=== PATIENT | female | born 1940 | race Caucasian/White ===

== ENCOUNTER 2019-10-16 11:52 | Emergency (ER) | payer MEDICARE, OTHER, SELFPAY ==
[2019-10-16] VITALS (7 sets, daily range): BP systolic 109–154; BP diastolic 50–66; PULSE 77–87; RESP 16–20; TEMP 36.8; O2SAT 94–99; BMI 17.8
--- NOTE | 2019-10-16 12:12 | ED_ITS ---
Entered by Ai Justice, acting as scribe for Mark Horvath MD, [facility] [place] - General Adult General: Chief complaint: General Medical Stated complaint: LOWER EXT EDEMA, L ARM PAIN Time Seen by Provider: 10/16/19 12:02 Source: patient Mode of arrival: EMS Limitations: no limitations History of Present Illness: HPI narrative: 79 yo Female presents to ED with complaint of left upper extremity pain, bilateral leg swelling and redness. Pt states that the pain in her arm is going up from her hand and that her hand has never hurt like this before. Pt states that she has also had swelling and redness in her feet and lower legs. Pt states that she has had a heart attack before but she doesn't feel like she did during that heart attack. Pt states that she got scratched by a cat on Monday on her leg. complaint: Upper Extremity Pain/Lower extremity swelling and redness Onset (ago): day(s) Location: upper extremity and lower extremity Radiation: non-radiation Relieving factors: none Exacerbating factors: none Associated symptoms: Deny chest pain, dyspnea, headache(s), nausea, rash, palpitations or vomiting Treatments prior to arrival: none Review of Systems General: Reports: 10 or more systems reviewed and unremarkable except in HPI and below Const: Denies: fever, chills or body aches Eyes: Denies: change in vision or blurry vision ENMT: Denies: throat pain, enlarged tonsils, painful swallowing, hoarseness, mouth pain or swelling of lips/tongue Card: Denies: chest pain, palpitations, irregular heart rhythm, edema or swelling of feet/ankles Resp: Denies: shortness of breath, productive cough or non-productive cough GI: Denies: abdominal pain, nausea or vomiting : Denies: flank pain, difficulty urinating, painful urination, urinary frequency, urinary urgency or urinary hesitancy Musc: Reports: extremity pain (left upper), extremity swelling (bilateral lower) and redness; Denies: neck pain or back pain Skin/Breast: Reports: redness; Denies: rash or itching Neuro: Denies: headache, numbness in extremities or weakness in extremities Endo: Denies: excessive urination, excessive thirst or tired all the time [facility] ED PFSH: Medical History ASCVD (arteriosclerotic cardiovascular disease) CVA (cerebral vascular accident) GERD (gastroesophageal reflux disease) Mixed incontinence urge and stress Family History Family/Other No problems noted. Mother Myocardial infarction Sister Myocardial infarction Father Diabetes Other Cancer Hypertension Social History Smoking and tobacco status: former smoker Quit status (tobacco): has quit using tobacco Year quit tobacco: 2001 Alcohol intake: never Lives independently: Yes Household members: none Marital status: / Current occupational status: retired History of recent travel: No Current gender identity: Female Physical Exam Const: COMMON NORMALS: no apparent distress, average body habitus, oriented x3, no limitations, healthy appearing, alert and well nourished HENMT: COMMON NORMALS: normocephalic, head/scalp atraumatic and moist oral mucous membranes HEAD & SCALP: normocephalic and atraumatic Eye: COMMON NORMALS: PERRL, EOMs intact bilaterally, conjunctivae normal and no scleral icterus CONJUNCTIVA: Yes conjunctivae normal PUPIL: Yes PERRL Neck/C-Spine: COMMON NORMALS: full ROM, supple, no meningeal signs, no JVD and no carotid bruits Chest: COMMONS NORMALS: inspection of chest normal and palpation of chest normal Resp: COMMON NORMALS: normal respiratory effort, no retractions, no use of accessory muscles, clear to auscultation bilaterally and percussion normal AUSCULTATION: clear to auscultation bilaterally PERCUSSION: percussion normal Cardio: COMMON NORMALS: no JVD, regular rate, regular rhythm, S1 normal heart sound, S2 normal heart sound, no gallops, no clicks, no murmurs, no rub and peripheral pulses 2+ throughout RATE: regular rate RHYTHM: regular rhythm HEART SOUNDS: S1 normal and S2 normal PERIPHERAL PULSES: pulses 2+ throughout GI: COMMON NORMALS: normal to inspection, nondistended, normoactive bowel sounds, soft to palpation, non-tender, no hepatosplenomegaly, no masses and no bruits PALPATION: Yes soft and Yes no hepatosplenomegaly : COMMON NORMALS: Yes no CVA tenderness BLADDER/KIDNEY EXAM: Yes no CVA tenderness Back/Pelvis: COMMON NORMALS: no CVA tenderness Extremity: COMMON NORMALS: full ROM, normal capillary refill and no calf tenderness; negative for normal to inspection GENERAL: Yes normal exam except as noted and Yes edema (2+ left lower, 3+ right lower) OTHER: Erythema, warmth, tenderness, swelling in distal legs and feet. Brisk cap refill. Dorsalis pedis pulses palpable bilaterally. Neuro: COMMON NORMALS: oriented x3 SENSORIUM/ORIENTATION: Yes alert MENINGEAL SIGNS: Yes no meningeal signs Skin: COMMON NORMALS: no rashes or lesions noted, no wounds, skin turgor normal, no jaundice, no petechiae and no mottling GENERAL SKIN EXAM: no rashes or lesions noted and turgor normal Course Vital Signs: Vital signs: Vital Signs Temperature 98.3 F 10/16/19 12:03 Pulse Rate 86 10/16/19 18:00 Respiratory Rate 16 10/16/19 17:38 Blood Pressure 143/66 10/16/19 18:00 Pulse Oximetry 95 10/16/19 18:00 MDM - General Adult MDM Narrative: Medical decision making narrative: 79-year-old female patient who presented to the emergency department with left arm pain, as well as bilateral lower leg pain. She was evaluated for a cardiac cause of her arm pain and she had a flat 2 hour delta with a mildly elevated troponin. She is being managed as a case of cellulitis to her lower legs secondary to an animal scratch. She was given a dose of Rocephin here, and discharged home on Augmentin. Medical Records: Attestation: I reviewed the patient's medical records. Lab Data: Attestation: I reviewed the patient's lab results. Labs: Lab Results 10/16/19 10/16/19 10/16/19 Range/Units 13:40 13:40 13:40 WBC 7.6 (4.0-10.0) 10^3/ uL RBC 3.89 L (4.1-5.3) 10^6/u L Hgb 10.8 L (11.5-15.3) g/dL Hct 34.6 L (37.0-47.0) % MCV 88.9 (81-99) fL MCH 27.8 L (28.0-34.0) pg MCHC 31.2 (30.0-36.0) g/dL RDW 13.2 (12.1-15.1) % Plt Count 183 (130-400) 10^3/c mm MPV 10.6 H (7.4-10.4) fL Neut % (Auto) 68.2 % Lymph % (Auto) 18.7 % [place] % (Auto) 7.4 % Eos % (Auto) 4.7 % Baso % (Auto) 0.7 % Neut # (Auto) 5.2 (1.8-7.7) 10^3/u L Lymph # (Auto) 1.4 (0.8-4.8) 10^3/u L [place] # (Auto) 0.6 (0.2-0.9) 10^3/u L Eos # (Auto) 0.4 (0.0-0.8) 10^3/u L Baso # (Auto) 0.1 (0.0-0.1) 10^3/u L Nucleated RBC % (a uto) 0 % Nucleated RBCs # 0.0 /100WBC Sodium 134 L (136-145) mmol/L Potassium 3.8 (3.5-5.1) mmol/L Chloride 94 L (98-107) mmol/L Carbon Dioxide 30 H (22-29) mmol/L Anion Gap 13.8 (5-19) BUN 8 (8-23) mg/dL Creatinine 0.6 (0.5-0.9) mg/dL Glucose 88 (65-115) mg/dL Lactate 1.4 (0.5-2.2) mmol/L Calcium 9.7 (8.5-10.5) mg/dL Total Bilirubin 0.3 (0.15-1.2) mg/dL AST 27 (0-32) U/L ALT 15 (0-33) U/L Alkaline Phosphata se 100 (35-105) IU/L Troponin T Baselin e (0-10) ng/mL Troponin T 120 Min [place] (0-10) ng/mL Delta Troponin T (0-10) ABS# Total Protein 7.0 (6.6-8.7) g/dL Albumin 4.1 (3.5-5.2) g/dL Globulin 2.9 (1.3-4.6) g/dL 10/16/19 10/16/19 Range/Units 13:40 15:35 WBC (4.0-10.0) 10^3/ uL RBC (4.1-5.3) 10^6/u L Hgb (11.5-15.3) g/dL Hct (37.0-47.0) % MCV (81-99) fL MCH (28.0-34.0) pg MCHC (30.0-36.0) g/dL RDW (12.1-15.1) % Plt Count (130-400) 10^3/c mm MPV (7.4-10.4) fL Neut % (Auto) % Lymph % (Auto) % [place] % (Auto) % Eos % (Auto) % Baso % (Auto) % Neut # (Auto) (1.8-7.7) 10^3/u L Lymph # (Auto) (0.8-4.8) 10^3/u L [place] # (Auto) (0.2-0.9) 10^3/u L Eos # (Auto) (0.0-0.8) 10^3/u L Baso # (Auto) (0.0-0.1) 10^3/u L Nucleated RBC % (a uto) % Nucleated RBCs # /100WBC Sodium (136-145) mmol/L Potassium (3.5-5.1) mmol/L Chloride (98-107) mmol/L Carbon Dioxide (22-29) mmol/L Anion Gap (5-19) BUN (8-23) mg/dL Creatinine (0.5-0.9) mg/dL Glucose (65-115) mg/dL Lactate (0.5-2.2) mmol/L Calcium (8.5-10.5) mg/dL Total Bilirubin (0.15-1.2) mg/dL AST (0-32) U/L ALT (0-33) U/L Alkaline Phosphata se (35-105) IU/L Troponin T Baselin e 22 H (0-10) ng/mL Troponin T 120 [address] [place] 21.13 H (0-10) ng/mL Delta Troponin T -0.87 L (0-10) ABS# Total Protein (6.6-8.7) g/dL Albumin (3.5-5.2) g/dL Globulin (1.3-4.6) g/dL Imaging Data^: CXR: Radiologist's impression: [address] [address] XRay Report Signed Patient: Sneha Smith #: [id number] : 1941Acct#:[id number] Age/Sex: 79 / FADM Date: 10/16/19 Loc: ERRoom/Bed: Attending Dr: Ordering Provider/Ordering MD: Mark Horvath MD, [facility] [place] of Service: 10/16/19 Procedure(s): XR chest 2V* 26344 Accession Number(s): [id number] Report Number: [id number] WS: [id number] XR chest 2V* [id number] REASON FOR EXAM: chest pain FINDINGS: Upper aerated lungs with findings hemidiaphragm are seen with decre ased vascularity consistent with chronic obstructive pulmonary disease. The overall appearance the chest is similar to July 31, 2019. A scoliotic curve convex to the left is seen. A granuloma seen in the right apex of lung no tumors are seen. Arteriosclerotic changes in the arch of the aorta. The heart is small. XR/XR chest 2V* [id number] IMPRESSION: Chronic obstructive pulmonary disease. Dictated By:Chon Jimenez DO Signed By:Chon Jimenez DOSigned Date/Time:10/16/191337 DD/ EKG Data^: EKG 1: Attestation: I personally reviewed and interpreted this EKG as follows: EKG interpretation date: 10/16/19 EKG interpretation time: 13:13 Prior EKG tracings: not available for review Interpretation: Sinus rhythm. Heart rate 78. Normal axis. No ST changes. Computer generated interpretation: Chest X-Ray 10/16/19 13:00 IMPRESSION: Chronic obstructive pulmonary disease. EKG 2: Attestation: I personally reviewed and interpreted this EKG as follows: EKG interpretation date: 10/16/19 EKG interpretation time: 15:28 Prior EKG tracings: available for review Interpretation: No changes compared to earlier today Computer generated interpretation: Chest X-Ray 10/16/19 13:00 IMPRESSION: Chronic obstructive pulmonary disease. Discharge Plan Discharge Patient Disposition: Home, Self-Care Clinical Impression: Cellulitis Qualifiers: Site of cellulitis: extremity Site of cellulitis of extremity: lower extremity Laterality: unspecified laterality Qualified Code(s): L03.119 - Cellulitis of unspecified part of limb Condition: Stable Prescriptions: New Augmentin 875-125 mg tablet 1 tab PO BID Qty: 14 RF: 0 Continued oxybutynin chloride 15 mg tablet extended release 24hr 15 mg PO DAILY RF: 0 albuterol sulfate [ProAir HFA] 90 mcg/actuation HFA aerosol inhaler 2 puff INHALATION Q6H PRN (Reason: Shortness Of Breath) RF: 0 benzonatate [Tessalon Perles] 100 mg capsule 100 mg PO BID PRN (Reason: Cough) RF: 0 nystatin 100,000 unit/gram powder 1 applic TOPICAL BID PRN (Reason: UNKNOWN) RF: 0 furosemide 20 mg tablet 20 mg PO EVERY OTHER DAY PRN (Reason: Edema) RF: 0 potassium chloride 20 mEq tablet extended release 20 meq PO BID RF: 0 losartan 50 mg tablet 50 mg PO DAILY RF: 0 ondansetron HCl [Zofran] 4 mg tablet 4 mg PO Q8H PRN (Reason: UNKNOWN) RF: 0 diazepam [Valium] 5 mg tablet 5 mg PO BID PRN (Reason: Anxiety) RF: 0 calcium carb and citrate-vitD3 [Citracal + D Slow Release] 600 mg calcium- 500 unit tablet extended release 3 tab PO DAILY RF: 0 folic acid 1 tab PO DAILY RF: 0 ferrous sulfate [Feosol] 325 mg (65 mg iron) tablet 325 mg PO DAILY RF: 0 cyanocobalamin (vitamin B-12) [Vitamin B-12] 250 mcg tablet 250 mcg PO DAILY RF: 0 sumatriptan succinate [Imitrex] 50 mg tablet 50 mg PO Q2H PRN (Reason: Migraine Headache) RF: 0 magnesium oxide 500 mg capsule 500 mg PO DAILY RF: 0 aspirin [Adult Aspirin Regimen] 81 mg tablet,delayed release (DR/EC) 81 mg PO DAILY RF: 0 diphenhydramine HCl [Benadryl] 25 mg capsule 25 mg PO TID PRN (Reason: UNKNOWN) RF: 0 metoprolol tartrate 50 mg tablet 50 mg PO BID RF: 0 nitroglycerin 6.5 mg capsule, extended release 6.5 mg PO BID RF: 0 omeprazole 20 mg capsule,delayed release(DR/EC) 20 mg PO BID RF: 0 budesonide [Pulmicort] 0.5 mg/2 mL suspension for nebulization 0.25 mg INHALATION BID RF: 0 ipratropium-albuterol 0.5 mg-3 mg(2.5 mg base)/3 mL solution for nebulization 3 ml INHALATION QID RF: 0 tramadol 50 mg tablet 50 mg PO BID PRN (Reason: pain) 30 Days Qty: 60 RF: 5 nystatin 100,000 unit/mL suspension 1 ml PO TID 30 Days Qty: 90 RF: 0 Discharge Orders: Discharge Order (Routine); Ordered 10/16/19 Ordered By: Mark Horvath Referrals: Gibson Bo MD [Primary Care Provider] - 4-7 days Patient Instructions: Cellulitis (ED) Activity Restrictions/Additional Instructions: Return for any new or worsening symptoms. Follow up with your primary care provider within one week. Take the antibiotic as prescribed. Discharge Date/Time: 10/16/19 19:15 Coding Level of Care Code ED Manager [employer] for Chg Fwd Exam Comprehensive The documentation recorded by the Vinh narayan Carmen, accurately reflects the service I personally performed and the decisions made by Yuliet covarrubias Adegoke I, MD, [facility] [place] Oct 16, 2019 11:52
--- NOTE | 2019-10-16 12:17 | PC.NURSE ---
redness noted to bilateral lower extremities (ankle area)
--- NOTE | 2019-10-16 13:00 | ECG_ITS ---
Measurements Intervals [place] Rate: 78 P: 76 AR: 138 QRS: 51 QRSD: 82 T: 45 QT: 359 QTc: 410 SINUS RHYTHM Compared to ECG 07/31/2019 23:18:29 ST (T wave) deviation no longer present Electronically Signed On 10-16-2019 13:17:01 BAR SUPERVISOR by Radha Zuniga M.D. [email or web address]
--- NOTE | 2019-10-16 13:00 | XR_ITS ---
WS: [id number] XR chest 2V* [id number] REASON FOR EXAM: chest pain FINDINGS: Upper aerated lungs with findings hemidiaphragm are seen with decreased vascularity consist ent with chronic obstructive pulmonary disease. The overall appearance the chest is similar to July 31, 2019. A scoliotic curve convex to the left is seen. A granuloma seen in the right apex of lung no tumors are seen. Arteriosclerotic changes in the arch of the aorta. The heart is small. XR/XR chest 2V* 29160 IMPRESSION: Chronic obstructive pulmonary disease.
[2019-10-16 14:00] LABS: Basophils # 0.1 10^3/uL (0.0-0.1); Basophils % 0.7 %; Eosinophils # 0.4 10^3/uL (0.0-0.8); Eosinophils % 4.7 %; Hematocrit 34.6 % (37.0-47.0); Hemoglobin 10.8 g/dL (11.5-15.3); Lymphocytes # 1.4 10^3/uL (0.8-4.8); Lymphocytes % 18.7 %; Mean Corpuscular HGB Conc 31.2 g/dL (30.0-36.0); Mean Corpuscular Hemoglobin 27.8 pg (28.0-34.0); Mean Corpuscular Volume 88.9 fL (81-99); Mean Platelet Volume 10.6 fL (7.4-10.4); Monocytes # 0.6 10^3/uL (0.2-0.9); Monocytes % 7.4 %; Neutrophils # 5.2 10^3/uL (1.8-7.7); Neutrophils % 68.2 %; Nucleated Red Blood Cells % 0 %; Platelet Count 183 10^3/cmm (130-400); Red Blood Count 3.89 10^6/uL (4.1-5.3); Red Cell Distribution Width 13.2 % (12.1-15.1); White Blood Count 7.6 10^3/uL (4.0-10.0)
[2019-10-16 14:15] LABS: Alanine Aminotransferase 15 U/L (0-33); Albumin Level 4.1 g/dL (3.5-5.2); Alkaline Phosphatase 100 IU/L (35-105); Anion Gap 13.8 (5-19); Aspartate Amino Transferase 27 U/L (0-32); Blood Urea Nitrogen 8 mg/dL (8-23); Calcium 9.7 mg/dL (8.5-10.5); Carbon Dioxide 30 mmol/L (22-29); Chloride 94 mmol/L (98-107); Globulin 2.9 g/dL (1.3-4.6); Glucose 88 mg/dL (65-115); Lactate (Lactic Acid level) 1.4 mmol/L (0.5-2.2); Potassium 3.8 mmol/L (3.5-5.1); Sodium 134 mmol/L (136-145); Total Bilirubin 0.3 mg/dL (0.15-1.2)
[2019-10-16 14:17] LABS: Troponin(5th) Baseline 22 ng/mL (0-10)
--- NOTE | 2019-10-16 15:00 | ECG_ITS ---
Measurements Intervals [place] Rate: 76 P: 77 ME: 139 QRS: 55 QRSD: 85 T: 40 QT: 367 QTc: 414 SINUS RHYTHM Compared to ECG 10/16/2019 13:13:29 No significant changes Electronically Signed On 10-16-2019 17:29:47 TRACTOR MECHANIC HELPER by Radha Zuniga M.D. [email or web address]
[2019-10-16 15:59] LABS: Troponin 5 2HR 21.13 ng/mL (0-10)
[2019-10-16 16:11] LABS: Troponin 5 2HR Delta -0.87 ABS# (0-10)
[2019-10-16] MEDS: cefTRIAXone 1,000 MG in sodium chloride 0.9% (plus) 50 ML 100 MG IV (16:18)
[2019-10-16] MEDS: fentaNYL 50 mcg/mL INJ 2mL IVP (17:38)
== END 2019-10-16 19:15 | disposition home or self-care (01) ==
PROVIDERS: Emergency Provider Family Medicine; Family Provider Family Medicine; PCP Family Medicine
DX: L03.116 Cellulitis of left lower limb (principal); L03.115 Cellulitis of right lower limb; I25.10 Atherosclerotic heart disease of native coronary artery without angina pectoris; Z87.891 Personal history of nicotine dependence; Z86.73 Personal history of transient ischemic attack (TIA), and cerebral infarction without residual deficits
CPT/HCPCS: 36415; 71046; 80053; 83605; 84484; 85025; 87040; 93005; 96365; 96366; 96375; 99283; 99284; J0696; J3010

== ENCOUNTER 2019-12-28 05:14 | Emergency (ER) | payer MEDICARE, OTHER, SELFPAY ==
[2019-12-28] VITALS (10 sets, daily range): BP systolic 103–138; BP diastolic 54–80; PULSE 60–67; RESP 16–20; TEMP 36.5–36.6; O2SAT 96–99; BMI 17.4
--- NOTE | 2019-12-28 05:34 | ED_ITS ---
Documented by User: Ananth Whitmore DO 12/29/19 01:23 HPI - Chest Pain General: Chief Complaint: Chest Pain Stated Complaint: chest pain/sob Time Seen by Provider: 12/28/19 05:24 History of Present Illness: HPI narrative: 79-year-old female with chest discomfort since 8 PM last night. She also complains of a headache. No cough, fever, sputum production, or increased swelling. Denies having stents in her heart or other heart problems. She does see pulmonary for a lung problem. MD complaint: chest pain Onset (ago): hour(s) (10) Prior episodes: Yes Severity: severe Quality: heaviness Relieving factors: nitroglycerin Exacerbating factors: exertion Associated symptoms: Reports dyspnea; Deny abdominal pain, fever(s), leg edema, nausea, palpitations or vomiting Review of Systems Const: Denies: fever Eyes: Denies: change in vision or blurry vision ENMT: Denies: painful swallowing, Change in hearing, nose bleeds, post nasal drip or facial/sinus pain Card: Reports: chest pain; Denies: palpitations, irregular heart rhythm or edema Resp: Reports: shortness of breath GI: Denies: abdominal pain, nausea or vomiting : Denies: painful urination or blood in urine Musc: Denies: neck pain, back pain or joint warmth Skin/Breast: Denies: rash, itching or redness Neuro: Reports: headache and dizziness; Denies: vertigo, confusion or seizure-like activity Psych: Denies: anxiety PFSH ED PFSH: Medical History (Updated 12/28/19 @ 09:55 by Alfonso Siegel DO) ASCVD (arteriosclerotic cardiovascular disease) CVA (cerebral vascular accident) Essential (primary) hypertension GERD (gastroesophageal reflux disease) Lumbar disc disease with radiculopathy Mixed incontinence urge and stress Social History Smoking and tobacco status: former smoker Quit status (tobacco): has quit using tobacco Year quit tobacco: 2001 Alcohol intake: never Lives independently: Yes Household members: none Marital status: / Current occupational status: retired History of recent travel: No Current gender identity: Female Physical Exam Const: GENERAL APPEARANCE: well developed ORIENTATION/CONSCIOUSNESS: Yes oriented to person, Yes oriented to place and Yes oriented to time HENMT: COMMON NORMALS: normocephalic, external ears normal and external nose normal HEAD & SCALP: normocephalic FACE & SINUS: normal facial exam NOSE: external nose normal and no nasal discharge EXTERNAL EAR: Yes external ears normal MOUTH: tongue normal Eye: COMMON NORMALS: PERRL, EOMs intact bilaterally and conjunctivae normal EYELID: eyelids normal CONJUNCTIVA: Yes conjunctivae normal PUPIL: Yes PERRL Chest: COMMONS NORMALS: inspection of chest normal CHEST: No tenderness Resp: EFFORT & INSPECTION: No tachypneic, No respiratory distress, No retractions, No uses accessory muscles and No tracheal deviation AUSCULTATION: no rhonchi and no wheezes Cardio: COMMON NORMALS: regular rate and regular rhythm RATE: regular rate RHYTHM: regular rhythm HEART SOUNDS: no murmurs PERIPHERAL PULSES: radial pulses present GI: COMMON NORMALS: soft to palpation INSPECTION: No abdominal distension AUSCULTATION: No hyperactive bowel sounds and No hypoactive bowel sounds PALPATION: Yes soft, Yes tender (Epigastric), No guarding and No rigid PERCUSSION: no dullness to percussion and no tympanic to percussion Neuro: SENSORIUM/ORIENTATION: Yes oriented to person, Yes oriented to place and Yes oriented to time Psych: COMMON NORMALS: mental status grossly normal Skin: COMMON NORMALS: no rashes or lesions noted GENERAL SKIN EXAM: no rashes or lesions noted Course ED course: 79-year-old female presents with chest discomfort and headache. Symptoms were much improved after nitroglycerin. Her vitals are stable. Saturations are 98%. She does wear oxygen all the time and has a history of lung disease. No history of cardiac disease. Her blood pressure is 127/78. Her CBC is normal. Her EKG is normal. Other labs are pending. She will be checked out to Dr. Siegel at shift change Vital Signs: Vital signs: Vital Signs Temperature 97.8 F 12/28/19 10:48 Pulse Rate 63 12/28/19 10:48 Respiratory Rate 20 H 12/28/19 10:48 Blood Pressure 103/60 12/28/19 10:48 Pulse Oximetry 96 12/28/19 10:48 MDM - Chest Pain Lab Data: Labs: Lab Results 12/28/19 12/28/19 12/28/19 Range/Units 05:15 05:15 06:10 WBC 6.8 (4.0-10.0) 10^3/ uL RBC 4.58 (4.1-5.3) 10^6/u L Hgb 12.6 (11.5-15.3) g/dL Hct 41.5 (37.0-47.0) % MCV 90.6 (81-99) fL MCH 27.5 L (28.0-34.0) pg MCHC 30.4 (30.0-36.0) g/dL RDW 12.5 (12.1-15.1) % Plt Count 155 (130-400) 10^3/c mm MPV 12.2 H (7.4-10.4) fL Neut % (Auto) 44.4 % Lymph % (Auto) 34.7 % Kay % (Auto) 7.1 % Eos % (Auto) 12.7 % Baso % (Auto) 1.0 % Neut # (Auto) 3.0 (1.8-7.7) 10^3/u L Lymph # (Auto) 2.3 (0.8-4.8) 10^3/u L Kay # (Auto) 0.5 (0.2-0.9) 10^3/u L Eos # (Auto) 0.9 H (0.0-0.8) 10^3/u L Baso # (Auto) 0.1 (0.0-0.1) 10^3/u L Nucleated RBC % (a uto) 0 % Nucleated RBCs # 0.0 /100WBC PT 12.20 (10.5-13.3) SECO NDS INR 0.88 (0.8-1.2) APTT 24.4 (23.9-36.7) SECO NDS Sodium 141 (136-145) mmol/L Potassium 4.6 (3.5-5.1) mmol/L Chloride 99 (98-107) mmol/L Carbon Dioxide 34 H (22-29) mmol/L Anion Gap 12.6 (5-19) BUN 12 (8-23) mg/dL Creatinine 0.7 (0.5-0.9) mg/dL Glucose 90 (65-115) mg/dL Calculated Osmolal ity 288 (285-295) mOsm/k g Calcium 9.3 (8.5-10.5) mg/dL Total Bilirubin 0.2 (0.15-1.2) mg/dL AST 29 (0-32) U/L ALT 15 (0-33) U/L Alkaline Phosphata se 99 (35-105) IU/L Troponin T Baselin e (0-10) ng/mL Troponin T 120 Min port gamble (0-10) ng/mL Delta Troponin T (0-10) ABS# NT-Pro-B Natriuret Pep 271 (0-450) pg/mL Total Protein 6.7 (6.6-8.7) g/dL Albumin 3.8 (3.5-5.2) g/dL Globulin 2.9 (1.3-4.6) g/dL Urine Color (Yellow) Urine Appearance (CLEAR) Urine pH (5-7) Ur Specific Gravit y (1.005-1.030) Urine Protein (Negative) Urine Glucose (UA) (Normal) Urine Ketones (Negative) Urine Blood (Negative) Urine Nitrate (Negative) Urine Bilirubin (NEGATIVE) Urine Urobilinogen (Negative) mg/dL Ur Leukocyte Chelsy ase (Negative) Urine RBC (0-2) /hpf Urine WBC (0-5) /hpf Ur Squamous Epith Cells (0-5) Ur Transition Epit h Cell /hpf Urine Bacteria (NONE) Urine Mucus 12/28/19 12/28/19 12/28/19 Range/Units 06:10 08:50 08:57 WBC (4.0-10.0) 10^3/ uL RBC (4.1-5.3) 10^6/u L Hgb (11.5-15.3) g/dL Hct (37.0-47.0) % MCV (81-99) fL MCH (28.0-34.0) pg MCHC (30.0-36.0) g/dL RDW (12.1-15.1) % Plt Count (130-400) 10^3/c mm MPV (7.4-10.4) fL Neut % (Auto) % Lymph % (Auto) % Kay % (Auto) % Eos % (Auto) % Baso % (Auto) % Neut # (Auto) (1.8-7.7) 10^3/u L Lymph # (Auto) (0.8-4.8) 10^3/u L Kay # (Auto) (0.2-0.9) 10^3/u L Eos # (Auto) (0.0-0.8) 10^3/u L Baso # (Auto) (0.0-0.1) 10^3/u L Nucleated RBC % (a uto) % Nucleated RBCs # /100WBC PT (10.5-13.3) SECO NDS INR (0.8-1.2) APTT (23.9-36.7) SECO NDS Sodium (136-145) mmol/L Potassium (3.5-5.1) mmol/L Chloride (98-107) mmol/L Carbon Dioxide (22-29) mmol/L Anion Gap (5-19) BUN (8-23) mg/dL Creatinine (0.5-0.9) mg/dL Glucose (65-115) mg/dL Calculated Osmolal ity (285-295) mOsm/k g Calcium (8.5-10.5) mg/dL Total Bilirubin (0.15-1.2) mg/dL AST (0-32) U/L ALT (0-33) U/L Alkaline Phosphata se (35-105) IU/L Troponin T Baselin e 18 H (0-10) ng/mL Troponin T 120 Min port gamble 18.65 H (0-10) ng/mL Delta Troponin T 0.65 (0-10) ABS# NT-Pro-B Natriuret Pep (0-450) pg/mL Total Protein (6.6-8.7) g/dL Albumin (3.5-5.2) g/dL Globulin (1.3-4.6) g/dL Urine Color Yellow (Yellow) Urine Appearance Clear (CLEAR) Urine pH 6 (5-7) Ur Specific Gravit y 1.015 (1.005-1.030) Urine Protein Neg (Negative) Urine Glucose (UA) Norm (Normal) Urine Ketones Negative (Negative) Urine Blood Neg (Negative) Urine Nitrate Negative (Negative) Urine Bilirubin Neg (NEGATIVE) Urine Urobilinogen Norm (Negative) mg/dL Ur Leukocyte Chelsy ase 1+ H (Negative) Urine RBC None (0-2) /hpf Urine WBC 5-10 H (0-5) /hpf Ur Squamous Epith Cells 0-4 H (0-5) Ur Transition Epit h Cell 0-4 /hpf Urine Bacteria Trace (NONE) Urine Mucus Trace Discharge Plan Discharge Patient Disposition: Home, Self-Care Clinical Impression: Chest pain, ASCVD (arteriosclerotic cardiovascular disease), Cystitis Condition: Stable Prescriptions: New Macrobid 100 mg capsule 100 mg PO BID 7 Days Qty: 14 RF: 0 No Action tramadol 50 mg tablet 50 mg PO TID PRN (Reason: pain) 30 Days Qty: 90 RF: 5 albuterol sulfate [ProAir HFA] 90 mcg/actuation HFA aerosol inhaler 2 puff INHALATION Q6H PRN (Reason: Shortness Of Breath) RF: 0 nystatin 100,000 unit/gram powder 1 applic TOPICAL BID PRN (Reason: UNKNOWN) RF: 0 furosemide 20 mg tablet 20 mg PO EVERY OTHER DAY PRN (Reason: Edema) RF: 0 potassium chloride 20 mEq tablet extended release 20 meq PO BID RF: 0 losartan 50 mg tablet 50 mg PO DAILY RF: 0 ondansetron HCl [Zofran] 4 mg tablet 4 mg PO Q8H PRN (Reason: UNKNOWN) RF: 0 calcium carb and citrate-vitD3 [Citracal-D3 Slow Release] 600 mg calcium- 500 unit tablet extended release 3 tab PO DAILY RF: 0 folic acid 1 tab PO DAILY RF: 0 ferrous sulfate [Feosol] 325 mg (65 mg iron) tablet 325 mg PO DAILY RF: 0 cyanocobalamin (vitamin B-12) [Vitamin B-12] 250 mcg tablet 250 mcg PO DAILY RF: 0 sumatriptan succinate [Imitrex] 50 mg tablet 50 mg PO Q2H PRN (Reason: Migraine Headache) RF: 0 magnesium oxide 500 mg capsule 500 mg PO DAILY RF: 0 aspirin [Adult Aspirin Regimen] 81 mg tablet,delayed release (DR/EC) 81 mg PO DAILY RF: 0 diphenhydramine HCl [Benadryl] 25 mg capsule 25 mg PO TID PRN (Reason: UNKNOWN) RF: 0 metoprolol tartrate 50 mg tablet 50 mg PO BID RF: 0 nitroglycerin 6.5 mg capsule, extended release 6.5 mg PO BID RF: 0 omeprazole 20 mg capsule,delayed release(DR/EC) 20 mg PO BID RF: 0 budesonide [Pulmicort] 0.5 mg/2 mL suspension for nebulization 0.25 mg INHALATION BID RF: 0 ipratropium-albuterol 0.5 mg-3 mg(2.5 mg base)/3 mL solution for nebulization 3 ml INHALATION QID RF: 0 benzonatate [Tessalon Perles] 100 mg capsule 100 mg PO BID PRN (Reason: Cough) 30 Days Qty: 60 RF: 1 diazepam [Valium] 5 mg tablet 5 mg PO BID PRN (Reason: Anxiety) 30 Days Qty: 60 RF: 2 prednisone 5 mg tablet See Rx Instructions PO TID 30 Days Qty: 60 RF: 3 promethazine-codeine 6.25-10 mg/5 mL syrup 5 ml PO Q6H PRN (Reason: cough) Qty: 180 RF: 0 oxybutynin chloride 15 mg tablet extended release 24hr 15 mg PO DAILY Qty: 30 RF: 6 Augmentin 875-125 mg tablet 1 tab PO BID Qty: 14 RF: 0 Discharge Orders: Discharge Order (Routine); Ordered 12/28/19 Ordered By: Alfonso Siegel Referrals: Zaida Phan MD [Physician] - (Follow-up on episode of chest pain) Discharge Diet: Usual diet Discharge Activity: Limit activity as instructed Activity Restrictions/Additional Instructions: Case management will call to make an arrangement for a follow-up appointment with Dr. Phan Discharge Date/Time: 12/28/19 11:21 Sign Out Sign Out Data: Patient Sign Out occurred on 12/28/19 at 06:27. Patient's care was discussed, and care was transferred from to Alfonso Siegel DO. 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 Did pick this patient up from Dr. Whitmore at change of shift. She usually sees Dr. Phan she intermittently does have chest pain she has nitro at home she did not take any last night. Its resolved now and she is asking to be discharged. [facility] ED PFSH: Medical History (Updated 12/28/19 @ 09:55 by Alfonso Siegel DO) ASCVD (arteriosclerotic cardiovascular disease) CVA (cerebral vascular accident) Essential (primary) hypertension GERD (gastroesophageal reflux disease) Lumbar disc disease with radiculopathy Mixed incontinence urge and stress Social History Smoking and tobacco status: former smoker Quit status (tobacco): has quit using tobacco Year quit tobacco: 2001 Alcohol intake: never Lives independently: Yes Household members: none Marital status: / Current occupational status: retired History of recent travel: No Current gender identity: Female Physical Exam Const: COMMON NORMALS: no apparent distress GENERAL APPEARANCE: cooperative and comfortable ORIENTATION/CONSCIOUSNESS: Yes awake, Yes oriented to person, Yes oriented to place and Yes oriented to time Eye: COMMON NORMALS: PERRL, EOMs intact bilaterally, conjunctivae normal and no scleral icterus CONJUNCTIVA: Yes conjunctivae normal PUPIL: Yes PERRL Neck/C-Spine: COMMON NORMALS: full ROM, no lymphadenopathy, supple and no JVD Lymph: LYMPHATIC: no lymphadenopathy noted and no lymphedema noted Resp: COMMON NORMALS: normal respiratory effort, no retractions, no use of accessory muscles and clear to auscultation bilaterally AUSCULTATION: clear to auscultation bilaterally Cardio: COMMON NORMALS: no JVD, regular rate, regular rhythm and no murmurs RATE: regular rate RHYTHM: regular rhythm Extremity: COMMON NORMALS: normal to inspection, normal capillary refill, no clubbing, cyanosis or edema, no calf tenderness and no pedal edema Neuro: SENSORIUM/ORIENTATION: Yes oriented to person, Yes oriented to place and Yes oriented to time Skin: COMMON NORMALS: no rashes or lesions noted GENERAL SKIN EXAM: no rashes or lesions noted Course Vital Signs: Vital signs: Vital Signs Temperature 97.8 F 12/28/19 10:48 Pulse Rate 63 12/28/19 10:48 Respiratory Rate 20 H 12/28/19 10:48 Blood Pressure 103/60 12/28/19 10:48 Pulse Oximetry 96 12/28/19 10:48 MDM - Chest Pain MDM Narrative: Medical decision making narrative: Troponins delta is negative. We are to go ahead and discharge her home. Follow-up with Dr. Phan as an outpatient. If she has any recurrence of symptoms return she does have sublingual nitro available she should use that if she has more chest pain. Did advise her if she has need of the sublingual nitro she should call EMS and return to the emergency room to be reevaluated. We will have case management get her set up for follow-up appointment Dr. Phan next week. Lab Data: Labs: Lab Results 12/28/19 12/28/19 12/28/19 Range/Units 05:15 05:15 06:10 WBC 6.8 (4.0-10.0) 10^3/ uL RBC 4.58 (4.1-5.3) 10^6/u L Hgb 12.6 (11.5-15.3) g/dL Hct 41.5 (37.0-47.0) % MCV 90.6 (81-99) fL MCH 27.5 L (28.0-34.0) pg MCHC 30.4 (30.0-36.0) g/dL RDW 12.5 (12.1-15.1) % Plt Count 155 (130-400) 10^3/c mm MPV 12.2 H (7.4-10.4) fL Neut % (Auto) 44.4 % Lymph % (Auto) 34.7 % Kay % (Auto) 7.1 % Eos % (Auto) 12.7 % Baso % (Auto) 1.0 % Neut # (Auto) 3.0 (1.8-7.7) 10^3/u L Lymph # (Auto) 2.3 (0.8-4.8) 10^3/u L Kay # (Auto) 0.5 (0.2-0.9) 10^3/u L Eos # (Auto) 0.9 H (0.0-0.8) 10^3/u L Baso # (Auto) 0.1 (0.0-0.1) 10^3/u L Nucleated RBC % (a uto) 0 % Nucleated RBCs # 0.0 /100WBC PT 12.20 (10.5-13.3) SECO NDS INR 0.88 (0.8-1.2) APTT 24.4 (23.9-36.7) SECO NDS Sodium 141 (136-145) mmol/L Potassium 4.6 (3.5-5.1) mmol/L Chloride 99 (98-107) mmol/L Carbon Dioxide 34 H (22-29) mmol/L Anion Gap 12.6 (5-19) BUN 12 (8-23) mg/dL Creatinine 0.7 (0.5-0.9) mg/dL Glucose 90 (65-115) mg/dL Calculated Osmolal ity 288 (285-295) mOsm/k g Calcium 9.3 (8.5-10.5) mg/dL Total Bilirubin 0.2 (0.15-1.2) mg/dL AST 29 (0-32) U/L ALT 15 (0-33) U/L Alkaline Phosphata se 99 (35-105) IU/L Troponin T Baselin e (0-10) ng/mL Troponin T 120 Min port gamble (0-10) ng/mL Delta Troponin T (0-10) ABS# NT-Pro-B Natriuret Pep 271 (0-450) pg/mL Total Protein 6.7 (6.6-8.7) g/dL Albumin 3.8 (3.5-5.2) g/dL Globulin 2.9 (1.3-4.6) g/dL Urine Color (Yellow) Urine Appearance (CLEAR) Urine pH (5-7) Ur Specific Gravit y (1.005-1.030) Urine Protein (Negative) Urine Glucose (UA) (Normal) Urine Ketones (Negative) Urine Blood (Negative) Urine Nitrate (Negative) Urine Bilirubin (NEGATIVE) Urine Urobilinogen (Negative) mg/dL Ur Leukocyte Chelsy ase (Negative) Urine RBC (0-2) /hpf Urine WBC (0-5) /hpf Ur Squamous Epith Cells (0-5) Ur Transition Epit h Cell /hpf Urine Bacteria (NONE) Urine Mucus 12/28/19 12/28/19 12/28/19 Range/Units 06:10 08:50 08:57 WBC (4.0-10.0) 10^3/ uL RBC (4.1-5.3) 10^6/u L Hgb (11.5-15.3) g/dL Hct (37.0-47.0) % MCV (81-99) fL MCH (28.0-34.0) pg MCHC (30.0-36.0) g/dL RDW (12.1-15.1) % Plt Count (130-400) 10^3/c mm MPV (7.4-10.4) fL Neut % (Auto) % Lymph % (Auto) % Kay % (Auto) % Eos % (Auto) % Baso % (Auto) % Neut # (Auto) (1.8-7.7) 10^3/u L Lymph # (Auto) (0.8-4.8) 10^3/u L Kay # (Auto) (0.2-0.9) 10^3/u L Eos # (Auto) (0.0-0.8) 10^3/u L Baso # (Auto) (0.0-0.1) 10^3/u L Nucleated RBC % (a uto) % Nucleated RBCs # /100WBC PT (10.5-13.3) SECO NDS INR (0.8-1.2) APTT (23.9-36.7) SECO NDS Sodium (136-145) mmol/L Potassium (3.5-5.1) mmol/L Chloride (98-107) mmol/L Carbon Dioxide (22-29) mmol/L Anion Gap (5-19) BUN (8-23) mg/dL Creatinine (0.5-0.9) mg/dL Glucose (65-115) mg/dL Calculated Osmolal ity (285-295) mOsm/k g Calcium (8.5-10.5) mg/dL Total Bilirubin (0.15-1.2) mg/dL AST (0-32) U/L ALT (0-33) U/L Alkaline Phosphata se (35-105) IU/L Troponin T Baselin e 18 H (0-10) ng/mL Troponin T 120 Min port gamble 18.65 H (0-10) ng/mL Delta Troponin T 0.65 (0-10) ABS# NT-Pro-B Natriuret Pep (0-450) pg/mL Total Protein (6.6-8.7) g/dL Albumin (3.5-5.2) g/dL Globulin (1.3-4.6) g/dL Urine Color Yellow (Yellow) Urine Appearance Clear (CLEAR) Urine pH 6 (5-7) Ur Specific Gravit y 1.015 (1.005-1.030) Urine Protein Neg (Negative) Urine Glucose (UA) Norm (Normal) Urine Ketones Negative (Negative) Urine Blood Neg (Negative) Urine Nitrate Negative (Negative) Urine Bilirubin Neg (NEGATIVE) Urine Urobilinogen Norm (Negative) mg/dL Ur Leukocyte Chelsy ase 1+ H (Negative) Urine RBC None (0-2) /hpf Urine WBC 5-10 H (0-5) /hpf Ur Squamous Epith Cells 0-4 H (0-5) Ur Transition Epit h Cell 0-4 /hpf Urine Bacteria Trace (NONE) Urine Mucus Trace Discharge Plan Discharge Patient Disposition: Home, Self-Care Clinical Impression: Chest pain, ASCVD (arteriosclerotic cardiovascular disease), Cystitis Condition: Stable Prescriptions: New Macrobid 100 mg capsule 100 mg PO BID 7 Days Qty: 14 RF: 0 No Action tramadol 50 mg tablet 50 mg PO TID PRN (Reason: pain) 30 Days Qty: 90 RF: 5 albuterol sulfate [ProAir HFA] 90 mcg/actuation HFA aerosol inhaler 2 puff INHALATION Q6H PRN (Reason: Shortness Of Breath) RF: 0 nystatin 100,000 unit/gram powder 1 applic TOPICAL BID PRN (Reason: UNKNOWN) RF: 0 furosemide 20 mg tablet 20 mg PO EVERY OTHER DAY PRN (Reason: Edema) RF: 0 potassium chloride 20 mEq tablet extended release 20 meq PO BID RF: 0 losartan 50 mg tablet 50 mg PO DAILY RF: 0 ondansetron HCl [Zofran] 4 mg tablet 4 mg PO Q8H PRN (Reason: UNKNOWN) RF: 0 calcium carb and citrate-vitD3 [Citracal-D3 Slow Release] 600 mg calcium- 500 unit tablet extended release 3 tab PO DAILY RF: 0 folic acid 1 tab PO DAILY RF: 0 ferrous sulfate [Feosol] 325 mg (65 mg iron) tablet 325 mg PO DAILY RF: 0 cyanocobalamin (vitamin B-12) [Vitamin B-12] 250 mcg tablet 250 mcg PO DAILY RF: 0 sumatriptan succinate [Imitrex] 50 mg tablet 50 mg PO Q2H PRN (Reason: Migraine Headache) RF: 0 magnesium oxide 500 mg capsule 500 mg PO DAILY RF: 0 aspirin [Adult Aspirin Regimen] 81 mg tablet,delayed release (DR/EC) 81 mg PO DAILY RF: 0 diphenhydramine HCl [Benadryl] 25 mg capsule 25 mg PO TID PRN (Reason: UNKNOWN) RF: 0 metoprolol tartrate 50 mg tablet 50 mg PO BID RF: 0 nitroglycerin 6.5 mg capsule, extended release 6.5 mg PO BID RF: 0 omeprazole 20 mg capsule,delayed release(DR/EC) 20 mg PO BID RF: 0 budesonide [Pulmicort] 0.5 mg/2 mL suspension for nebulization 0.25 mg INHALATION BID RF: 0 ipratropium-albuterol 0.5 mg-3 mg(2.5 mg base)/3 mL solution for nebulization 3 ml INHALATION QID RF: 0 benzonatate [Tessalon Perles] 100 mg capsule 100 mg PO BID PRN (Reason: Cough) 30 Days Qty: 60 RF: 1 diazepam [Valium] 5 mg tablet 5 mg PO BID PRN (Reason: Anxiety) 30 Days Qty: 60 RF: 2 prednisone 5 mg tablet See Rx Instructions PO TID 30 Days Qty: 60 RF: 3 promethazine-codeine 6.25-10 mg/5 mL syrup 5 ml PO Q6H PRN (Reason: cough) Qty: 180 RF: 0 oxybutynin chloride 15 mg tablet extended release 24hr 15 mg PO DAILY Qty: 30 RF: 6 Augmentin 875-125 mg tablet 1 tab PO BID Qty: 14 RF: 0 Discharge Orders: Discharge Order (Routine); Ordered 12/28/19 Ordered By: Alfonso Siegel Referrals: Zaida Phan MD [Physician] - (Follow-up on episode of chest pain) Discharge Diet: Usual diet Discharge Activity: Limit activity as instructed Activity Restrictions/Additional Instructions: Case management will call to make an arrangement for a follow-up appointment with Dr. Phan Discharge Date/Time: 12/28/19 11:21 Sign Out Sign Out Data: Patient Sign Out occurred on 12/28/19 at 06:27. Patient's care was discussed, and care was transferred from to Alfonso Siegel DO. 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
--- NOTE | 2019-12-28 05:34 | XRR_ITS ---
PROCEDURE INFORMATION: Exam: XR Chest, 1 View Exam date and time: 12/28/2019 6:12 AM Age: 79 years old Clinical indication: Chest pain; Type not specified; Additional info: Cp TECHNIQUE: Imaging protocol: XR of the chest Views: 1 view. COMPARISON: CR XR chest 2V* [id number] 10/16/2019 1:22 PM FINDINGS: Lungs: Calcified pulmonary granulomatous change noted. Pleural space: No pneumothorax. Heart/Mediastinum: Unremarkable. No cardiomegaly. Bones/joints: Suture anchor again seen proximal right humerus. XR/XR chest 1V portable [id number] IMPRESSION: No acute findings.
[2019-12-28 05:45] LABS: Basophils # 0.1 10^3/uL (0.0-0.1); Eosinophils # 0.9 10^3/uL (0.0-0.8); Eosinophils % 12.7 %; Hematocrit 41.5 % (37.0-47.0); Hemoglobin 12.6 g/dL (11.5-15.3); Lymphocytes # 2.3 10^3/uL (0.8-4.8); Lymphocytes % 34.7 %; Mean Corpuscular HGB Conc 30.4 g/dL (30.0-36.0); Mean Corpuscular Hemoglobin 27.5 pg (28.0-34.0); Mean Corpuscular Volume 90.6 fL (81-99); Mean Platelet Volume 12.2 fL (7.4-10.4); Monocytes # 0.5 10^3/uL (0.2-0.9); Monocytes % 7.1 %; Neutrophils % 44.4 %; Nucleated Red Blood Cells % 0 %; Platelet Count 155 10^3/cmm (130-400); Red Blood Count 4.58 10^6/uL (4.1-5.3); Red Cell Distribution Width 12.5 % (12.1-15.1); White Blood Count 6.8 10^3/uL (4.0-10.0)
[2019-12-28] MEDS: fentaNYL 50 mcg/mL INJ 2mL 25 MCG IVP (05:52)
[2019-12-28] MEDS: ondansetron 2 mg/ML SDV 2 mL 4 MG IVP (05:53)
[2019-12-28 06:02] LABS: INR 0.88 (0.8-1.2)
[2019-12-28 06:03] LABS: Partial Thromboplastin Time 24.4 SECONDS (23.9-36.7)
--- NOTE | 2019-12-28 06:47 | PC.NURSE ---
Pt now rating H/A 2/10 scale with nausea now resolved
[2019-12-28 06:56] LABS: Alanine Aminotransferase 15 U/L (0-33); Albumin Level 3.8 g/dL (3.5-5.2); Alkaline Phosphatase 99 IU/L (35-105); Anion Gap 12.6 (5-19); Aspartate Amino Transferase 29 U/L (0-32); Blood Urea Nitrogen 12 mg/dL (8-23); Calcium 9.3 mg/dL (8.5-10.5); Carbon Dioxide 34 mmol/L (22-29); Chloride 99 mmol/L (98-107); Creatinine Clr Calc Pharmacy 46.3633; Globulin 2.9 g/dL (1.3-4.6); Glucose 90 mg/dL (65-115); NT Pro B Type Natriuretic Pept 271 pg/mL (0-450); Osmolality Calculated 288 mOsm/kg (285-295); Potassium 4.6 mmol/L (3.5-5.1); Sodium 141 mmol/L (136-145); Total Bilirubin 0.2 mg/dL (0.15-1.2); Total Protein 6.7 g/dL (6.6-8.7)
[2019-12-28 06:57] LABS: Troponin(5th) Baseline 18 ng/mL (0-10)
[2019-12-28 09:26] LABS: Troponin 5 2HR 18.65 ng/mL (0-10); Troponin 5 2HR Delta 0.65 ABS# (0-10)
[2019-12-28 09:27] LABS: Add Urine Microscopic? YES; Bacteria Urine TRACE; Bilirubin Urine Neg (NEGATIVE); Blood Urine Neg (Negative); Glucose Urine UA Norm (Normal); Ketones Urine Negative (Negative); Leukocyte Esterase Urine 1+ (Negative); Mucus Urine TRACE; Nitrate Urine Negative (Negative); Protein Urine Neg (Negative); Specific Gravity, Urine 1.015 (1.005-1.030); Squamous Epithelial Cell Urine 0-4 (0-5); Transitional Epi Cells Urine 0-4 /hpf; Urine Appearance Clear (CLEAR); Urine Color Yellow (Yellow); Urobilinogen Urine Norm (Negative); pH Urine 6 (5-7)
[2019-12-28 09:28] LABS: Add Urine Culture? No
--- NOTE | 2019-12-31 09:29 | DCPLANNER ---
water resource project manager had message to schedule a followup appointment for patient with Dr. Phan at [facility]. water resource project manager called [facility], spoke with Tracey, a follow up appointment was scheduled for Wednesday, January 01, [address] at 10:[address] Phan. Clinic will call patient with appointment information.
--- NOTE | 2020-01-22 08:03 | DCPLANNER ---
Patient attended appointment scheduled with [facility].
== END 2019-12-28 11:21 | disposition home or self-care (01) ==
PROVIDERS: Emergency Medicine; Emergency Provider Family Medicine; Family Provider Family Medicine; PCP Family Medicine
DX: R07.9 Chest pain, unspecified (principal); I25.10 Atherosclerotic heart disease of native coronary artery without angina pectoris; N30.90 Cystitis, unspecified without hematuria; Z79.82 Long term (current) use of aspirin; Z86.73 Personal history of transient ischemic attack (TIA), and cerebral infarction without residual deficits; I10 Essential (primary) hypertension; K21.9 Gastro-esophageal reflux disease without esophagitis; Z87.891 Personal history of nicotine dependence
CPT/HCPCS: 12345; 36415; 71045; 80053; 81001; 83880; 84484; 85025; 85610; 85730; 96374; 96375; 99283; 99284; A9270; J2405; J3010

== ENCOUNTER 2019-12-29 05:07 | Inpatient (IN) | payer MEDICARE, OTHER, SELFPAY ==
[2019-12-29] VITALS (31 sets, daily range): BP systolic 125–222; BP diastolic 67–110; PULSE 63–85; RESP 16–34; TEMP 36.4–36.7; O2SAT 95–100; BMI 17.3
--- NOTE | 2019-12-29 05:42 | XRR_ITS ---
PROCEDURE INFORMATION: Exam: XR Chest, 1 View Exam date and time: 12/29/2019 5:44 AM Age: 79 years old Clinical indication: Shortness of breath; Additional info: SOB TECHNIQUE: Imaging protocol: XR of the chest Views: 1 view. COMPARISON: CR XR chest 1V portable [id number] 12/28/2019 6:04 AM FINDINGS: Lungs: COPD and chronic granulomatous disease. Pleural space: No pleural effusion. Heart/Mediastinum: Normal configuration of the heart. Vasculature: Calcification of the thoracic aorta. Bones/joints: Postoperative change in the right shoulder. Osteopenia. Mild scoliosis. When correlating with the previous study, no significant interval changes are present. XR/XR chest 1V portable [id number] IMPRESSION: COPD and chronic granulomatous disease.
--- NOTE | 2019-12-29 05:43 | ECG_ITS ---
Measurements Intervals [place] Rate: 73 P: 82 WY: 116 QRS: 68 QRSD: 80 T: 68 QT: 370 QTc: 410 SINUS RHYTHM WITH SHORT [place] INTERVAL Compared to ECG 10/16/2019 15:28:26 Short [place] interval now present Electronically Signed On 12-29-2019 17:04:34 CDT by Wilbert Ravi M.D. [email or web address]
[2019-12-29] MEDS: LORazepam 2 mg/mL INJ 1 mL 0.5 MG IVP (05:55)
[2019-12-29 05:56] LABS: Basophils # 0.1 10^3/uL (0.0-0.1); Basophils % 0.9 %; Eosinophils # 0.8 10^3/uL (0.0-0.8); Hematocrit 43.4 % (37.0-47.0); Hemoglobin 13.1 g/dL (11.5-15.3); Lymphocytes # 1.9 10^3/uL (0.8-4.8); Lymphocytes % 28.9 %; Mean Corpuscular HGB Conc 30.2 g/dL (30.0-36.0); Mean Corpuscular Hemoglobin 27.3 pg (28.0-34.0); Mean Corpuscular Volume 90.4 fL (81-99); Mean Platelet Volume 11.6 fL (7.4-10.4); Monocytes # 0.5 10^3/uL (0.2-0.9); Monocytes % 7.1 %; Neutrophils # 3.2 10^3/uL (1.8-7.7); Neutrophils % 49.8 %; Nucleated Red Blood Cells % 0 %; Red Cell Distribution Width 12.3 % (12.1-15.1); White Blood Count 6.5 10^3/uL (4.0-10.0)
[2019-12-29] MEDS: ipratropium-albuterol 3 mL Neb INHALATION (05:57)
[2019-12-29 06:06] LABS: ABG PH Result 7.37 (7.35-7.45); Base Excess ABG 9.6 mmol/L (-2.0-2.0); Blood Gas Allen Test Pos; Blood Gas Sample Site Radial, left; Blood Gas Sample Type Arterial; Carboxyhemoglobin 0.3 %THgb (0.4-20.1); HCO3 ABG 37.1 mmol/L (22-26); HGB O2 Sat 94.2 % (95-100); Methemoglobin 0.9 % (0.4-1.5); PO2 ABG 73.4 mmHg (80.0-100.0); Total Hemoglobin 12.4 g/dL (12-16)
--- NOTE | 2019-12-29 06:06 | W.ED.SOB ---
Documented by User: Shimon Mujica DO 12/29/19 06:09 HPI - SOB/Dyspnea General: Chief Complaint: Shortness of Breath/Dyspnea Stated Complaint: sob Time Seen by Provider: 12/29/19 05:26 Review of Systems General: Reports: 10 or more systems reviewed and unremarkable except in HPI and below Resp: Reports: shortness of breath, non-productive cough and wheezing PFSH ED PFSH: Medical History ASCVD (arteriosclerotic cardiovascular disease) CVA (cerebral vascular accident) Essential (primary) hypertension GERD (gastroesophageal reflux disease) Lumbar disc disease with radiculopathy Mixed incontinence urge and stress Family History Family/Other No problems noted. Mother Myocardial infarction Sister Myocardial infarction Father Diabetes Other Cancer Hypertension Social History Smoking and tobacco status: former smoker Quit status (tobacco): has quit using tobacco Year quit tobacco: 2001 Alcohol intake: never Lives independently: Yes Household members: none Marital status: / Current occupational status: retired History of recent travel: No Current gender identity: Female Physical Exam Narrative: EXAM NARRATIVE: pt was seen in the er last night for copd exacerbation. was dc'd home but reports continued sob without relief from home o2 or nebulizer treatments. Const: COMMON NORMALS: oriented x3 HENMT: COMMON NORMALS: normocephalic and head/scalp atraumatic HEAD & SCALP: normocephalic and atraumatic Resp: EFFORT & INSPECTION: Yes respiratory distress and Yes uses accessory muscles AUSCULTATION: wheezes and diminished lung sounds Cardio: COMMON NORMALS: regular rate and regular rhythm RATE: regular rate RHYTHM: regular rhythm Extremity: COMMON NORMALS: normal to inspection, full ROM and normal capillary refill Neuro: COMMON NORMALS: oriented x3 Course Vital Signs: Vital signs: Vital Signs Temperature 97.5 F L 12/29/19 05:17 Pulse Rate 72 12/29/19 06:03 Respiratory Rate 20 H 12/29/19 05:59 Blood Pressure 222/110 12/29/19 05:17 Pulse Oximetry 99 12/29/19 05:59 MDM - SOB/Dyspnea Lab Data: Labs: Lab Results 12/29/19 Range/Units 06:00 Specimen Type Arterial Sample Site Radial, left ABG pH 7.37 (7.35-7.45) ABG pCO2 64.4 H* (35-45) mmHg ABG pO2 73.4 L (80.0-100.0) mmH g ABG HCO3 37.1 H (22-26) mmol/L ABG Base Excess 9.6 H (-2.0-2.0) mmol/ L Felipe Test Pos Hematocrit 38.0 (37-47) % Hgb O2 Saturation 94.2 L (95-100) % Carboxyhemoglobin 0.3 L (0.4-20.1) %THgb Methemoglobin 0.9 (0.4-1.5) % Total Hemoglobin 12.4 (12-16) g/dL Corporate Real Estate Specialist ID [email or web address] Discharge Plan Discharge Prescriptions: No Action tramadol 50 mg tablet 50 mg PO TID PRN (Reason: pain) 30 Days Qty: 90 RF: 5 albuterol sulfate [ProAir HFA] 90 mcg/actuation HFA aerosol inhaler 2 puff INHALATION Q6H PRN (Reason: Shortness Of Breath) RF: 0 nystatin 100,000 unit/gram powder 1 applic TOPICAL BID PRN (Reason: UNKNOWN) RF: 0 furosemide 20 mg tablet 20 mg PO EVERY OTHER DAY PRN (Reason: Edema) RF: 0 potassium chloride 20 mEq tablet extended release 20 meq PO BID RF: 0 losartan 50 mg tablet 50 mg PO DAILY RF: 0 ondansetron HCl [Zofran] 4 mg tablet 4 mg PO Q8H PRN (Reason: UNKNOWN) RF: 0 calcium carb and citrate-vitD3 [Citracal-D3 Slow Release] 600 mg calcium- 500 unit tablet extended release 3 tab PO DAILY RF: 0 folic acid 1 tab PO DAILY RF: 0 ferrous sulfate [Feosol] 325 mg (65 mg iron) tablet 325 mg PO DAILY RF: 0 cyanocobalamin (vitamin B-12) [Vitamin B-12] 250 mcg tablet 250 mcg PO DAILY RF: 0 sumatriptan succinate [Imitrex] 50 mg tablet 50 mg PO Q2H PRN (Reason: Migraine Headache) RF: 0 magnesium oxide 500 mg capsule 500 mg PO DAILY RF: 0 aspirin [Adult Aspirin Regimen] 81 mg tablet,delayed release (DR/EC) 81 mg PO DAILY RF: 0 diphenhydramine HCl [Benadryl] 25 mg capsule 25 mg PO TID PRN (Reason: UNKNOWN) RF: 0 metoprolol tartrate 50 mg tablet 50 mg PO BID RF: 0 nitroglycerin 6.5 mg capsule, extended release 6.5 mg PO BID RF: 0 omeprazole 20 mg capsule,delayed release(DR/EC) 20 mg PO BID RF: 0 budesonide [Pulmicort] 0.5 mg/2 mL suspension for nebulization 0.25 mg INHALATION BID RF: 0 ipratropium-albuterol 0.5 mg-3 mg(2.5 mg base)/3 mL solution for nebulization 3 ml INHALATION QID RF: 0 benzonatate [Tessalon Perles] 100 mg capsule 100 mg PO BID PRN (Reason: Cough) 30 Days Qty: 60 RF: 1 diazepam [Valium] 5 mg tablet 5 mg PO BID PRN (Reason: Anxiety) 30 Days Qty: 60 RF: 2 prednisone 5 mg tablet See Rx Instructions PO TID 30 Days Qty: 60 RF: 3 promethazine-codeine 6.25-10 mg/5 mL syrup 5 ml PO Q6H PRN (Reason: cough) Qty: 180 RF: 0 oxybutynin chloride 15 mg tablet extended release 24hr 15 mg PO DAILY Qty: 30 RF: 6 Augmentin 875-125 mg tablet 1 tab PO BID Qty: 14 RF: 0 Macrobid 100 mg capsule 100 mg PO BID 7 Days Qty: 14 RF: 0 Coding Level of Care Code ED Front Office Representative for Chg Fwd Exam Detailed Documented by User: Ananth Whitmore DO 12/29/19 06:14 HPI - SOB/Dyspnea General: Chief Complaint: Shortness of Breath/Dyspnea Stated Complaint: sob Time Seen by Provider: 12/29/19 05:26 History of Present Illness: HPI Narrative: 79-year-old female whom I saw yesterday morning in the emergency department for the same complaint essentially. She complains of chest discomfort, shortness of breath, and headache. This morning she is wheezing. She feels like she cannot get her breath. MD elicited complaint: shortness of breath, cough and chest pain Onset (ago): day(s) (2) Timing: constant Severity: moderate Exacerbating factors: exertion and movement Relieving factors: nothing Known history of: COPD Associated symptoms: Reports chest pain, cough and nausea; Deny fever(s) Review of Systems Const: Denies: fever Card: Reports: chest pain GI: Reports: nausea [facility] ED PFSH: Medical History ASCVD (arteriosclerotic cardiovascular disease) CVA (cerebral vascular accident) Essential (primary) hypertension GERD (gastroesophageal reflux disease) Lumbar disc disease with radiculopathy Mixed incontinence urge and stress Family History Family/Other No problems noted. Mother Myocardial infarction Sister Myocardial infarction Father Diabetes Other Cancer Hypertension Social History Smoking and tobacco status: former smoker Quit status (tobacco): has quit using tobacco Year quit tobacco: 2001 Alcohol intake: never Lives independently: Yes Household members: none Marital status: / Current occupational status: retired History of recent travel: No Current gender identity: Female Course Vital Signs: Vital signs: Vital Signs Temperature 97.5 F L 12/29/19 05:17 Pulse Rate 72 12/29/19 06:03 Respiratory Rate 20 H 12/29/19 05:59 Blood Pressure 222/110 12/29/19 05:17 Pulse Oximetry 99 12/29/19 05:59 MDM - SOB/Dyspnea MDM Narrative: Medical decision making narrative: 79-year-old female with complaints of shortness of breath, chest discomfort, and headache. Her oxygen saturations are 96 to 100% on her home O2 setting. She does have a history of COPD. She is hypertensive on arrival which is improved significantly currently. Her heart rate 75. Labs are pending. She will be checked out to Dr. Tarango at shift change. Lab Data: Labs: Lab Results 12/29/19 Range/Units 06:00 Specimen Type Arterial Sample Site Radial, left ABG pH 7.37 (7.35-7.45) ABG pCO2 64.4 H* (35-45) mmHg ABG pO2 73.4 L (80.0-100.0) mmH g ABG HCO3 37.1 H (22-26) mmol/L ABG Base Excess 9.6 H (-2.0-2.0) mmol/ L Felipe Test Pos Hematocrit 38.0 (37-47) % Hgb O2 Saturation 94.2 L (95-100) % Carboxyhemoglobin 0.3 L (0.4-20.1) %THgb Methemoglobin 0.9 (0.4-1.5) % Total Hemoglobin 12.4 (12-16) g/dL Corporate Real Estate Specialist ID case Discharge Plan Discharge Prescriptions: No Action tramadol 50 mg tablet 50 mg PO TID PRN (Reason: pain) 30 Days Qty: 90 RF: 5 albuterol sulfate [ProAir HFA] 90 mcg/actuation HFA aerosol inhaler 2 puff INHALATION Q6H PRN (Reason: Shortness Of Breath) RF: 0 nystatin 100,000 unit/gram powder 1 applic TOPICAL BID PRN (Reason: UNKNOWN) RF: 0 furosemide 20 mg tablet 20 mg PO EVERY OTHER DAY PRN (Reason: Edema) RF: 0 potassium chloride 20 mEq tablet extended release 20 meq PO BID RF: 0 losartan 50 mg tablet 50 mg PO DAILY RF: 0 ondansetron HCl [Zofran] 4 mg tablet 4 mg PO Q8H PRN (Reason: UNKNOWN) RF: 0 calcium carb and citrate-vitD3 [Citracal-D3 Slow Release] 600 mg calcium- 500 unit tablet extended release 3 tab PO DAILY RF: 0 folic acid 1 tab PO DAILY RF: 0 ferrous sulfate [Feosol] 325 mg (65 mg iron) tablet 325 mg PO DAILY RF: 0 cyanocobalamin (vitamin B-12) [Vitamin B-12] 250 mcg tablet 250 mcg PO DAILY RF: 0 sumatriptan succinate [Imitrex] 50 mg tablet 50 mg PO Q2H PRN (Reason: Migraine Headache) RF: 0 magnesium oxide 500 mg capsule 500 mg PO DAILY RF: 0 aspirin [Adult Aspirin Regimen] 81 mg tablet,delayed release (DR/EC) 81 mg PO DAILY RF: 0 diphenhydramine HCl [Benadryl] 25 mg capsule 25 mg PO TID PRN (Reason: UNKNOWN) RF: 0 metoprolol tartrate 50 mg tablet 50 mg PO BID RF: 0 nitroglycerin 6.5 mg capsule, extended release 6.5 mg PO BID RF: 0 omeprazole 20 mg capsule,delayed release(DR/EC) 20 mg PO BID RF: 0 budesonide [Pulmicort] 0.5 mg/2 mL suspension for nebulization 0.25 mg INHALATION BID RF: 0 ipratropium-albuterol 0.5 mg-3 mg(2.5 mg base)/3 mL solution for nebulization 3 ml INHALATION QID RF: 0 benzonatate [Tessalon Perles] 100 mg capsule 100 mg PO BID PRN (Reason: Cough) 30 Days Qty: 60 RF: 1 diazepam [Valium] 5 mg tablet 5 mg PO BID PRN (Reason: Anxiety) 30 Days Qty: 60 RF: 2 prednisone 5 mg tablet See Rx Instructions PO TID 30 Days Qty: 60 RF: 3 promethazine-codeine 6.25-10 mg/5 mL syrup 5 ml PO Q6H PRN (Reason: cough) Qty: 180 RF: 0 oxybutynin chloride 15 mg tablet extended release 24hr 15 mg PO DAILY Qty: 30 RF: 6 Augmentin 875-125 mg tablet 1 tab PO BID Qty: 14 RF: 0 Macrobid 100 mg capsule 100 mg PO BID 7 Days Qty: 14 RF: 0 Coding Level of Care Code ED Front Office Representative for Chg Fwd Exam Detailed
[2019-12-29 06:07] LABS: ABG PCO2 64.4 mmHg (35-45)
[2019-12-29 06:11] LABS: Troponin(5th) Baseline 20 ng/mL (0-10)
[2019-12-29 06:20] LABS: Alanine Aminotransferase 19 U/L (0-33); Albumin Level 4.5 g/dL (3.5-5.2); Alkaline Phosphatase 122 IU/L (35-105); Anion Gap 12.2 (5-19); Aspartate Amino Transferase 28 U/L (0-32); Blood Urea Nitrogen 12 mg/dL (8-23); Calcium 9.9 mg/dL (8.5-10.5); Carbon Dioxide 39 mmol/L (22-29); Chloride 97 mmol/L (98-107); Globulin 3.3 g/dL (1.3-4.6); Glucose 107 mg/dL (65-115); NT Pro B Type Natriuretic Pept 235 pg/mL (0-450); Osmolality Calculated 295 mOsm/kg (285-295); Potassium 4.2 mmol/L (3.5-5.1); Sodium 144 mmol/L (136-145); Total Bilirubin 0.2 mg/dL (0.15-1.2); Total Protein 7.8 g/dL (6.6-8.7)
[2019-12-29 06:24] LABS: Platelet Count 136 10^3/cmm (130-400)
[2019-12-29 06:25] LABS: Slide Review Slide Review Perform
--- NOTE | 2019-12-29 07:43 | ECG_ITS ---
Measurements Intervals [place] Rate: 63 P: 79 NV: 128 QRS: 72 QRSD: 78 T: 48 QT: 429 QTc: 439 SINUS RHYTHM Compared to ECG 10/16/2019 15:28:26 No significant changes Electronically Signed On 12-29-2019 17:06:28 CDT by Wilbert Ravi M.D. [email or web address]
--- NOTE | 2019-12-29 08:03 | PC.NURSE ---
Covid-19 swab collected. Surgical mask placed on patient. Covid-19 precautions started.
[2019-12-29] MEDS: sodium chloride 0.9% 1,000 ML 100 ML IV ×2 (09:07→17:35)
--- NOTE | 2019-12-29 09:41 | P.HP_ITS ---
Providers/Chief Complaint Admitting Physician: Tu Campos Primary Care Provider: Gibson Bo MD Chief Complaint: COPD EXACERBATION History of Present Illness Sneha Smith is a 79 year old female with COPD, on chronic oxygen, which she says at home uses at 4 L/min, recently has been feeling significantly worse, stating that she has not been able to catch her breath, getting dyspneic with even small exertion, despite using nebulizers that have been prescribed to her by her primary care doctor recently. He says that things have gotten much worse in the last 4-5 days, although that her problems with eating overall last for her months now. She does state that she has seen a lung doctor in clinic. She came to ER yesterday for assessment. On documentation I see she was having some chest pain which had resolved. Troponin series with minimal elevation. She sta cristofer she sees Dr. Phan in office. Occasionally gets chest pain. None currently. In ER she is noted with hypoxia, PO2 73.4. Hypercapnia, although compensated at 64.4. She is awake, anxious. She is not a very good historian, but appears she does live alone at home, and does not have any family around. She denies fever. She does have intermittent cough productive of some phlegm. She does report occasional headaches. Review of Systems Const: Reports: fatigue; Denies: fever, chills, body aches or malaise Eyes: Denies: change in vision or eye redness ENMT: Denies: throat pain, oral sores/lesions or ear pain Card: Reports: shortness of breath on exertion and shortness of breath when lying down; Denies: chest pain, edema or pre-syncope Resp: Reports: shortness of breath and productive cough; Denies: coughing up blood GI: Denies: abdominal pain, nausea, vomiting, diarrhea, constipation, blood in stool or black tarry stool : Denies: flank pain, urinary frequency or blood in urine Musc: Denies: back pain, joint swelling or redness Skin/Breast: Denies: rash, sores or new lesion Neuro: Denies: headache, numbness in extremities, weakness in extremities, dizziness, confusion or seizure-like activity Endo: Denies: excessive urination or excessive thirst Koby/Lymph: Denies: easy bleeding or purpura All/Imm: Denies: hives, throat swelling or tongue swelling Medications/Allergies Home Medications Medication Instructions Recorded Confirmed Last Taken Type albuterol sulfate 90 mcg/actuation 2 puff INHALATION Q6H PRN 10/08/19 10/24/19 10/15/19 History aerosol inhaler aspirin 81 mg tablet,delayed 81 mg PO DAILY 10/08/19 10/24/19 10/15/19 History release budesonide 0.5 mg/2 mL suspension 0.25 mg INHALATION BID 10/08/19 10/24/19 10/15/19 History for nebulization calcium carb,cit ER 600 mg 3 tab PO DAILY tab 10/08/19 10/24/19 10/15/19 History calcium-vit D3 500 unit tablet,ext.release cyanocobalamin (vitamin B-12) 250 250 mcg PO DAILY 10/08/19 10/24/19 Unknown History mcg tablet diphenhydramine HCl 25 mg capsule 25 mg PO TID PRN 10/08/19 10/24/19 10/14/19 History ferrous sulfate 325 mg (65 mg 325 mg PO DAILY 10/08/19 10/24/19 Unknown History iron) tablet folic acid 1 tab PO DAILY 10/08/19 10/24/19 Unknown History furosemide 20 mg tablet 20 mg PO EVERY OTHER DAY PRN tab 10/08/19 10/24/19 Unknown History ipratropium 0.5 mg-albuterol 3 mg 3 ml INHALATION QID 10/08/19 10/24/19 10/15/19 History (2.5 mg base)/3 mL nebulization soln losartan 50 mg tablet 50 mg PO DAILY 10/08/19 10/24/19 10/15/19 History magnesium oxide 500 mg capsule 500 mg PO DAILY 10/08/19 10/24/19 10/15/19 History metoprolol tartrate 50 mg tablet 50 mg PO BID 10/08/19 10/24/19 10/15/19 History nitroglycerin 6.5 mg 6.5 mg PO BID 10/08/19 10/24/19 10/15/19 History capsule,extended release nystatin 100,000 unit/gram topical 1 applic TOPICAL BID PRN 10/08/19 10/24/19 10/15/19 History powder omeprazole 20 mg capsule,delayed 20 mg PO BID 02/07/1710/24/19 10/15/19 History release ondansetron HCl 4 mg tablet 4 mg PO Q8H PRN 10/08/19 10/24/19 10/15/19 History potassium chloride 20 mEq 20 meq PO BID 10/08/19 10/24/19 10/15/19 History tablet,extended release sumatriptan succinate 50 mg tablet 50 mg PO Q2H PRN 10/08/19 10/24/19 10/12/19 History amoxicillin-pot clavulanate 1 tab PO BID #14 tab 10/16/19 10/24/19 Unknown Rx [Augmentin] tramadol 50 mg tablet 50 mg PO TID PRN 30 Days #90 tab 10/24/19 10/24/19 Unknown Rx benzonatate 100 mg capsule 100 mg PO BID PRN 30 Days #60 cap 11/04/19 Unknown Rx diazepam 5 mg tablet 5 mg PO BID PRN 30 Days #60 tab 11/06/19 Unknown Rx prednisone 5 mg tablet See Rx Instructions PO TID 30 Days 11/07/19 Unknown Rx #60 tab promethazine 6.25 mg-codeine 10 5 ml PO Q6H PRN #180 ml 12/04/19 Unknown Rx mg/5 mL syrup oxybutynin chloride 15 mg 15 mg PO DAILY #30 tab 12/23/19 Unknown Rx tablet,extended release 24 hr nitrofurantoin monohyd/m-cryst 100 mg PO BID 7 Days #14 cap 12/28/19 Unknown Rx [Macrobid] Allergies Allergy/AdvReac Type Severity Reaction Status Date / Time azithromycin Allergy unknown Verified 10/24/19 08:23 codeine Allergy itch Verified 10/24/19 08:23 hydrocodone Allergy rash Verified 10/24/19 08:23 morphine Allergy itch Verified 10/24/19 08:23 prednisolone Allergy unknown Verified 10/24/19 08:23 prednisone Allergy ADR-Itching Verified 12/29/19 05:17 PFSH Acute PFSH: Medical History ASCVD (arteriosclerotic cardiovascular disease) CVA (cerebral vascular accident) Essential (primary) hypertension GERD (gastroesophageal reflux disease) Lumbar disc disease with radiculopathy Mixed incontinence urge and stress Family History Family/Other No problems noted. Mother Myocardial infarction Sister Myocardial infarction Asthma Father Diabetes Other Cancer Hypertension Social History Smoking and tobacco status: former smoker Quit status (tobacco): has quit using tobacco Year quit tobacco: 2001 Alcohol intake: never Lives independently: Yes Household members: none Marital status: / Current occupational status: retired History of recent travel: No Current gender identity: Female Vitals/I&O/Wt Last Vital Signs Temp 97.5 F L 12/29/19 05:17 Pulse 78 12/29/19 09:00 Resp 16 12/29/19 09:00 BP 126/75 12/29/19 09:00 Pulse Ox 99 12/29/19 09:00 Weight last 48 hrs Weight 47.174 kg Physical Exam Const: COMMON NORMALS: no apparent distress and oriented x3 GENERAL APPEARANCE: anxious HENMT: COMMON NORMALS: oropharynx normal Neck/C-Spine: COMMON NORMALS: no JVD Resp: COMMON NORMALS: normal respiratory effort AUSCULTATION: bronchial breath sounds Cardio: COMMON NORMALS: no JVD, regular rhythm, S1 normal heart sound, S2 normal heart sound and no murmurs RHYTHM: regular rhythm HEART SOUNDS: S1 normal and S2 normal GI: COMMON NORMALS: normal to inspection, nondistended, normoactive bowel sounds, soft to palpation and non-tender PALPATION: Yes soft Extremity: COMMON NORMALS: no joint enlargement and no pedal edema Neuro: COMMON NORMALS: oriented x3 and moves all extremities Skin: COMMON NORMALS: no rashes or lesions noted GENERAL SKIN EXAM: no rashes or lesions noted Data : 12/29/19 05:42 12/29/19 05:42 A&P Assessment and plan (1) Acute exacerbation of chronic obstructive airways disease: Complains of persistent dyspnea, states that she gets dyspneic even with mild exertion. States that she has been using her home nebulizer 4 times a day as given to her by her primary care doctor, still having symptoms. Was in ER yesterday assist for chest pain episode, which had resolved, with unremarkable troponin trend. Currently chest pain-free. Reports intermittent cough, productive of sputum. She does report headache. Given hypoxia, persistent symptoms, will assess her for COVID-19. At this time continue albuterol, Advair, oxygen support. We will also treat with Solu-Medrol, Rocephin due to severe COPD exacerbation with productive cough, dyspnea. In case you are not able to make decisions for herself, she names nephew Tremaine Ramos as surrogate decision-maker. Status: Acute Additional A&P Information Orthopnea: No pulmonary vascular congestion noted on chest x-ray. She does not have peripheral edema. There is perhaps mild JVD. She reports history of coronary disease and follows with Dr. Phan. Echocardiogram back in May with normal ejection fraction and normal diastolic function. Pulmonary artery pressure 27 mmHg. Chronic conditions: medications will need to be reconciled. Attestations Medical Necessity Statement*: Admission of over 2 midnights is continued for assessment management of COPD exacerbation. Coding Level of Care Code Acute Mat Packer for Lorenzo Esteves Diagnoses Acute exacerbation of chronic obstructive airways disease J44.1
[2019-12-29 10:07] LABS: Troponin 5 2HR 14.84 ng/mL (0-10)
[2019-12-29 10:08] LABS: Troponin 5 2HR Delta -5.16 ABS# (0-10)
[2019-12-29] MEDS: heparin 5,000 unit/mL INJ 1 mL 5000 UNIT SUBCUT ×2 (10:40→17:35)
[2019-12-29] MEDS: cefTRIAXone 1,000 MG in sodium chloride 0.9% (plus) 50 ML 100 MG IV ×2 (10:40→21:31)
[2019-12-29 12:23] LABS: Troponin 5 6HR 10.97 ng/mL (0-10)
[2019-12-29 12:29] LABS: Troponin 5 6HR Delta -9.03 ng/L (0-12)
[2019-12-30] VITALS (13 sets, daily range): BP systolic 113–179; BP diastolic 63–95; PULSE 73–118; RESP 16–207; TEMP 36.6–37; O2SAT 94–99
[2019-12-30] MEDS: heparin 5,000 unit/mL INJ 1 mL 5000 UNIT SUBCUT ×3 (01:58→17:55)
[2019-12-30] MEDS: sodium chloride 0.9% 1,000 ML 100 ML IV (03:36)
[2019-12-30 05:43] LABS: Anion Gap 13.8 (5-19); Blood Urea Nitrogen 15 mg/dL (8-23); Calcium 8.5 mg/dL (8.5-10.5); Carbon Dioxide 26 mmol/L (22-29); Chloride 103 mmol/L (98-107); Glucose 169 mg/dL (65-115); Osmolality Calculated 288 mOsm/kg (285-295); Potassium 3.8 mmol/L (3.5-5.1); Sodium 139 mmol/L (136-145)
[2019-12-30 06:02] LABS: Hematocrit 33.7 % (37.0-47.0); Hemoglobin 10.9 g/dL (11.5-15.3); Lymphocytes # 1.1 10^3/uL (0.8-4.8); Lymphocytes % 13.3 %; Mean Corpuscular HGB Conc 32.3 g/dL (30.0-36.0); Mean Corpuscular Hemoglobin 28.5 pg (28.0-34.0); Mean Corpuscular Volume 88.2 fL (81-99); Mean Platelet Volume 11.8 fL (7.4-10.4); Monocytes # 0.1 10^3/uL (0.2-0.9); Monocytes % 1.3 %; Neutrophils # 7.1 10^3/uL (1.8-7.7); Neutrophils % 84.8 %; Nucleated Red Blood Cells % 0 %; Platelet Count 133 10^3/cmm (130-400); Red Blood Count 3.82 10^6/uL (4.1-5.3); Red Cell Distribution Width 12.5 % (12.1-15.1); White Blood Count 8.3 10^3/uL (4.0-10.0)
[2019-12-30] MEDS: acetaminophen 325 mg Tablet 650 MG PO (06:04)
[2019-12-30 07:05] LABS: Slide Review Slide Review Perform
--- NOTE | 2019-12-30 08:26 | PC.NURSE ---
BATH OFFERED THIS NURSE OFFERED BATH TO PATIENT. PATIENT DECLINED AT THIS TIME AND STATED THAT MAYBE LATER SHE WOULD LIKE ONE.
[2019-12-30] MEDS: folic acid 1 mg Tablet PO (10:18)
[2019-12-30] MEDS: oxybutynin 5 mg Tablet 15 MG PO (10:18)
[2019-12-30] MEDS: SUMAtriptan 25 mg Tablet 50 MG PO ×2 (10:18→12:52)
[2019-12-30] MEDS: cefTRIAXone 1,000 MG in sodium chloride 0.9% (plus) 50 ML 100 MG IV ×2 (10:18→21:58)
--- NOTE | 2019-12-30 11:24 | PM.PN ---
Subjective Subjective: Interval history: Having a headache this morning, otherwise breathing perhaps a tad better, but not back to her usual. Still coughing, getting dyspneic. Vitals/I&O/Wt Last Vital Signs Temp 97.8 F 12/30/19 08:00 Pulse 88 12/30/19 09:32 Resp 16 12/30/19 09:31 BP 154/82 12/30/19 08:00 Pulse Ox 96 12/30/19 09:31 12/29/19 12/30/19 12/30/19 22:59 06:59 14:59 Intake Total 2200.667 / 2250.667 1338 / 3588.667 530 / 530 Output Total 400 / 400 Balance 1800.667 / 6544.559 9008 / 3188.667 530 / 530 Weight last 48 hrs Weight 47.174 kg Physical Exam Const: COMMON NORMALS: no apparent distress and oriented x3 GENERAL APPEARANCE: anxious HENMT: COMMON NORMALS: oropharynx normal Neck/C-Spine: COMMON NORMALS: no JVD Resp: COMMON NORMALS: normal respiratory effort AUSCULTATION: diminished lung sounds Cardio: COMMON NORMALS: no JVD, regular rhythm, S1 normal heart sound, S2 normal heart sound and no murmurs RHYTHM: regular rhythm HEART SOUNDS: S1 normal and S2 normal GI: COMMON NORMALS: normal to inspection, nondistended, normoactive bowel sounds, soft to palpation and non-tender PALPATION: Yes soft Extremity: COMMON NORMALS: no joint enlargement and no pedal edema Neuro: COMMON NORMALS: oriented x3 and moves all extremities Skin: COMMON NORMALS: no rashes or lesions noted GENERAL SKIN EXAM: no rashes or lesions noted Data : 12/30/19 04:48 12/30/19 04:48 A&P Assessment and plan (1) Acute exacerbation of chronic obstructive airways disease: Still sounding tight on exam this morning. Intermittent cough. Oxygenation has been stable. Currently on 3 L nasal cannula. COVID-19 pending. Rapid flu negative. Continue Solu-Medrol for now, if does not improve, or worsens may need to increase the dose. Continue Rocephin. At this time continue albuterol, Advair, oxygen support. Status: Acute Additional A&P Information Headache: This morning. She is being tested for COVID-19, however, the headache appears to be more chronic issue with recurrent headaches at home. Describes it as frontal. At home takes tramadol, sumatriptan. Given recurrent headaches recommended she may consider follow-up with neurology in clinic, she verbalized understanding. Orthopnea: No pulmonary vascular congestion noted on chest x-ray. She does not have peripheral edema. There is perhaps mild JVD. She reports history of coronary disease and follows with Dr. Phan. Echocardiogram back in May with normal ejection fraction and normal diastolic function. Pulmonary artery pressure 27 mmHg. I do not think she is currently in failure. Chronic conditions Attestations Medical Necessity Statement*: Continue admission for management of COPD exacerbation, assessment for COVID-19. Coding Level of Care Code Acute Sweeper Driver for Lorenzo Esteves Diagnoses Acute exacerbation of chronic obstructive airways disease J44.1
[2019-12-30] MEDS: lanolin oint 7 gm 1 APPLIC TOPICAL (13:02)
[2019-12-30 13:55] LABS: Coronavirus Lab Test PTC NOT DETECTED
--- NOTE | 2019-12-30 14:20 | PC.NURSE ---
JOSE PUT DEDICATED LOCAL TRUCK DRIVER LIGHT AND TOLD NURSE THAT HER HAS BEEN WAITING OUTSIDE FOR OVER 30 MINUTES AND IF HSE DIDN'T GET TAKEN OUTSIDE SOON SHE WOULD LEAVE HERSELF. DR. CAMARA NOTIFIED AND HOME IV INFUSIONS HAVE BEEN FINISHED BEING SET UP. DISCHARGE ORDERS PLACED IN CHART. PATIENT UPDATED AND WILLING TO WAIT FOR PAPERWORK TO BE FINISHED.
[2019-12-30] MEDS: ipratropium-albuterol 3 mL Neb INHALATION (17:14)
[2019-12-30] MEDS: diazePAM 5 mg Tablet PO (17:14)
[2019-12-30] MEDS: metoprolol tartrate 50 mg Tablet PO (17:55)
[2019-12-30] MEDS: pantoprazole DR 40 mg Tablet PO (17:55)
[2019-12-31] VITALS (17 sets, daily range): BP systolic 132–172; BP diastolic 73–90; PULSE 82–98; RESP 16–24; TEMP 36.5–36.9; O2SAT 94–100
[2019-12-31] MEDS: heparin 5,000 unit/mL INJ 1 mL 5000 UNIT SUBCUT ×3 (02:02→18:25)
[2019-12-31] MEDS: ipratropium-albuterol 3 mL Neb INHALATION ×4 (02:15→21:10)
[2019-12-31 05:21] LABS: Basophils % 0.1 %; Hemoglobin 9.6 g/dL (11.5-15.3); Lymphocytes # 0.9 10^3/uL (0.8-4.8); Lymphocytes % 7.2 %; Mean Corpuscular Hemoglobin 28.1 pg (28.0-34.0); Mean Corpuscular Volume 90.6 fL (81-99); Mean Platelet Volume 11.3 fL (7.4-10.4); Monocytes # 0.7 10^3/uL (0.2-0.9); Monocytes % 5.5 %; Neutrophils # 10.9 10^3/uL (1.8-7.7); Neutrophils % 86.3 %; Nucleated Red Blood Cells % 0 %; Platelet Count 139 10^3/cmm (130-400); Red Blood Count 3.42 10^6/uL (4.1-5.3); Red Cell Distribution Width 13.1 % (12.1-15.1); White Blood Count 12.6 10^3/uL (4.0-10.0)
[2019-12-31 05:47] LABS: Anion Gap 11.7 (5-19); Blood Urea Nitrogen 19 mg/dL (8-23); Calcium 9.2 mg/dL (8.5-10.5); Carbon Dioxide 30 mmol/L (22-29); Chloride 105 mmol/L (98-107); Glucose 140 mg/dL (65-115); Osmolality Calculated 295 mOsm/kg (285-295); Potassium 3.7 mmol/L (3.5-5.1); Sodium 143 mmol/L (136-145)
[2019-12-31] MEDS: pantoprazole DR 40 mg Tablet PO ×2 (09:05→18:25)
[2019-12-31] MEDS: cefTRIAXone 1,000 MG in sodium chloride 0.9% (plus) 50 ML 100 MG IV ×2 (09:05→21:35)
[2019-12-31] MEDS: oxybutynin 5 mg Tablet 15 MG PO (09:05)
[2019-12-31] MEDS: metoprolol tartrate 50 mg Tablet PO ×2 (09:06→18:25)
[2019-12-31] MEDS: ferrous sulfate EC 325 mg Tablet PO (09:06)
[2019-12-31] MEDS: folic acid 1 mg Tablet PO (09:06)
--- NOTE | 2019-12-31 11:29 | PC.CHAP ---
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 [] Patient/Family/Request visit [] Outpatient visit [] Follow-up visit [] Physician referral [] Code/Alert [x] Routine visit [] Staff referral [] Actively dying [] Patient sleeping [] Family support [] [] Out of room [] Palliative care [] [x] Receiving care in room [] Pre-surgical visit [] Trauma [] Long length of stay [] ICU visit [] Other: Relational/Emotional Strength [x] Patient feels connected with others/family/visitors/staff [] Distress [] Loneliness/isolation [] Abandonment Spirituality of Patient [x] Person of [place] [] Attends Sabianism of their [place] [x] Believes in Prayer [] Reads Bible or Confucianist materials [] There are Spiritual issues to be addressed Biomathematician Interventions [x] Prayer [x] Active listening [x] Non-anxious presence [x] Spiritual/emotional support [] Crisis/trauma care [x] Spiritual counseling [] Bereavement support [] Provided bereavement packet [] Provided Bible/devotional materials [] Provided toy/stuffed animal, coloring book to patient or family member [] Provided Communion [] Anointing/[place] [] Salvation [x] Completed spiritual assessment [] Other: Impact on Illness or Injury [] Angry [] Fearful [] Anxious [] Often cries [] Exhaustion [x] Unable to work [] Unable to attend zoroastrianism [] Unable to walk/stand [] Unable to read [x] Unable to drive [] Unable to eat/drink [] Unable to sleep [] Unable to be with family [] Patient intubated [] Other: Summary 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
[2019-12-31] MEDS: predniSONE 20 mg Tablet 40 MG PO (14:28)
[2019-12-31] MEDS: diazePAM 5 mg Tablet PO (15:49)
[2019-12-31] MEDS: benzonatate 100 mg Capsule PO (21:41)
--- NOTE | 2019-12-31 21:51 | P.PN_ITS ---
Subjective Subjective: Interval history: I still get very easily dyspneic . States she got very tired when she tried to walk to the restroom. At the same time during my visit her oxygen is hanging off of the bed rail. Asked her if she was wearing her oxygen and going to the bathroom, and she states no because the cord was too short. Vitals/I&O/Wt Last Vital Signs Temp 98.1 F 12/31/19 20:00 Pulse 98 12/31/19 21:10 Resp 18 12/31/19 21:10 BP 164/78 12/31/19 20:00 Pulse Ox 96 12/31/19 21:10 12/31/19 12/31/19 12/31/19 06:59 14:59 22:59 Intake Total 120 / 1720 290 / 290 240 / 530 Balance 120 / 1270 290 / 290 240 / 530 Physical Exam Const: COMMON NORMALS: no apparent distress and oriented x3 GENERAL APPEARANCE: anxious HENMT: COMMON NORMALS: oropharynx normal Neck/C-Spine: COMMON NORMALS: no JVD Resp: COMMON NORMALS: normal respiratory effort AUSCULTATION: diminished lung sounds (Today I am hearing some air movement compared to yesterday.) Cardio: COMMON NORMALS: no JVD, regular rhythm, S1 normal heart sound, S2 normal heart sound and no murmurs RHYTHM: regular rhythm HEART SOUNDS: S1 normal and S2 normal GI: COMMON NORMALS: normal to inspection, nondistended, normoactive bowel sounds, soft to palpation and non-tender PALPATION: Yes soft Extremity: COMMON NORMALS: no joint enlargement and no pedal edema Neuro: COMMON NORMALS: oriented x3 and moves all extremities Skin: COMMON NORMALS: no rashes or lesions noted GENERAL SKIN EXAM: no rashes or lesions noted Data : 12/31/19 05:04 12/31/19 05:04 A&P Assessment and plan (1) Acute exacerbation of chronic obstructive airways disease: Subjectively the better, but at the same time was noted wearing oxygen. On exam I do hear better movement of air in the lungs. There is no wheezing. Addition her to oral steroid. COVID-19 negative. Rapid flu negative. Continue Rocephin. At this time continue albuterol, ipratropium neb, oxygen support. Status: Acute Additional A&P Information Headache: Resolved. History of recurrent migraines. COVID-19 negative. Consider follow-up with neurology. Orthopnea: No pulmonary vascular congestion noted on chest x-ray. She does not have peripheral edema. There is perhaps mild JVD. She reports history of coronary disease and follows with Dr. Phan. Echocardiogram back in May with normal ejection fraction and normal diastolic function. Pulmonary artery pressure 27 mmHg. I do not think she is currently in failure. Chronic conditions Attestations Medical Necessity Statement*: Continue admission for assessment of management of COPD exacerbation. 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
[2020-01-01] VITALS (9 sets, daily range): BP systolic 148–180; BP diastolic 72–83; PULSE 73–97; RESP 17–18; TEMP 36.4–36.7; O2SAT 87–98
[2020-01-01] MEDS: heparin 5,000 unit/mL INJ 1 mL 5000 UNIT SUBCUT ×3 (01:43→17:47)
[2020-01-01 04:01] LABS: Basophils % 0.1 %; Hematocrit 35.1 % (37.0-47.0); Hemoglobin 10.9 g/dL (11.5-15.3); Lymphocytes # 1.2 10^3/uL (0.8-4.8); Lymphocytes % 10.6 %; Mean Corpuscular HGB Conc 31.1 g/dL (30.0-36.0); Mean Corpuscular Volume 90.2 fL (81-99); Mean Platelet Volume 11.1 fL (7.4-10.4); Monocytes # 0.7 10^3/uL (0.2-0.9); Monocytes % 6.5 %; Neutrophils # 9.1 10^3/uL (1.8-7.7); Neutrophils % 82.1 %; Nucleated Red Blood Cells % 0 %; Platelet Count 142 10^3/cmm (130-400); Red Blood Count 3.89 10^6/uL (4.1-5.3); Red Cell Distribution Width 13.2 % (12.1-15.1); White Blood Count 11.1 10^3/uL (4.0-10.0)
[2020-01-01 04:15] LABS: Anion Gap 13.4 (5-19); Blood Urea Nitrogen 16 mg/dL (8-23); Calcium 9.5 mg/dL (8.5-10.5); Carbon Dioxide 32 mmol/L (22-29); Chloride 99 mmol/L (98-107); Glucose 115 mg/dL (65-115); Osmolality Calculated 289 mOsm/kg (285-295); Potassium 3.4 mmol/L (3.5-5.1); Sodium 141 mmol/L (136-145)
[2020-01-01] MEDS: predniSONE 20 mg Tablet 40 MG PO (08:54)
[2020-01-01] MEDS: oxybutynin 5 mg Tablet 15 MG PO (08:54)
[2020-01-01] MEDS: folic acid 1 mg Tablet PO (08:54)
[2020-01-01] MEDS: ferrous sulfate EC 325 mg Tablet PO (08:54)
[2020-01-01] MEDS: metoprolol tartrate 50 mg Tablet PO ×2 (08:54→17:47)
[2020-01-01] MEDS: pantoprazole DR 40 mg Tablet PO ×2 (08:54→17:47)
[2020-01-01] MEDS: ipratropium-albuterol 3 mL Neb INHALATION (09:33)
[2020-01-01] MEDS: cefTRIAXone 1,000 MG in sodium chloride 0.9% (plus) 50 ML 100 MG IV (10:39)
--- NOTE | 2020-01-01 20:34 | PM.DCS ---
Discharge Providers Date of Admission: 12/30/19 12:24 Date of Discharge: January 01, 2020 Attending Provider at Admission: Tu Campos Attending Provider at Discharge: Tu Campos Primary Care Provider: Gibson Bo MD Diagnoses at Discharge Discharge Diagnosis (1) Acute exacerbation of chronic obstructive airways disease: Status: Acute Reason for Visit Reason for Visit: Reason For Visit: COPD EXACERBATION Hospital Course Hospital Course: Pleasant 79-year-old lady, with history of COPD, at home on chronic 4 L of oxygen by nasal cannula, recently has been having worsening dyspnea, despite using medications prescribed for her by her primary care doctor including nebulization, with breathing getting much worse in the last 4-5 days. On presentation in acute exacerbation of chronic obstructive airway disease. With diminished air entry, mild rhonchi bilaterally, with significant subjective dyspnea, cough productive of purulent sputum. She was admitted for management of severe COPD exacerbation, started on IV steroid, Rocephin, albuterol, Advair and oxygen support. She was assessed for COVID-19 and the test was negative. She endorsed also ongoing orthopnea, however, without signs of vascular congestion on imaging, no JVD, no peripheral edema, with normal EF and normal diastolic function on echocardiogram in May, she was not in heart failure. Her breathing gradually improved. She was successfully transitioned over to oral steroid, and oxygenation remained steady on 3 L nasal cannula, although not infrequently she was seen without oxygen at all. She reports feeling better, and today felt strong enough to return home. We will continue home inhalers, complete a steroid taper and course of antibiotic, and will request that she follow-up with her primary care provider and pulmonology. Physical Exam Const: COMMON NORMALS: no apparent distress and oriented x3 GENERAL APPEARANCE: anxious HENMT: COMMON NORMALS: oropharynx normal Neck/C-Spine: COMMON NORMALS: no JVD Resp: COMMON NORMALS: normal respiratory effort AUSCULTATION: diminished lung sounds (more air movement compared to yesterday.) Cardio: COMMON NORMALS: no JVD, regular rhythm, S1 normal heart sound, S2 normal heart sound and no murmurs RHYTHM: regular rhythm HEART SOUNDS: S1 normal and S2 normal GI: COMMON NORMALS: normal to inspection, nondistended, normoactive bowel sounds, soft to palpation and non-tender PALPATION: Yes soft Extremity: COMMON NORMALS: no joint enlargement and no pedal edema Neuro: COMMON NORMALS: oriented x3 and moves all extremities Skin: COMMON NORMALS: no rashes or lesions noted GENERAL SKIN EXAM: no rashes or lesions noted Discharge Data Data Completed and Pending: Completed Studies During Hospitalization Category Date Time Status XR chest 1V ehsan ble [id number] Urgent Exams 12/29/19 05:42 Completed Labs from last 24 hours 01/01/20 01/01/20 03:40 03:40 WBC 11.1 H RBC 3.89 L Hgb 10.9 L Hct 35.1 L MCV 90.2 MCH 28.0 MCHC 31.1 RDW 13.2 Plt Count 142 MPV 11.1 H Neut % (Auto) 82.1 Lymph % (Auto) 10.6 Jackson % (Auto) 6.5 Eos % (Auto) 0.0 Baso % (Auto) 0.1 Neut # (Auto) 9.1 H Lymph # (Auto) 1.2 Jackson # (Auto) 0.7 Eos # (Auto) 0.0 Baso # (Auto) 0.0 Nucleated RBC % (a uto) 0 Nucleated RBCs # 0.0 Sodium 141 Potassium 3.4 L Chloride 99 Carbon Dioxide 32 H Anion Gap 13.4 BUN 16 Creatinine 0.6 Glucose 115 Calculated Osmolal ity 289 Calcium 9.5 Vitals: Last Vital Signs Temp 97.5 F L 01/01/20 18:51 Pulse 73 01/01/20 18:51 Resp 18 01/01/20 18:51 BP 157/72 01/01/20 18:51 Pulse Ox 92 01/01/20 18:51 Discharge Plan Discharge Patient Disposition: Home, Self-Care Condition: Stable Prescriptions: New prednisone 20 mg Tablet 40 mg PO DAILY Qty: 21 RF: 0 cefdinir 300 mg capsule 300 mg PO BID 5 Days Qty: 10 RF: 0 Continued tramadol 50 mg tablet 50 mg PO TID PRN (Reason: pain) 30 Days Qty: 90 RF: 5 albuterol sulfate [ProAir HFA] 90 mcg/actuation HFA aerosol inhaler 2 puff INHALATION Q6H PRN (Reason: Shortness Of Breath) RF: 0 nystatin 100,000 unit/gram powder 1 applic TOPICAL BID PRN (Reason: UNKNOWN) RF: 0 furosemide 20 mg tablet 20 mg PO EVERY OTHER DAY PRN (Reason: Edema) RF: 0 potassium chloride 20 mEq tablet extended release 20 meq PO BID RF: 0 losartan 50 mg tablet 50 mg PO DAILY RF: 0 ondansetron HCl [Zofran] 4 mg tablet 4 mg PO Q8H PRN (Reason: UNKNOWN) RF: 0 calcium carb and citrate-vitD3 [Citracal-D3 Slow Release] 600 mg calcium- 500 unit tablet extended release 3 tab PO DAILY RF: 0 folic acid 1 tab PO DAILY RF: 0 ferrous sulfate [Feosol] 325 mg (65 mg iron) tablet 325 mg PO DAILY RF: 0 cyanocobalamin (vitamin B-12) [Vitamin B-12] 250 mcg tablet 250 mcg PO DAILY RF: 0 sumatriptan succinate [Imitrex] 50 mg tablet 50 mg PO Q2H PRN (Reason: Migraine Headache) RF: 0 magnesium oxide 500 mg capsule 500 mg PO DAILY RF: 0 aspirin [Adult Aspirin Regimen] 81 mg tablet,delayed release (DR/EC) 81 mg PO DAILY RF: 0 diphenhydramine HCl [Benadryl] 25 mg capsule 25 mg PO TID PRN (Reason: UNKNOWN) RF: 0 metoprolol tartrate 50 mg tablet 50 mg PO BID RF: 0 nitroglycerin 6.5 mg capsule, extended release 6.5 mg PO BID RF: 0 omeprazole 20 mg capsule,delayed release(DR/EC) 20 mg PO BID RF: 0 budesonide [Pulmicort] 0.5 mg/2 mL suspension for nebulization 0.25 mg INHALATION BID RF: 0 ipratropium-albuterol 0.5 mg-3 mg(2.5 mg base)/3 mL solution for nebulization 3 ml INHALATION QID RF: 0 benzonatate [Tessalon Perles] 100 mg capsule 100 mg PO BID PRN (Reason: Cough) 30 Days Qty: 60 RF: 1 diazepam [Valium] 5 mg tablet 5 mg PO BID PRN (Reason: Anxiety) 30 Days Qty: 60 RF: 2 prednisone 5 mg tablet See Rx Instructions PO TID 30 Days Qty: 60 RF: 3 promethazine-codeine 6.25-10 mg/5 mL syrup 5 ml PO Q6H PRN (Reason: cough) Qty: 180 RF: 0 oxybutynin chloride 15 mg tablet extended release 24hr 15 mg PO DAILY Qty: 30 RF: 6 nitrofurantoin monohyd/m-cryst [Macrobid] 100 mg capsule 100 mg PO BID 7 Days Qty: 14 RF: 0 Discontinued amoxicillin-pot clavulanate [Augmentin] 875-125 mg tablet 1 tab PO BID Qty: 14 RF: 0 Discharge Orders: Discharge Order (Routine); Ordered 01/01/20 Ordered By: Tu Campos Other Ambulatory Orders: DME: Oxygen (Order) Location: None Selected Ordered By: Tu Campos Referrals: Gibson Bo MD [Primary Care Provider] - 4-7 days ([facility] will contact you to schedule an follow-up appointment in 4 to 7 days. If, you haven't heard from them in a reasonable amount of time. Please, call ) Anjali Diamond MD [Physician] - 4-7 days (You have an follow-up with Dr. Diamond on January 08 at 1:00p.m. If you have any questions, please call ) Discharge Diet: Cardiac and Soft Mechanical Discharge Activity: Oxygen as instructed Patient Instructions: COPD, Prednisone (By mouth), Cefdinir (By mouth), COPD Stoplight Activity Restrictions/Additional Instructions: Continue oxygen as per home evaluation. Continue nebulizer treatments at home. If you experience progressive shortness of breath, fever, chest pain, or other abnormal symptoms, please seek medical attention. Please wear your oxygen at home, target saturation 88-92%. Please discuss with your primary care doctor about referral to neurology due to recurrent headaches. Continue follow-up with Dr. Phan as before. 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
--- NOTE | 2020-01-02 16:03 | PC.RESP ---
Pulmonary Rehab information sent to patient.
== END 2020-01-01 18:38 | disposition home or self-care (01) | DRG 192 ==
LOC: ER 08:14 → ICU 08:44 → MEDSURG 12-30 21:10
PROVIDERS: Emergency Medicine; Admitting Provider Internal Medicine; Emergency Provider Family Medicine; Family Provider Family Medicine; PCP Family Medicine; Visit Provider Internal Medicine
DX: J44.1 Chronic obstructive pulmonary disease with (acute) exacerbation (principal); Z99.81 Dependence on supplemental oxygen; I25.10 Atherosclerotic heart disease of native coronary artery without angina pectoris; Z86.73 Personal history of transient ischemic attack (TIA), and cerebral infarction without residual deficits; I10 Essential (primary) hypertension; K21.9 Gastro-esophageal reflux disease without esophagitis; M54.16 Radiculopathy, lumbar region; Z87.891 Personal history of nicotine dependence; Z79.51 Long term (current) use of inhaled steroids; Z79.891 Long term (current) use of opiate analgesic
CPT/HCPCS: 12345; 36415; 36600; 71045; 80048; 80053; 81001; 82805; 83880; 84484; 85025; 85610; 85730; 87635; 93005; 94640; 96372; 96374; 96375; 99283; 99284; A9270; G0378; J0696; J1644; J2060; J2405; J2920; J2930; J3010; J7030; J7512

== ENCOUNTER 2020-01-21 19:03 | Emergency (ER) | payer MEDICARE, OTHER, SELFPAY ==
[2020-01-21] VITALS (7 sets, daily range): BP systolic 129–182; BP diastolic 66–87; PULSE 63–77; RESP 14–18; TEMP 36.3; O2SAT 95–100; BMI 17.3
--- NOTE | 2020-01-21 19:05 | CTR_ITS ---
PROCEDURE INFORMATION: Exam: CT Head Without Contrast Exam date and time: 01/21/2020 7:19 PM Age: 79 years old Clinical indication: Other: Headache /n / v; Patient HX: PT C/O headache w/ n & v; Additional info: MATT TECHNIQUE: Imaging protocol: Computed tomography of the head without contrast. Radiation optimization: All CT scans at this facility use at least one of these dose optimization techniques: automated exposure control; mA and/or kV adjustment per patient size (includes targeted exams where dose is matched to clinical indication); or iterative reconstruction. COMPARISON: CT head wo con* [id number] 07/10/2015 10:01 PM FINDINGS: Brain: No visible evidence of acute intracranial pathologic process. Moderately advanced small vessel ischemic disease with senile periventricular leukomalacia. No visible evidence of intracranial hemorrhagic event. Ventricles: Unremarkable for age. No ventriculomegaly. Bones/joints: Unremarkable. No acute fracture. Sinuses: Visualized sinuses are unremarkable. No fluid levels. Mastoid air cells: Visualized mastoid air cells are well aerated. Soft tissues: Unremarkable. CT/CT head wo con* [id number] IMPRESSION: No evidence for acute intracranial pathologic process. Total DLP: 784.7 mGy-cm Radiation Dose CTDIVOL = (mGy): DLP = 784.7 (mGy-cm)
--- NOTE | 2020-01-21 19:16 | W.ED.HA ---
HPI - Headache General: Chief Complaint: General Medical Stated Complaint: HEADACHE Time Seen by Provider: 01/21/20 19:06 Source: patient and EMS Mode of arrival: EMS Limitations: no limitations History of Present Illness: HPI Narrative: 79-year-old female who states she has a history of migraines states she had a migraine headache starting 1 week ago and is worsened throughout the week. She denies this being the worst headache of her life. She does have a light sensitivity. She has had some nausea and vomiting as well with her headache. She denies any fevers. MD elicited complaint: headache Pertinent past history: migraines Onset (ago): week(s) Associated symptoms: Deny chest pain, fever(s), nausea, rash or vomiting Review of Systems Const: Denies: fever(s), chills, body aches or change in appetite Eyes: Denies: blurry vision or eye discomfort ENMT: Denies: throat pain or dental pain Card: Denies: chest pain Resp: Denies: dyspnea GI: Denies: abdominal pain, nausea, vomiting or diarrhea : Denies: dysuria Musc: Denies: neck pain or back pain Skin/Breast: Denies: rash Neuro: Reports: headache(s) Psych: Denies: depression Koby/Lymph: Denies: easy bruising All/Imm: Denies: urticaria PFSH ED PFSH: Medical History 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 Mother Myocardial infarction Sister Myocardial infarction Asthma Father Diabetes Other Cancer Hypertension Social History Smoking and tobacco status: former smoker Quit status (tobacco): has quit using tobacco Year quit tobacco: 2002 - 1PPD x 20 Years Alcohol intake: never Lives independently: Yes Household members: none Marital status: / Current occupational status: retired History of recent travel: No Current gender identity: Female Physical Exam Const: COMMON NORMALS: no acute distress, patient oriented x3 and healthy appearing HENMT: COMMON NORMALS: normocephalic and atraumatic HEAD & SCALP: normocephalic and atraumatic Eye: COMMON NORMALS: Equal, round and reactive pupils present and EOMs intact bilaterally PUPIL: Yes Equal, round and reactive pupils present Neck/C-Spine: COMMON NORMALS: full ROM and supple Chest: COMMONS NORMALS: normal inspection of the chest and normal palpation of entire chest wall Resp: COMMON NORMALS: normal respiratory effort, No retractions, No use of accessory muscles and clear to auscultation bilaterally AUSCULTATION: clear to auscultation bilaterally Cardio: COMMON NORMALS: regular rate, regular rhythm and No murmurs present (Cardio) RATE: regular rate RHYTHM: regular rhythm GI: COMMON NORMALS: Normal to inspection, nondistended, normoactive bowel sounds present, Soft to palpation, non-tender and no masses PALPATION: Yes Soft to palpation Extremity: COMMON NORMALS: normal to inspection and full ROM Neuro: COMMON NORMALS: patient oriented x3, moves all extremities and no focal motor deficits Psych: COMMON NORMALS: mental status grossly normal, Normal thought process present and cooperative THOUGHT PROCESS: Normal thought process present Skin: COMMON NORMALS: no rashes or lesions noted and no wounds GENERAL SKIN EXAM: no rashes or lesions noted Course Vital Signs: Vital signs: Vital Signs Temperature 97.4 F L 01/21/20 19:07 Pulse Rate 66 01/21/20 20:19 Respiratory Rate 18 01/21/20 20:19 Blood Pressure 172/83 01/21/20 19:28 Pulse Oximetry 98 01/21/20 20:19 MDM - Headache MDM Narrative: Medical decision making narrative: Patient presents here with a headache consistent with her previous migraines. Patient's head CT here is normal and she has no signs of subarachnoid hemorrhage or meningitis. Her headache is much improved here after IV meds. Patient is stable for discharge is to follow-up with primary care doctor. Abdominal exam is benign and lab work is normal. Lab Data: Labs: Lab Results 01/21/20 01/21/20 Range/Units 19:30 19:30 WBC 5.7 (4.0-10.0) 10^3/ uL RBC 4.14 (4.1-5.3) 10^6/u L Hgb 11.4 L (11.5-15.3) g/dL Hct 36.8 L (37.0-47.0) % MCV 88.9 (81-99) fL MCH 27.5 L (28.0-34.0) pg MCHC 31.0 (30.0-36.0) g/dL RDW 13.5 (12.1-15.1) % Plt Count 170 (130-400) 10^3/c mm MPV 10.7 H (7.4-10.4) fL Neut % (Auto) 62.7 % Lymph % (Auto) 21.2 % [place] % (Auto) 8.7 % Eos % (Auto) 6.5 % Baso % (Auto) 0.7 % Neut # (Auto) 3.6 (1.8-7.7) 10^3/u L Lymph # (Auto) 1.2 (0.8-4.8) 10^3/u L [place] # (Auto) 0.5 (0.2-0.9) 10^3/u L Eos # (Auto) 0.4 (0.0-0.8) 10^3/u L Baso # (Auto) 0.0 (0.0-0.1) 10^3/u L Nucleated RBC % (a uto) 0 % Nucleated RBCs # 0.0 /100WBC Sodium 139 (136-145) mmol/L Potassium 3.8 (3.5-5.1) mmol/L Chloride 96 L (98-107) mmol/L Carbon Dioxide 33 H (22-29) mmol/L Anion Gap 13.8 (5-19) BUN 7 L (8-23) mg/dL Creatinine 0.5 (0.5-0.9) mg/dL Glucose 111 (65-115) mg/dL Calculated Osmolal ity 285 (285-295) mOsm/k g Calcium 9.5 (8.5-10.5) mg/dL Total Bilirubin 0.3 (0.15-1.2) mg/dL AST 27 (0-32) U/L ALT 18 (0-33) U/L Alkaline Phosphata se 87 (35-105) IU/L Total Protein 6.2 L (6.6-8.7) g/dL Albumin 3.9 (3.5-5.2) g/dL Globulin 2.3 (1.3-4.6) g/dL Lipase 25 (13-60) U/L Imaging Data^: CT Head: Radiologist's impression: [address] [address] [address] Scan Report Signed Patient: Sneha Smith Unit #: [id number] : [id number] Age/Sex: 79 / F ADM Date: 01/21/20 Loc: ER Room/Bed: Attending Dr: Ordering Provider/Ordering MD: Romulo Bettencourt MD Date of Service: 01/21/20 Procedure(s): CT head wo con* [id number] Accession Number(s): [id number] Report Number: [id number] PROCEDURE INFORMATION: Exam: CT Head Without Contrast Exam date and time: 01/21/2020 7:19 PM Age: 79 years old Clinical indication: Other: Headache /n / v; Patient HX: PT C/O headache w/ n v; Additional info: MATT TECHNIQUE: Imaging protocol: Computed tomography of the head without contrast. Radiation optimization: All CT scans at this facility use at least one of these dose optimization techniques: automated exposure control; mA and/or kV adjustment per patient size (includes targeted exams where dose is matched to clinical indication); or iterative reconstruction. COMPARISON: CT head wo con* [id number] 07/10/2015 10:01 PM FINDINGS: Brain: No visible evidence of acute intracranial pathologic process. Moderately advanced small vessel ischemic disease with senile periventricular leukomalacia. No visible evidence of intracranial hemorrhagic event. Ventricles: Unremarkable for age. No ventriculomegaly. Bones/joints: Unremarkable. No acute fracture. Sinuses: Visualized sinuses are unremarkable. No fluid levels. Mastoid air cells: Visualized mastoid air cells are well aerated. Soft tissues: Unremarkable. CT/CT head wo con* [id number] IMPRESSION: No evidence for acute intracranial pathologic process. Total DLP: 784.7 mGy-cm Discharge Plan Discharge Patient Disposition: Home, Self-Care Clinical Impression: Migraine Qualifiers: Migraine type: unspecified Status migrainosus presence: without status migrainosus Intractability: not intractable Qualified Code(s): G43.909 - Migraine, unspecified, not intractable, without status migrainosus Vomiting Qualifiers: Vomiting type: unspecified Vomiting Intractability: non-intractable Nausea presence: with nausea Qualified Code(s): R11.2 - Nausea with vomiting, unspecified Condition: Stable Prescriptions: New Zofran 4 mg tablet 4 mg PO QID PRN (Reason: nausea and vomiting) Qty: 14 RF: 0 No Action tramadol 50 mg tablet 50 mg PO TID PRN (Reason: pain) 30 Days Qty: 90 RF: 5 albuterol sulfate [ProAir HFA] 90 mcg/actuation HFA aerosol inhaler 2 puff INHALATION Q6H PRN (Reason: Shortness Of Breath) RF: 0 furosemide 20 mg tablet 20 mg PO EVERY OTHER DAY PRN (Reason: Edema) RF: 0 potassium chloride 20 mEq tablet extended release 20 meq PO BID RF: 0 losartan 50 mg tablet 10 mg PO DAILY RF: 0 ondansetron HCl [Zofran] 4 mg tablet 4 mg PO Q8H PRN (Reason: UNKNOWN) RF: 0 calcium carb and citrate-vitD3 [Citracal-D3 Slow Release] 600 mg calcium- 500 unit tablet extended release 3 tab PO DAILY RF: 0 folic acid 1 tab PO DAILY RF: 0 ferrous sulfate [Feosol] 325 mg (65 mg iron) tablet 325 mg PO DAILY RF: 0 cyanocobalamin (vitamin B-12) [Vitamin B-12] 250 mcg tablet 250 mcg PO DAILY RF: 0 sumatriptan succinate [Imitrex] 50 mg tablet 50 mg PO Q2H PRN (Reason: Migraine Headache) RF: 0 magnesium oxide 500 mg capsule 500 mg PO DAILY RF: 0 aspirin [Adult Aspirin Regimen] 81 mg tablet,delayed release (DR/EC) 81 mg PO DAILY RF: 0 metoprolol tartrate 50 mg tablet 50 mg PO BID RF: 0 nitroglycerin 6.5 mg capsule, extended release 6.5 mg PO BID RF: 0 omeprazole 20 mg capsule,delayed release(DR/EC) 20 mg PO BID RF: 0 budesonide [Pulmicort] 0.5 mg/2 mL suspension for nebulization 0.25 mg INHALATION BID RF: 0 ipratropium-albuterol 0.5 mg-3 mg(2.5 mg base)/3 mL solution for nebulization 3 ml INHALATION QID RF: 0 revefenacin 175 mcg/3 mL solution for nebulization 175 mcg INHALATION DAILY 30 Days Qty: 90 RF: 3 Perforomist 20 mcg/2 mL solution for nebulization 2 ml INHALATION Q12H 30 Days Qty: 120 RF: 3 budesonide 0.5 mg/2 mL suspension for nebulization 0.5 mg INHALATION BID 30 Days Qty: 120 RF: 3 benzonatate [Tessalon Perles] 100 mg capsule 100 mg PO BID PRN (Reason: Cough) 30 Days Qty: 60 RF: 1 diazepam [Valium] 5 mg tablet 5 mg PO BID PRN (Reason: Anxiety) 30 Days Qty: 60 RF: 2 oxybutynin chloride 15 mg tablet extended release 24hr 15 mg PO DAILY Qty: 30 RF: 6 promethazine-codeine 6.25-10 mg/5 mL syrup 5 ml PO Q6H PRN (Reason: cough) Qty: 180 RF: 0 prednisone 20 mg Tablet 40 mg PO DAILY Qty: 21 RF: 0 Benadryl 50 mg PO DAILY RF: 0 rosuvastatin 10 mg PO DAILY RF: 0 Discharge Orders: Discharge Order (Routine); Ordered 01/21/20 Ordered By: Romulo Bettencourt Referrals: Gibson Bo MD [Primary Care Provider] - 4-7 days Discharge Diet: Advance as tolerated Discharge Activity: Resume usual activity Patient Instructions: Migraine Headache (ED), Acute Nausea and Vomiting (ED) Coding Level of Care Code ED Technical Support Representative for Chg Fwd Exam Comprehensive
[2020-01-21 19:46] LABS: Basophils % 0.7 %; Eosinophils # 0.4 10^3/uL (0.0-0.8); Eosinophils % 6.5 %; Hematocrit 36.8 % (37.0-47.0); Hemoglobin 11.4 g/dL (11.5-15.3); Lymphocytes # 1.2 10^3/uL (0.8-4.8); Lymphocytes % 21.2 %; Mean Corpuscular Hemoglobin 27.5 pg (28.0-34.0); Mean Corpuscular Volume 88.9 fL (81-99); Mean Platelet Volume 10.7 fL (7.4-10.4); Monocytes # 0.5 10^3/uL (0.2-0.9); Monocytes % 8.7 %; Neutrophils # 3.6 10^3/uL (1.8-7.7); Neutrophils % 62.7 %; Nucleated Red Blood Cells % 0 %; Platelet Count 170 10^3/cmm (130-400); Red Blood Count 4.14 10^6/uL (4.1-5.3); Red Cell Distribution Width 13.5 % (12.1-15.1); White Blood Count 5.7 10^3/uL (4.0-10.0)
[2020-01-21 20:03] LABS: Alanine Aminotransferase 18 U/L (0-33); Albumin Level 3.9 g/dL (3.5-5.2); Alkaline Phosphatase 87 IU/L (35-105); Anion Gap 13.8 (5-19); Aspartate Amino Transferase 27 U/L (0-32); Blood Urea Nitrogen 7 mg/dL (8-23); Calcium 9.5 mg/dL (8.5-10.5); Carbon Dioxide 33 mmol/L (22-29); Chloride 96 mmol/L (98-107); Globulin 2.3 g/dL (1.3-4.6); Glucose 111 mg/dL (65-115); Lipase 25 U/L (13-60); Osmolality Calculated 285 mOsm/kg (285-295); Potassium 3.8 mmol/L (3.5-5.1); Sodium 139 mmol/L (136-145); Total Bilirubin 0.3 mg/dL (0.15-1.2); Total Protein 6.2 g/dL (6.6-8.7)
--- NOTE | 2020-01-21 20:50 | PC.NURSE ---
patient to CT
[2020-01-21] MEDS: diphenhydrAMINE 50 mg/mL SDV 1mL 25 MG IVP (21:56)
[2020-01-21] MEDS: metoclopramide 5 mg/mL SDV 2 mL IVP (21:56)
[2020-01-21] MEDS: ketorolac 30 mg/mL INJ 15 MG IVP (21:57)
[2020-01-21] MEDS: sodium chloride 0.9% 500 ML IV (21:57)
== END 2020-01-21 23:21 | disposition home or self-care (01) ==
PROVIDERS: Emergency Provider Emergency Medicine; PCP Family Medicine
DX: G43.909 Migraine, unspecified, not intractable, without status migrainosus (principal); R11.2 Nausea with vomiting, unspecified; Z79.82 Long term (current) use of aspirin; J44.9 Chronic obstructive pulmonary disease, unspecified; Z86.73 Personal history of transient ischemic attack (TIA), and cerebral infarction without residual deficits; I10 Essential (primary) hypertension; E78.2 Mixed hyperlipidemia; Z87.891 Personal history of nicotine dependence
CPT/HCPCS: 12345; 36415; 70450; 80053; 83690; 85025; 96361; 96374; 96375; 99282; J1200; J1885; J2765; J7040

== ENCOUNTER 2020-01-23 07:51 | Emergency (ER) | payer MEDICARE, OTHER, SELFPAY ==
[2020-01-23 07:53] VITALS: BP 206/101; PULSE 77; RESP 18; TEMP 36.7; O2SAT 96; BMI 17.8
--- NOTE | 2020-01-23 07:53 | CT_ITS ---
WS: [id number] CT HEAD NONCONTRAST HISTORY: merino TECHNIQUE: Contiguous axial imaging performed through the brain in 2.5 mm imaging. Bone and soft tiss ue windows. Sagittal and coronal reformats reviewed. All CT scans at [facility] use at ast one of these dose optimization techniques: automated exposure control; mA and/or kV adjustment pe r patient size (includes targeted exams where dose is matched to clinical indication); or iterative r econstruction. DLP: 793.09 mGy.cm COMPARISON: 01/21/2020 No acute intracranial hemorrhage, midline shift or mass effect. Mild atrophy. There is extensive bilateral chronic ischemic changes in the white matter. No prior inf arcts. No interval change since 01/21/2020. Ventricles: Normal size with no hydrocephalus. Severe atherosclerosis within the intracranial carotid arteries. Paranasal sinuses: As visualized are clear. Mastoid air cells: Well pneumatized. Calvarium and scalp: Skull is intact with no soft tissue edema or swelling. CT/CT head wo con* [id number] IMPRESSION: 1. No acute intracranial hemorrhage or edema. 2. Severe chronic microvascular ischemic disease and extensive atherosclerosis intracranial carotid arteries.
--- NOTE | 2020-01-23 07:53 | CT_ITS ---
WS: [id number] CT ABDOMEN AND PELVIS WITH CONTRAST HISTORY: Vomiting TECHNIQUE: Imaging performed of the abdomen and pelvis with IV contrast. Single phase imaging of the abdomen. Coronal and sagittal reformats are submitted. All CT scans at [facility] use at least one of these dose optimization techniques: automated exposure control; mA and/or kV adjustment per patient size (includes targeted exams where dose is matched to clinical indication); or iterativ e reconstruction. IV CONTRAST: Omnipaque 300; 95 mL IV. Oral contrast: No DLP: 453.38 mGy.cm COMPARISON: 10/09/2013 Lower thorax: Stable 2 mm nodule at the RIGHT lung base. Heart is normal size. No hiatal hernia. Liver/biliary system: Normal size with no intrahepatic dilatation. Gallbladder: Mildly contracted gallbladder with no wall thickening or edema. Pancreas: Normal size pancreas for age. The pancreatic duct is slightly prominent at 2 mm. Spleen: Normal. Adrenal glands: Normal. Right kidney: Normal size kidney. Cortical cyst in the lower pole. No hydronephrosis or mass. RIGHT u reter is normal caliber. Left kidney: Normal size with no mass or obstruction. Normal size ureter. Aorta: Moderate atherosclerosis with no aneurysm. Aorta is ectatic. Lymphadenopathy: None. Free fluid: None. GI tract: Diffuse fecal retention. The appendix is normal. No wall thickening. There is moderate dist ention of the stomach with fluid. Abdominal wall: Unremarkable abdominal wall. No hernia. Pelvis: Atrophic uterus. No pelvic mass or fluid. Bones: RIGHT convex rotary scoliosis. No fractures. CT/CT abdomen pelvis w con* [id number] IMPRESSION: 1. Moderate fluid distention of the stomach. 2. Diffuse constipation. No obstruction of the GI tract. 3. No free fluid or free air. 4. Atherosclerosis aorta.
--- NOTE | 2020-01-23 07:53 | CT_ITS ---
WS: [id number] CT ANGIOGRAM CEREBRAL AND CAROTID ARTERIES HISTORY: Headache. TECHNIQUE: CT angiogram is performed of the carotid and cerebral arteries. During arterial injection imaging is obtained from the skull vertex to the aortic arch in 1.25 mm imaging. Coronal and sagittal reformats are submitted. Additional multi planar reformats of the carotid and cerebral arteries are submitted, MIP imaging also reviewed. NASCET criteria utilized. All CT scans at [facility] use at least one of these dose optimization techniques: automated exposure control; mA and/or kV ad justment per patient size (includes targeted exams where dose is matched to clinical indication); or iterative reconstruction. CONTRAST: Omnipaque 350; 95 mL IV. DLP: 1214.33 mGy.cm COMPARISON: None available. Carotid Angiogram: Right carotid: Common carotid artery: Arises normally from the innominate artery. No significant plaque or stenosis. Internal carotid artery: Small noncalcified plaque at the origin. No stenosis. External carotid artery: Patent. Left carotid: Common carotid artery: Arises normally from the aorta. No significant plaque or stenosis. Internal carotid artery: Small amount of calcified plaque at the bifurcation with no stenosis. Stenos is calculated at 36%. External carotid artery: Patent. Right vertebral artery: RIGHT vertebral artery is tortuous. No occlusion or stenosis. Left vertebral artery: Unremarkable. Arises normally from the subclavian artery. Subclavian arteries: No stenosis or significant abnormality. Upper thorax: Normal. Thyroid gland: Normal. Osseous structures: Straightening of the normal cervical lordosis. Severe degenerative disc disease a t C3-4, C4-5 and C5-6. CEREBRAL ANGIOGRAM: Intracranial vertebral arteries: Normal with no significant atherosclerosis. Basilar artery: No significant stenosis or occlusion. No aneurysm. Intracranial Internal carotid arteries: Extensive calcification and tortuosity. Mild ectasia and dila tation through the cavernous sinuses. No focal aneurysm is identified. Middle cerebral arteries: Normal. Anterior cerebral arteries and ACOM: Normal. Posterior cerebral arteries and PCOM's: Posterior cerebral arteries are normal. The LEFT P-comm is ab sent or hypoplastic. Dominant RIGHT P-comm. Dural venous sinuses are normally enhancing. Mastoid air cells: Normal. Paranasal sinuses: Normal. Calvarium: Normal. CT/CT angio headneck* [id number] IMPRESSION: 1. No significant carotid artery stenosis. No dissection. 2. Moderate to severe atherosclerosis of the intracranial carotid arteries wit h ectasia. No occlusions. 3. No enhancing masses within the brain.
--- NOTE | 2020-01-23 07:55 | ECG_ITS ---
Measurements Intervals Cavalier Rate: 80 P: 82 CA: 139 QRS: 67 QRSD: 82 T: 60 QT: 368 QTc: 426 SINUS RHYTHM POSSIBLE LEFT ATRIAL ENLARGEMENT [-0.1mV P WAVE IN V1/V2] Compared to ECG 12/29/2019 06:05:00 Short CA interval no longer present Electronically Signed On 01-23-2020 11:47:48 CDT by David Gomez M.D. [id number]
--- NOTE | 2020-01-23 07:56 | ED_ITS ---
HPI - Headache General: Chief Complaint: Headache Stated Complaint: HEADACHE,NAUSEA Time Seen by Provider: 01/23/20 07:53 Source: patient and EMS Mode of arrival: EMS Limitations: no limitations History of Present Illness: HPI Narrative: 79-year-old female history of migraine headache states she has had a headache over the last 5 days. Patient was seen here 2 days ago and had a normal head CT. Patient states morning her headache worsened and her blood pressure is increased and she had one episode of vomiting. She takes metoprolol 50 mg for her blood pressure at home. She denies any worsening or improving factors. She denies any chest pain. MD elicited complaint: headache and migraine Onset (ago): day(s) Onset description: gradually Severity: moderate Quality & Timing: sharp Exacerbating factors: light Relieving factors: dark room Associated symptoms: Reports nausea and vomiting; Deny chest pain, fever(s) or rash Review of Systems Const: Denies: fever(s), chills, body aches or change in appetite Eyes: Denies: blurry vision or eye discomfort ENMT: Denies: throat pain or dental pain Card: Denies: chest pain Resp: Denies: dyspnea GI: Reports: nausea and vomiting : Denies: dysuria Musc: Denies: neck pain or back pain Skin/Breast: Denies: rash Neuro: Reports: headache(s) Psych: Denies: depression Koby/Lymph: Denies: easy bruising All/Imm: Denies: urticaria PFS ED PFSH: Medical History (Updated 01/23/20 @ 10:15 by Romulo Bettencourt MD) 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 Mother Myocardial infarction Sister Myocardial infarction Asthma Father Diabetes Other Cancer Hypertension Social History Smoking and tobacco status: former smoker Quit status (tobacco): has quit using tobacco Year quit tobacco: 2001 - 1PPD x 20 Years Alcohol intake: never Lives independently: Yes Household members: none Marital status: / Current occupational status: retired History of recent travel: No Current gender identity: Female Physical Exam Const: COMMON NORMALS: no acute distress, patient oriented x3 and healthy appearing HENMT: COMMON NORMALS: normocephalic and atraumatic HEAD & SCALP: normocephalic and atraumatic Eye: COMMON NORMALS: Equal, round and reactive pupils present and EOMs intact bilaterally PUPIL: Yes Equal, round and reactive pupils present Neck/C-Spine: COMMON NORMALS: full ROM and supple Chest: COMMONS NORMALS: normal inspection of the chest and normal palpation of entire chest wall Resp: COMMON NORMALS: normal respiratory effort, No retractions, No use of accessory muscles and clear to auscultation bilaterally AUSCULTATION: clear to auscultation bilaterally Cardio: COMMON NORMALS: regular rate, regular rhythm and No murmurs present (Cardio) RATE: regular rate RHYTHM: regular rhythm GI: COMMON NORMALS: Normal to inspection, nondistended, normoactive bowel sounds present, Soft to palpation, non-tender and no masses PALPATION: Yes Soft to palpation Extremity: COMMON NORMALS: normal to inspection and full ROM Neuro: COMMON NORMALS: patient oriented x3, moves all extremities and no focal motor deficits Psych: COMMON NORMALS: mental status grossly normal, Normal thought process present and cooperative THOUGHT PROCESS: Normal thought process present Skin: COMMON NORMALS: no rashes or lesions noted and no wounds GENERAL SKIN EXAM: no rashes or lesions noted Course Vital Signs: Vital signs: Vital Signs Temperature 98.1 F 01/23/20 07:53 Pulse Rate 73 01/23/20 11:10 Respiratory Rate 13 01/23/20 11:10 Blood Pressure 160/93 01/23/20 11:10 Pulse Oximetry 100 01/23/20 11:10 MDM - Headache MDM Narrative: Medical decision making narrative: Sneha presents here with a headache that is likely migrainous she has history of migraines. Head CT along with CTA showed no signs of aneurysm. She has no neck stiffness or white count with no signs of meningitis. Patient is hypertensive and blood pressure is improved. Will increase her metoprolol. She is to follow-up with her primary care doctor in 2 to 4 days and return if worsening. Lab Data: Labs: Lab Results 01/23/20 01/23/20 Range/Units 08:40 08:40 WBC 6.7 (4.0-10.0) 10^3/ uL RBC 4.25 (4.1-5.3) 10^6/u L Hgb 11.9 (11.5-15.3) g/dL Hct 39.0 (37.0-47.0) % MCV 91.8 (81-99) fL MCH 28.0 (28.0-34.0) pg MCHC 30.5 (30.0-36.0) g/dL RDW 13.6 (12.1-15.1) % Plt Count 167 (130-400) 10^3/c mm MPV 10.7 H (7.4-10.4) fL Neut % (Auto) 67.4 % Lymph % (Auto) 18.4 % Curry % (Auto) 7.4 % Eos % (Auto) 5.8 % Baso % (Auto) 0.7 % Neut # (Auto) 4.5 (1.8-7.7) 10^3/u L Lymph # (Auto) 1.2 (0.8-4.8) 10^3/u L Curry # (Auto) 0.5 (0.2-0.9) 10^3/u L Eos # (Auto) 0.4 (0.0-0.8) 10^3/u L Baso # (Auto) 0.1 (0.0-0.1) 10^3/u L Nucleated RBC % (a uto) 0 % Nucleated RBCs # 0.0 /100WBC Sodium 141 (136-145) mmol/L Potassium 3.9 (3.5-5.1) mmol/L Chloride 94 L (98-107) mmol/L Carbon Dioxide 39 H (22-29) mmol/L Anion Gap 11.9 (5-19) BUN 15 (8-23) mg/dL Creatinine 0.7 (0.5-0.9) mg/dL Glucose 131 H (65-115) mg/dL Calculated Osmolal ity 290 (285-295) mOsm/k g Calcium 10.1 (8.5-10.5) mg/dL Total Bilirubin 0.3 (0.15-1.2) mg/dL AST 26 (0-32) U/L ALT 18 (0-33) U/L Alkaline Phosphata se 103 (35-105) IU/L Total Protein 6.6 (6.6-8.7) g/dL Albumin 4.1 (3.5-5.2) g/dL Globulin 2.5 (1.3-4.6) g/dL Lipase 37 (13-60) U/L Imaging Data^: CT Head: Radiologist's impression: Reason: merino [address] [address] [address] Scan Report Signed Patient: Sneha Smith Unit #: [id number] : 1940 Age/Sex: 79 / F ADM Date: 01/22 Loc: ER Room/Bed: Attending Dr: Ordering Provider/Ordering MD: Romulo Bettencourt MD Date of Service: 01/23/20 Procedure(s): CT head wo con* [id number] Accession Number(s): [id number] Report Number: [id number] WS: [id number] CT HEAD NONCONTRAST HISTORY: TECHNIQUE: Contiguous axial imaging performed through the brain in 2.5 mm imaging. Bone and soft tissue windows. Sagittal and coronal reformats reviewed. All CT scans at [facility] use at least one of these dose optimization techniques: automated exposure control; mA and/or kV adjustment per patient size (includes targeted exams where dose is matched to clinical indication); or iterative reconstruction. DLP: 793.09 mGy.cm COMPARISON: 01/21/2020 No acute intracranial hemorrhage, midline shift or mass effect. Mild atrophy. There is extensive bilateral chronic ischemic changes in the white matter. No prior infarcts. No interval change since 01/21/2020. Ventricles: Normal size with no hydrocephalus. Severe atherosclerosis within the intracranial carotid arteries. Paranasal sinuses: As visualized are clear. Mastoid air cells: Well pneumatized. Calvarium and scalp: Skull is intact with no soft tissue edema or swelling. CT/CT head wo con* [id number] IMPRESSION: 1. No acute intracranial hemorrhage or edema. 2. Severe chronic microvascular ischemic disease and extensive atherosclerosis intracranial carotid arteries. CT Abd/Pel: Attestation: I personally reviewed and interpreted this imaging study as follows: Radiologist's impression: [facility] [address] [address] CT Scan Report Signed Patient: Sneha Smith Unit #: [id number] : 1940 Age/Sex: 79 / F ADM Date: 0 Loc: ER Room/Bed: Attending Dr: Ordering Provider/Ordering MD: Romulo Bettencourt MD Date of Service: 01/23/20 Procedure(s): CT abdomen pelvis w con* [id number] Accession Number(s): [id number] Report Number: [id number] WS: [id number] CT ABDOMEN AND PELVIS WITH CONTRAST HISTORY: Vomiting TECHNIQUE: Imaging performed of the abdomen and pelvis with IV contrast. Single phase imaging of the abdomen. Coronal and sagittal reformats are submitted. All CT scans at [facility] use at least one of these dose optimization techniques: automated exposure control; mA and/or kV adjustment per patient size (includes targeted exams where dose is matched to clinical indication); or iterative reconstruction. IV CONTRAST: Omnipaque 300; 95 mL IV. Oral contrast: No DLP: 453.38 mGy.cm COMPARISON: 10/09/2013 Lower thorax: Stable 2 mm nodule at the RIGHT lung base. Heart is normal size. No hiatal hernia. Liver/biliary system: Normal size with no intrahepatic dilatation. Gallbladder: Mildly contracted gallbladder with no wall thickening or edema. Pancreas: Normal size pancreas for age. The pancreatic duct is slightly prominent at 2 mm. Spleen: Normal. Adrenal glands: Normal. Right kidney: Normal size kidney. Cortical cyst in the lower pole. No hydronephrosis or mass. RIGHT ureter is normal caliber. Left kidney: Normal size with no mass or obstruction. Normal size ureter. Aorta: Moderate atherosclerosis with no aneurysm. Aorta is ectatic. Lymphadenopathy: None. Free fluid: None. GI tract: Diffuse fecal retention. The appendix is normal. No wall thickening. There is moderate distention of the stomach with fluid. Abdominal wall: Unremarkable abdominal wall. No hernia. Pelvis: Atrophic uterus. No pelvic mass or fluid. Bones: RIGHT convex rotary scoliosis. No fractures. CT/CT abdomen pelvis w con* [id number] IMPRESSION: 1. Moderate fluid distention of the stomach. 2. Diffuse constipation. No obstruction of the GI tract. 3. No free fluid or free air. 4. Atherosclerosis aorta. cta head: Attestation: I personally reviewed and interpreted this imaging study as follows: Radiologist's impression: ZA Order #: [id number] Report Status: Finalized Reason: [facility] [address] [place] [address] CT Scan Report Signed Patient: Sneha Smith Unit #: [id number] : 1940 Age/Sex: 79 / F ADM Date: 01/23/20 Loc: ER Room/Bed: Attending Dr: Ordering Provider/Ordering MD: Romulo Bettencourt MD Date of Service: 01/23/20 Procedure(s): CT angio headneck* [id number] Accession Number(s): [id number] Report Number: [id number] WS: [id number] CT ANGIOGRAM CEREBRAL AND CAROTID ARTERIES HISTORY: Headache. TECHNIQUE: CT angiogram is performed of the carotid and cerebral arteries. During arterial injection imaging is obtained from the skull vertex to the aortic arch in 1.25 mm imaging. Coronal and sagittal reformats are submitted. Additional multi planar reformats of the carotid and cerebral arteries are submitted, MIP imaging also reviewed. NASCET criteria utilized. All CT scans at [facility] use at least one of these dose optimization techniques: automated exposure control; mA and/or kV adjustment per patient size (includes targeted exams where dose is matched to clinical indication); or iterative reconstruction. CONTRAST: Omnipaque 350; 95 mL IV. DLP: 1214.33 mGy.cm COMPARISON: None available. Carotid Angiogram: Right carotid: Common carotid artery: Arises normally from the innominate artery. No significant plaque or stenosis. Internal carotid artery: Small noncalcified plaque at the origin. No stenosis. External carotid artery: Patent. Left carotid: Common carotid artery: Arises normally from the aorta. No significant plaque or stenosis. Internal carotid artery: Small amount of calcified plaque at the bifurcation with no stenosis. Stenosis calculated at 36%. External carotid artery: Patent. Right vertebral artery: RIGHT vertebral artery is tortuous. No occlusion or stenosis. Left vertebral artery: Unremarkable. Arises normally from the subclavian artery. Subclavian arteries: No stenosis or significant abnormality. Upper thorax: Normal. Thyroid gland: Normal. Osseous structures: Straightening of the normal cervical lordosis. Severe degenerative disc disease at C3-4, C4-5 and C5-6. CEREBRAL ANGIOGRAM: Intracranial vertebral arteries: Normal with no significant atherosclerosis. Basilar artery: No significant stenosis or occlusion. No aneurysm. Intracranial Internal carotid arteries: Extensive calcification and tortuosity. Mild ectasia and dilatation through the cavernous sinuses. No focal aneurysm is identified. Middle cerebral arteries: Normal. Anterior cerebral arteries and ACOM: Normal. Posterior cerebral arteries and PCOM's: Posterior cerebral arteries are normal. The LEFT P-comm is absent or hypoplastic. Dominant RIGHT P-comm. Dural venous sinuses are normally enhancing. Mastoid air cells: Normal. Paranasal sinuses: Normal. Calvarium: Normal. CT/CT angio headneck* [id number] IMPRESSION: 1. No significant carotid artery stenosis. No dissection. 2. Moderate to severe atherosclerosis of the intracranial carotid arteries with ectasia. No occlusions. 3. No enhancing masses within the brain. EKG Data^: EKG 1: Attestation: I personally reviewed and interpreted this EKG as follows: EKG interpretation date: 01/23/20 EKG interpretation time: 09:38 Interpretation: nsr hr [address] or t wave abnormalities qrs 82 qtc 404 Discharge Plan Discharge Patient Disposition: Home, Self-Care Clinical Impression: Essential (primary) hypertension Headache Qualifiers: Headache type: unspecified Headache chronicity pattern: acute headache Intractability: not intractable Qualified Code(s): R51 - Headache Condition: Stable Prescriptions: New metoprolol tartrate 100 mg tablet 100 mg PO BID Qty: 60 RF: 0 No Action tramadol 50 mg tablet 50 mg PO TID PRN (Reason: pain) 30 Days Qty: 90 RF: 5 albuterol sulfate [ProAir HFA] 90 mcg/actuation HFA aerosol inhaler 2 puff INHALATION Q6H PRN (Reason: Shortness Of Breath) RF: 0 furosemide 20 mg tablet 20 mg PO EVERY OTHER DAY PRN (Reason: Edema) RF: 0 potassium chloride 20 mEq tablet extended release 20 meq PO BID RF: 0 losartan 50 mg tablet 10 mg PO DAILY RF: 0 ondansetron HCl [Zofran] 4 mg tablet 4 mg PO Q8H PRN (Reason: UNKNOWN) RF: 0 calcium carb and citrate-vitD3 [Citracal-D3 Slow Release] 600 mg calcium- 500 unit tablet extended release 3 tab PO DAILY RF: 0 folic acid 1 tab PO DAILY RF: 0 ferrous sulfate [Feosol] 325 mg (65 mg iron) tablet 325 mg PO DAILY RF: 0 cyanocobalamin (vitamin B-12) [Vitamin B-12] 250 mcg tablet 250 mcg PO DAILY RF: 0 sumatriptan succinate [Imitrex] 50 mg tablet 50 mg PO Q2H PRN (Reason: Migraine Headache) RF: 0 magnesium oxide 500 mg capsule 500 mg PO DAILY RF: 0 aspirin [Adult Aspirin Regimen] 81 mg tablet,delayed release (DR/EC) 81 mg PO DAILY RF: 0 metoprolol tartrate 50 mg tablet 50 mg PO BID RF: 0 nitroglycerin 6.5 mg capsule, extended release 6.5 mg PO BID RF: 0 omeprazole 20 mg capsule,delayed release(DR/EC) 20 mg PO BID RF: 0 budesonide [Pulmicort] 0.5 mg/2 mL suspension for nebulization 0.25 mg INHALATION BID RF: 0 ipratropium-albuterol 0.5 mg-3 mg(2.5 mg base)/3 mL solution for nebulization 3 ml INHALATION QID RF: 0 revefenacin 175 mcg/3 mL solution for nebulization 175 mcg INHALATION DAILY 30 Days Qty: 90 RF: 3 Perforomist 20 mcg/2 mL solution for nebulization 2 ml INHALATION Q12H 30 Days Qty: 120 RF: 3 budesonide 0.5 mg/2 mL suspension for nebulization 0.5 mg INHALATION BID 30 Days Qty: 120 RF: 3 benzonatate [Tessalon Perles] 100 mg capsule 100 mg PO BID PRN (Reason: Cough) 30 Days Qty: 60 RF: 1 diazepam [Valium] 5 mg tablet 5 mg PO BID PRN (Reason: Anxiety) 30 Days Qty: 60 RF: 2 oxybutynin chloride 15 mg tablet extended release 24hr 15 mg PO DAILY Qty: 30 RF: 6 promethazine-codeine 6.25-10 mg/5 mL syrup 5 ml PO Q6H PRN (Reason: cough) Qty: 180 RF: 0 prednisone 20 mg Tablet 40 mg PO DAILY Qty: 21 RF: 0 Benadryl 50 mg PO DAILY RF: 0 rosuvastatin 10 mg PO DAILY RF: 0 Zofran 4 mg tablet 4 mg PO QID PRN (Reason: nausea and vomiting) Qty: 14 RF: 0 Discharge Orders: Discharge Order (Routine); Ordered 01/23/20 Ordered By: Romulo Bettencourt Referrals: Gibson Bo MD [Primary Care Provider] - 1-3 days Discharge Diet: Advance as tolerated Discharge Activity: Resume usual activity Patient Instructions: Acute Headache (ED), Hypertension (ED) Coding Level of Care Code ED Rooter Operator for Chg Fwd Exam Comprehensive
[2020-01-23 08:49] LABS: Basophils # 0.1 10^3/uL (0.0-0.1); Basophils % 0.7 %; Eosinophils # 0.4 10^3/uL (0.0-0.8); Eosinophils % 5.8 %; Hemoglobin 11.9 g/dL (11.5-15.3); Lymphocytes # 1.2 10^3/uL (0.8-4.8); Lymphocytes % 18.4 %; Mean Corpuscular HGB Conc 30.5 g/dL (30.0-36.0); Mean Corpuscular Volume 91.8 fL (81-99); Mean Platelet Volume 10.7 fL (7.4-10.4); Monocytes # 0.5 10^3/uL (0.2-0.9); Monocytes % 7.4 %; Neutrophils # 4.5 10^3/uL (1.8-7.7); Neutrophils % 67.4 %; Nucleated Red Blood Cells % 0 %; Platelet Count 167 10^3/cmm (130-400); Red Blood Count 4.25 10^6/uL (4.1-5.3); Red Cell Distribution Width 13.6 % (12.1-15.1); White Blood Count 6.7 10^3/uL (4.0-10.0)
[2020-01-23] MEDS: metoclopramide 5 mg/mL SDV 2 mL IVP (08:57)
[2020-01-23] MEDS: labetalol 5 mg/mL SDV 20mL 10 MG IVP (08:57)
[2020-01-23] MEDS: diphenhydrAMINE 50 mg/mL SDV 1mL 25 MG IVP (08:57)
[2020-01-23] MEDS: sodium chloride 0.9% 1,000 ML 999 ML IV (08:58)
[2020-01-23 09:05] LABS: Alanine Aminotransferase 18 U/L (0-33); Albumin Level 4.1 g/dL (3.5-5.2); Alkaline Phosphatase 103 IU/L (35-105); Anion Gap 11.9 (5-19); Aspartate Amino Transferase 26 U/L (0-32); Blood Urea Nitrogen 15 mg/dL (8-23); Calcium 10.1 mg/dL (8.5-10.5); Carbon Dioxide 39 mmol/L (22-29); Chloride 94 mmol/L (98-107); Globulin 2.5 g/dL (1.3-4.6); Glucose 131 mg/dL (65-115); Lipase 37 U/L (13-60); Osmolality Calculated 290 mOsm/kg (285-295); Potassium 3.9 mmol/L (3.5-5.1); Sodium 141 mmol/L (136-145); Total Bilirubin 0.3 mg/dL (0.15-1.2); Total Protein 6.6 g/dL (6.6-8.7)
[2020-01-23] MEDS: iohexol 350 mg/mL 100 mL Btl IV (09:06)
[2020-01-23] MEDS: iohexol 300 mg/mL 100 mL Btl IV (09:14)
[2020-01-23 10:29] VITALS: BP 188/106; RESP 18
[2020-01-23] MEDS: ondansetron 2 mg/ML SDV 2 mL 4 MG IVP (10:29)
[2020-01-23] MEDS: HYDROmorphone 1 mg/mL INJ 1 mL 0.5 MG IVP (10:29)
[2020-01-23] MEDS: cloNIDine 0.1 mg Tablet PO (10:29)
[2020-01-23 11:10] VITALS: BP 160/93; PULSE 73; RESP 13; O2SAT 100
== END 2020-01-23 12:58 | disposition home or self-care (01) ==
PROVIDERS: Emergency Provider Emergency Medicine; PCP Family Medicine
DX: R51 Headache (principal); I10 Essential (primary) hypertension; Z79.82 Long term (current) use of aspirin; J44.9 Chronic obstructive pulmonary disease, unspecified; Z86.73 Personal history of transient ischemic attack (TIA), and cerebral infarction without residual deficits; E78.2 Mixed hyperlipidemia; Z87.891 Personal history of nicotine dependence
CPT/HCPCS: 12345; 70450; 70496; 70498; 74177; 80053; 83690; 85025; 93005; 96361; 96374; 96375; 99283; 99284; J1170; J1200; J2405; J2765; J3490; J7030; Q9967

== ENCOUNTER 2020-03-25 14:40 | Outpatient (RCR) | payer MEDICARE, OTHER, SELFPAY | END 2020-03-27 23:59 | disposition home or self-care (01) | LOC: SPT 14:40 | PROVIDERS: PCP Family Medicine; Referring Provider Orthopaedic Surgery; Visit Provider Orthopaedic Surgery | DX: M75.102 Unspecified rotator cuff tear or rupture of left shoulder, not specified as traumatic (principal) | CPT/HCPCS: 97161; 97530 ==

== ENCOUNTER 2020-03-28 06:00 | Outpatient (RCR) | payer MEDICARE, OTHER, SELFPAY | END 2020-04-27 23:59 | disposition home or self-care (01) | LOC: SPT 06:00 | PROVIDERS: PCP Family Medicine; Referring Provider Orthopaedic Surgery; Visit Provider Orthopaedic Surgery | DX: M25.512 Pain in left shoulder (principal) | CPT/HCPCS: 97110 ==

== ENCOUNTER 2020-04-01 01:08 | Emergency (ER) | payer MEDICARE, OTHER, SELFPAY ==
[2020-04-01 01:11] VITALS: BP 197/91; PULSE 83; RESP 18; TEMP 36.7; O2SAT 91; BMI 18.3
--- NOTE | 2020-04-01 01:21 | W.ED.HA ---
HPI - Headache General: Chief Complaint: Headache Stated Complaint: MIGRAINE Time Seen by Provider: 04/01/20 01:11 History of Present Illness: HPI Narrative: Patient is an 79-year-old female who comes to the ED with a migraine. Patient has a past medical history of migraines. She says that this migraine started about an hour and a half ago and has since progressed. She says this is just like her previous migraines. She has had some nausea with this migraine and she rates it a 10 out of 10. Location of headache is frontal and retro-orbital in both eyes. Patient says she took her prescribed sumatriptan tonight and that did not provide any relief. She has no other complaints. Denies any vision changes, numbness or tingling to extremities, weakness to extremities. Associated symptoms: Deny chest pain, fever(s), nausea, rash or vomiting Review of Systems Const: Denies: fever(s), chills or fatigue Eyes: Denies: change in vision or eye discomfort ENMT: Denies: throat pain, odynophagia, nasal discharge or nasal congestion Card: Denies: chest pain, palpitations, edema, swelling of feet/ankles, dyspnea on exertion or orthopnea Resp: Denies: dyspnea, productive cough or non-productive cough GI: Denies: abdominal pain, nausea, vomiting, diarrhea, constipation or hematochezia : Denies: flank pain, dysuria or hematuria Musc: Denies: neck pain, back pain or extremity swelling Skin/Breast: Denies: rash or new lesions Neuro: Reports: headache(s); Denies: numbness in extremities or weakness in extremities PFS ED PFSH: Medical History 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 Mother Myocardial infarction Sister Myocardial infarction Asthma Father Diabetes Other Cancer Hypertension Social History Smoking and tobacco status: former smoker Quit status (tobacco): has quit using tobacco Year quit tobacco: 2001 - 1PPD x 20 Years Alcohol intake: never Lives independently: Yes Household members: none Marital status: / Current occupational status: retired History of recent travel: No Current gender identity: Female Physical Exam Const: COMMON NORMALS: no acute distress, patient oriented x3 and alert GENERAL APPEARANCE: cooperative HENMT: COMMON NORMALS: normocephalic HEAD & SCALP: normocephalic MOUTH: Normal oral and palatal mucosa present THROAT: posterior oropharynx normal and uvula midline Eye: COMMON NORMALS: Equal, round and reactive pupils present and EOMs intact bilaterally PUPIL: Yes Equal, round and reactive pupils present Neck/C-Spine: COMMON NORMALS: supple GENERAL: Yes normal visual inspection Resp: COMMON NORMALS: normal respiratory effort, No retractions, No use of accessory muscles and clear to auscultation bilaterally AUSCULTATION: clear to auscultation bilaterally Cardio: COMMON NORMALS: regular rate, regular rhythm, S1 normal heart sound present, S2 normal heart sound present, No gallops present (Cardio), No clicks present (Cardio), No murmurs present (Cardio) and Peripheral pulses 2+ throughout RATE: regular rate RHYTHM: regular rhythm HEART SOUNDS: S1 normal heart sound present and S2 normal heart sound present PERIPHERAL PULSES: Peripheral pulses 2+ throughout GI: COMMON NORMALS: Normal to inspection, nondistended, normoactive bowel sounds present, Soft to palpation, non-tender and no masses PALPATION: Yes Soft to palpation : COMMON NORMALS: Yes no CVA tenderness BLADDER/KIDNEY EXAM: Yes no CVA tenderness Back/Pelvis: COMMON NORMALS: no CVA tenderness Extremity: COMMON NORMALS: normal to inspection and no pedal edema Neuro: COMMON NORMALS: patient oriented x3, CN's II-XII intact bilaterally, moves all extremities, no focal motor deficits and no sensory deficits noted SENSORIUM/ORIENTATION: Yes alert SENSORY EXAM: Yes extremities (intact) MOTOR EXAM: 5/5 motor strength present throughout Skin: COMMON NORMALS: no rashes or lesions noted GENERAL SKIN EXAM: no rashes or lesions noted and dry skin Course Reevaluation(s): Reevaluation #1: After patient was given IV Zofran, 0.5 Dilaudid and 25 mg of Benadryl patient's migraine improved dramatically. Patient says she is feeling a lot better and is ready to go home and rest. Vital Signs: Vital signs: Vital Signs Temperature 98.1 F 04/01/20 01:11 Pulse Rate 83 04/01/20 01:11 Respiratory Rate 16 04/01/20 02:08 Blood Pressure 197/91 04/01/20 01:11 Pulse Oximetry 91 04/01/20 01:11 MDM - Headache MDM Narrative: Medical decision making narrative: Patient is an 79-year-old female who comes to the ED with a migraine. Patient has history of migraines and states that this migraine is exactly like all of her past migraines. She took some sumatriptan earlier tonight and it did not provide any relief. Physical exam was normal and unremarkable. Neurological exam was normal and showed no acute neurological deficits. Patient was given IV Benadryl, Dilaudid and Zofran. Patient's migraine greatly improved and she was ready to go home and rest. Patient's blood pressure after migraine pain rate was reduced was 174/83. Patient was discharged and told to follow-up with PCP in 5 to 7 days for reevaluation. Return to ED precautions given. Patient understood and agreed with plan. Discharge Plan Discharge Patient Disposition: Home Clinical Impression: Migraine Qualifiers: Migraine type: without aura Status migrainosus presence: without status migrainosus Intractability: not intractable Qualified Code(s): G43.009 - Migraine without aura, not intractable, without status migrainosus Condition: Stable Prescriptions: No Action tramadol 50 mg tablet 50 mg PO TID PRN (Reason: pain) 30 Days Qty: 90 RF: 5 albuterol sulfate [ProAir HFA] 90 mcg/actuation HFA aerosol inhaler 2 puff INHALATION Q6H PRN (Reason: Shortness Of Breath) RF: 0 furosemide 20 mg tablet 20 mg PO EVERY OTHER DAY PRN (Reason: Edema) RF: 0 potassium chloride 20 mEq tablet extended release 20 meq PO BID RF: 0 losartan 50 mg tablet 10 mg PO DAILY RF: 0 calcium carb and citrate-vitD3 [Citracal-D3 Slow Release] 600 mg calcium- 500 unit tablet extended release 3 tab PO DAILY RF: 0 folic acid 1 tab PO DAILY RF: 0 ferrous sulfate [Feosol] 325 mg (65 mg iron) tablet 325 mg PO DAILY RF: 0 cyanocobalamin (vitamin B-12) [Vitamin B-12] 250 mcg tablet 250 mcg PO DAILY RF: 0 sumatriptan succinate [Imitrex] 50 mg tablet 50 mg PO Q2H PRN (Reason: Migraine Headache) RF: 0 magnesium oxide 500 mg capsule 500 mg PO DAILY RF: 0 aspirin [Adult Aspirin Regimen] 81 mg tablet,delayed release (DR/EC) 81 mg PO DAILY RF: 0 metoprolol tartrate 50 mg tablet 50 mg PO BID RF: 0 nitroglycerin 6.5 mg capsule, extended release 6.5 mg PO BID RF: 0 omeprazole 20 mg capsule,delayed release(DR/EC) 20 mg PO BID RF: 0 budesonide [Pulmicort] 0.5 mg/2 mL suspension for nebulization 0.25 mg INHALATION BID RF: 0 ipratropium-albuterol 0.5 mg-3 mg(2.5 mg base)/3 mL solution for nebulization 3 ml INHALATION QID RF: 0 revefenacin 175 mcg/3 mL solution for nebulization 175 mcg INHALATION DAILY 30 Days Qty: 90 RF: 3 Perforomist 20 mcg/2 mL solution for nebulization 2 ml INHALATION Q12H 30 Days Qty: 120 RF: 3 oxybutynin chloride 15 mg tablet extended release 24hr 15 mg PO DAILY Qty: 30 RF: 6 budesonide 0.5 mg/2 mL suspension for nebulization 0.5 mg INHALATION BID 30 Days Qty: 120 RF: 3 benzonatate [Tessalon Perles] 100 mg capsule 100 mg PO BID PRN (Reason: Cough) 30 Days Qty: 60 RF: 3 ondansetron HCl [Zofran] 4 mg tablet 4 mg PO Q8H PRN (Reason: UNKNOWN) 30 Days Qty: 90 RF: 5 diazepam [Valium] 5 mg tablet 5 mg PO BID PRN (Reason: Anxiety) 30 Days Qty: 60 RF: 2 promethazine-codeine 6.25-10 mg/5 mL syrup 5 ml PO Q6H PRN (Reason: cough) Qty: 180 RF: 0 prednisone 20 mg Tablet 40 mg PO DAILY Qty: 21 RF: 0 Benadryl 50 mg PO DAILY RF: 0 rosuvastatin 10 mg PO DAILY RF: 0 Zofran 4 mg tablet 4 mg PO QID PRN (Reason: nausea and vomiting) Qty: 14 RF: 0 metoprolol tartrate 100 mg tablet 100 mg PO BID Qty: 60 RF: 0 Discharge Orders: Discharge Order (Routine); Ordered 04/01/20 Ordered By: Dillan Merida Referrals: Gibson Bo MD [Primary Care Provider] - Discharge Diet: Regular Discharge Activity: Increase activity as tolerated Patient Instructions: Migraine Headache (ED) Activity Restrictions/Additional Instructions: Follow-up with medical provider as directed in 5-7 days. Continue taking all home medications as prescribed. Return to the ER or your medical provider if condition worsens. Please read and understand discharge instructions. If any questions, please ask. Coding Level of Care Code ED Automation Sales Manager for Lorenzo Fwd Exam Comprehensive
--- NOTE | 2020-04-01 01:23 | PC.NURSE ---
Bedside commode placed at bedside per patient request
[2020-04-01 01:25] VITALS: RESP 14
[2020-04-01 02:08] VITALS: RESP 16
[2020-04-01] MEDS: ondansetron 2 mg/ML SDV 2 mL 4 MG IVP (02:08)
[2020-04-01] MEDS: diphenhydrAMINE 50 mg/mL SDV 1mL 25 MG IVP (02:08)
[2020-04-01] MEDS: HYDROmorphone 1 mg/mL INJ 1 mL 0.5 MG IVP (02:08)
[2020-04-01 03:25] VITALS: BP 139/86; PULSE 70; RESP 14; O2SAT 95
== END 2020-04-01 03:26 | disposition home or self-care (01) ==
PROVIDERS: Emergency Provider Physician Assistant; PCP Family Medicine
DX: G43.009 Migraine without aura, not intractable, without status migrainosus (principal); Z79.82 Long term (current) use of aspirin; J44.9 Chronic obstructive pulmonary disease, unspecified; Z86.73 Personal history of transient ischemic attack (TIA), and cerebral infarction without residual deficits; I10 Essential (primary) hypertension; E78.2 Mixed hyperlipidemia; Z87.891 Personal history of nicotine dependence
CPT/HCPCS: 12345; 96374; 96375; 99283; J1170; J1200; J2405

== ENCOUNTER 2020-04-28 06:00 | Outpatient (RCR) | payer MEDICARE, OTHER, SELFPAY | END 2020-05-27 23:59 | disposition home or self-care (01) | LOC: SPT 06:00 | PROVIDERS: PCP Family Medicine; Referring Provider Orthopaedic Surgery; Visit Provider Orthopaedic Surgery | DX: Z47.89 Encounter for other orthopedic aftercare (principal) | CPT/HCPCS: 97110 ==

== ENCOUNTER 2020-05-07 19:45 | Emergency (ER) | payer MEDICARE, OTHER, SELFPAY ==
[2020-05-07 19:58] VITALS: BP 146/75; PULSE 64; RESP 14; TEMP 36.6; O2SAT 100; BMI 17.4
--- NOTE | 2020-05-07 20:11 | PC.NURSE ---
left after triage but before put in room or seen by physician.
--- NOTE | 2020-05-07 22:48 | XR_ITS ---
WS: [id number] Left shoulder, 3 views, 05/07/2020 Clinical Data: pain Comparison: Left shoulder, 05/13/2019. Findings: No fractures or dislocations are seen. The AC joint shows mild osteoarthritis.. The adjacent left cla vicle, left scapula and ribs are normal. There is a minimal calcification over the greater tuberosity which is probably calcific bursitis or tendinitis. XR/XR shoulder LT min 2V* [id number] Impression: Negative for fracture or dislocation.
--- NOTE | 2020-05-07 23:02 | W.ED.GENADLT ---
HPI - General Adult General: Chief complaint: General Medical Stated complaint: sore throat/blisters on tongue? Time Seen by Provider: 05/07/20 22:35 Source: patient Mode of arrival: ambulatory Limitations: no limitations History of Present Illness: HPI narrative: 79-year-old female states she been having left shoulder pain over the last 1 to 2 weeks. She states she has a sharp pain is much worse with movement. Improved with rest. Denies any fever. Patient states she is also had ulcers in her mouth along with difficulty eating due to the pain with these ulcers. 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 Mother Myocardial infarction Sister Myocardial infarction Asthma Father Diabetes Other Cancer Hypertension Social History Smoking and tobacco status: former smoker Quit status (tobacco): has quit using tobacco Year quit tobacco: 2001 - 1PPD x 20 Years Alcohol intake: never Lives independently: Yes Household members: none Marital status: / Current occupational status: retired History of recent travel: No Current gender identity: Female Physical Exam Const: COMMON NORMALS: no acute distress, patient oriented x3 and healthy appearing HENMT: COMMON NORMALS: normocephalic and atraumatic HEAD & SCALP: normocephalic and atraumatic Eye: COMMON NORMALS: Equal, round and reactive pupils present and EOMs intact bilaterally PUPIL: Yes Equal, round and reactive pupils present Neck/C-Spine: COMMON NORMALS: full ROM and supple Chest: COMMONS NORMALS: normal inspection of the chest and normal palpation of entire chest wall Resp: COMMON NORMALS: normal respiratory effort, No retractions, No use of accessory muscles and clear to auscultation bilaterally AUSCULTATION: clear to auscultation bilaterally Cardio: COMMON NORMALS: regular rate, regular rhythm and No murmurs present (Cardio) RATE: regular rate RHYTHM: regular rhythm GI: COMMON NORMALS: Normal to inspection, nondistended, normoactive bowel sounds present, Soft to palpation, non-tender and no masses PALPATION: Yes Soft to palpation Extremity: NARRATIVE EXTREMITY EXAM: Tenderness over right shoulder along with some pain with range of motion. Neuro: COMMON NORMALS: patient oriented x3, moves all extremities and no focal motor deficits Psych: COMMON NORMALS: mental status grossly normal, Normal thought process present and cooperative THOUGHT PROCESS: Normal thought process present Skin: COMMON NORMALS: no rashes or lesions noted and no wounds GENERAL SKIN EXAM: no rashes or lesions noted Course Vital Signs: Vital signs: Vital Signs Temperature 97.9 F 05/07/20 19:58 Pulse Rate 64 05/07/20 19:58 Respiratory Rate 14 05/07/20 19:58 Blood Pressure 146/75 05/07/20 19:58 Pulse Oximetry 100 05/07/20 19:58 MDM - General Adult MDM Narrative: Medical decision making narrative: Patient presents here with shoulder pain likely from arthritis. Patient's x-ray shows no acute fracture. She also has mouth ulcers. We will place her on a Magic mouthwash. She is to follow-up with PCP in 3 to 5 days return if worsening. Imaging Data^: xr L shoulder: Attestation: I personally reviewed and interpreted this imaging study as follows: My impression: no acute abnormality Discharge Plan Discharge Patient Disposition: Home Clinical Impression: Mouth ulcer Left shoulder pain Qualifiers: Chronicity: acute Qualified Code(s): M25.512 - Pain in left shoulder Condition: Stable Prescriptions: New Naprosyn 500 mg tablet 500 mg PO BID PRN (Reason: pain) Qty: 20 RF: 0 Gelclair Gel In Packet 1 applic MUCOUS MEM BID Qty: 225 RF: 0 No Action furosemide 20 mg tablet 20 mg PO EVERY OTHER DAY PRN (Reason: Edema) RF: 0 potassium chloride 20 mEq tablet extended release 20 meq PO BID RF: 0 losartan 50 mg tablet 10 mg PO DAILY RF: 0 calcium carb and citrate-vitD3 [Citracal-D3 Slow Release] 600 mg calcium- 500 unit tablet extended release 3 tab PO DAILY RF: 0 folic acid 1 tab PO DAILY RF: 0 ferrous sulfate [Feosol] 325 mg (65 mg iron) tablet 325 mg PO DAILY RF: 0 cyanocobalamin (vitamin B-12) [Vitamin B-12] 250 mcg tablet 250 mcg PO DAILY RF: 0 sumatriptan succinate [Imitrex] 50 mg tablet 50 mg PO Q2H PRN (Reason: Migraine Headache) RF: 0 magnesium oxide 500 mg capsule 500 mg PO DAILY RF: 0 aspirin [Adult Aspirin Regimen] 81 mg tablet,delayed release (DR/EC) 81 mg PO DAILY RF: 0 metoprolol tartrate 50 mg tablet 50 mg PO BID RF: 0 nitroglycerin 6.5 mg capsule, extended release 6.5 mg PO BID RF: 0 omeprazole 20 mg capsule,delayed release(DR/EC) 20 mg PO BID RF: 0 oxybutynin chloride 15 mg tablet extended release 24hr 15 mg PO DAILY Qty: 30 RF: 6 budesonide 0.5 mg/2 mL suspension for nebulization 0.5 mg INHALATION BID 30 Days Qty: 120 RF: 3 ondansetron HCl [Zofran] 4 mg tablet 4 mg PO Q8H PRN (Reason: UNKNOWN) 30 Days Qty: 90 RF: 5 diazepam [Valium] 5 mg tablet 5 mg PO BID PRN (Reason: Anxiety) 30 Days Qty: 60 RF: 2 promethazine-codeine 6.25-10 mg/5 mL syrup 5 ml PO Q6H PRN (Reason: cough) Qty: 180 RF: 0 albuterol sulfate [ProAir HFA] 90 mcg/actuation HFA aerosol inhaler 2 puff INHALATION Q6H PRN (Reason: Shortness Of Breath) Qty: 8.5 RF: 0 benzonatate [Tessalon Perles] 100 mg capsule 100 mg PO BID PRN (Reason: Cough) 30 Days Qty: 60 RF: 3 ipratropium-albuterol 0.5 mg-3 mg(2.5 mg base)/3 mL solution for nebulization 3 ml INHALATION QID Qty: 90 RF: 0 tramadol 50 mg tablet 50 mg PO TID PRN (Reason: pain) 30 Days Qty: 90 RF: 2 Benadryl 50 mg PO DAILY RF: 0 rosuvastatin 10 mg PO DAILY RF: 0 metoprolol tartrate 100 mg tablet 100 mg PO BID Qty: 60 RF: 0 Discharge Orders: Discharge Order (Routine); Ordered 05/07/20 Ordered By: Romulo Bettencourt Referrals: Gibson Bo MD [Primary Care Provider] - 4-7 days Discharge Diet: Advance as tolerated Discharge Activity: Resume usual activity Patient Instructions: Arthralgia (ED) Coding Level of Care Code ED Wheelchair Rental Clerk for Chg Fwd Exam Comprehensive
[2020-05-08 00:11] VITALS: BP 161/79; RESP 16; O2SAT 98
== END 2020-05-08 00:18 | disposition home or self-care (01) ==
PROVIDERS: Emergency Provider Emergency Medicine; PCP Family Medicine
DX: K12.1 Other forms of stomatitis (principal); M25.512 Pain in left shoulder; Z79.82 Long term (current) use of aspirin; J44.9 Chronic obstructive pulmonary disease, unspecified; Z86.73 Personal history of transient ischemic attack (TIA), and cerebral infarction without residual deficits; I10 Essential (primary) hypertension; E78.2 Mixed hyperlipidemia; Z87.891 Personal history of nicotine dependence
CPT/HCPCS: 12345; 73030; 99281; 99282

== ENCOUNTER 2020-06-03 21:43 | Emergency (ER) | payer MEDICARE, OTHER, SELFPAY ==
[2020-06-03 21:46] VITALS: BP 187/87; PULSE 89; RESP 20; TEMP 36.7; O2SAT 100; BMI 17.8
--- NOTE | 2020-06-03 21:51 | ECG_ITS ---
[facility] Test Date: 2020-06-03 Pat Name: Sneha Smith Department: Room: Gender: Female Inductor Tester: : 1940 Requested By: Romulo Bettencourt Order Number: [id number] Yimi MD: Zaida Phan M.D. Measurements Intervals [place] Rate: 81 P: 82 AL: 133 QRS: 62 QRSD: 77 T: 51 QT: 346 QTc: 402 Interpretive Statements SINUS RHYTHM Compared to ECG 01/23/2020 09:38:49 No significant changes Electronically Signed On 06-04-2020 21:33:37 CDT by Zaida Phan M.D. [id number]
--- NOTE | 2020-06-03 21:51 | XR_ITS ---
WS: [id number] XR chest 1V portable [id number] REASON FOR EXAM: sob FINDINGS: The heart and mediastinum are within normal limits. The lungs are mildly hyperexpanded. No active pulmonary parenchymal or pleural disease is noted. Mild S-shaped thoracic scoliosis. The chest is unchanged compared to previous examination of 12/29/2019 XR/XR chest 1V portable [id number] IMPRESSION: No acute chest abnormality.
--- NOTE | 2020-06-03 21:54 | ED_ITS ---
HPI - SOB/Dyspnea General: Chief Complaint: Shortness of Breath/Dyspnea Stated Complaint: sob Time Seen by Provider: 06/03/20 21:54 History of Present Illness: HPI Narrative: Patient is an 79-year-old female comes to the ED via EMS with shortness of breath. Patient has a past medical history of carotid stenosis, ASCVD, COPD, hypertension, GERD and CVA. Patient is currently on oxygen at home dose of 3L 24 hours a day. Patient says she never takes her oxygen off. Patient's lives at home with her nephew who helps take care of her. Today while at rest she started developing some chest heaviness and shortness of breath. EMS was called out they said that patient's O2 level was at 98% when they arrived. She was brought here to the ED for evaluation. Currently while here in the ED patient says her shortness of breath has improved. She says she still has a little bit of chest heaviness. She denies any fever, acute cough, nausea/vomiting, abdominal pain, bladder or bowel symptoms. Patient also said that yesterday she had a fall and hurt her left shoulder. She is unaware if she had any loss of consciousness, but did say afterwards she felt dizzy and laid on the floor for a while so she was able to get up. Associated symptoms: Reports chest pain, dizziness (occurred yesterday after fall, but has resolved since.) and extremity pain (left shoulder); Deny abdominal pain, fever(s), nausea, orthopnea, palpitations or vomiting Review of Systems Narrative: Patient does report having a fall yesterday. Denies any loss of consciousness. Const: Denies: fever(s), chills or fatigue Eyes: Denies: change in vision or eye discomfort ENMT: Denies: throat pain, odynophagia, nasal discharge or nasal congestion Card: Reports: chest pain; Denies: palpitations, edema, swelling of feet/ankles, dyspnea on exertion or orthopnea Resp: Reports: dyspnea; Denies: productive cough or non-productive cough GI: Denies: abdominal pain, nausea, vomiting, diarrhea, constipation or hematochezia : Denies: flank pain, dysuria or hematuria Musc: Reports: extremity pain (left shoulder); Denies: neck pain, back pain or extremity swelling Skin/Breast: Denies: rash or new lesions Neuro: Reports: dizziness (occurred yesterday after fall, but has resolved since.); Denies: headache(s), numbness in extremities or weakness in extremities PFSH ED PFSH: Medical History 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 Mother Myocardial infarction Sister Myocardial infarction Asthma Father Diabetes Other Cancer Hypertension Social History Smoking and tobacco status: former smoker Quit status (tobacco): has quit using tobacco Year quit tobacco: 2001 - 1PPD x 20 Years Alcohol intake: never Lives independently: Yes Household members: none Marital status: / Current occupational status: retired History of recent travel: No Current gender identity: Female Physical Exam Narrative: EXAM NARRATIVE: Patient is an 79-year-old female who is sitting comfortably on the bed when I enter the room. Her O2 saturation was at 99% and she was on 3 L of oxygen via nasal cannula. Const: COMMON NORMALS: no acute distress, patient oriented x3 and alert GENERAL APPEARANCE: cooperative and comfortable HENMT: COMMON NORMALS: normocephalic HEAD & SCALP: normocephalic MOUTH: Normal oral and palatal mucosa present THROAT: posterior oropharynx normal and uvula midline Eye: COMMON NORMALS: Equal, round and reactive pupils present, EOMs intact bilaterally and normal visual browning by confrontation PUPIL: Yes Equal, round and reactive pupils present Neck/C-Spine: COMMON NORMALS: supple GENERAL: Yes normal visual inspection Resp: COMMON NORMALS: normal respiratory effort, No retractions and No use of accessory muscles AUSCULTATION: diminished lung sounds on the left in the lower lung browning Cardio: COMMON NORMALS: regular rate, regular rhythm, S1 normal heart sound present, S2 normal heart sound present, No gallops present (Cardio), No clicks present (Cardio), No murmurs present (Cardio) and Peripheral pulses 2+ throughout RATE: regular rate RHYTHM: regular rhythm HEART SOUNDS: S1 normal heart sound present and S2 normal heart sound present PERIPHERAL PULSES: Peripheral pulses 2+ throughout GI: COMMON NORMALS: Normal to inspection, nondistended, normoactive bowel sounds present, Soft to palpation, non-tender and no masses PALPATION: Yes Soft to palpation : COMMON NORMALS: Yes no CVA tenderness BLADDER/KIDNEY EXAM: Yes no CVA tenderness Back/Pelvis: COMMON NORMALS: no CVA tenderness Extremity: NARRATIVE EXTREMITY EXAM: Patient has some limited range of motion in the left shoulder. Tenderness upon palpation of the AC joint of left shoulder. No visible deformity seen. Neurovascular intact distally. GENERAL: Yes normal exam except as noted Neuro: COMMON NORMALS: patient oriented x3, CN's II-XII intact bilaterally, moves all extremities, no focal motor deficits and no sensory deficits noted SENSORIUM/ORIENTATION: Yes alert COORDINATION/BALANCE: [id number] test normal SPEECH: speech normal SENSORY EXAM: Yes extremities (intact) MOTOR EXAM: 5/5 motor strength present throughout COORDINATION: [id number] test normal Skin: COMMON NORMALS: no rashes or lesions noted GENERAL SKIN EXAM: no rashes or lesions noted and dry skin Course Vital Signs: Vital signs: Vital Signs Temperature 98.1 F 06/03/20 21:46 Pulse Rate 87 06/04/20 01:48 Respiratory Rate 18 06/04/20 01:40 Blood Pressure 166/86 06/04/20 01:22 Pulse Oximetry 97 06/04/20 01:40 MDM - SOB/Dyspnea MDM Narrative: Medical decision making narrative: Patient is an 79-year-old female comes to the ED via EMS with shortness of breath and chest heaviness that occurred at rest. Denies any fever, chills, cough, nausea/vomiting. Patient also told me that she had a fall yesterday and was unsure if she had any episode of loss of consciousness. She is complaining of having some left shoulder pain after fall. Patient has a past medical history of COPD hypertension and GERD. Patient is currently on 3 L of oxygen at home via nasal cannula continuously and she states she never takes it off. Patient states her symptoms have improved since she arrived here in the ED. Patient appeared in no acute respiratory distress and was on 3 L of oxygen via nasal cannula and oxygen saturation was 98%. Lungs had some diminished breath sounds to left lower lobe. Neuro exam was normal and showed no acute neurological deficits. Hemoglobin 9.7 and rest of CBC and CMP was unremarkable. Troponins negative and EKG showed normal sinus rhythm with no ST segment elevation or depression. BNP 228. Chest x-ray showed no acute findings or infiltrates noted, lungs appear hyperinflated which is consistent with COPD.. X-ray of left shoulder showed no acute fractures or findings. CT of head was performed since patient had fall and is currently on blood thinner and it showed no acute intracranial abnormality seen. Patient was diagnosed with COPD and anemia. Patient was given a DuoNeb breathing treatment here in the ED. Patient stable for discharge. Blood pressure 169/95, pulse 86, respirations 20, temp 98.1, O2 sat 94% on 3 L O2 via nasal cannula. Patient told to follow-up with PCP in the next 2 to 3 days to have her hemoglobin lab rechecked. Return to ED precautions given. Patient understood and agreed with plan. Lab Data: Attestation: I reviewed the patient's lab results. Labs: Lab Results 06/04/20 06/04/20 06/04/20 Range/Units 00:00 00:00 00:00 WBC Cancelled Corrected WBC Cancelled RBC Cancelled Hgb Cancelled Hct Cancelled MCV Cancelled MCH Cancelled MCHC Cancelled RDW Cancelled Plt Count Cancelled MPV Cancelled Gran % Cancelled Neut % (Auto) Cancelled Lymph % (Auto) Cancelled Stanly % (Auto) Cancelled Eos % (Auto) Cancelled Baso % (Auto) Cancelled Neut # (Auto) Cancelled Lymph # (Auto) Cancelled Stanly # (Auto) Cancelled Eos # (Auto) Cancelled Baso # (Auto) Cancelled Absolute Gran (aut o) Cancelled Nucleated RBC % (a uto) Cancelled Nucleated RBCs # Cancelled PT 26.90 H (12.1-14.9) SECO NDS INR 2.43 H (0.8-1.2) Sodium 138 (136-145) mmol/L Potassium 4.4 (3.5-5.1) mmol/L Chloride 96 L (98-107) mmol/L Carbon Dioxide 36 H (22-29) mmol/L Anion Gap 10.4 (5-19) BUN 17 (8-23) mg/dL Creatinine 0.4 L (0.5-0.9) mg/dL GFR Calculation Not Reportable Glucose 118 H (65-115) mg/dL Calculated Osmolal ity 289 (285-295) mOsm/k g Calcium 9.1 (8.5-10.5) mg/dL Total Bilirubin 0.2 (0.15-1.2) mg/dL AST 27 (0-32) U/L ALT 15 (0-33) U/L Alkaline Phosphata se 136 H (35-105) IU/L Troponin T Baselin e (0-10) ng/L Troponin T 120 Min nate (0-10) ng/L Delta Troponin T (0-10) ABS# NT-Pro-B Natriuret Pep 228 (0-450) pg/mL Total Protein 6.4 L (6.6-8.7) g/dL Albumin 4.0 (3.5-5.2) g/dL Globulin 2.4 (1.3-4.6) g/dL 06/04/20 06/04/20 06/04/20 Range/Units 00:00 01:15 02:05 WBC 5.4 Corrected WBC RBC 3.47 L Hgb 9.7 L Hct 31.9 L MCV 91.9 MCH 28.0 MCHC 30.4 RDW 12.5 Plt Count 146 MPV 10.9 H Gran % Neut % (Auto) 57.3 Lymph % (Auto) 25.8 Stanly % (Auto) 9.4 Eos % (Auto) 6.6 Baso % (Auto) 0.9 Neut # (Auto) 3.11 Lymph # (Auto) 1.4 Stanly # (Auto) 0.5 Eos # (Auto) 0.4 Baso # (Auto) 0.1 Absolute Gran (aut o) Nucleated RBC % (a uto) 0 Nucleated RBCs # 0.0 PT (12.1-14.9) SECO NDS INR (0.8-1.2) Sodium (136-145) mmol/L Potassium (3.5-5.1) mmol/L Chloride (98-107) mmol/L Carbon Dioxide (22-29) mmol/L Anion Gap (5-19) BUN (8-23) mg/dL Creatinine (0.5-0.9) mg/dL GFR Calculation Glucose (65-115) mg/dL Calculated Osmolal ity (285-295) mOsm/k g Calcium (8.5-10.5) mg/dL Total Bilirubin (0.15-1.2) mg/dL AST (0-32) U/L ALT (0-33) U/L Alkaline Phosphata se (35-105) IU/L Troponin T Baselin e 15 H (0-10) ng/L Troponin T 120 Min nate 15.48 H (0-10) ng/L Delta Troponin T 0.48 (0-10) ABS# NT-Pro-B Natriuret Pep (0-450) pg/mL Total Protein (6.6-8.7) g/dL Albumin (3.5-5.2) g/dL Globulin (1.3-4.6) g/dL Imaging Data^: CT Head: Attestation: I personally reviewed and interpreted this imaging study as follows: Radiologist's impression: [place] [address] CT Scan Report Signed Patient: Sneha Smith Unit #: [id number] : [id number] Age/Sex: 79 / F ADM Date: 06/03/20 Loc: ER Room/Bed: Attending Dr: Ordering Provider/Ordering MD: Dillan Merida Date of Service: 06/03/20 Procedure(s): CT head wo con* [id number] Accession Number(s): [id number] Report Number: [id number] PROCEDURE INFORMATION: Exam: CT Head Without Contrast Exam date and time: 06/03/2020 10:18 PM Age: 79 years old Clinical indication: Injury or trauma; Fall; Blunt trauma (contusions or hematomas); Dizziness; Additional info: Fall yesterday and had some dizziness after TECHNIQUE: Imaging protocol: Computed tomography of the head without contrast. Radiation optimization: All CT scans at this facility use at least one of these dose optimization techniques: automated exposure control; mA and/or kV adjustment per patient size (includes targeted exams where dose is matched to clinical indication); or iterative reconstruction. COMPARISON: CT head wo con* [id number] 01/23/2020 8:48 AM RADIATION DOSE METRICS: Total DLP (mGy-cm): 858.47 FINDINGS: Brain: Brain atrophy with hypodensities in the periventricular/deep white matter that suggest chronic microvascular ischemia. Cerebral ventricles: No ventriculomegaly. Bones/joints: No acute fracture. Paranasal sinuses: Visualized sinuses are unremarkable. No fluid levels. Mastoid air cells: No significant mastoid effusion. Vasculature: Vascular calcifications. Soft tissues: Unremarkable. CT/CT head wo con* [id number] IMPRESSION: No acute intracranial abnormality. Radiation Dose CTDIVOL = (mGy): DLP = 858.47 (mGy-cm) Dictated By: Edgard Sommers MD Signed By: Edgard Sommers MD Signed Date/Time: 06/03/202304 DD/ 03 CXR: Attestation: I personally reviewed and interpreted this imaging study as follows: My impression: Chest x-ray showed no acute findings or lung infiltrates. Lungs appear hyperinflated which is suggestive of COPD. Xray Ortho: Attestation: I personally reviewed and interpreted this imaging study as follows: My impression: Left shoulder x-ray-no acute fractures or findings. EKG Data^: EKG 1: Attestation: I personally reviewed and interpreted this EKG as follows: EKG Interpretation Date: 06/03/20 Interpretation: Normal sinus rhythm, 81 bpm, no ST segment elevation or depression seen. Discharge Plan Discharge Patient Disposition: Home Clinical Impression: Chest heaviness COPD (chronic obstructive pulmonary disease) Qualifiers: COPD type: unspecified COPD Qualified Code(s): J44.9 - Chronic obstructive pulmonary disease, unspecified Anemia Qualifiers: Anemia type: unspecified type Qualified Code(s): D64.9 - Anemia, unspecified Condition: Stable Prescriptions: No Action furosemide 20 mg tablet 20 mg PO EVERY OTHER DAY PRN (Reason: Edema) RF: 0 potassium chloride 20 mEq tablet extended release 20 meq PO BID RF: 0 losartan 50 mg tablet 10 mg PO DAILY RF: 0 calcium carb and citrate-vitD3 [Citracal-D3 Slow Release] 600 mg calcium- 500 unit tablet extended release 3 tab PO DAILY RF: 0 folic acid 1 tab PO DAILY RF: 0 ferrous sulfate [Feosol] 325 mg (65 mg iron) tablet 325 mg PO DAILY RF: 0 cyanocobalamin (vitamin B-12) [Vitamin B-12] 250 mcg tablet 250 mcg PO DAILY RF: 0 sumatriptan succinate [Imitrex] 50 mg tablet 50 mg PO Q2H PRN (Reason: Migraine Headache) RF: 0 magnesium oxide 500 mg capsule 500 mg PO DAILY RF: 0 aspirin [Adult Aspirin Regimen] 81 mg tablet,delayed release (DR/EC) 81 mg PO DAILY RF: 0 metoprolol tartrate 50 mg tablet 50 mg PO BID RF: 0 nitroglycerin 6.5 mg capsule, extended release 6.5 mg PO BID RF: 0 omeprazole 20 mg capsule,delayed release(DR/EC) 20 mg PO BID RF: 0 oxybutynin chloride 15 mg tablet extended release 24hr 15 mg PO DAILY Qty: 30 RF: 6 budesonide 0.5 mg/2 mL suspension for nebulization 0.5 mg INHALATION BID 30 Days Qty: 120 RF: 3 ondansetron HCl [Zofran] 4 mg tablet 4 mg PO Q8H PRN (Reason: UNKNOWN) 30 Days Qty: 90 RF: 5 diazepam [Valium] 5 mg tablet 5 mg PO BID PRN (Reason: Anxiety) 30 Days Qty: 60 RF: 2 benzonatate [Tessalon Perles] 100 mg capsule 100 mg PO BID PRN (Reason: Cough) 30 Days Qty: 60 RF: 3 ipratropium-albuterol 0.5 mg-3 mg(2.5 mg base)/3 mL solution for nebulization 3 ml INHALATION QID Qty: 90 RF: 0 tramadol 50 mg tablet 50 mg PO TID PRN (Reason: pain) 30 Days Qty: 90 RF: 2 albuterol sulfate [ProAir HFA] 90 mcg/actuation HFA aerosol inhaler 2 puff INHALATION Q6H PRN (Reason: Shortness Of Breath) Qty: 8.5 RF: 5 promethazine-codeine 6.25-10 mg/5 mL syrup 5 ml PO Q6H PRN (Reason: cough) Qty: 180 RF: 0 Benadryl 50 mg PO DAILY RF: 0 rosuvastatin 10 mg PO DAILY RF: 0 metoprolol tartrate 100 mg tablet 100 mg PO BID Qty: 60 RF: 0 Naprosyn 500 mg tablet 500 mg PO BID PRN (Reason: pain) Qty: 20 RF: 0 Gelclair Gel In Packet 1 applic MUCOUS MEM BID Qty: 225 RF: 0 Discharge Orders: Discharge Order (Routine); Ordered 06/04/20 Ordered By: Dillan Merida Referrals: Gibson Bo MD [Primary Care Provider] - Discharge Diet: Regular Discharge Activity: Increase activity as tolerated Patient Instructions: Using Oxygen at Home (ED), Chronic Obstructive Pulmonary Disease (ED) Activity Restrictions/Additional Instructions: Follow-up with medical provider as directed. Call your primary care physician tomorrow morning to set up an appointment within the next 3 days to have your hemoglobin lab rechecked. Continue using oxygen at home and O2 saturation goal is 88% to 95%. Continue taking all home meds. Return to the ER or your medical provider if condition worsens. Please read and understand discharge instructions. If any questions, please ask. Coding Level of Care Code ED [employer]or [employer] for Chg Fwd Exam Comprehensive
[2020-06-03 22:00] VITALS: BP 180/91; PULSE 87; RESP 18; O2SAT 95
--- NOTE | 2020-06-03 22:05 | XR_ITS ---
WS: [id number] XR shoulder LT min 2V* [id number] REASON FOR EXAM: fall with left shoulder pain FINDINGS: Overall there is moderately decreased bone density. There is relatively mild degenerative arthropathy in the acromioclavicular joint and the glenohumeral joint considering the patient's age. There is a small calcification in the rotator cuff tendon. No cortical disruption or significant focal bony abnormality is identified. XR/XR shoulder LT min 2V* [id number] IMPRESSION: No fracture or dislocation identified.
--- NOTE | 2020-06-03 22:05 | CTR_ITS ---
PROCEDURE INFORMATION: Exam: CT Head Without Contrast Exam date and time: 06/03/2020 10:18 PM Age: 79 years old Clinical indication: Injury or trauma; Fall; Blunt trauma (contusions or hematomas); Dizziness; Additional info: Fall yesterday and had some dizziness after TECHNIQUE: Imaging protocol: Computed tomography of the head without contrast. Radiation optimization: All CT scans at this facility use at least one of these dose optimization techniques: automated exposure control; mA and/or kV adjustment per patient size (includes targeted exams where dose is matched to clinical indication); or iterative reconstruction. COMPARISON: CT head wo con* [id number] 01/23/2020 8:48 AM RADIATION DOSE METRICS: Total DLP (mGy-cm): 858.47 FINDINGS: Brain: Brain atrophy with hypodensities in the periventricular/deep white matter that suggest chronic microvascular ischemia. Cerebral ventricles: No ventriculomegaly. Bones/joints: No acute fracture. Paranasal sinuses: Visualized sinuses are unremarkable. No fluid levels. Mastoid air cells: No significant mastoid effusion. Vasculature: Vascular calcifications. Soft tissues: Unremarkable. CT/CT head wo con* [id number] IMPRESSION: No acute intracranial abnormality. Radiation Dose CTDIVOL = (mGy): DLP = 858.47 (mGy-cm)
[2020-06-04] MEDS: TRAMadol 50 mg Tablet PO (00:42)
[2020-06-04 00:47] LABS: Alanine Aminotransferase 15 U/L (0-33); Alkaline Phosphatase 136 IU/L (35-105); Blood Urea Nitrogen 17 mg/dL (8-23); Calcium 9.1 mg/dL (8.5-10.5); Carbon Dioxide 36 mmol/L (22-29); Chloride 96 mmol/L (98-107); Globulin 2.4 g/dL (1.3-4.6); Glucose 118 mg/dL (65-115); NT Pro B Type Natriuretic Pept 228 pg/mL (0-450); Osmolality Calculated 289 mOsm/kg (285-295); Sodium 138 mmol/L (136-145); Total Bilirubin 0.2 mg/dL (0.15-1.2); Total Protein 6.4 g/dL (6.6-8.7); Troponin(5th) Baseline 15 ng/L (0-10)
[2020-06-04 00:49] LABS: Anion Gap 10.4 (5-19); Aspartate Amino Transferase 27 U/L (0-32); Potassium 4.4 mmol/L (3.5-5.1)
[2020-06-04 00:51] LABS: INR 2.43 (0.8-1.2)
[2020-06-04 01:22] VITALS: BP 166/86; PULSE 93; RESP 18; O2SAT 96
[2020-06-04 01:30] LABS: Basophils # 0.1 10^3/uL (0.0-0.1); Basophils % 0.9 %; Eosinophils # 0.4 10^3/uL (0.0-0.8); Eosinophils % 6.6 %; Hematocrit 31.9 % (37.0-47.0); Hemoglobin 9.7 g/dL (11.5-15.3); Lymphocytes # 1.4 10^3/uL (0.8-4.8); Lymphocytes % 25.8 %; Mean Corpuscular HGB Conc 30.4 g/dL (30.0-36.0); Mean Corpuscular Volume 91.9 fL (81-99); Mean Platelet Volume 10.9 fL (7.4-10.4); Monocytes # 0.5 10^3/uL (0.2-0.9); Monocytes % 9.4 %; Neutrophils # 3.11 10^3/uL (1.8-7.7); Neutrophils % 57.3 %; Nucleated Red Blood Cells % 0 %; Platelet Count 146 10^3/cmm (130-400); Red Blood Count 3.47 10^6/uL (4.1-5.3); Red Cell Distribution Width 12.5 % (12.1-15.1); White Blood Count 5.4 10^3/uL (4.0-10.0)
[2020-06-04 01:40] VITALS: PULSE 82; RESP 18; O2SAT 97
[2020-06-04] MEDS: ipratropium-albuterol 3 mL Neb INHALATION (01:40)
[2020-06-04 01:48] VITALS: PULSE 87
[2020-06-04 02:32] LABS: Troponin 5 2HR 15.48 ng/L (0-10); Troponin 5 2HR Delta 0.48 ABS# (0-10)
[2020-06-04 02:56] VITALS: BP 169/95; PULSE 86; RESP 20; O2SAT 94
--- NOTE | 2020-06-04 04:22 | PC.NURSE ---
I agree with Medic assessment
== END 2020-06-04 04:23 | disposition home or self-care (01) ==
PROVIDERS: Emergency Medicine; Emergency Provider Physician Assistant; PCP Family Medicine
DX: J44.9 Chronic obstructive pulmonary disease, unspecified (principal); D64.9 Anemia, unspecified; Z79.82 Long term (current) use of aspirin; Z99.81 Dependence on supplemental oxygen; Z86.73 Personal history of transient ischemic attack (TIA), and cerebral infarction without residual deficits; I10 Essential (primary) hypertension; E78.2 Mixed hyperlipidemia; Z87.891 Personal history of nicotine dependence
CPT/HCPCS: 12345; 70450; 71045; 73030; 80053; 83880; 84484; 85025; 85610; 93005; 94640; 99282; 99284

== ENCOUNTER → 2020-06-23 15:27 | Outpatient (BNVA) | payer MEDICARE, OTHER, SELFPAY | PROVIDERS: PCP Family Medicine; Visit Provider Family Medicine | DX: M19.012 Primary osteoarthritis, left shoulder (principal); E61.1 Iron deficiency; M25.519 Pain in unspecified shoulder; I10 Essential (primary) hypertension | CPT/HCPCS: 80048; 82728; 83540; 85025 ==

== ENCOUNTER 2020-07-26 21:14 | Emergency (ER) | payer MEDICARE, OTHER, SELFPAY ==
[2020-07-26 21:18] VITALS: BP 193/103; PULSE 76; RESP 18; TEMP 36.8; O2SAT 100; BMI 22.3
--- NOTE | 2020-07-26 21:18 | CTR_ITS ---
PROCEDURE INFORMATION: Exam: CT Head Without Contrast Exam date and time: 07/26/2020 9:25 PM Age: 79 years old Clinical indication: Injury or trauma; Forehead; Patient HX: Fall from standing denies loc has abrasion above L eyebrow TECHNIQUE: Imaging protocol: Computed tomography of the head without contrast. Radiation optimization: All CT scans at this facility use at least one of these dose optimization techniques: automated exposure control; mA and/or kV adjustment per patient size (includes targeted exams where dose is matched to clinical indication); or iterative reconstruction. ADDITIONAL STUDY INFORMATION: Total DLP (mGy-cm): 792.91 COMPARISON: CT head wo con* [id number] 06/03/2020 10:21 PM FINDINGS: There is prominent low density in the bilateral periventricular white matter which may represent chronic small vessel ischemic disease in the appropriate clinical setting. The possibility of superimposed acute infarctions cannot be excluded; consider MRI brain (including diffusion images) for further assessment if clinically warranted and if patient has no contraindication to MRI. There are prominent intracranial arterial calcifications. There is mild two moderate cerebral cortical volume loss. Ventricles do not appear significantly dilated. No depressed calvarial fracture is demonstrated. Visualized paranasal sinuses and mastoid air cells demonstrate no significant opacification. CT/CT head wo con* [id number] IMPRESSION: Probable prominent chronic ischemic changes as discussed above. Radiation Dose CTDIVOL = (mGy): DLP = 792.91 (mGy-cm)
--- NOTE | 2020-07-26 21:18 | CTR_ITS ---
PROCEDURE INFORMATION: Exam: CT Cervical Spine Without Contrast Exam date and time: 07/26/2020 9:25 PM Age: 79 years old Clinical indication: Injury or trauma; Blunt trauma; Patient HX: Fall from standing denies loc has abrasion above L eyebrow w neck pain TECHNIQUE: Imaging protocol: Computed tomography images of the cervical spine without contrast. Radiation optimization: All CT scans at this facility use at least one of these dose optimization techniques: automated exposure control; mA and/or kV adjustment per patient size (includes targeted exams where dose is matched to clinical indication); or iterative reconstruction. ADDITIONAL STUDY INFORMATION: Total DLP (mGy-cm): 253.11 COMPARISON: CT Cervical Spine wo* [id number] 04/05/2014 12:25 PM FINDINGS: There is mild multilevel malalignment, likely secondary to degenerative changes. Height of cervical bodies appears within normal limits. Straightening of the cervical spine may be due to muscle spasm. There are prominent multilevel degenerative changes in the cervical spine. There appears to be spinal canal narrowing. Further assessment cannot be made of the cervical spinal canal or its contents due to artifacts. No convincing acute fracure is demonstrated when allowing for the degenerative changes. Consider MRI of cervical spine for further assessment if clinically warranted, particularly for further assessment of the spinal canal and its contents, spinal cord, nerve roots, intervertebral disks, ligaments, other spinal soft tissues, bone edema, etc., if patient has no contraindication to MRI. CT/CT cervical spin wo con* [id number] IMPRESSION: No convincing acute fracture is demonstrated when allowing for prominent degenerative changes as discussed above. Radiation Dose CTDIVOL = (mGy): DLP = 253.11 (mGy-cm)
--- NOTE | 2020-07-26 21:18 | XRR_ITS ---
PROCEDURE INFORMATION: Exam: XR Left Shoulder Exam date and time: 07/26/2020 9:35 PM Age: 79 years old Clinical indication: Injury or trauma; Fall; Blunt trauma (contusions or hematomas); Shoulder; Left; Injury date: 07/26/20 TECHNIQUE: Imaging protocol: XR Left shoulder. Views: 2 or more views. COMPARISON: CR XR shoulder LT min 2V* [id number] 06/03/2020 10:12 PM FINDINGS: Bones/joints: The bones are diffusely osteopenic. No fracture. No dislocation. Mild degenerative changes at the acromioclavicular and glenohumeral joints. There is evidence of calcific tendinitis involving the rotator cuff. Soft tissues: No acute soft tissue abnormality. XR/XR shoulder LT min 2V* [id number] IMPRESSION: No acute osseous abnormality.
--- NOTE | 2020-07-26 21:36 | ED_ITS ---
HPI - Fall General: Chief Complaint: Fall Stated Complaint: FALL Time Seen by Provider: 07/26/20 21:15 Source: patient and EMS Mode of arrival: EMS Limitations: no limitations History of Present Illness: HPI Narrative: 79-year-old female states she tripped on a step and fell forward. She landed on her face and does have a small laceration above her left eye. She complains of headache along with left shoulder pain and slight neck pain. She denies any loss consciousness. Denies any worsening or improving factors. States her pain is sharp in nature and rates it a 4 out of 10. Associated symptoms-after fall: Denies abdominal pain, chest pain, headache(s) or neck pain Review of Systems Const: Denies: fever(s), chills, body aches or change in appetite Eyes: Denies: blurry vision or eye discomfort ENMT: Denies: throat pain or dental pain Card: Denies: chest pain Resp: Denies: dyspnea GI: Denies: abdominal pain, nausea, vomiting or diarrhea : Denies: dysuria Musc: Denies: neck pain or back pain Skin/Breast: Denies: rash Neuro: Denies: headache(s) Psych: Denies: depression Koby/Lymph: Denies: easy bruising All/Imm: Denies: urticaria PFSH ED PFSH: Medical History (Updated 07/26/20 @ 22:05 by Romulo Bettencourt MD) 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 ASCVD (arteriosclerotic cardiovascular disease) Carotid stenosis COPD (chronic obstructive pulmonary disease) CVA (cerebral vascular accident) DDD (degenerative disc disease) Essential (primary) hypertension GERD (gastroesophageal reflux disease) Gout History of ovarian cyst Hyperlipidemia, mixed Hypothyroid Iron deficiency Lumbar disc disease with radiculopathy Mixed incontinence urge and stress Osteoarthritis of left shoulder Surgical History H/O heart artery stent H/O pelvic surgery H/O shoulder surgery History of throat surgery S/P tonsillectomy Family History Family/Other No problems noted. Mother Myocardial infarction Sister Myocardial infarction Asthma Father Diabetes Other Cancer Hypertension Social History Smoking and tobacco status: former smoker Quit status (tobacco): has quit using tobacco Year quit tobacco: 2001 - 1PPD x 20 Years Alcohol intake: never Lives independently: Yes Household members: none Marital status: / Current occupational status: retired History of recent travel: No Current gender identity: Female Physical Exam Const: COMMON NORMALS: no acute distress, patient oriented x3 and healthy appearing HENMT: COMMON NORMALS: normocephalic HEAD & SCALP: normocephalic OTHER: 1 cm laceration over the left eye Eye: COMMON NORMALS: Equal, round and reactive pupils present and EOMs intact bilaterally PUPIL: Yes Equal, round and reactive pupils present Neck/C-Spine: COMMON NORMALS: full ROM and supple Chest: COMMONS NORMALS: normal inspection of the chest and normal palpation of entire chest wall Resp: COMMON NORMALS: normal respiratory effort, No retractions, No use of accessory muscles and clear to auscultation bilaterally AUSCULTATION: clear to auscultation bilaterally Cardio: COMMON NORMALS: regular rate, regular rhythm and No murmurs present (Cardio) RATE: regular rate RHYTHM: regular rhythm GI: COMMON NORMALS: Normal to inspection, nondistended, normoactive bowel sounds present, Soft to palpation, non-tender and no masses PALPATION: Yes Soft to palpation Extremity: COMMON NORMALS: normal to inspection and full ROM Neuro: COMMON NORMALS: patient oriented x3, moves all extremities and no focal motor deficits Psych: COMMON NORMALS: mental status grossly normal, Normal thought process present and cooperative THOUGHT PROCESS: Normal thought process present Skin: COMMON NORMALS: no rashes or lesions noted and no wounds GENERAL SKIN EXAM: no rashes or lesions noted Procedures Laceration Laceration 1: Site: face Side (If applicable): left Size (cm): 1 Description: linear Skin layer closed with: other (dermabond) Course Vital Signs: Vital signs: Vital Signs Temperature 98.3 F 07/26/20 21:18 Pulse Rate 76 07/26/20 21:18 Respiratory Rate 18 07/26/20 21:18 Blood Pressure 193/103 07/26/20 21:18 Pulse Oximetry 100 07/26/20 21:18 MDM - Fall MDM Narrative: Medical decision making narrative: Patient presents here with head laceration from a fall. Patient CT scan of the head and C-spine are negative. Patient's wound was repaired with Dermabond. Patient is well- appearing here and is stable for discharge. Imaging Data^: CT Head: Radiologist's impression: [facility] [place] [address] CT Scan Report Signed Patient: Sneha Smith Unit #: [id number] : 1940 Age/Sex: 79 / F ADM Date: 07/26/20 Loc: ER Room/Bed: Attending Dr: Ordering Provider/Ordering MD: Romulo Bettencourt MD Date of Service: 07/26/20 Procedure(s): CT head wo con* [id number] Accession Number(s): [id number] Report Number: [id number] PROCEDURE INFORMATION: Exam: CT Head Without Contrast Exam date and time: 07/26/2020 9:25 PM Age: 79 years old Clinical indication: Injury or trauma; Forehead; Patient HX: Fall from standing denies loc has abrasion above L eyebrow TECHNIQUE: Imaging protocol: Computed tomography of the head without contrast. Radiation optimization: All CT scans at this facility use at least one of these dose optimization techniques: automated exposure control; mA and/or kV adjustment per patient size (includes targeted exams where dose is matched to clinical indication); or iterative reconstruction. ADDITIONAL STUDY INFORMATION: Total DLP (mGy-cm): 792.91 COMPARISON: CT head wo con* [id number] 06/03/2020 10:21 PM FINDINGS: There is prominent low density in the bilateral periventricular white matter which may represent chronic small vessel ischemic disease in the appropriate clinical setting. The possibility of superimposed acute infarctions cannot be excluded; consider MRI brain (including diffusion images) for further assessment if clinically warranted and if patient has no contraindication to MRI. There are prominent intracranial arterial calcifications. There is mild two moderate cerebral cortical volume loss. Ventricles do not appear significantly dilated. No depressed calvarial fracture is demonstrated. Visualized paranasal sinuses and mastoid air cells demonstrate no significant opacification. CT/CT head wo con* [id number] IMPRESSION: Probable prominent chronic ischemic changes as discussed above. Other CT: Attestation: I personally reviewed and interpreted this imaging study as follows: Radiologist's impression: [facility] [place] [address] CT Scan Report Signed Patient: Sneha Smith Unit #: [id number] : 1940 Age/Sex: 79 / F ADM Date: 07/26/20 Loc: ER Room/Bed: Attending Dr: Ordering Provider/Ordering MD: Romulo Bettencourt MD Date of Service: 07/26/20 Procedure(s): CT cervical spin wo con* [id number] Accession Number(s): [id number] Report Number: [id number] PROCEDURE INFORMATION: Exam: CT Cervical Spine Without Contrast Exam date and time: 07/26/2020 9:25 PM Age: 79 years old Clinical indication: Injury or trauma; Blunt trauma; Patient HX: Fall from standing denies loc has abrasion above L eyebrow w neck pain TECHNIQUE: Imaging protocol: Computed tomography images of the cervical spine without contrast. Radiation optimization: All CT scans at this facility use at least one of these dose optimization techniques: automated exposure control; mA and/or kV adjustment per patient size (includes targeted exams where dose is matched to clinical indication); or iterative reconstruction. ADDITIONAL STUDY INFORMATION: Total DLP (mGy-cm): 253.11 COMPARISON: CT Cervical Spine wo* [id number] 04/05/2014 12:25 PM FINDINGS: There is mild multilevel malalignment, likely secondary to degenerative changes. Height of cervical bodies appears within normal limits. Straightening of the cervical spine may be due to muscle spasm. There are prominent multilevel degenerative changes in the cervical spine. There appears to be spinal canal narrowing. Further assessment cannot be made of the cervical spinal canal or its contents due to artifacts. No convincing acute fracure is demonstrated when allowing for the degenerative changes. Consider MRI of cervical spine for further assessment if clinically warranted, particularly for further assessment of the spinal canal and its contents, spinal cord, nerve roots, intervertebral disks, ligaments, other spinal soft tissues, bone edema, etc., if patient has no contraindication to MRI. CT/CT cervical spin wo con* [id number] IMPRESSION: No convincing acute fracture is demonstrated when allowing for prominent degenerative changes as discussed above. Discharge Plan Discharge Patient Disposition: Home Clinical Impression: Fall Qualifiers: Encounter type: initial encounter Qualified Code(s): W19.XXXA - Unspecified fall, initial encounter Laceration of head Qualifiers: Encounter type: initial encounter Location of open wound of head: unspecified part of head Foreign body presence: without foreign body Qualified Code(s): S01.91XA - Laceration without foreign body of unspecified part of head, initial encounter Condition: Stable Prescriptions: No Action furosemide 20 mg tablet 20 mg PO EVERY OTHER DAY PRN (Reason: Edema) RF: 0 potassium chloride 20 mEq tablet extended release 20 meq PO BID RF: 0 calcium carb and citrate-vitD3 [Citracal-D3 Slow Release] 600 mg calcium- 500 unit tablet extended release 3 tab PO DAILY RF: 0 folic acid 1 tab PO DAILY RF: 0 ferrous sulfate [Feosol] 325 mg (65 mg iron) tablet 325 mg PO DAILY RF: 0 cyanocobalamin (vitamin B-12) [Vitamin B-12] 250 mcg tablet 250 mcg PO DAILY RF: 0 sumatriptan succinate [Imitrex] 50 mg tablet 50 mg PO Q2H PRN (Reason: Migraine Headache) RF: 0 magnesium oxide 500 mg capsule 500 mg PO DAILY RF: 0 aspirin [Adult Aspirin Regimen] 81 mg tablet,delayed release (DR/EC) 81 mg PO DAILY RF: 0 metoprolol tartrate 50 mg tablet 50 mg PO BID RF: 0 nitroglycerin 6.5 mg capsule, extended release 6.5 mg PO BID RF: 0 omeprazole 20 mg capsule,delayed release(DR/EC) 20 mg PO BID RF: 0 promethazine-codeine 6.25-10 mg/5 mL syrup 5 ml PO Q6H PRN (Reason: pain) Qty: 240 RF: 0 oxybutynin chloride 15 mg tablet extended release 24hr 15 mg PO DAILY Qty: 30 RF: 6 budesonide 0.5 mg/2 mL suspension for nebulization 0.5 mg INHALATION BID 30 Days Qty: 120 RF: 3 ondansetron HCl [Zofran] 4 mg tablet 4 mg PO Q8H PRN (Reason: UNKNOWN) 30 Days Qty: 90 RF: 5 benzonatate [Tessalon Perles] 100 mg capsule 100 mg PO BID PRN (Reason: Cough) 30 Days Qty: 60 RF: 3 albuterol sulfate [ProAir HFA] 90 mcg/actuation HFA aerosol inhaler 2 puff INHALATION Q6H PRN (Reason: Shortness Of Breath) Qty: 8.5 RF: 5 tramadol 50 mg tablet 50 mg PO TID PRN (Reason: pain) 30 Days Qty: 90 RF: 2 diazepam [Valium] 5 mg tablet 5 mg PO BID PRN (Reason: Anxiety) 30 Days Qty: 60 RF: 2 losartan 50 mg tablet 50 mg PO DAILY 90 Days Qty: 90 RF: 1 ipratropium-albuterol 0.5 mg-3 mg(2.5 mg base)/3 mL solution for nebulization 3 ml INHALATION QID 30 Days Qty: 90 RF: 5 Benadryl 50 mg PO DAILY RF: 0 rosuvastatin 10 mg PO DAILY RF: 0 metoprolol tartrate 100 mg tablet 100 mg PO BID Qty: 60 RF: 0 Gelclair Gel In Packet 1 applic MUCOUS MEM BID Qty: 225 RF: 0 Discharge Orders: Discharge Order (Routine); Ordered 07/26/20 Ordered By: Romulo Bettencourt Referrals: Gibson Bo MD [Primary Care Provider] - Discharge Diet: Advance as tolerated Discharge Activity: Resume usual activity Patient Instructions: Laceration (ED) Coding Level of Care Code ED Head Kiln Operator for Chg Fwd Exam Comprehensive
[2020-07-26 22:20] VITALS: BP 173/95; PULSE 78; RESP 16; O2SAT 99
== END 2020-07-26 22:22 | disposition home or self-care (01) ==
PROVIDERS: Emergency Provider Emergency Medicine; PCP Family Medicine
DX: S01.91XA Laceration without foreign body of unspecified part of head, initial encounter (principal); Z79.82 Long term (current) use of aspirin; Z87.891 Personal history of nicotine dependence; J44.9 Chronic obstructive pulmonary disease, unspecified; Z86.73 Personal history of transient ischemic attack (TIA), and cerebral infarction without residual deficits; I10 Essential (primary) hypertension; E78.2 Mixed hyperlipidemia; W01.0XXA Fall on same level from slipping, tripping and stumbling without subsequent striking against object, initial encounter
CPT/HCPCS: 12011; 12345; 70450; 72125; 73030; 99282; 99283

== ENCOUNTER 2020-10-06 13:00 | Emergency (ER) | payer MEDICARE, OTHER, SELFPAY ==
[2020-10-06 13:08] VITALS: BP 161/77; PULSE 85; RESP 22; TEMP 36.6; O2SAT 100; BMI 17.8
--- NOTE | 2020-10-06 13:31 | CT_ITS ---
WS: [id number] CT NECK TECHNIQUE: Contrast-enhanced CT of the neck with coronal and sagittal reformatted images. CLINICAL INFORMATION: dysphagia COMPARISON: None. DLP: 510.[address] scans at [facility] use at least one of these dose optimization techniques: automat ed exposure control; mA and/or kV adjustment per patient size (includes targeted exams where dose is matched to clinical indication); or iterative reconstruction. FINDINGS: Posterior nasopharynx is normal. Normal parotid glands. Normal submandibular glands. Normal vallecula and piriform sinuses. No evidence of supraglottic or glottic mass. Normal vocal cords. Subglottic ai rway is normal. Tiny 1 mm lesion in the right thyroid. Lung apices are well aerated. Calcified granuloma left upper lobe. Paranasal sinuses and mastoid air cells well aerated. Partially visualized intracranial contents appear normal. No cervical lymphadenop athy. CT/CT neck w con* [id number] IMPRESSION: 1. No evidence of supraglottic or glottic mass. 2. Normal salivary glands. 3. Subglottic airway is normal. 4. No cervical lymphadenopathy. 5. No acute neck findings. Notified Alfonso Siegel DO at 10/06/2020 3:13 PM.
--- NOTE | 2020-10-06 13:35 | ED_ITS ---
HPI - General Adult General: Chief complaint: Airway/Esophagus Foreign Body Stated complaint: ? FOOD STUCK IN THROAT Time Seen by Provider: 10/06/20 13:06 History of Present Illness: HPI narrative: 80 yo female presents with complaints of difficulty swallowing. This is been an ongoing issue that is being watched by Dr. Adan. Previously had some sort of cyst removed from the throat. Recently she said he having increasing difficulty swallowing. She recalls that if she had any difficulty she was told to proceed to the emergency room. Stating she ate some rice dish that seem to get stuck in her throat however she is able to still swallow foods to manage saliva and speak without difficulty she is not choking coughing or vomiting. No stridor no wheezing no rhonchi no evidence of difficulty breathing or speaking or swallowing in the ER patient is able to demonstrate swallowing liquid without any difficulty. Onset (ago): day(s) Location: neck Radiation: non-radiation Severity: mild Quality: aching Associated symptoms: Deny chest pain, dyspnea, malaise, nausea, rash or vomiting Review of Systems Const: Denies: fever(s), chills, body aches, change in appetite, fatigue or malaise ENMT: Denies: throat pain, ear or mastoid pain, nasal discharge or nasal congestion Card: Denies: chest pain, edema, dyspnea on exertion or orthopnea Resp: Denies: dyspnea, productive cough or non-productive cough GI: Denies: abdominal pain, nausea, vomiting, hematemesis, coffee ground emesis, diarrhea, constipation, bloating, hematochezia or melena : Denies: flank pain, difficulty voiding, dysuria, urinary frequency or urinary urgency Skin/Breast: Denies: rash or pruritus PFSH ED PFSH: Medical History 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 ASCVD (arteriosclerotic cardiovascular disease) Carotid stenosis COPD (chronic obstructive pulmonary disease) CVA (cerebral vascular accident) DDD (degenerative disc disease) Essential (primary) hypertension GERD (gastroesophageal reflux disease) Gout History of ovarian cyst Hyperlipidemia, mixed Hypothyroid Iron deficiency Lumbar disc disease with radiculopathy Mixed incontinence urge and stress Osteoarthritis of left shoulder Surgical History H/O heart artery stent H/O pelvic surgery H/O shoulder surgery History of throat surgery S/P tonsillectomy Family History Family/Other No problems noted. Mother Myocardial infarction Sister Myocardial infarction Asthma Father Diabetes Other Cancer Hypertension Social History Smoking and tobacco status: former smoker Quit status (tobacco): has quit using tobacco Year quit tobacco: 2001 - 1PPD x 20 Years Alcohol intake: never Lives independently: Yes Household members: none Marital status: / Current occupational status: retired History of recent travel: No Current gender identity: Female Physical Exam Const: COMMON NORMALS: no acute distress GENERAL APPEARANCE: cooperative and comfortable ORIENTATION/CONSCIOUSNESS: Yes awake, Yes oriented to person, Yes oriented to place and Yes oriented to time HENMT: COMMON NORMALS: normocephalic, atraumatic and hearing grossly normal bilaterally HEAD & SCALP: normocephalic and atraumatic Neck/C-Spine: COMMON NORMALS: no JVD Resp: COMMON NORMALS: normal respiratory effort, No retractions, No use of accessory muscles and clear to auscultation bilaterally AUSCULTATION: clear to auscultation bilaterally Cardio: COMMON NORMALS: no JVD, regular rate, regular rhythm and No murmurs present (Cardio) RATE: regular rate RHYTHM: regular rhythm GI: COMMON NORMALS: Soft to palpation and No hepatosplenomegaly present AUSCULTATION: Yes normoactive bowel sounds PALPATION: Yes Soft to palpation, No Tenderness to palpation present (GI), No Guarding due to palpation present (GI) and Yes No hepatosplenomegaly present Extremity: COMMON NORMALS: normal to inspection, capillary refill normal, no clubbing, cyanosis or edema, no calf tenderness and no pedal edema Neuro: SENSORIUM/ORIENTATION: Yes oriented to person, Yes oriented to place and Yes oriented to time Skin: COMMON NORMALS: no rashes or lesions noted GENERAL SKIN EXAM: no rashes or lesions noted Course Vital Signs: Vital signs: Vital Signs Temperature 97.9 F 10/06/20 13:08 Pulse Rate 98 10/06/20 14:51 Respiratory Rate 16 10/06/20 15:25 Blood Pressure 144/82 10/06/20 14:51 Pulse Oximetry 100 10/06/20 14:51 MDM - General Adult MDM Narrative: Medical decision making narrative: Nothing significant on the CT. I called and talked to Dr. dAan he vaguely remembers the patient thought it was a vocal cord nodule that he had difficulty with. Since she did not have any difficulty now he recommends she be discharged and follow-up with his office. Discussed with the patient the findings Dr. Adan's recommendations if she has any further problems she can return otherwise follow-up with Dr. Adan within the next week. Lab Data: Labs: Lab Results 10/06/20 Range/Units 14:05 Sodium 138 (136-145) mmol/L Potassium 4.1 (3.5-5.1) mmol/L Chloride 99 (98-107) mmol/L Carbon Dioxide 35 H (22-29) mmol/L Anion Gap 8.1 (5-19) BUN 22 (8-23) mg/dL Creatinine 0.6 (0.5-0.9) mg/dL GFR Calculation Not Reportable Glucose 88 (65-115) mg/dL Calculated Osmolal ity 289 (285-295) mOsm/k g Calcium 9.5 (8.5-10.5) mg/dL Discharge Plan Discharge Patient Disposition: Home Clinical Impression: Dysphagia Condition: Stable Prescriptions: No Action furosemide 20 mg tablet 20 mg PO EVERY OTHER DAY PRN (Reason: Edema) RF: 0 potassium chloride 20 mEq tablet extended release 20 meq PO BID PRN (Reason: w/lasix) RF: 0 sumatriptan succinate [Imitrex] 50 mg tablet 50 mg PO Q2H PRN (Reason: Migraine Headache) RF: 0 aspirin [Adult Aspirin Regimen] 81 mg tablet,delayed release (DR/EC) 81 mg PO DAILY@08 RF: 0 nitroglycerin 6.5 mg capsule, extended release 6.5 mg PO BID RF: 0 omeprazole 20 mg capsule,delayed release(DR/EC) 20 mg PO BID PRN (Reason: Acid Reflux) RF: 0 ondansetron HCl [Zofran] 4 mg tablet 4 mg PO Q8H PRN (Reason: UNKNOWN) 30 Days Qty: 90 RF: 5 benzonatate [Tessalon Perles] 100 mg capsule 100 mg PO BID PRN (Reason: Cough) 30 Days Qty: 60 RF: 3 albuterol sulfate [ProAir HFA] 90 mcg/actuation HFA aerosol inhaler 2 puff INHALATION Q6H PRN (Reason: Shortness Of Breath) Qty: 8.5 RF: 5 tramadol 50 mg tablet 50 mg PO TID PRN (Reason: pain) 30 Days Qty: 90 RF: 2 diazepam [Valium] 5 mg tablet 5 mg PO BID PRN (Reason: Anxiety) 30 Days Qty: 60 RF: 2 Benadryl 50 mg PO DAILY PRN (Reason: Allergic Reaction) RF: 0 rosuvastatin 10 mg Tablet 10 mg PO DAILY@08 RF: 0 losartan 50 mg tablet 50 mg PO DAILY@08 RF: 0 oxybutynin chloride 15 mg tablet extended release 24hr 15 mg PO DAILY@08 RF: 0 ipratropium-albuterol 0.5 mg-3 mg(2.5 mg base)/3 mL solution for nebulization 3 ml INHALATION QID PRN (Reason: Shortness Of Breath) RF: 0 promethazine-codeine 6.25-10 mg/5 mL syrup See Rx Instructions .ROUTE .COMPLEX PRN (Reason: pain) RF: 0 folic acid 1 mg Tablet 1 mg PO DAILY RF: 0 Discharge Orders: Discharge ED (Routine); Ordered 10/06/20 Ordered By: Alfonso Siegel Referrals: Gibson Bo MD [Primary Care Provider] - Discharge Diet: Soft Mechanical Discharge Activity: Resume usual activity Activity Restrictions/Additional Instructions: Follow-up with Dr. Adan later this week. Coding Level of Care Code ED Gravity Meter Observer for Lorenzo Esteves
[2020-10-06 13:51] VITALS: BP 163/79; PULSE 83; RESP 15; O2SAT 100
[2020-10-06 14:33] LABS: Anion Gap 8.1 (5-19); Blood Urea Nitrogen 22 mg/dL (8-23); Calcium 9.5 mg/dL (8.5-10.5); Carbon Dioxide 35 mmol/L (22-29); Chloride 99 mmol/L (98-107); Glucose 88 mg/dL (65-115); Osmolality Calculated 289 mOsm/kg (285-295); Potassium 4.1 mmol/L (3.5-5.1); Sodium 138 mmol/L (136-145)
[2020-10-06] MEDS: iohexol 300 mg/mL 100 mL Btl IV (14:46)
[2020-10-06 14:51] VITALS: BP 144/82; PULSE 98; RESP 16; O2SAT 100
[2020-10-06 15:00] VITALS: RESP 16
[2020-10-06 15:25] VITALS: RESP 16
== END 2020-10-06 16:02 | disposition home or self-care (01) ==
PROVIDERS: Emergency Provider Family Medicine; PCP Family Medicine
DX: R13.10 Dysphagia, unspecified (principal); Z79.82 Long term (current) use of aspirin; J44.9 Chronic obstructive pulmonary disease, unspecified; Z86.73 Personal history of transient ischemic attack (TIA), and cerebral infarction without residual deficits; I10 Essential (primary) hypertension; E78.2 Mixed hyperlipidemia; Z87.891 Personal history of nicotine dependence
CPT/HCPCS: 12345; 70491; 80048; 99283; Q9967

== ENCOUNTER 2020-12-08 09:25 | Emergency (ER) | payer MEDICARE, OTHER, SELFPAY ==
[2020-12-08 09:27] VITALS: BP 160/85; PULSE 83; RESP 16; TEMP 36.8; O2SAT 93; BMI 20.7
[2020-12-08 09:35] VITALS: BP 160/85; PULSE 79; RESP 18; O2SAT 98
--- NOTE | 2020-12-08 09:38 | CT_ITS ---
WS: [id number] CT LUMBAR SPINE, noncontrast. HISTORY: fall/back pain TECHNIQUE: Contiguous 2.5 mm axial imaging are performed. Sagittal and coronal reformats are submitte d and reviewed. All CT scans at [facility] use at least one of these dose optimization te chniques: automated exposure control; mA and/or kV adjustment per patient size (includes targeted exa ms where dose is matched to clinical indication); or iterative reconstruction. IV contrast: None DLP: 896.48 mGy.cm COMPARISON: None available. Osteopenia with severe thoracolumbar scoliosis. Asymmetric disc space narrowing throughout the lumbar spine. No acute fractures are identified. Marked facet joint arthritis at L4-5 and L5-S1. No sacral insufficiency fracture. Asymmetric disc bulging and osteophytosis and facet arthritis throughout the lumbar spine. Most signi ficant stenosis at L4-5. Moderate to severe central and bilateral foraminal stenosis. There is additi onal severe LEFT foraminal stenosis at L3-4. Additional components of central and subarticular recess stenosis and [id number]. Atherosclerosis and tortuosity of the abdominal aorta. CT/CT lumbar spine wo con* [id number] IMPRESSION: 1. No acute lumbar spine fractures. 2. 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 3. Moderate to severe central and bilateral foraminal stenosis at L4-5. 4. Severe LEFT foraminal stenosis at L3-4. Remaining stenoses throughout the l umbar spine are mild to moderate.
--- NOTE | 2020-12-08 09:38 | CT_ITS ---
WS: [id number] CT THORACIC SPINE HISTORY: fall/back pain TECHNIQUE: Contiguous 2.5 mm axial images are reviewed to thoracic spine. Images are reformatted in s agittal and coronal planes. All CT scans at [facility] use at least one of these dose opt imization techniques: automated exposure control; mA and/or kV adjustment per patient size (includes targeted exams where dose is matched to clinical indication); or iterative reconstruction. DLP: 876.49 mGy.cm COMPARISON: None available. Diffuse osteopenia. Moderate LEFT curvature of the thoracic spine. No acute fracture is identified. P edicles and posterior elements are intact. Mild facet joint arthritis throughout the thoracic spine. No high-grade central or foraminal stenoses. No acute-appearing disc protrusions. Visualized paraspinal soft tissues are negative for acute process. There are a few pulmonary granulom as. Atherosclerosis of the thoracic aorta. CT/CT thoracic spin wo con* [id number] IMPRESSION: 1. No thoracic spine fracture. 2. LEFT curvature thoracic spine. 3. No high-grade stenosis or acute disc protrusions.
--- NOTE | 2020-12-08 09:38 | XRR_ITS ---
PROCEDURE INFORMATION: Exam: XR Chest Exam date and time: 12/08/2020 9:42 AM Age: 80 years old Clinical indication: Injury or trauma; Fall; Blunt trauma (contusions or hematomas); Additional info: Increasing falls TECHNIQUE: Imaging protocol: XR of the chest. Views: 1 view. COMPARISON: CR XR chest 1V portable [id number] 06/03/2020 10:09 PM FINDINGS: Lungs: Emphysema Calcified granuloma left apex Lungs are well aerated without a focal area of consolidation. Pleural spaces: Unremarkable. No pleural effusion. No pneumothorax. Heart/Mediastinum: The cardiac silhouette appears enlarged, some of which is magnification related to the AP projection. Bones/joints: Unremarkable. XR/XR chest 1V portable [id number] IMPRESSION: Lungs are well aerated without a focal area of consolidation.
--- NOTE | 2020-12-08 09:39 | ECG_ITS ---
[facility] Test Date: 2020-12-08 Pat Name: Sneha Smith Department: Room: Gender: Female Cigarette Packer: : 1940 Requested By: Liana Navarrete Order Number: [id number] Yimi MD: Zaida Phan M.D. Measurements Intervals [place] Rate: 79 P: 83 NV: 131 QRS: 73 QRSD: 85 T: 48 QT: 376 QTc: 433 Interpretive Statements SINUS RHYTHM INTERPRETATION BASED ON A DEFAULT AGE OF 40 YEARS Compared to ECG 06/03/2020 22:11:19 No significant changes Electronically Signed On 12-09-2020 7:38:01 CDT by Zaida Phan M.D. [id number]
--- NOTE | 2020-12-08 09:39 | ED_ITS ---
HPI - Fall General: Chief Complaint: Fall Stated Complaint: BACK PAIN Time Seen by Provider: 12/08/20 09:26 Source: patient and EMS Mode of arrival: EMS Limitations: no limitations History of Present Illness: HPI Narrative: Patient is a nice 80-year-old female who presents to ED today via EMS for complaints of frequent falls. According to EMS, one of patient's family members told them that patient falls frequently however over the past 3 to 4 days she has fallen several times which is uncharacteristic for her. When I asked patient what causes her to fall she responds I do not know how to answer that-I guess I get dizzy. I have a bad heart . She states her most recent fall was yesterday afternoon. She does report this fall was mechanical stating she was playing with her niece and they were both tugging on a toy when the niece let go causing patient to fall backwards. She states she landed on her back. She states she did not have much pain at that time however woke up with fairly significant back pain so decided to come to the ED for evaluation. She is not currently complaining of shortness of breath or difficulty breathing. Patient wears 2L O2 continuously but states she has to increase this to 5L with walking or exertion. She states she did not strike her head or lose consciousness. She does not complain of neck pain. complaint: fall Onset (ago): day(s) Fall from: standing Fall witnessed: yes, by family Place fall occurred: home Loss of consciousness: None Prolonged down time: no Symptoms prior to fall: dizziness Context: tripped/slipped (mechanical fall yesterday; other falls unknown what causes-dizzy?) Location of injury: back Associated symptoms-after fall: Denies abdominal pain, chest pain, confusion, headache(s), neck pain or vertigo Review of Systems Const: Denies: fever(s), chills or fatigue Eyes: Denies: change in vision or blurry vision Card: Reports: pre-syncope (possibly-she thinks maybe she is getting dizzy) and dyspnea on exertion (chronic-not worsening ); Denies: chest pain, palpitations, irregular heart rhythm, edema, swelling of feet/ankles, syncope or orthopnea Resp: Reports: dyspnea (chronic-at baseline); Denies: productive cough, wheezing, hemoptysis or chest congestion GI: Denies: abdominal pain, nausea, vomiting or diarrhea : Denies: flank pain or dysuria Musc: Reports: back pain and joint pain (L shoulder); Denies: neck pain, extremity pain, extremity swelling or joint swelling Neuro: Reports: frequent falls and dizziness; Denies: headache(s), numbness in extremities, weakness in extremities, sensory changes, vertigo, confusion, Slurred speech present or difficulty communicating thoughts PFSH ED PFSH: Medical History 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 ASCVD (arteriosclerotic cardiovascular disease) Carotid stenosis COPD (chronic obstructive pulmonary disease) CVA (cerebral vascular accident) DDD (degenerative disc disease) Essential (primary) hypertension GERD (gastroesophageal reflux disease) Gout History of ovarian cyst Hyperlipidemia, mixed Hypothyroid Iron deficiency Lumbar disc disease with radiculopathy Mixed incontinence urge and stress Osteoarthritis of left shoulder Surgical History H/O heart artery stent H/O pelvic surgery H/O shoulder surgery History of throat surgery S/P tonsillectomy Family History Family/Other No problems noted. Mother Myocardial infarction Sister Myocardial infarction Asthma Father Diabetes Other Cancer Hypertension Social History Smoking and tobacco status: former smoker Quit status (tobacco): has quit using tobacco Year quit tobacco: 2001 - 1PPD x 20 Years Alcohol intake: never Lives independently: Yes Household members: none Marital status: / Current occupational status: retired History of recent travel: No Current gender identity: Female Physical Exam Const: COMMON NORMALS: no acute distress, patient oriented x3, no limitations, alert and well nourished GENERAL APPEARANCE: cooperative and frail appearing NUTRITIONAL APPEARANCE: thin ORIENTATION/CONSCIOUSNESS: Yes awake, Yes oriented to person, Yes oriented to place and Yes oriented to time HENMT: COMMON NORMALS: normocephalic and atraumatic HEAD & SCALP: normocephalic and atraumatic Neck/C-Spine: COMMON NORMALS: full ROM CERVICAL SPINE: No pain with cervical ROM and No Cervical spine tenderness Chest: COMMONS NORMALS: normal inspection of the chest and normal palpation of entire chest wall Resp: COMMON NORMALS: normal respiratory effort and clear to auscultation bilaterally AUSCULTATION: clear to auscultation bilaterally Cardio: COMMON NORMALS: regular rate and regular rhythm RATE: regular rate RHYTHM: regular rhythm GI: COMMON NORMALS: Normal to inspection, nondistended, normoactive bowel sounds present, Soft to palpation, non-tender, No hepatosplenomegaly present and no masses INSPECTION: Yes normal to inspection AUSCULTATION: Yes normoactive bowel sounds PALPATION: Yes Soft to palpation and Yes No hepatosplenomegaly present Back/Pelvis: THORACIC SPINE/UPPER BACK: Yes thoracic spinal tenderness (mid to lower T spine) and No paraspinal muscle tenderness LUMBAR SPINE/LOWER BACK: Yes lumbar spinal tenderness (mid to lower L spine) and No paraspinal muscle tenderness Extremity: GENERAL: Yes normal exam except as noted LEFT UPPER EXTREMITY: Yes shoulder joint (reports pain but has full passive ROM) Left shoulder joint: Yes inspection (normal) and Yes neurovascular exam (normal) Neuro: MARCO COMA SCALE: document GCS findings Tyler coma scale eye opening: Spontaneous Marco coma scale verbal response: Orientated Marco coma scale motor response: Obey commands Tyler coma scale total score: 15 COMMON NORMALS: patient oriented x3, CN's II-XII intact bilaterally, moves all extremities, no focal motor deficits and no sensory deficits noted SENSORIUM/ORIENTATION: Yes alert, Yes oriented to person, Yes oriented to place and Yes oriented to time Skin: TRAUMA: no lacerations or abrasions Course Vital Signs: Vital signs: Vital Signs Temperature 98.3 F 12/08/20 09:27 Pulse Rate 79 12/08/20 09:35 Respiratory Rate 18 12/08/20 09:35 Blood Pressure 160/85 12/08/20 09:35 Pulse Oximetry 98 12/08/20 09:35 MDM - Fall MDM Narrative: Medical decision making narrative: Patient here with a chronic history of frequent falls although family states she has fallen even more so over the past few days. She has no acute fractures. Her vital signs are stable. Work-up today is non-concerning. She has a very mildly elevated troponin at 14 however this seems to be better than patient's baseline. I would suspect if these falls were related to anything cardiac over the past few days this would be much higher. EKG is normal. Her UA is negative. Her son is in the room. She has family who will continue to care for her. Discussed using a walker at all times for ambulation. Discussed with the son to talk to primary care about physical therapy or having a provider come to her home and work on strengthening exercises. They may also consider a [place] facility. Lab Data: Labs: Lab Results 12/08/20 12/08/20 12/08/20 Range/Units 10:38 10:43 10:43 WBC 4.1 (4.0-10.0) 10^3/ uL RBC 3.96 L (4.1-5.3) 10^6/u L Hgb 10.9 L (11.5-15.3) g/dL Hct 35.9 L (37.0-47.0) % MCV 90.7 (81-99) fL MCH 27.5 L (28.0-34.0) pg MCHC 30.4 (30.0-36.0) g/dL RDW 13.2 (12.1-15.1) % Plt Count 151 (130-400) 10^3/c mm MPV 10.7 H (7.4-10.4) fL Neut % (Auto) 46.1 % Lymph % (Auto) 34.8 % [place] % (Auto) 9.3 % Eos % (Auto) 8.8 % Baso % (Auto) 1.0 % Neut # (Auto) 1.88 (1.8-7.7) 10^3/u L Lymph # (Auto) 1.4 (0.8-4.8) 10^3/u L [place] # (Auto) 0.4 (0.2-0.9) 10^3/u L Eos # (Auto) 0.4 (0.0-0.8) 10^3/u L Baso # (Auto) 0.0 (0.0-0.1) 10^3/u L Nucleated RBC % (a uto) 0 % Nucleated RBCs # 0.0 /100WBC Sodium 139 (136-145) mmol/L Potassium 4.3 (3.5-5.1) mmol/L Chloride 97 L (98-107) mmol/L Carbon Dioxide 37 H (22-29) mmol/L Anion Gap 9.3 (5-19) BUN 17 (8-23) mg/dL Creatinine 0.6 (0.5-0.9) mg/dL GFR Calculation Not Reportable Glucose 80 (65-115) mg/dL Calculated Osmolal ity 289 (285-295) mOsm/k g Calcium 8.7 (8.5-10.5) mg/dL Total Bilirubin 0.2 (0.15-1.2) mg/dL AST 17 (0-32) U/L ALT 8 (0-33) U/L Alkaline Phosphata se 118 H (35-105) IU/L Troponin T Baselin e (0-10) ng/L NT-Pro-B Natriuret Pep 137 (0-450) pg/mL Total Protein 6.2 L (6.6-8.7) g/dL Albumin 3.8 (3.5-5.2) g/dL Globulin 2.4 (1.3-4.6) g/dL Urine Color Straw (Yellow) Urine Appearance Clear (CLEAR) Urine pH 6.5 (5-7) Ur Specific Gravit y 1.015 (1.005-1.030) Urine Protein Neg (Negative) Urine Glucose (UA) Norm (Normal) Urine Ketones Negative (Negative) Urine Blood Neg (Negative) Urine Nitrate Negative (Negative) Urine Bilirubin Neg (Negative) Urine Urobilinogen Norm (Negative) mg/dL Ur Leukocyte Chelsy ase Negative (Negative) 12/08/20 Range/Units 10:43 WBC (4.0-10.0) 10^3/ uL RBC (4.1-5.3) 10^6/u L Hgb (11.5-15.3) g/dL Hct (37.0-47.0) % MCV (81-99) fL MCH (28.0-34.0) pg MCHC (30.0-36.0) g/dL RDW (12.1-15.1) % Plt Count (130-400) 10^3/c mm MPV (7.4-10.4) fL Neut % (Auto) % Lymph % (Auto) % [place] % (Auto) % Eos % (Auto) % Baso % (Auto) % Neut # (Auto) (1.8-7.7) 10^3/u L Lymph # (Auto) (0.8-4.8) 10^3/u L [place] # (Auto) (0.2-0.9) 10^3/u L Eos # (Auto) (0.0-0.8) 10^3/u L Baso # (Auto) (0.0-0.1) 10^3/u L Nucleated RBC % (a uto) % Nucleated RBCs # /100WBC Sodium (136-145) mmol/L Potassium (3.5-5.1) mmol/L Chloride (98-107) mmol/L Carbon Dioxide (22-29) mmol/L Anion Gap (5-19) BUN (8-23) mg/dL Creatinine (0.5-0.9) mg/dL GFR Calculation Glucose (65-115) mg/dL Calculated Osmolal ity (285-295) mOsm/k g Calcium (8.5-10.5) mg/dL Total Bilirubin (0.15-1.2) mg/dL AST (0-32) U/L ALT (0-33) U/L Alkaline Phosphata se (35-105) IU/L Troponin T Baselin e 14 H (0-10) ng/L NT-Pro-B Natriuret Pep (0-450) pg/mL Total Protein (6.6-8.7) g/dL Albumin (3.5-5.2) g/dL Globulin (1.3-4.6) g/dL Urine Color (Yellow) Urine Appearance (CLEAR) Urine pH (5-7) Ur Specific Gravit y (1.005-1.030) Urine Protein (Negative) Urine Glucose (UA) (Normal) Urine Ketones (Negative) Urine Blood (Negative) Urine Nitrate (Negative) Urine Bilirubin (Negative) Urine Urobilinogen (Negative) mg/dL Ur Leukocyte Chelsy ase (Negative) Imaging Data^: CT lumbar: Radiologist's impression: [address] [address] [address] Scan Report Signed Patient: Sneha Smith #: [id number] : 1941Acct#:[id number] Age/Sex: 80 / FADM Date: 12/08/20 Loc: ERRoom/Bed: Attending Dr: Ordering Provider/Ordering MD: Liana Navarrete Date of Service: 12/08/20 Procedure(s): CT lumbar spine wo con* 75032 Accession Number(s): [id number] Report Number: [id number] WS: [id number] CT LUMBAR SPINE, noncontrast. HISTORY: fall/back pain TECHNIQUE: Contiguous 2.5 mm axial imaging are performed. Sagittal and coronal reformats are submitted and reviewed. All CT scans at [facility] use at least one of these dose optimization techniques: automated exposure control; mA and/or kV adjustment per patient size (includes targeted exams where dose is matched to clinical indication); or iterative reconstruction. IV contrast: None DLP: 896.48 mGy.cm COMPARISON: None available. Osteopenia with severe thoracolumbar scoliosis. Asymmetric disc space narrowing throughout the lumbar spine. No acute fractures are identified. Marked facet joint arthritis at L4-5 and L5-S1. No sacral insufficiency fracture. Asymmetric disc bulging and osteophytosis and facet arthritis throughout the lumbar spine. Most significant stenosis at L4-5. Moderate to severe central and bilateral foraminal stenosis. There is additional severe LEFT foraminal stenosis at L3-4. Additional components of central and subarticular recess stenosis and maql-nr-iicuvlab. Atherosclerosis and tortuosity of the abdominal aorta. CT/CT lumbar spine wo con* [id number] IMPRESSION: 1. No acute lumbar spine fractures. 2. 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 3. Moderate to severe central and bilateral foraminal stenosis at L4-5. 4. Severe LEFT foraminal stenosis at L3-4. Remaining stenoses throughout the lumbar spine are mild to moderate. Dictated By:Lucretia Fuentes DO Signed By:Lucretia Fuentes DOSigned Date/Time:12/08/20 1016 DD/ 1011 CT thoracic: Radiologist's impression: [address] [place] [address] CT Scan Report Signed Patient: Sneha Smith #: [id number] : 09/27/1941Acct#:[id number] Age/Sex: 80 / FADM Date: 12/08/20 Loc: ERRoom/Bed: Attending Dr: Ordering Provider/Ordering MD: Liana Navarrete Date of Service: 12/08/20 Procedure(s): CT thoracic spin wo con* [id number] Accession Number(s): [id number] Report Number: [id number] WS: [id number] CT THORACIC SPINE HISTORY: fall/back pain TECHNIQUE: Contiguous 2.5 mm axial images are reviewed to thoracic spine. Images are reformatted in sagittal and coronal planes. All CT scans at [facility] use at least one of these dose optimization techniques: automated exposure control; mA and/or kV adjustment per patient size (includes targeted exams where dose is matched to clinical indication); or iterative reconstruction. DLP: 876.49 mGy.cm COMPARISON: None available. Diffuse osteopenia. Moderate LEFT curvature of the thoracic spine. No acute fracture is identified. Pedicles and posterior elements are intact. Mild facet joint arthritis throughout the thoracic spine. No high-grade central or foraminal stenoses. No acute-appearing disc protrusions. Visualized paraspinal soft tissues are negative for acute process. There are a few pulmonary granulomas. Atherosclerosis of the thoracic aorta. CT/CT thoracic spin wo con* [id number] IMPRESSION: 1. No thoracic spine fracture. 2. LEFT curvature thoracic spine. 3. No high-grade stenosis or acute disc protrusions. Dictated By:Lucretia Fuentes DO Signed By:Lucretia Fuentes DOSigned Date/Time:12/08/20 1021 DD/ 1016 CXR: Radiologist's impression: [address] [address] XRay Report Signed Patient: Sneha Smith #: [id number] : 9Acct#:[id number] Age/Sex: 80 / FADM Date: 12/08/20 Loc: ERRoom/Bed: Attending Dr: Ordering Provider/Ordering MD: Liana Navarrete Date of Service: 12/08/20 Procedure(s): XR chest 1V portable [id number] Accession Number(s): [id number] Report Number: [id number] PROCEDURE INFORMATION: Exam: XR Chest Exam date and time: 12/08/2020 9:42 AM Age: 80 years old Clinical indication: Injury or trauma; Fall; Blunt trauma (contusions or hematomas); Additional info: Increasing falls TECHNIQUE: Imaging protocol: XR of the chest. Views: 1 view. COMPARISON: CR XR chest 1V portable [id number] 06/03/2020 10:09 PM FINDINGS: Lungs: Emphysema Calcified granuloma left apex Lungs are well aerated without a focal area of consolidation. Pleural spaces: Unremarkable. No pleural effusion. No pneumothorax. Heart/Mediastinum: The cardiac silhouette appears enlarged, some of which is magnification related to the AP projection. Bones/joints: Unremarkable. XR/XR chest 1V portable [id number] IMPRESSION: Lungs are well aerated without a focal area of consolidation. Dictated By:David Russell MD Signed By:David Russell MDSigned Date/Time:12/08/201053 DD/ 105 XR L shoulder: Radiologist's impression: [address] [address] XRay Report Signed Patient: Sneha Smith Unit #: [id number] : 1940 Age/Sex: 80 / F ADM Date: 12/08/20 Loc: ER Room/Bed: Attending Dr: Ordering Provider/Ordering MD: Liana Navarrete Date of Service: 12/08/20 Procedure(s): XR shoulder LT min 2V* [id number] Accession Number(s): [id number] Report Number: [id number] PROCEDURE INFORMATION: Exam: XR Left Shoulder Exam date and time: 12/08/2020 10:37 AM Age: 80 years old Clinical indication: Injury or trauma; Fall; Blunt trauma (contusions or hematomas); Shoulder; Left; Additional info: Fall/injury TECHNIQUE: Imaging protocol: XR Left shoulder. Views: 2 or more views. COMPARISON: CR XR shoulder LT min 2V* [id number] 07/26/2020 9:56 PM FINDINGS: Bones/joints: Superior migration of the humeral head in relation to the glenoid. Loss of the subacromial space height. Severe degenerative changes of the acromioclavicular joint. Soft tissues: Normal. XR/XR shoulder LT min 2V* [id number] IMPRESSION: No acute fracture visualized. 1. Degenerative changes including cuff pathology. 2. Severe degenerative changes of the acromioclavicular joint. Dictated By: David Russell MD Signed By: David Russell MD Signed Date/Time: 0 12/08/20 105 DD/ 1055 EKG Data^: EKG 1: EKG interpretation date: 12/08/20 EKG interpretation time: 09:44 Interpretation: Sinus rhythm Rate [address] elevation or depression changes noted Discharge Plan Discharge Patient Disposition: Home Clinical Impression: Frequent falls Condition: Stable Prescriptions: No Action furosemide 20 mg tablet 20 mg PO EVERY OTHER DAY PRN (Reason: Edema) RF: 0 potassium chloride 20 mEq tablet extended release 20 meq PO BID PRN (Reason: w/lasix) RF: 0 sumatriptan succinate [Imitrex] 50 mg tablet 50 mg PO Q2H PRN (Reason: Migraine Headache) RF: 0 aspirin [Adult Aspirin Regimen] 81 mg tablet,delayed release (DR/EC) 81 mg PO DAILY@08 RF: 0 nitroglycerin 6.5 mg capsule, extended release 6.5 mg PO BID RF: 0 benzonatate [Tessalon Perles] 100 mg capsule 100 mg PO BID PRN (Reason: Cough) 30 Days Qty: 60 RF: 3 albuterol sulfate [ProAir HFA] 90 mcg/actuation HFA aerosol inhaler 2 puff INHALATION Q6H PRN (Reason: Shortness Of Breath) Qty: 8.5 RF: 5 tramadol 50 mg tablet 50 mg PO TID PRN (Reason: pain) 30 Days Qty: 90 RF: 2 omeprazole 20 mg capsule,delayed release(DR/EC) 20 mg PO BID PRN (Reason: Acid Reflux) 30 Days Qty: 60 RF: 5 diazepam [Valium] 5 mg tablet 5 mg PO BID PRN (Reason: Anxiety) 30 Days Qty: 60 RF: 3 Benadryl 50 mg PO DAILY PRN (Reason: Allergic Reaction) RF: 0 losartan 50 mg tablet 50 mg PO DAILY@08 RF: 0 oxybutynin chloride 15 mg tablet extended release 24hr 15 mg PO DAILY@08 RF: 0 ipratropium-albuterol 0.5 mg-3 mg(2.5 mg base)/3 mL solution for nebulization 3 ml INHALATION QID PRN (Reason: Shortness Of Breath) RF: 0 Zofran 4 mg tablet 4 mg PO Q8H PRN (Reason: Nausea) RF: 0 promethazine-codeine 6.25-10 mg/5 mL syrup 5 ml PO Q6H PRN (Reason: pain) RF: 0 Discharge Orders: Discharge ED (Routine); Ordered 12/08/20 Ordered By: Liana Navarrete Referrals: Gibson Bo MD [Primary Care Provider] - Activity Restrictions/Additional Instructions: As we discussed you need to be using your walker at all times with ambulation. Please speak to your primary care provider about ordering physical therapy so they can work on strengthening exercises. You may also consider placement to a [place] facility. Coding Level of Care Code ED Take Down Sorter for Lorenzo Fwd Exam Comprehensive
--- NOTE | 2020-12-08 09:44 | XRR_ITS ---
PROCEDURE INFORMATION: Exam: XR Left Shoulder Exam date and time: 12/08/2020 10:37 AM Age: 80 years old Clinical indication: Injury or trauma; Fall; Blunt trauma (contusions or hematomas); Shoulder; Left; Additional info: Fall/injury TECHNIQUE: Imaging protocol: XR Left shoulder. Views: 2 or more views. COMPARISON: CR XR shoulder LT min 2V* [id number] 07/26/2020 9:56 PM FINDINGS: Bones/joints: Superior migration of the humeral head in relation to the glenoid. Loss of the subacromial space height. Severe degenerative changes of the acromioclavicular joint. Soft tissues: Normal. XR/XR shoulder LT min 2V* [id number] IMPRESSION: No acute fracture visualized. 1. Degenerative changes including cuff pathology. 2. Severe degenerative changes of the acromioclavicular joint.
[2020-12-08 10:42] LABS: Add Urine Microscopic? NO; Charge for UA Resulting for Rev
[2020-12-08 10:46] LABS: Glucose Urine UA Norm (Normal); Ketones Urine Negative (Negative); Protein Urine Neg (Negative); Specific Gravity, Urine 1.015 (1.005-1.030); Urine Appearance Clear (CLEAR); Urine Color Straw (Yellow); pH Urine 6.5 (5-7)
[2020-12-08 10:47] LABS: Bilirubin Urine Neg (Negative); Blood Urine Neg (Negative); Leukocyte Esterase Urine Negative (Negative); Nitrate Urine Negative (Negative); Urobilinogen Urine Norm (Negative)
[2020-12-08 10:52] LABS: Eosinophils # 0.4 10^3/uL (0.0-0.8); Eosinophils % 8.8 %; Hematocrit 35.9 % (37.0-47.0); Hemoglobin 10.9 g/dL (11.5-15.3); Lymphocytes # 1.4 10^3/uL (0.8-4.8); Lymphocytes % 34.8 %; Mean Corpuscular HGB Conc 30.4 g/dL (30.0-36.0); Mean Corpuscular Hemoglobin 27.5 pg (28.0-34.0); Mean Corpuscular Volume 90.7 fL (81-99); Mean Platelet Volume 10.7 fL (7.4-10.4); Monocytes # 0.4 10^3/uL (0.2-0.9); Monocytes % 9.3 %; Neutrophils # 1.88 10^3/uL (1.8-7.7); Neutrophils % 46.1 %; Nucleated Red Blood Cells % 0 %; Platelet Count 151 10^3/cmm (130-400); Red Blood Count 3.96 10^6/uL (4.1-5.3); Red Cell Distribution Width 13.2 % (12.1-15.1); White Blood Count 4.1 10^3/uL (4.0-10.0)
[2020-12-08 11:10] LABS: Troponin(5th) Baseline 14 ng/L (0-10)
[2020-12-08 11:21] LABS: Alanine Aminotransferase 8 U/L (0-33); Albumin Level 3.8 g/dL (3.5-5.2); Alkaline Phosphatase 118 IU/L (35-105); Anion Gap 9.3 (5-19); Aspartate Amino Transferase 17 U/L (0-32); Blood Urea Nitrogen 17 mg/dL (8-23); Calcium 8.7 mg/dL (8.5-10.5); Carbon Dioxide 37 mmol/L (22-29); Chloride 97 mmol/L (98-107); Globulin 2.4 g/dL (1.3-4.6); Glucose 80 mg/dL (65-115); NT Pro B Type Natriuretic Pept 137 pg/mL (0-450); Osmolality Calculated 289 mOsm/kg (285-295); Potassium 4.3 mmol/L (3.5-5.1); Sodium 139 mmol/L (136-145); Total Bilirubin 0.2 mg/dL (0.15-1.2); Total Protein 6.2 g/dL (6.6-8.7)
[2020-12-08 12:03] VITALS: BP 139/75; PULSE 76; RESP 16; O2SAT 99
== END 2020-12-08 12:04 | disposition home or self-care (01) ==
PROVIDERS: Emergency Provider Physician Assistant; PCP Family Medicine
DX: R29.6 Repeated falls (principal); Z79.82 Long term (current) use of aspirin; J44.9 Chronic obstructive pulmonary disease, unspecified; Z86.73 Personal history of transient ischemic attack (TIA), and cerebral infarction without residual deficits; I10 Essential (primary) hypertension; E78.2 Mixed hyperlipidemia; Z87.891 Personal history of nicotine dependence
CPT/HCPCS: 71045; 72128; 72131; 73030; 80053; 81003; 83880; 84484; 85025; 93005; 99284

== ENCOUNTER 2020-12-19 08:39 | Emergency (ER) | payer MEDICARE, OTHER, SELFPAY ==
[2020-12-19 08:40] VITALS: BP 168/82; PULSE 74; RESP 18; TEMP 36.7; O2SAT 100; BMI 20.9
[2020-12-19 08:47] VITALS: RESP 18
--- NOTE | 2020-12-19 08:55 | XRR_ITS ---
PROCEDURE INFORMATION: Exam: XR Ribs Exam date and time: 12/19/2020 9:06 AM Age: 80 years old Clinical indication: Injury or trauma; Fall; Rib area, bilateral; Blunt trauma; Additional info: Pain fall TECHNIQUE: Imaging protocol: XR of the ribs. Views: 3 views. Bilateral ribs. COMPARISON: CR XR chest 1V portable [id number] 12/08/2020 10:16 AM FINDINGS: Bones/joints: Normal. Soft tissues: Normal. XR/XR ribs BI 3V* [id number] IMPRESSION: No acute findings.
--- NOTE | 2020-12-19 08:57 | ED_ITS ---
HPI - Fall General: Chief Complaint: Fall Stated Complaint: PAIN ALL OVER S/P FALL Time Seen by Provider: 12/19/20 08:43 Source: patient and EMS Mode of arrival: EMS Limitations: no limitations History of Present Illness: HPI Narrative: 80-year-old female patient presents to the emergency department due to headache, neck pain and chest pain, she sustained a fall yesterday -states she was letting her dog and when she tripped over the dog carrier landing on her back. She is complaining of neck pain headache and left chest wall pain. She states pain is worse with cough. She states has not taken anything for pain today She denies loss of consciousness; however, she cannot remember the exact details of the fall yesterday. She states was bending over to get something out of the refrigerator this morning when she nearly fell. She states is ambulatory in her home with use of a cane. Her primary care provider is Dr. Bo. Chronic oxygen dependent secondary to COPD. She is on aspirin therapy. Denies n/v/d. Denies abdominal pain. She has been ambulatory in her home since the fall. Associated symptoms-after fall: Reports chest pain, difficulty walking (chronic), headache(s) and neck pain; Denies abdominal pain Review of Systems General: Reports: 10 or more systems reviewed and unremarkable except in HPI and below Const: Reports: body aches; Denies: fever(s), chills, fatigue, malaise or diaphoresis Eyes: Denies: change in vision, blurry vision, eye discomfort or eye redness ENMT: Denies: throat pain, uvular edema, oral sores, bleeding gums, dental pain, disequilibrium, nasal discharge, nasal congestion or post nasal drip Card: Reports: chest pain and dyspnea on exertion (chronic due to COPD); Denies: palpitations, irregular heart rhythm or syncope Resp: Reports: dyspnea (chronic, worse with cough ), productive cough (in the morning - not changed from baseline) and pain on inspiration; Denies: non-productive cough or wheezing GI: Denies: abdominal pain, nausea, vomiting, heartburn, diarrhea or constipation : Denies: difficulty voiding or dysuria Musc: Reports: neck pain and muscle weakness (chronic); Denies: back pain or joint pain Skin/Breast: Denies: rash or pruritus Neuro: Reports: headache(s), difficulty walking (chronic) and frequent falls (uses cane to help with stability/ambulation); Denies: weakness in extremities or behavioral changes Psych: Denies: anxiety or depression Koby/Lymph: Denies: easy bruising PFSH ED PFSH: Medical History 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 ASCVD (arteriosclerotic cardiovascular disease) Carotid stenosis COPD (chronic obstructive pulmonary disease) CVA (cerebral vascular accident) DDD (degenerative disc disease) Essential (primary) hypertension GERD (gastroesophageal reflux disease) Gout History of ovarian cyst Hyperlipidemia, mixed Hypothyroid Iron deficiency Lumbar disc disease with radiculopathy Mixed incontinence urge and stress Osteoarthritis of left shoulder Surgical History H/O heart artery stent H/O pelvic surgery H/O shoulder surgery History of throat surgery S/P tonsillectomy Family History Family/Other No problems noted. Mother Myocardial infarction Sister Myocardial infarction Asthma Father Diabetes Other Cancer Hypertension Social History Smoking and tobacco status: former smoker Quit status (tobacco): has quit using tobacco Year quit tobacco: 2001 - 1PPD x 20 Years Alcohol intake: never Lives independently: Yes Household members: none Marital status: / Current occupational status: retired History of recent travel: No Current gender identity: Female Physical Exam Const: COMMON NORMALS: no acute distress, patient oriented x3 and alert GENERAL APPEARANCE: cooperative, well kempt, frail appearing and well hydrated NUTRITIONAL APPEARANCE: thin ORIENTATION/CONSCIOUSNESS: Yes awake, Yes oriented to person, Yes oriented to place and Yes oriented to time HENMT: COMMON NORMALS: normocephalic, atraumatic, Normal external nose present and moist oral mucous membranes HEAD & SCALP: normal to inspection, normocephalic and atraumatic FACE & SINUS: normal facial exam and face symmetric NOSE: Normal external nose present and No nasal polyps present MOUTH: Normal oral and palatal mucosa present, lip normal and tongue normal THROAT: no uvular edema Eye: COMMON NORMALS: Equal, round and reactive pupils present and EOMs intact bilaterally GENERAL EYE: appearance normal, both eyes and all related structures PUPIL: Yes Equal, round and reactive pupils present Neck/C-Spine: COMMON NORMALS: full ROM and no lymphadenopathy GENERAL: Yes normal visual inspection and Yes trachea midline CERVICAL SPINE: Yes cervical ROM normal, Yes pain with cervical ROM, Yes Cervical spine tenderness C3, C4, C5 and C6 and Yes Paracervical muscle tenderness left Lymph: LYMPHATIC: no lymphadenopathy noted Chest: COMMONS NORMALS: normal inspection of the chest CHEST: Yes tenderness costal cartilage Laterality: left (anterior) Costal cartilage location (left): 6th-7th rib, 7th-8th rib, 8th-9th rib, 9th-10th rib, 10th-11th rib and 11th-12 rib Resp: COMMON NORMALS: normal respiratory effort and No retractions EFFORT & INSPECTION: Yes able to speak in complete sentences, Yes symmetric chest movement, No tachypneic, No respiratory distress, Yes labored, Yes uses accessory muscles and No audible wheezes AUSCULTATION: diminished lung sounds bilateral in the lower lung browning Cardio: COMMON NORMALS: regular rate, regular rhythm, S1 normal heart sound present, S2 normal heart sound present and Peripheral pulses 2+ throughout RATE: regular rate RHYTHM: regular rhythm HEART SOUNDS: S1 normal heart sound present and S2 normal heart sound present PERIPHERAL PULSES: Peripheral pulses 2+ throughout GI: COMMON NORMALS: Normal to inspection, nondistended, normoactive bowel sounds present, Soft to palpation and non-tender INSPECTION: Yes normal to inspection, No abdominal wall ecchymosis, No abdominal distension and No central obesity PALPATION: Yes Soft to palpation : COMMON NORMALS: Yes no CVA tenderness BLADDER/KIDNEY EXAM: Yes no CVA tenderness Back/Pelvis: COMMON NORMALS: no CVA tenderness and straight leg raise negative bilaterally THORACIC SPINE/UPPER BACK: Yes normal to inspection, Yes thoracic ROM normal and No paraspinal muscle tenderness LUMBAR SPINE/LOWER BACK: Yes normal to inspection, Yes lumbar ROM normal and No paraspinal muscle tenderness PELVIS: Yes buttocks normal Extremity: COMMON NORMALS: normal to inspection, capillary refill normal, no clubbing, cyanosis or edema and no pedal edema GENERAL: Yes normal exam except as noted Neuro: MARCO COMA SCALE: document GCS findings Marco coma scale eye opening: Spontaneous [place] coma scale verbal response: Orientated Marco coma scale motor response: Obey commands Marco coma scale total score: 15 COMMON NORMALS: patient oriented x3 and no focal motor deficits SENSORIUM/ORIENTATION: Yes alert, Yes oriented to person, Yes oriented to place and Yes oriented to time SPEECH: speech normal MOTOR EXAM: Abnormal motor strength present (strength 4/5 x 4) Psych: COMMON NORMALS: mental status grossly normal, Normal thought process present, cooperative, normal affect, speech normal and activity/motor behavior normal APPEARANCE: Yes well kempt ACTIVITY/MOTOR BEHAVIOR: Yes appropriate eye contact SPEECH: Yes normal speech THOUGHT PROCESS: Normal thought process present Skin: COMMON NORMALS: no rashes or lesions noted and turgor normal GENERAL SKIN EXAM: no rashes or lesions noted and turgor normal Course Vital Signs: Vital signs: Vital Signs Temperature 98.0 F 12/19/20 08:40 Pulse Rate 74 12/19/20 08:40 Respiratory Rate 15 12/19/20 12:56 Blood Pressure 168/82 12/19/20 08:40 Pulse Oximetry 100 12/19/20 08:40 MDM - Fall MDM Narrative: Medical decision making narrative: 80-year-old female patient presents to the emergency department with pain to the left chest wall neck and head. She states sustained a fall when she tripped over the dog [employer]nel, states landed on her back/left side. She did not complain of abdominal pain. She reports has been ambulating in her home with use of a walker/cane. X-ray findings were negative of abnormality, CT head and cervical spine without acute findings. Urinalysis did reveal trace of bacteria with leukoesterase, she was prescribed Macrodantin for 5 days for infection. Tylenol did alleviate her pain during her stay. Her son was here to provide assistance for home transportation. She was able to ambulate during her stay. Advised to follow-up with her primary care this week. Lab Data: Labs: Lab Results 12/19/20 12/19/20 12/19/20 Range/Units 09:20 09:20 11:05 WBC 4.0 (4.0-10.0) 10^3/ uL RBC 3.88 L (4.1-5.3) 10^6/u L Hgb 10.7 L (11.5-15.3) g/dL Hct 35.2 L (37.0-47.0) % MCV 90.7 (81-99) fL MCH 27.6 L (28.0-34.0) pg MCHC 30.4 (30.0-36.0) g/dL RDW 13.2 (12.1-15.1) % Plt Count 158 (130-400) 10^3/c mm MPV 11.0 H (7.4-10.4) fL Neut % (Auto) 48.9 % Lymph % (Auto) 29.8 % Stevens % (Auto) 10.2 % Eos % (Auto) 9.9 % Baso % (Auto) 1.0 % Neut # (Auto) 1.97 (1.8-7.7) 10^3/u L Lymph # (Auto) 1.2 (0.8-4.8) 10^3/u L Stevens # (Auto) 0.4 (0.2-0.9) 10^3/u L Eos # (Auto) 0.4 (0.0-0.8) 10^3/u L Baso # (Auto) 0.0 (0.0-0.1) 10^3/u L Nucleated RBC % (a uto) 0 % Nucleated RBCs # 0.0 /100WBC Sodium 142 (136-145) mmol/L Potassium 4.4 (3.5-5.1) mmol/L Chloride 99 (98-107) mmol/L Carbon Dioxide 39 H (22-29) mmol/L Anion Gap 8.4 (5-19) BUN 19 (8-23) mg/dL Creatinine 0.7 (0.5-0.9) mg/dL GFR Calculation Not Reportable Glucose 87 (65-115) mg/dL Calculated Osmolal ity 296 H (285-295) mOsm/k g Calcium 9.1 (8.5-10.5) mg/dL Total Bilirubin 0.2 (0.15-1.2) mg/dL AST 19 (0-32) U/L ALT 10 (0-33) U/L Alkaline Phosphata se 129 H (35-105) IU/L Total Protein 6.2 L (6.6-8.7) g/dL Albumin 3.6 (3.5-5.2) g/dL Globulin 2.6 (1.3-4.6) g/dL Urine Color Yellow (Yellow) Urine Appearance Clear (CLEAR) Urine pH 5 (5-7) Ur Specific Gravit y 1.020 (1.005-1.030) Urine Protein Neg (Negative) Urine Glucose (UA) Norm (Normal) Urine Ketones Negative (Negative) Urine Blood Neg (Negative) Urine Nitrate Negative (Negative) Urine Bilirubin Neg (Negative) Urine Urobilinogen Norm (Negative) mg/dL Ur Leukocyte Chelsy ase Trace H (Negative) Urine RBC None (0-2) /hpf Urine WBC 10-15 H (0-5) /hpf Ur Squamous Epith Cells 0-4 H (0-5) /hpf Amorphous Sediment Not Reportable Urine Bacteria Trace (NONE) /hpf Imaging Data^: CT Head: Radiologist's impression: [facility] [address] [address] Scan Report Signed Patient: Sneha Smith #: [id number] : 1941Acct#:[id number] Age/Sex: 80 / FADM Date: 12/19/20 Loc: ERRoom/Bed: Attending Dr: Ordering Provider/Ordering MD: Jacquelyn Meng Date of Service: 12/19/20 Procedure(s): CT head wo con* [id number] Accession Number(s): [id number] Report Number: [id number] PROCEDURE INFORMATION: Exam: CT Head Without Contrast Exam date and time: 12/19/2020 9:06 AM Age: 80 years old Clinical indication: Injury or trauma; Fall; Blunt trauma (contusions or hematomas); Additional info: Fall yesterday, MATT, on asa TECHNIQUE: Imaging protocol: Computed tomography of the head without contrast. Radiation optimization: All CT scans at this facility use at least one of these dose optimization techniques: automated exposure control; mA and/or kV adjustment per patient size (includes targeted exams where dose is matched to clinical indication); or iterative reconstruction. COMPARISON: CT head wo con* [id number] 07/26/2020 9:25 PM RADIATION DOSE METRICS: Total DLP (mGy-cm): 825.09 FINDINGS: Brain: There is generalized chronic atrophy. There is generalized prominence of the ventricles and sulci. There is decreased white matter density which indicates chronic small vessel white matter ischemia. No intracranial hemorrhage, edema or other acute abnormalities are seen in the brain. There is no mass effect or midline shift. Cerebral ventricles: The ventricles are prominent due to chronic atrophy.. Bones/joints: Unremarkable. No acute fracture. Paranasal sinuses: Visualized sinuses are unremarkable. No fluid levels. Mastoid air cells: Visualized mastoid air cells are well aerated. Soft tissues: Unremarkable. CT/CT head wo con* [id number] IMPRESSION: 1. No acute intracranial abnormality. 2. Generalized chronic atrophy and chronic white matter ischemic changes. Radiation Dose CTDIVOL = (mGy): DLP = 825.09 (mGy-cm) Dictated By:Shimon Cartwright Signed By:Shimon CartwrightSignvesta Date/Time:12/19/20 1004 DD/ 1003 CXR: Radiologist's impression: [address] [address] XRay Report Signed Patient: Sneha Smith Unit #: [id number] : 1940 Age/Sex: 80 / F ADM Date: 12/19/20 Loc: ER Room/Bed: Attending Dr: Ordering Provider/Ordering MD: Jacquelyn Meng Date of Service: 12/19/20 Procedure(s): XR chest 1V portable [id number] Accession Number(s): [id number] Report Number: [id number] PROCEDURE INFORMATION: Exam: XR Chest Exam date and time: 12/19/2020 9:06 AM Age: 80 years old Clinical indication: Injury or trauma; Fall; Blunt trauma (contusions or hematomas); Additional info: Left chest wall pain, fall yesterday TECHNIQUE: Imaging protocol: XR of the chest. Views: 1 view. COMPARISON: CR XR chest 1V portable [id number] 12/08/2020 10:16 AM FINDINGS: Lungs: A benign calcified granuloma is present in the left apex. The lungs are otherwise clear. Pleural spaces: Unremarkable. No pleural effusion. No pneumothorax. Heart/Mediastinum: The heart is not enlarged. There is tortuosity and calcification of the aorta. Bones/joints: Unremarkable. XR/XR chest 1V portable [id number] IMPRESSION: No acute abnormality. Dictated By: Shimon Cartwright Signed By: Shimon Cartwright Signed Date/Time: 12/19/20 1006 DD/ 1005 Other Imaging: Radiologist's impression: [address] [address] [address] Scan Report Signed Patient: Sneha Smith Unit #: [id number] : 1940 Age/Sex: 80 / F ADM Date: 12/19/20 Loc: ER Room/Bed: Attending Dr: Ordering Provider/Ordering MD: Jacquelyn Meng Date of Service: 12/19/20 Procedure(s): CT cervical spin wo con* [id number] Accession Number(s): [id number] Report Number: [id number] PROCEDURE INFORMATION: Exam: CT Cervical Spine Without Contrast Exam date and time: 12/19/2020 9:06 AM Age: 80 years old Clinical indication: Injury or trauma; Fall; Blunt trauma; Additional info: Fall yesterday, neck pain TECHNIQUE: Imaging protocol: Computed tomography images of the cervical spine without contrast. Radiation optimization: All CT scans at this facility use at least one of these dose optimization techniques: automated exposure control; mA and/or kV adjustment per patient size (includes targeted exams where dose is matched to clinical indication); or iterative reconstruction. COMPARISON: CT cervical spin wo con* [id number] 07/26/2020 9:29 PM RADIATION DOSE METRICS: Total DLP (mGy-cm): 276.82 FINDINGS: Bones/joints: No fracture or other acute bony abnormalities are seen in the cervical spine. There is straightening of the cervical spine but this may be due to patient positioning. Discs/Spinal canal/Neural foramina: Chronic degenerative disease is present especially from C4 through C7 with disc space narrowing sclerosis and osteophytes. There is mild spinal stenosis and neural foraminal narrowing at these levels due to the osteophytes. There is degenerative narrowing and hypertrophy of the cervical facet joints. Lungs: There is a benign calcified granuloma in the left lung apex. Fibrosis and small blebs are present in the lung apices. Vasculature: Bilateral carotid artery calcification. Soft tissues: Unremarkable. CT/CT cervical spin wo con* [id number] IMPRESSION: No acute abnormality. Chronic degenerative disease. Radiation Dose CTDIVOL = (mGy): DLP = 276.82 (mGy-cm) Dictated By: Shimon Cartwright Signed By: Shimon Cartwright Signed Date/Time: 12/19/20 1002 DD/ 1001 Other Xray: Radiologist's impression: [facility] [address] [place] [address] XRay Report Signed Patient: Sneha Smith Unit #: [id number] : 1940 Age/Sex: 80 / F ADM Date: 12/19/20 Loc: ER Room/Bed: Attending Dr: Ordering Provider/Ordering MD: Alfonso Siegel DO Date of Service: 12/19/20 Procedure(s): XR lumbar spine 2-3V* [id number] Accession Number(s): [id number] Report Number: [id number] PROCEDURE INFORMATION: Exam: XR Lumbosacral Spine Exam date and time: 12/19/2020 9:06 AM Age: 80 years old Clinical indication: Injury or trauma; Fall; Blunt trauma (contusions or hematomas); Additional info: Fall pain TECHNIQUE: Imaging protocol: XR of the lumbosacral spine. Views: 2 or 3 views. COMPARISON: CT lumbar spine wo con* [id number] 12/08/2020 10:08 AM FINDINGS: Bones/joints: No fracture or other acute abnormalities are seen in the lumbar spine. There is prominent lumbar scoliosis and diffuse degenerative disease with joint space narrowing sclerosis and osteophytes. Soft tissues: Unremarkable. Vasculature: There is atherosclerotic calcification of the aorta. XR/XR lumbar spine 2-3V* [id number] IMPRESSION: 1. Scoliosis and prominent degenerative disease. 2. No acute bony abnormality. Dictated By: Shimon Cartwright Signed By: Shimon Cartwright Signed Date/Time: 12/19/20 1005 DD/ 1004 Xray Ortho: Radiologist's impression: [facility] [address] [facility] [place] [address] XRay Report Signed Patient: Sneha Smith Unit #: [id number] : 1940 Age/Sex: 80 / F ADM Date: 0 12/19/20 Loc: ER Room/Bed: Attending Dr: Ordering Provider/Ordering MD: Alfonso Siegel DO Date of Service: 12/19/20 Procedure(s): XR ribs BI 3V* [id number] Accession Number(s): [id number] Report Number: [id number] PROCEDURE INFORMATION: Exam: XR Ribs Exam date and time: 12/19/2020 9:06 AM Age: 80 years old Clinical indication: Injury or trauma; Fall; Rib area, bilateral; Blunt trauma; Additional info: Pain fall TECHNIQUE: Imaging protocol: XR of the ribs. Views: 3 views. Bilateral ribs. COMPARISON: CR XR chest 1V portable [id number] 12/08/2020 10:16 AM FINDINGS: Bones/joints: Normal. Soft tissues: Normal. XR/XR ribs BI 3V* [id number] IMPRESSION: No acute findings. Dictated By: Shimon Cartwright Signed By: Shimon Cartwright Signed Date/Time: 12/19/20 1007 DD/ 1006 Discharge Plan Discharge Patient Disposition: Home Clinical Impression: Fall against object Chest wall contusion Qualifiers: Encounter type: initial encounter Laterality: left Qualified Code(s): S20.212A - Contusion of left front wall of thorax, initial encounter Cervical strain, acute Qualifiers: Encounter type: initial encounter Qualified Code(s): S16.1XXA - Strain of muscle, fascia and tendon at neck level, initial encounter UTI (urinary tract infection) Qualifiers: Urinary tract infection type: acute cystitis Hematuria presence: without h ematuria Qualified Code(s): N30.00 - Acute cystitis without hematuria Condition: Stable Prescriptions: New Macrobid 100 mg capsule 100 mg PO BID 5 Days Qty: 10 RF: 0 No Action furosemide 20 mg tablet 20 mg PO EVERY OTHER DAY PRN (Reason: Edema) RF: 0 potassium chloride 20 mEq tablet extended release 20 meq PO BID PRN (Reason: w/lasix) RF: 0 sumatriptan succinate [Imitrex] 50 mg tablet 50 mg PO Q2H PRN (Reason: Migraine Headache) RF: 0 aspirin [Adult Aspirin Regimen] 81 mg tablet,delayed release (DR/EC) 81 mg PO DAILY@08 RF: 0 nitroglycerin 6.5 mg capsule, extended release 6.5 mg PO BID RF: 0 benzonatate [Tessalon Perles] 100 mg capsule 100 mg PO BID PRN (Reason: Cough) 30 Days Qty: 60 RF: 3 albuterol sulfate [ProAir HFA] 90 mcg/actuation HFA aerosol inhaler 2 puff INHALATION Q6H PRN (Reason: Shortness Of Breath) Qty: 8.5 RF: 5 tramadol 50 mg tablet 50 mg PO TID PRN (Reason: pain) 30 Days Qty: 90 RF: 2 omeprazole 20 mg capsule,delayed release(DR/EC) 20 mg PO BID PRN (Reason: Acid Reflux) 30 Days Qty: 60 RF: 5 diazepam [Valium] 5 mg tablet 5 mg PO BID PRN (Reason: Anxiety) 30 Days Qty: 60 RF: 3 Benadryl 50 mg PO DAILY PRN (Reason: Allergic Reaction) RF: 0 losartan 50 mg tablet 50 mg PO DAILY@08 RF: 0 oxybutynin chloride 15 mg tablet extended release 24hr 15 mg PO DAILY@08 RF: 0 ipratropium-albuterol 0.5 mg-3 mg(2.5 mg base)/3 mL solution for nebulization 3 ml INHALATION QID PRN (Reason: Shortness Of Breath) RF: 0 Zofran 4 mg tablet 4 mg PO Q8H PRN (Reason: Nausea) RF: 0 promethazine-codeine 6.25-10 mg/5 mL syrup 5 ml PO Q6H PRN (Reason: pain) RF: 0 Discharge Orders: Discharge ED (Routine); Ordered 12/19/20 Ordered By: Jacquelyn Meng Referrals: Gibson Bo MD [Primary Care Provider] - Discharge Diet: Usual diet Discharge Activity: Limit activity as instructed Patient Instructions: Minor Head Injury (ED), Contusion in Adults (ED), Cervical Sprain (ED), Fall Prevention (ED), Opioid Safety Activity Restrictions/Additional Instructions: Rest at home today and tomorrow, take it easy, no heavy lifting Protein level was noted to be low, encourage you to drink Ensure 1 can daily for protein replacement May take Tylenol as needed for pain Cool compresses to the affected area several times daily to help with pain Return to the emergency department if you develop worsening symptoms Follow-up with your primary care provider next week for reevaluation Coding Level of Care Code ED [employer] Inspector for Chg Fwd Exam Comprehensive
[2020-12-19] MEDS: acetaminophen 500 mg Tablet 1000 MG PO (09:21)
[2020-12-19 10:16] LABS: Eosinophils # 0.4 10^3/uL (0.0-0.8); Eosinophils % 9.9 %; Hematocrit 35.2 % (37.0-47.0); Hemoglobin 10.7 g/dL (11.5-15.3); Lymphocytes # 1.2 10^3/uL (0.8-4.8); Lymphocytes % 29.8 %; Mean Corpuscular HGB Conc 30.4 g/dL (30.0-36.0); Mean Corpuscular Hemoglobin 27.6 pg (28.0-34.0); Mean Corpuscular Volume 90.7 fL (81-99); Monocytes # 0.4 10^3/uL (0.2-0.9); Monocytes % 10.2 %; Neutrophils # 1.97 10^3/uL (1.8-7.7); Neutrophils % 48.9 %; Nucleated Red Blood Cells % 0 %; Platelet Count 158 10^3/cmm (130-400); Red Blood Count 3.88 10^6/uL (4.1-5.3); Red Cell Distribution Width 13.2 % (12.1-15.1)
[2020-12-19 10:29] LABS: Alanine Aminotransferase 10 U/L (0-33); Albumin Level 3.6 g/dL (3.5-5.2); Alkaline Phosphatase 129 IU/L (35-105); Anion Gap 8.4 (5-19); Aspartate Amino Transferase 19 U/L (0-32); Blood Urea Nitrogen 19 mg/dL (8-23); Calcium 9.1 mg/dL (8.5-10.5); Carbon Dioxide 39 mmol/L (22-29); Chloride 99 mmol/L (98-107); Globulin 2.6 g/dL (1.3-4.6); Glucose 87 mg/dL (65-115); Osmolality Calculated 296 mOsm/kg (285-295); Potassium 4.4 mmol/L (3.5-5.1); Sodium 142 mmol/L (136-145); Total Bilirubin 0.2 mg/dL (0.15-1.2); Total Protein 6.2 g/dL (6.6-8.7)
[2020-12-19 10:52] VITALS: RESP 15
[2020-12-19 12:00] VITALS: RESP 15
[2020-12-19 12:15] LABS: Add Urine Microscopic? YES; Bilirubin Urine Neg (Negative); Blood Urine Neg (Negative); Glucose Urine UA Norm (Normal); Ketones Urine Negative (Negative); Leukocyte Esterase Urine Trace (Negative); Nitrate Urine Negative (Negative); Protein Urine Neg (Negative); Urine Appearance Clear (CLEAR); Urine Color Yellow (Yellow); Urobilinogen Urine Norm (Negative); pH Urine 5 (5-7)
[2020-12-19 12:16] LABS: Add Urine Culture? No; Bacteria Urine TRACE /hpf; Squamous Epithelial Cell Urine 0-4 /hpf (0-5)
[2020-12-19 12:56] VITALS: RESP 15
== END 2020-12-19 12:56 | disposition home or self-care (01) ==
PROVIDERS: Family Medicine; Emergency Provider Nurse Practitioner Family; PCP Family Medicine
DX: S16.1XXA Strain of muscle, fascia and tendon at neck level, initial encounter (principal); S20.212A Contusion of left front wall of thorax, initial encounter; N30.00 Acute cystitis without hematuria; Z79.82 Long term (current) use of aspirin; J44.9 Chronic obstructive pulmonary disease, unspecified; Z86.73 Personal history of transient ischemic attack (TIA), and cerebral infarction without residual deficits; I10 Essential (primary) hypertension; E78.2 Mixed hyperlipidemia; Z87.891 Personal history of nicotine dependence; W18.09XA Striking against other object with subsequent fall, initial encounter
CPT/HCPCS: 70450; 71045; 71110; 71111; 72100; 72125; 80053; 81001; 85025; 99284

== ENCOUNTER 2020-12-27 18:42 | Emergency (ER) | payer MEDICARE, OTHER, SELFPAY ==
[2020-12-27 18:44] VITALS: BP 126/94; PULSE 88; RESP 16; TEMP 36.8; O2SAT 96; BMI 19.5
--- NOTE | 2020-12-27 19:16 | XRR_ITS ---
PROCEDURE INFORMATION: Exam: XR Chest Exam date and time: 12/27/2020 7:30 PM Age: 80 years old Clinical indication: Shortness of breath; Prior surgery; Surgery type: Stents; Additional info: AMS TECHNIQUE: Imaging protocol: XR of the chest. Views: 1 view. COMPARISON: CR (CHEST, ) 12/19/2020 9:12 AM FINDINGS: Lungs: Stable mild hyperinflation of the lungs. No focal consolidation. No pulmonary edema. Pleural spaces: No pleural effusion. No pneumothorax. Heart/Mediastinum: The cardiac silhouette and mediastinal contours are unremarkable. Vasculature: Stable vascular calcifications in the aorta. Stable tortuosity of the aorta. Bones/joints: Bones are diffusely osteopenic. Degenerative changes in the spine and shoulders. Moderate scoliosis in the visualized lumbar spine. XR/XR chest 1V portable [id number] IMPRESSION: 1. No acute cardiopulmonary process. 2. Incidental/nonacute findings are listed in the report.
--- NOTE | 2020-12-27 19:17 | ECG_ITS ---
[facility] Test Date: 2020-12-27 Pat Name: Sneha Smith Department: Room: Gender: Female Pharmacy Laboratory Technician: : 1940 Requested By: Ananth Grimaldo Order Number: [id number] Yimi MD: KAR CUNHA Measurements Intervals [place] Rate: 74 P: 77 WY: 136 QRS: 65 QRSD: 83 T: 59 QT: 373 QTc: 416 Interpretive Statements SINUS RHYTHM WITH SINUS ARRHYTHMIA Compared to ECG 12/08/2020 09:44:37 No significant changes Electronically Signed On 12-27-2020 22:23:05 CDT by KAR CUNHA [email or web address]/store/NU/[id number] [email or web address]
--- NOTE | 2020-12-27 19:21 | ED_ITS ---
HPI - Abdominal Pain General: Chief Complaint: Abdominal Pain Stated Complaint: AMS Time Seen by Provider: 12/27/20 18:44 History of Present Illness: HPI narrative: 80-year-old female who had been complaining of some abdominal pain. She had also had a bit of alteration in mental status today. She did become upset with her daughter at home and they had had a verbal altercation. This part of the story seems to be improved at this point. she was recently diagnosed with a urinary tract infection, and is evidently been on antibiotics. She denies any fever. She does state that her belly has been hurting. MD elicited complaint: abdominal pain Pertinent past history: other Onset (ago): hour(s) Pain Consistency: intermittent Location: Diffuse Severity: moderate Quality: cramping Radiation: none Associated Symptoms: Denies belching, diarrhea, dysuria, fever(s), loose stools, nausea and vomiting Review of Systems Const: Denies: fever(s) Card: Denies: chest pain or palpitations Resp: Denies: dyspnea, productive cough or non-productive cough GI: Denies: nausea, vomiting, diarrhea or belching : Denies: dysuria Neuro: Reports: behavioral changes (Earlier today, seem improved now.); Denies: headache(s) PFS ED PFSH: Medical History (Updated 12/27/20 @ 21:26 by Ananth Whitmore DO) 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 ASCVD (arteriosclerotic cardiovascular disease) Carotid stenosis Chronic pain COPD (chronic obstructive pulmonary disease) CVA (cerebral vascular accident) DDD (degenerative disc disease) Essential (primary) hypertension GERD (gastroesophageal reflux disease) Gout History of ovarian cyst Hyperlipidemia, mixed Hypothyroid Iron deficiency Lumbar disc disease with radiculopathy Mixed incontinence urge and stress Osteoarthritis of left shoulder Surgical History H/O heart artery stent H/O pelvic surgery H/O shoulder surgery History of throat surgery S/P tonsillectomy Family History Family/Other No problems noted. Mother Myocardial infarction Sister Myocardial infarction Asthma Father Diabetes Other Cancer Hypertension Social History Smoking and tobacco status: former smoker Quit status (tobacco): has quit using tobacco Year quit tobacco: 2002 - 1PPD x 20 Years Alcohol intake: never Lives independently: Yes Household members: none Marital status: / Current occupational status: retired History of recent travel: No Current gender identity: Female Physical Exam Const: GENERAL APPEARANCE: cooperative, comfortable and frail appearing ORIENTATION/CONSCIOUSNESS: Yes oriented to person and Yes oriented to place; not oriented to time HENMT: COMMON NORMALS: normocephalic, external ears normal and Normal external nose present HEAD & SCALP: normocephalic FACE & SINUS: normal facial exam NOSE: Normal external nose present and No nasal discharge present EXTERNAL EAR: Yes external ears normal Eye: COMMON NORMALS: Equal, round and reactive pupils present, EOMs intact bilaterally and conjunctivae normal EYELID: eyelids normal CONJUNCTIVA: Yes conjunctivae normal PUPIL: Yes Equal, round and reactive pupils present Neck/C-Spine: GENERAL: No tracheal deviation Chest: COMMONS NORMALS: normal inspection of the chest CHEST: No tenderness Resp: COMMON NORMALS: clear to auscultation bilaterally EFFORT & INSPECTION: No tachypneic, No respiratory distress, No retractions, No uses accessory muscles and No tracheal deviation AUSCULTATION: clear to auscultation bilaterally, no rhonchi, no wheezes and lung sounds not diminished Cardio: COMMON NORMALS: regular rate and regular rhythm RATE: regular rate RHYTHM: regular rhythm PERIPHERAL PULSES: radial pulses present GI: COMMON NORMALS: Soft to palpation INSPECTION: No abdominal distension AUSCULTATION: No Hyperactive bowel sounds present and No Hypoactive bowel sounds present PALPATION: Yes Soft to palpation, Yes Tenderness to palpation present (GI) (diffuse), No Guarding due to palpation present (GI) and No Rigid due to palpation Neuro: SENSORIUM/ORIENTATION: Yes oriented to person, Yes oriented to place and No oriented to time Psych: COMMON NORMALS: Normal thought process present, cooperative, denies ho micidal ideation and denies suicidal ideation THOUGHT PROCESS: Normal thought process present Skin: COMMON NORMALS: no rashes or lesions noted GENERAL SKIN EXAM: no rashes or lesions noted Course Vital Signs: Vital signs: Vital Signs Temperature 98.2 F 12/27/20 18:44 Pulse Rate 79 12/27/20 21:47 Respiratory Rate 19 H 12/27/20 21:47 Blood Pressure 145/79 12/27/20 21:47 Pulse Oximetry 100 12/27/20 21:47 MDM - Abdominal Pain MDM Narrative: Medical decision making narrative: 80-year-old female. She has some chronic pain in her mid back. She was needing a pain pill today, and I believe her and her daughter got into an argument about whether or not she was taking too many pain pills. The patient became upset, and made a fleeting comment about shooting herself. She frankly denies any suicidal or homicidal ideations currently. She laughs and says I want to go to pending sale to [facility], not [place] . There is not even a gun in the house to shoot anybody with. Labs are benign. Urinalysis is negative. Mentally she is back at her baseline. She is not complaining of pain. She will be allowed discharge. Lab Data: Labs: Lab Results 12/27/20 12/27/20 12/27/20 Range/Units 19:54 19:54 19:54 WBC 4.0 (4.0-10.0) 10^3/ uL RBC 3.67 L (4.1-5.3) 10^6/u L Hgb 10.0 L (11.5-15.3) g/dL Hct 32.7 L (37.0-47.0) % MCV 89.1 (81-99) fL MCH 27.2 L (28.0-34.0) pg MCHC 30.6 (30.0-36.0) g/dL RDW 12.7 (12.1-15.1) % Plt Count 194 (130-400) 10^3/c mm MPV 10.5 H (7.4-10.4) fL Neut % (Auto) 50.0 % Lymph % (Auto) 31.9 % [place] % (Auto) 8.5 % Eos % (Auto) 8.8 % Baso % (Auto) 0.5 % Neut # (Auto) 1.99 (1.8-7.7) 10^3/u L Lymph # (Auto) 1.3 (0.8-4.8) 10^3/u L [place] # (Auto) 0.3 (0.2-0.9) 10^3/u L Eos # (Auto) 0.4 (0.0-0.8) 10^3/u L Baso # (Auto) 0.0 (0.0-0.1) 10^3/u L Nucleated RBC % (a uto) 0 % Nucleated RBCs # 0.0 /100WBC Sodium 139 (136-145) mmol/L Potassium 3.8 (3.5-5.1) mmol/L Chloride 97 L (98-107) mmol/L Carbon Dioxide 36 H (22-29) mmol/L Anion Gap 9.8 (5-19) BUN 10 (8-23) mg/dL Creatinine 0.5 (0.5-0.9) mg/dL GFR Calculation Not Reportable Glucose 100 (65-115) mg/dL Calculated Osmolal ity 287 (285-295) mOsm/k g Lactate 1.7 (0.5-2.2) mmol/L Calcium 9.1 (8.5-10.5) mg/dL Total Bilirubin 0.2 (0.15-1.2) mg/dL AST 25 (0-32) U/L ALT 13 (0-33) U/L Alkaline Phosphata se 115 H (35-105) IU/L Total Protein 6.4 L (6.6-8.7) g/dL Albumin 3.7 (3.5-5.2) g/dL Globulin 2.7 (1.3-4.6) g/dL TSH 3.40 (0.27-4.20) uIU/ mL Urine Color (Yellow) Urine Appearance (CLEAR) Urine pH (5-7) Ur Specific Gravit y (1.005-1.030) Urine Protein (Negative) Urine Glucose (UA) (Normal) Urine Ketones (Negative) Urine Blood (Negative) Urine Nitrate (Negative) Urine Bilirubin (Negative) Urine Urobilinogen (Negative) mg/dL Ur Leukocyte Chelsy ase (Negative) Salicylates < 0.3 L (3-10) mg/dL Urine Opiates Scre en (Negative) ng/mL Acetaminophen < 5.0 L (10-30) ug/mL Ur Barbiturates Sc reen (Negative) ng/mL Ur Phencyclidine S crn (Negative) ng/mL Ur Amphetamines Sc reen (Negative) ng/mL U Benzodiazepines Scrn (Negative) ng/mL Urine Cocaine Scre en (Negative) ng/mL U Marijuana (THC) Screen (Negative) ng/mL Ethyl Alcohol < 10 (0-10) mg/dL 12/27/20 12/27/20 Range/Units 20:48 20:48 WBC (4.0-10.0) 10^3/ uL RBC (4.1-5.3) 10^6/u L Hgb (11.5-15.3) g/dL Hct (37.0-47.0) % MCV (81-99) fL MCH (28.0-34.0) pg MCHC (30.0-36.0) g/dL RDW (12.1-15.1) % Plt Count (130-400) 10^3/c mm MPV (7.4-10.4) fL Neut % (Auto) % Lymph % (Auto) % [place] % (Auto) % Eos % (Auto) % Baso % (Auto) % Neut # (Auto) (1.8-7.7) 10^3/u L Lymph # (Auto) (0.8-4.8) 10^3/u L [place] # (Auto) (0.2-0.9) 10^3/u L Eos # (Auto) (0.0-0.8) 10^3/u L Baso # (Auto) (0.0-0.1) 10^3/u L Nucleated RBC % (a uto) % Nucleated RBCs # /100WBC Sodium (136-145) mmol/L Potassium (3.5-5.1) mmol/L Chloride (98-107) mmol/L Carbon Dioxide (22-29) mmol/L Anion Gap (5-19) BUN (8-23) mg/dL Creatinine (0.5-0.9) mg/dL GFR Calculation Glucose (65-115) mg/dL Calculated Osmolal ity (285-295) mOsm/k g Lactate (0.5-2.2) mmol/L Calcium (8.5-10.5) mg/dL Total Bilirubin (0.15-1.2) mg/dL AST (0-32) U/L ALT (0-33) U/L Alkaline Phosphata se (35-105) IU/L Total Protein (6.6-8.7) g/dL Albumin (3.5-5.2) g/dL Globulin (1.3-4.6) g/dL TSH (0.27-4.20) uIU/ mL Urine Color Yellow (Yellow) Urine Appearance Clear (CLEAR) Urine pH 7 (5-7) Ur Specific Gravit y 1.005 (1.005-1.030) Urine Protein Neg (Negative) Urine Glucose (UA) Norm (Normal) Urine Ketones Negative (Negative) Urine Blood Neg (Negative) Urine Nitrate Negative (Negative) Urine Bilirubin Neg (Negative) Urine Urobilinogen Norm (Negative) mg/dL Ur Leukocyte Chelsy ase Negative (Negative) Salicylates (3-10) mg/dL Urine Opiates Scre en Negative (Negative) ng/mL Acetaminophen (10-30) ug/mL Ur Barbiturates Sc reen Negative (Negative) ng/mL Ur Phencyclidine S crn Negative (Negative) ng/mL Ur Amphetamines Sc reen Negative (Negative) ng/mL U Benzodiazepines Scrn Positive H (Negative) ng/mL Urine Cocaine Scre en Negative (Negative) ng/mL U Marijuana (THC) Screen Negative (Negative) ng/mL Ethyl Alcohol (0-10) mg/dL Discharge Plan Discharge Patient Disposition: Home Clinical Impression: Abdominal pain Qualifiers: Abdominal location: generalized Qualified Code(s): R10.84 - Generalized abdominal pain Condition: Stable Prescriptions: No Action furosemide 20 mg tablet 20 mg PO EVERY OTHER DAY PRN (Reason: Edema) RF: 0 potassium chloride 20 mEq tablet extended release 20 meq PO BID PRN (Reason: w/lasix) RF: 0 sumatriptan succinate [Imitrex] 50 mg tablet 50 mg PO Q2H PRN (Reason: Migraine Headache) RF: 0 aspirin [Adult Aspirin Regimen] 81 mg tablet,delayed release (DR/EC) 81 mg PO DAILY@08 RF: 0 nitroglycerin 6.5 mg capsule, extended release 6.5 mg PO BID RF: 0 benzonatate [Tessalon Perles] 100 mg capsule 100 mg PO BID PRN (Reason: Cough) 30 Days Qty: 60 RF: 3 albuterol sulfate [ProAir HFA] 90 mcg/actuation HFA aerosol inhaler 2 puff INHALATION Q6H PRN (Reason: Shortness Of Breath) Qty: 8.5 RF: 5 tramadol 50 mg tablet 50 mg PO TID PRN (Reason: pain) 30 Days Qty: 90 RF: 2 omeprazole 20 mg capsule,delayed release(DR/EC) 20 mg PO BID PRN (Reason: Acid Reflux) 30 Days Qty: 60 RF: 5 diazepam [Valium] 5 mg tablet 5 mg PO BID PRN (Reason: Anxiety) 30 Days Qty: 60 RF: 3 Benadryl 50 mg PO DAILY PRN (Reason: Allergic Reaction) RF: 0 losartan 50 mg tablet 50 mg PO DAILY@08 RF: 0 oxybutynin chloride 15 mg tablet extended release 24hr 15 mg PO DAILY@08 RF: 0 ipratropium-albuterol 0.5 mg-3 mg(2.5 mg base)/3 mL solution for nebulization 3 ml INHALATION QID PRN (Reason: Shortness Of Breath) RF: 0 Zofran 4 mg tablet 4 mg PO Q8H PRN (Reason: Nausea) RF: 0 promethazine-codeine 6.25-10 mg/5 mL syrup 5 ml PO Q6H PRN (Reason: pain) RF: 0 Discharge Orders: Discharge ED (Routine); Ordered 12/27/20 Ordered By: Ananth Whitmore Referrals: Gibson Bo MD [Primary Care Provider] - 1-3 days Discharge Diet: Advance as tolerated Discharge Activity: Increase activity as tolerated Patient Instructions: Abdominal Pain (ED), Opioid Safety Activity Restrictions/Additional Instructions: Return for worsening abdominal pain, vomiting, fever, mental status changes, any other concerning symptoms. Coding Level of Care Code ED Studio Couch Frame Builder for Chg Fwd Exam Comprehensive
[2020-12-27 19:46] VITALS: BP 137/76; PULSE 87; RESP 19; O2SAT 96
[2020-12-27] MEDS: sodium chloride 0.9% 500 ML IV (19:47)
[2020-12-27 20:05] LABS: Basophils % 0.5 %; Eosinophils # 0.4 10^3/uL (0.0-0.8); Eosinophils % 8.8 %; Hematocrit 32.7 % (37.0-47.0); Lymphocytes # 1.3 10^3/uL (0.8-4.8); Lymphocytes % 31.9 %; Mean Corpuscular HGB Conc 30.6 g/dL (30.0-36.0); Mean Corpuscular Hemoglobin 27.2 pg (28.0-34.0); Mean Corpuscular Volume 89.1 fL (81-99); Mean Platelet Volume 10.5 fL (7.4-10.4); Monocytes # 0.3 10^3/uL (0.2-0.9); Monocytes % 8.5 %; Neutrophils # 1.99 10^3/uL (1.8-7.7); Nucleated Red Blood Cells % 0 %; Platelet Count 194 10^3/cmm (130-400); Red Blood Count 3.67 10^6/uL (4.1-5.3); Red Cell Distribution Width 12.7 % (12.1-15.1)
--- NOTE | 2020-12-27 20:18 | PC.NURSE ---
EKG taken and given to Dr. Whitmore
[2020-12-27 20:25] LABS: Lactate (Lactic Acid level) 1.7 mmol/L (0.5-2.2)
[2020-12-27 20:37] LABS: Alanine Aminotransferase 13 U/L (0-33); Albumin Level 3.7 g/dL (3.5-5.2); Alkaline Phosphatase 115 IU/L (35-105); Anion Gap 9.8 (5-19); Aspartate Amino Transferase 25 U/L (0-32); Blood Urea Nitrogen 10 mg/dL (8-23); Calcium 9.1 mg/dL (8.5-10.5); Carbon Dioxide 36 mmol/L (22-29); Chloride 97 mmol/L (98-107); Globulin 2.7 g/dL (1.3-4.6); Glucose 100 mg/dL (65-115); Osmolality Calculated 287 mOsm/kg (285-295); Potassium 3.8 mmol/L (3.5-5.1); Sodium 139 mmol/L (136-145); Total Bilirubin 0.2 mg/dL (0.15-1.2); Total Protein 6.4 g/dL (6.6-8.7)
[2020-12-27 20:39] LABS: Acetaminophen < 5.0 ug/mL (10-30); Alcohol Level < 10 mg/dL (0-10); Salicylate < 0.3 mg/dL (3-10)
[2020-12-27 20:56] VITALS: BP 129/74; PULSE 91; RESP 18; O2SAT 99
[2020-12-27 21:13] LABS: Add Urine Microscopic? NO; Charge for UA Resulting for Rev
[2020-12-27 21:19] LABS: Specific Gravity, Urine 1.005 (1.005-1.030); Urine Appearance Clear (CLEAR); Urine Color Yellow (Yellow); pH Urine 7 (5-7)
[2020-12-27 21:20] LABS: Bilirubin Urine Neg (Negative); Blood Urine Neg (Negative); Glucose Urine UA Norm (Normal); Ketones Urine Negative (Negative); Leukocyte Esterase Urine Negative (Negative); Nitrate Urine Negative (Negative); Protein Urine Neg (Negative); Urobilinogen Urine Norm (Negative)
[2020-12-27 21:29] LABS: Amphetamines Screen Urine Negative (Negative); Barbiturates Screen Urine Negative (Negative); Benzodiazepines Screen Urine Positive (Negative); Cocaine Screen Urine Negative (Negative); Opiate Screen Urine Negative (Negative); PCP Screen Urine Negative (Negative); THC Screen Urine Negative (Negative)
[2020-12-27 21:47] VITALS: BP 145/79; PULSE 79; RESP 19; O2SAT 100
== END 2020-12-27 21:47 | disposition home or self-care (01) ==
PROVIDERS: Emergency Provider Emergency Medicine; PCP Family Medicine
DX: R10.84 Generalized abdominal pain (principal); Z79.82 Long term (current) use of aspirin; J44.9 Chronic obstructive pulmonary disease, unspecified; Z86.73 Personal history of transient ischemic attack (TIA), and cerebral infarction without residual deficits; I10 Essential (primary) hypertension; E78.2 Mixed hyperlipidemia; Z87.891 Personal history of nicotine dependence
CPT/HCPCS: 71045; 80053; 80306; 80307; 81003; 83605; 84443; 85025; 93005; 96360; 99284; 99291; J7040

== ENCOUNTER → 2020-12-31 09:27 | Outpatient (BNVA) | payer MEDICARE, OTHER, SELFPAY | PROVIDERS: PCP Family Medicine; Referring Provider Family Medicine; Visit Provider Anesthesiology Pain Medicine | DX: M19.012 Primary osteoarthritis, left shoulder (principal); M54.9 Dorsalgia, unspecified; M41.9 Scoliosis, unspecified; M47.812 Spondylosis without myelopathy or radiculopathy, cervical region; M54.16 Radiculopathy, lumbar region; M47.816 Spondylosis without myelopathy or radiculopathy, lumbar region; Z79.891 Long term (current) use of opiate analgesic | CPT/HCPCS: 99205 ==

== ENCOUNTER 2021-01-06 13:23 | Emergency (ER) | payer MEDICARE, OTHER, SELFPAY ==
[2021-01-06 13:37] VITALS: BMI 21.6
--- NOTE | 2021-01-06 13:50 | XR_ITS ---
WS: [id number] Chest with left rib detail, 01/06/2021 Clinical Data: fall, pain Comparison: Portable chest, 12/27/2020 Findings: The lungs show no nodules or masses. There is a tiny left pleural effusion. The heart is normal. No pneumonia or pneumothorax is seen. The aortic arch and descending aorta show calcification and tortuosity. The diaphragms are flattened. There is a minimally displaced fracture of the lateral aspect of left 10th rib. No pneumothorax or orssi bcutaneous emphysema is seen. XR/XR ribs LT mn 3V w [id number] Impression: 1. Lateral left 10th rib fracture. 2. Atherosclerosis and hyperinflation
--- NOTE | 2021-01-06 13:50 | XR_ITS ---
WS: [id number] Lumbar spine, AP and lateral views, 01/06/2021 Clinical Data: fall, pain Comparison: Lumbar spine, 12/19/2020. Findings: No compression fractures or subluxation is seen. There is a dextrorotoscoliosis. Degenerative disc na rrowing at all levels is seen. There is moderate osteoarthritic spurring at all levels. The SI joints and transverse processes are unremarkable. There is a large amount of fecal material throughout the colon. There is calcification wall of the abdominal aorta but no aneurysm is noted. XR/XR lumbar spine 2-3V* [id number] Impression: 1. Negative for recent compression fracture. 2. Dextroscoliosis, osteoarthritis and degenerative disc narrowing unchanged.
--- NOTE | 2021-01-06 13:50 | XR_ITS ---
WS: [id number] Pelvis, AP view, 01/06/2021 Clinical Data: fall, pain Comparison: Pelvis and left hip, 11/16/2016. Findings: No fractures or dislocations are seen. The SI joints and pubic symphysis are intact. The soft tissues are not remarkable. The hips are normal. There is a large amount of fecal material throughout the colon. XR/XR pelvis 1-2V* [id number] Impression: Negative for fracture.
--- NOTE | 2021-01-06 14:05 | ED_ITS ---
HPI - Trauma General: Chief Complaint: Trauma Stated Complaint: L RIB PAIN, POST FALL Time Seen by Provider: 01/06/21 13:37 History of Present Illness: HPI narrative: 80-year-old female found down at her home. She was complaining of left rib pain. She had been laying on the floor for about 30 minutes before her son found her. She also told her family that she had fallen twice earlier in the day. She denies that she hit her head or had any loss of consciousness. Associated symptoms: Reports confusion and syncope; Denies abdominal pain, back pain, chest pain, chills, dizziness, fever(s), headache(s), nausea or vomiting Review of Systems General: Reports: ROS unobtainable due to mental status Narrative: Information obtained from the patient's son. Const: Denies: fever(s) or chills ENMT: Denies: throat pain, ear or mastoid pain or nasal discharge Card: Reports: syncope; Denies: chest pain, palpitations, edema, swelling of feet/ankles, lightheadedness, dyspnea on exertion or orthopnea Resp: Reports: pain on inspiration (Current chief complaint of left rib pain); Denies: dyspnea, productive cough, non-productive cough, wheezing or stridor GI: Denies: abdominal pain, nausea or vomiting : Denies: flank pain, difficulty voiding or dysuria Musc: Reports: other (Current chief complaint of left rib pain); Denies: neck pain, back pain, extremity pain, extremity swelling, joint pain or muscle weakness Skin/Breast: Denies: rash Neuro: Reports: confusion; Denies: headache(s), numbness in extremities, weakness in extremities, difficulty walking, frequent falls, dizziness or vertigo PFSH ED PFSH: Medical History 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 ASCVD (arteriosclerotic cardiovascular disease) Carotid stenosis Chronic pain COPD (chronic obstructive pulmonary disease) CVA (cerebral vascular accident) DDD (degenerative disc disease) Essential (primary) hypertension GERD (gastroesophageal reflux disease) Gout History of ovarian cyst Hyperlipidemia, mixed Hypothyroid Iron deficiency Lumbar disc disease with radiculopathy Mixed incontinence urge and stress Osteoarthritis of left shoulder Surgical History H/O heart artery stent H/O pelvic surgery H/O shoulder surgery History of throat surgery S/P tonsillectomy Family History Family/Other No problems noted. Mother Myocardial infarction Sister Myocardial infarction Asthma Father Diabetes Other Cancer Hypertension Social History Smoking and tobacco status: former smoker Quit status (tobacco): has quit using tobacco Year quit tobacco: 2001 - 1PPD x 20 Years Alcohol intake: never Lives independently: Yes Household members: none Marital status: / Current occupational status: retired History of recent travel: No Current gender identity: Female Physical Exam Narrative: EXAM NARRATIVE: 80-year-old female comes in after a fall at home with left rib pain. Const: COMMON NORMALS: no acute distress and alert; negative for patient oriented x3 (Patient at her baseline per the son.) GENERAL APPEARANCE: cooperative, well kempt, well developed, in distress (Patient appears to be in pain.) and frail appearing; not Edematous NUTRITIONAL APPEARANCE: thin ORIENTATION/CONSCIOUSNESS: Yes awake HENMT: COMMON NORMALS: normocephalic and atraumatic HEAD & SCALP: normocephalic and atraumatic FACE & SINUS: normal facial exam MOUTH: Normal oral and palatal mucosa present and lip normal Eye: COMMON NORMALS: Equal, round and reactive pupils present, EOMs intact bilaterally, conjunctivae normal and no scleral icterus GENERAL EYE: appearance normal, both eyes and all related structures and normal light reflex CONJUNCTIVA: Yes conjunctivae normal PUPIL: Yes Equal, round and reactive pupils present DIRECT OPHTHALMOSCOPY: Yes normal light reflex Neck/C-Spine: COMMON NORMALS: full ROM, no lymphadenopathy, supple, no meningeal signs and no JVD Chest: COMMONS NORMALS: normal inspection of the chest CHEST: Yes localized rib tenderness with anteroposterior compression (Left lower axillary ribs.) Resp: COMMON NORMALS: normal respiratory effort, No retractions, No use of accessory muscles and clear to auscultation bilaterally EFFORT & INSPECTION: Yes able to speak in complete sentences, Yes symmetric chest movement, No respiratory distress, No decreased respiratory effort, No labored, No grunting, No stridor, No Actively coughing and No retractions AUSCULTATION: clear to auscultation bilaterally Cardio: COMMON NORMALS: no JVD, regular rate, regular rhythm, No gallops present (Cardio), No clicks present (Cardio), No murmurs present (Cardio), No rub (Cardio) and Peripheral pulses 2+ throughout RATE: regular rate RHYTHM: regular rhythm PERIPHERAL PULSES: Peripheral pulses 2+ throughout GI: COMMON NORMALS: Normal to inspection, nondistended, normoactive bowel sounds present, Soft to palpation, non-tender, No hepatosplenomegaly present and no masses PALPATION: Yes Soft to palpation and Yes No hepatosplenomegaly present : COMMON NORMALS: Yes no CVA tenderness BLADDER/KIDNEY EXAM: Yes no CVA tenderness Back/Pelvis: COMMON NORMALS: no CVA tenderness LUMBAR SPINE/LOWER BACK: Yes lumbar spinal tenderness Lumbar spinal tenderness location: L4 and L5 and Yes paraspinal muscle tenderness Lumbar paraspinal muscle tenderness: bilateral Extremity: COMMON NORMALS: normal to inspection, full ROM, capillary refill normal, no joint enlargement, no clubbing, cyanosis or edema, no calf tenderness and no pedal edema Neuro: COMMON NORMALS: CN's II-XII intact bilaterally, moves all extremities, no focal motor deficits, no sensory deficits noted and deep tendon reflexes 2+ bilaterally; negative for patient oriented x3 (Patient at her baseline per the son.) SENSORIUM/ORIENTATION: Yes alert MENINGEAL SIGNS: Yes no meningeal signs Psych: COMMON NORMALS: cooperative, normal affect, speech normal and activity/motor behavior normal APPEARANCE: Yes grossly normal and Yes well kempt ATTITUDE: Yes calm ACTIVITY/MOTOR BEHAVIOR: Yes appropriate eye contact SPEECH: Yes normal speech Course Vital Signs: Vital signs: Vital Signs Temperature 97.6 F 01/06/21 18:01 Pulse Rate 110 H 01/06/21 18:01 Respiratory Rate 20 H 01/06/21 18:01 Blood Pressure 142/102 01/06/21 18:01 Pulse Oximetry 100 01/06/21 18:01 MDM - Trauma Lab Data: Labs: Lab Results 01/06/21 01/06/21 01/06/21 Range/Units 14:27 16:30 16:30 WBC 12.4 H (4.0-10.0) 10^3/ uL RBC 4.08 L (4.1-5.3) 10^6/u L Hgb 11.0 L (11.5-15.3) g/dL Hct 36.5 L (37.0-47.0) % MCV 89.5 (81-99) fL MCH 27.0 L (28.0-34.0) pg MCHC 30.1 (30.0-36.0) g/dL RDW 12.9 (12.1-15.1) % Plt Count 226 (130-400) 10^3/c mm MPV 9.9 (7.4-10.4) fL Neut % (Auto) 88.7 % Lymph % (Auto) 4.7 % [place] % (Auto) 3.6 % Eos % (Auto) 2.0 % Baso % (Auto) 0.6 % Neut # (Auto) 10.99 H (1.8-7.7) 10^3/u L Lymph # (Auto) 0.6 L (0.8-4.8) 10^3/u L [place] # (Auto) 0.5 (0.2-0.9) 10^3/u L Eos # (Auto) 0.3 (0.0-0.8) 10^3/u L Baso # (Auto) 0.1 (0.0-0.1) 10^3/u L Nucleated RBC % (a uto) 0 % Nucleated RBCs # 0.0 /100WBC Sodium 142 (136-145) mmol/L Potassium 4.5 (3.5-5.1) mmol/L Chloride 98 (98-107) mmol/L Carbon Dioxide 38 H (22-29) mmol/L Anion Gap 10.5 (5-19) BUN 12 (8-23) mg/dL Creatinine 0.6 (0.5-0.9) mg/dL GFR Calculation Not Reportable Glucose 90 (65-115) mg/dL Calculated Osmolal ity 293 (285-295) mOsm/k g Calcium 9.3 (8.5-10.5) mg/dL Total Bilirubin 0.3 (0.15-1.2) mg/dL AST 20 (0-32) U/L ALT 10 (0-33) U/L Alkaline Phosphata se 129 H (35-105) IU/L Creatine Kinase 61 (26-192) U/L Total Protein 6.6 (6.6-8.7) g/dL Albumin 3.8 (3.5-5.2) g/dL Globulin 2.8 (1.3-4.6) g/dL Urine Color Yellow (Yellow) Urine Appearance Clear (CLEAR) Urine pH 7 (5-7) Ur Specific Gravit y 1.015 (1.005-1.030) Urine Protein Neg (Negative) Urine Glucose (UA) Norm (Normal) Urine Ketones Negative (Negative) Urine Blood Neg (Negative) Urine Nitrate Negative (Negative) Urine Bilirubin Neg (Negative) Urine Urobilinogen Norm (Negative) mg/dL Ur Leukocyte Chelsy ase Negative (Negative) Discharge Plan Discharge Patient Disposition: Home Clinical Impression: Closed rib fracture Qualifiers: Encounter type: initial encounter Rib fracture type: single rib Laterality: left Qualified Code(s): S22.32XA - Fracture of one rib, left side, initial encounter for closed fracture Fall Qualifiers: Encounter type: initial encounter Qualified Code(s): W19.XXXA - Unspecified fall, initial encounter Condition: Stable Prescriptions: No Action furosemide 20 mg tablet 20 mg PO EVERY OTHER DAY PRN (Reason: Edema) RF: 0 potassium chloride 20 mEq tablet extended release 20 meq PO BID PRN (Reason: w/lasix) RF: 0 sumatriptan succinate [Imitrex] 50 mg tablet 50 mg PO Q2H PRN (Reason: Migraine Headache) RF: 0 aspirin [Adult Aspirin Regimen] 81 mg tablet,delayed release (DR/EC) 81 mg PO DAILY@08 RF: 0 nitroglycerin 6.5 mg capsule, extended release 6.5 mg PO BID@0800,2000 RF: 0 benzonatate [Tessalon Perles] 100 mg capsule 100 mg PO BID PRN (Reason: Cough) 30 Days Qty: 60 RF: 3 albuterol sulfate [ProAir HFA] 90 mcg/actuation HFA aerosol inhaler 2 puff INHALATION Q6H PRN (Reason: Shortness Of Breath) Qty: 8.5 RF: 5 tramadol 50 mg tablet 50 mg PO TID PRN (Reason: pain) 30 Days Qty: 90 RF: 2 omeprazole 20 mg capsule,delayed release(DR/EC) 20 mg PO BID PRN (Reason: Acid Reflux) 30 Days Qty: 60 RF: 5 diazepam [Valium] 5 mg tablet 5 mg PO BID PRN (Reason: Anxiety) 30 Days Qty: 60 RF: 3 Benadryl 50 mg PO DAILY PRN (Reason: Allergic Reaction) RF: 0 losartan 50 mg tablet 50 mg PO DAILY@08 RF: 0 oxybutynin chloride 15 mg tablet extended release 24hr 15 mg PO DAILY@08 RF: 0 ipratropium-albuterol 0.5 mg-3 mg(2.5 mg base)/3 mL solution for nebulization 3 ml INHALATION QID PRN (Reason: Shortness Of Breath) RF: 0 ondansetron HCl [Zofran] 4 mg tablet 4 mg PO Q8H PRN (Reason: Nausea) RF: 0 promethazine-codeine 6.25-10 mg/5 mL syrup 5 ml PO Q6H PRN (Reason: pain) RF: 0 Discharge Orders: Discharge ED (Routine); Ordered 01/06/21 Ordered By: Andrew Ravi Referrals: Gibson Bo MD [Primary Care Provider] - Discharge Diet: Usual diet Discharge Activity: Limit activity as instructed Patient Instructions: Opioid Safety Activity Restrictions/Additional Instructions: Take your tramadol as prescribed. You may also use [id number] Voltaren gel. Please take extra fall precautions. Follow-up with your primary care provider. Coding Level of Care Code ED Drawbridge Tender for Lorenzo Fwd Exam Comprehensive
[2021-01-06 14:15] VITALS: BP 132/81; PULSE 106; RESP 20; O2SAT 96
[2021-01-06] MEDS: ondansetron 2 mg/ML SDV 2 mL 4 MG IVP (14:17)
[2021-01-06 14:19] VITALS: RESP 22; O2SAT 96
[2021-01-06] MEDS: fentaNYL 50 mcg/mL INJ 2mL IVP (14:19)
[2021-01-06 14:30] LABS: Add Urine Microscopic? NO; Charge for UA Resulting for Rev
[2021-01-06 14:49] LABS: Bilirubin Urine Neg (Negative); Blood Urine Neg (Negative); Glucose Urine UA Norm (Normal); Ketones Urine Negative (Negative); Leukocyte Esterase Urine Negative (Negative); Nitrate Urine Negative (Negative); Protein Urine Neg (Negative); Specific Gravity, Urine 1.015 (1.005-1.030); Urine Appearance Clear (CLEAR); Urine Color Yellow (Yellow); Urobilinogen Urine Norm (Negative); pH Urine 7 (5-7)
[2021-01-06 15:09] VITALS: BP 136/79; PULSE 102; RESP 16; O2SAT 96
[2021-01-06 15:30] VITALS: BP 130/77; PULSE 96; RESP 20; O2SAT 98
[2021-01-06 16:17] VITALS: BP 141/77; PULSE 87; RESP 20; O2SAT 92
[2021-01-06 16:37] LABS: Basophils # 0.1 10^3/uL (0.0-0.1); Basophils % 0.6 %; Eosinophils # 0.3 10^3/uL (0.0-0.8); Hematocrit 36.5 % (37.0-47.0); Lymphocytes # 0.6 10^3/uL (0.8-4.8); Lymphocytes % 4.7 %; Mean Corpuscular HGB Conc 30.1 g/dL (30.0-36.0); Mean Corpuscular Volume 89.5 fL (81-99); Mean Platelet Volume 9.9 fL (7.4-10.4); Monocytes # 0.5 10^3/uL (0.2-0.9); Monocytes % 3.6 %; Neutrophils # 10.99 10^3/uL (1.8-7.7); Neutrophils % 88.7 %; Nucleated Red Blood Cells % 0 %; Platelet Count 226 10^3/cmm (130-400); Red Blood Count 4.08 10^6/uL (4.1-5.3); Red Cell Distribution Width 12.9 % (12.1-15.1); White Blood Count 12.4 10^3/uL (4.0-10.0)
[2021-01-06 16:57] LABS: Alanine Aminotransferase 10 U/L (0-33); Albumin Level 3.8 g/dL (3.5-5.2); Alkaline Phosphatase 129 IU/L (35-105); Anion Gap 10.5 (5-19); Aspartate Amino Transferase 20 U/L (0-32); Blood Urea Nitrogen 12 mg/dL (8-23); Calcium 9.3 mg/dL (8.5-10.5); Carbon Dioxide 38 mmol/L (22-29); Chloride 98 mmol/L (98-107); Creatine Phosphokinase 61 U/L (26-192); Creatinine Clr Calc Pharmacy 49.4599; Globulin 2.8 g/dL (1.3-4.6); Glucose 90 mg/dL (65-115); Osmolality Calculated 293 mOsm/kg (285-295); Potassium 4.5 mmol/L (3.5-5.1); Sodium 142 mmol/L (136-145); Total Bilirubin 0.3 mg/dL (0.15-1.2); Total Protein 6.6 g/dL (6.6-8.7)
[2021-01-06 18:01] VITALS: BP 142/102; PULSE 110; RESP 20; TEMP 36.4; O2SAT 100
== END 2021-01-06 18:32 | disposition home or self-care (01) ==
PROVIDERS: Emergency Provider Emergency Medicine; PCP Family Medicine
DX: S22.32XA Fracture of one rib, left side, initial encounter for closed fracture (principal); Z79.82 Long term (current) use of aspirin; J44.9 Chronic obstructive pulmonary disease, unspecified; Z86.73 Personal history of transient ischemic attack (TIA), and cerebral infarction without residual deficits; I10 Essential (primary) hypertension; E78.2 Mixed hyperlipidemia; Z87.891 Personal history of nicotine dependence; W19.XXXA Unspecified fall, initial encounter
CPT/HCPCS: 71101; 72100; 72170; 80053; 81003; 82550; 85025; 96374; 96375; 99284; J2405; J3010

== ENCOUNTER 2021-01-07 17:26 | Emergency (ER) | payer MEDICARE, OTHER, SELFPAY ==
[2021-01-07 17:38] VITALS: BP 143/106; PULSE 102; RESP 30; TEMP 36.4; O2SAT 98
--- NOTE | 2021-01-07 17:44 | CTR_ITS ---
PROCEDURE INFORMATION: Exam: CT Chest With Contrast; Diagnostic Exam date and time: 01/07/2021 5:54 PM Age: 80 years old Clinical indication: Pain; Left-sided; Patient HX: Dx with rib FX yesterday; Additional info: Cp TECHNIQUE: Imaging protocol: Diagnostic computed tomography of the chest with contrast. Total images: 257 Radiation optimization: All CT scans at this facility use at least one of these dose optimization techniques: automated exposure control; mA and/or kV adjustment per patient size (includes targeted exams where dose is matched to clinical indication); or iterative reconstruction. Contrast material: OMNI 300; Contrast volume: 95 ml; Contrast route: INTRAVENOUS (IV); COMPARISON: CR (CHEST, ) 01/07/2021 5:56 PM RADIATION DOSE METRICS: Total DLP (mGy-cm): 299.54 FINDINGS: Thyroid: Tiny right thyroid nodule versus colloid cyst measuring under 3 mm. No follow-up recommended. Lungs: No visible active interstitial or alveolar airspace disease. No visible pulmonary contusion or pulmonary laceration. Advanced COPD/chronic bronchitis. Calcified granulomas of antecedent disease. Small 3 mm noncalcified pulmonary nodule right upper lobe (series 3, image 11). Pleural spaces: Unremarkable. No pneumothorax. No pleural effusion. No visible hemothorax. Heart: Cardiac structures and configuration with microcardia. Coronary artery disease. No visible pericardial effusion. No visible hemopericardium. Mediastinal space: Patulous esophagus consistent with achalasia. Aorta: The thoracic aorta is nonaneurysmal. No visible intimal flap or dissection. Moderate arterial sclerotic disease. Lymph nodes: No visible findings suggesting or raising concern for active mediastinal or hilar lymphadenopathy. Calcified complexes of antecedent granulomatous disease. Bones/joints: Scoliosis of the spine. Mildly displaced posterior left 10th rib fracture. Minimally displaced left 11th and 12th rib fractures at the costovertebral junction. Nondisplaced avulsion fracture of the left L1 transverse process. Osteopenia/osteoporosis. Age-appropriate degenerative disease of the spine. Soft tissues: Cachexia. CT/CT chest w con* [id number] IMPRESSION: 1. Mildly displaced posterior left 10th rib fracture. 2. Minimally displaced left 11th and 12th rib fractures at the costovertebral junction. 3. Nondisplaced avulsion fracture of the left L1 transverse process. 4. No visible pulmonary contusion or pulmonary laceration. 5. No visible pneumothorax or hemothorax. 6. Achalasia. 7. Advanced COPD/chronic bronchitis. 8. Calcified granulomas of antecedent disease. 9. Small 3 mm noncalcified pulmonary nodule right upper lobe (series 3, image 11). For patients at low risk (minimal or absent history of smoking and of other known risk factors), no routine follow-up is indicated. For patients at high risk (history of smoking or of other known risk factors), consider optional CT Chest at 12 months. (Reference: Monico) References: Monico Calderón et al. Guidelines for Management of Incidental Pulmonary Nodules Detected on CT Images: From the Fleischner Society 2017. Radiology. 2017;284(1):228-243. COMMENTS: Consistent with the [place] [employer]'s Incidental Findings Committee white paper (J Am Zaira Radiol 2015): In patients aged 35 years and older with an incidental thyroid nodule equal to or greater than 1.[address], MRI or extrathyroidal US, further evaluation with dedicated thyroid US is recommended for patients with normal life expectancy and without comorbidities. For smaller nodules without suspicious features, no further evaluation or follow up is recommended. Radiation Dose CTDIVOL = (mGy): DLP = 299.54 (mGy-cm)
--- NOTE | 2021-01-07 17:44 | XRR_ITS ---
PROCEDURE INFORMATION: Exam: XR Chest Exam date and time: 01/07/2021 5:56 PM Age: 80 years old Clinical indication: Pain; Left-sided; Patient HX: Fall yesterday dx with left rib FX TECHNIQUE: Imaging protocol: XR of the chest. Views: 1 view. Total images: 1 COMPARISON: CR (CHEST, ) 12/27/2020 7:29 PM FINDINGS: Lungs: Advanced COPD/chronic bronchitis. No visible active interstitial or alveolar airspace disease. Calcified granulomas of antecedent disease. Pleural spaces: Unremarkable. No pleural effusion. No pneumothorax. Heart/Mediastinum: Cardiac structures and configuration with microcardia and arteriosclerosis. Coronary artery disease. Bones/joints: Scoliosis of the spine. No radiographically visible rib fracture. Osteopenia/osteoporosis. XR/XR chest 1V portable [id number] IMPRESSION: Nonacute.
[2021-01-07 17:59] VITALS: RESP 22
[2021-01-07] MEDS: HYDROmorphone 1 mg/mL INJ 1 mL 0.5 MG IVP ×2 (17:59→19:45)
[2021-01-07] MEDS: ondansetron 2 mg/ML SDV 2 mL 4 MG IVP (17:59)
--- NOTE | 2021-01-07 18:25 | ED_ITS ---
HPI - Fall General: Chief Complaint: Fall Stated Complaint: L RIB PAIN Time Seen by Provider: 01/07/21 17:35 Source: patient Mode of arrival: ambulatory Limitations: no limitations History of Present Illness: HPI Narrative: 80-year-old female who had a fall recently and was seen here in was diagnosed with a rib fracture. States that there pain got much worse. States pain is a 8 out of 10 and sharp in nature in her chest. She denies any vomiting or diarrhea. She states she has had some dyspnea. Patient wears 3 L at home and is currently 97% on 3 L. Denies any vomiting diarrhea. Denies any head pain or abdominal pain. Associated symptoms-after fall: Reports chest pain; Denies abdominal pain, headache(s) or neck pain Review of Systems Const: Denies: fever(s), chills, body aches or change in appetite Eyes: Denies: blurry vision or eye discomfort ENMT: Denies: throat pain or dental pain Card: Reports: chest pain Resp: Denies: dyspnea GI: Denies: abdominal pain, nausea, vomiting or diarrhea : Denies: dysuria Musc: Denies: neck pain or back pain Skin/Breast: Denies: rash Neuro: Denies: headache(s) Psych: Denies: depression Koby/Lymph: Denies: easy bruising All/Imm: Denies: urticaria PFSH ED PFSH: Medical History 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 ASCVD (arteriosclerotic cardiovascular disease) Carotid stenosis Chronic pain COPD (chronic obstructive pulmonary disease) CVA (cerebral vascular accident) DDD (degenerative disc disease) Essential (primary) hypertension GERD (gastroesophageal reflux disease) Gout History of ovarian cyst Hyperlipidemia, mixed Hypothyroid Iron deficiency Lumbar disc disease with radiculopathy Mixed incontinence urge and stress Osteoarthritis of left shoulder Surgical History H/O heart artery stent H/O pelvic surgery H/O shoulder surgery History of throat surgery S/P tonsillectomy Family History Family/Other No problems noted. Mother Myocardial infarction Sister Myocardial infarction Asthma Father Diabetes Other Cancer Hypertension Social History Smoking and tobacco status: former smoker Quit status (tobacco): has quit using tobacco Year quit tobacco: 2001 - 1PPD x 20 Years Alcohol intake: never Lives independently: Yes Household members: none Marital status: / Current occupational status: retired History of recent travel: No Current gender identity: Female Physical Exam Const: COMMON NORMALS: no acute distress, patient oriented x3 and healthy appearing HENMT: COMMON NORMALS: normocephalic and atraumatic HEAD & SCALP: normocephalic and atraumatic Eye: COMMON NORMALS: Equal, round and reactive pupils present and EOMs intact bilaterally PUPIL: Yes Equal, round and reactive pupils present Neck/C-Spine: COMMON NORMALS: full ROM and supple Chest: COMMONS NORMALS: normal inspection of the chest OTHER: tenderness over chest wall Resp: COMMON NORMALS: normal respiratory effort, No retractions, No use of accessory muscles and clear to auscultation bilaterally AUSCULTATION: clear to auscultation bilaterally Cardio: COMMON NORMALS: regular rate, regular rhythm and No murmurs present (Cardio) RATE: regular rate RHYTHM: regular rhythm GI: COMMON NORMALS: Normal to inspection, nondistended, normoactive bowel sounds present, Soft to palpation, non-tender and no masses PALPATION: Yes Soft to palpation Extremity: COMMON NORMALS: normal to inspection and full ROM Neuro: COMMON NORMALS: patient oriented x3, moves all extremities and no focal motor deficits Psych: COMMON NORMALS: mental status grossly normal, Normal thought process present and cooperative THOUGHT PROCESS: Normal thought process present Skin: COMMON NORMALS: no rashes or lesions noted and no wounds GENERAL SKIN EXAM: no rashes or lesions noted Course Vital Signs: Vital signs: Vital Signs Temperature 97.5 F L 01/07/21 17:38 Pulse Rate 78 01/07/21 20:02 Respiratory Rate 17 01/07/21 20:02 Blood Pressure 97/62 01/07/21 20:02 Pulse Oximetry 98 01/07/21 20:02 MDM - Fall MDM Narrative: Medical decision making narrative: Patient presents here with chest wall pain from rib fracture. CT showed no pneumothorax or contusions. Pain is improved here. She stable for discharge at this time. Blood work is normal as well. She is to return if worsening. Lab Data: Labs: Lab Results 01/07/21 01/07/21 Range/Units 18:50 18:50 WBC 7.9 (4.0-10.0) 10^3/ uL RBC 3.61 L (4.1-5.3) 10^6/u L Hgb 9.8 L (11.5-15.3) g/dL Hct 32.4 L (37.0-47.0) % MCV 89.8 (81-99) fL MCH 27.1 L (28.0-34.0) pg MCHC 30.2 (30.0-36.0) g/dL RDW 13.0 (12.1-15.1) % Plt Count 190 (130-400) 10^3/c mm MPV 10.5 H (7.4-10.4) fL Neut % (Auto) 77.0 % Lymph % (Auto) 11.7 % [place] % (Auto) 4.3 % Eos % (Auto) 6.2 % Baso % (Auto) 0.5 % Neut # (Auto) 6.12 (1.8-7.7) 10^3/u L Lymph # (Auto) 0.9 (0.8-4.8) 10^3/u L [place] # (Auto) 0.3 (0.2-0.9) 10^3/u L Eos # (Auto) 0.5 (0.0-0.8) 10^3/u L Baso # (Auto) 0.0 (0.0-0.1) 10^3/u L Nucleated RBC % (a uto) 0 % Nucleated RBCs # 0.0 /100WBC Sodium 136 (136-145) mmol/L Potassium 3.9 (3.5-5.1) mmol/L Chloride 94 L (98-107) mmol/L Carbon Dioxide 39 H (22-29) mmol/L Anion Gap 6.9 (5-19) BUN 16 (8-23) mg/dL Creatinine 0.6 (0.5-0.9) mg/dL GFR Calculation Not Reportable Glucose 99 (65-115) mg/dL Calculated Osmolal ity 283 L (285-295) mOsm/k g Calcium 9.0 (8.5-10.5) mg/dL Total Bilirubin 0.2 (0.15-1.2) mg/dL AST 17 (0-32) U/L ALT 9 (0-33) U/L Alkaline Phosphata se 112 H (35-105) IU/L Total Protein 6.5 L (6.6-8.7) g/dL Albumin 3.4 L (3.5-5.2) g/dL Globulin 3.1 (1.3-4.6) g/dL Imaging Data^: CT Chest: Radiologist's impression: [address] [address] [address] Scan Report Signed Patient: Sneha Smith Unit #: [id number] : 1940 Age/Sex: 80 / F ADM Date: 01/07/21 Loc: ER Room/Bed: Attending Dr: Ordering Provider/Ordering MD: Romulo Bettencourt MD Date of Service: 01/07/21 Procedure(s): CT chest w con* [id number] Accession Number(s): [id number] Report Number: [id number] PROCEDURE INFORMATION: Exam: CT Chest With Contrast; Diagnostic Exam date and time: 01/07/2021 5:54 PM Age: 80 years old Clinical indication: Pain; Left-sided; Patient HX: Dx with rib FX yesterday; Additional info: Cp TECHNIQUE: Imaging protocol: Diagnostic computed tomography of the chest with contrast. Total images: 257 Radiation optimization: All CT scans at this facility use at least one of these dose optimization techniques: automated exposure control; mA and/or kV adjustment per patient size (includes targeted exams where dose is matched to clinical indication); or iterative reconstruction. Contrast material: OMNI 300; Contrast volume: 95 ml; Contrast route: INTRAVENOUS (IV); COMPARISON: CR (CHEST, ) 01/07/2021 5:56 PM RADIATION DOSE METRICS: Total DLP (mGy-cm): 299.54 FINDINGS: Thyroid: Tiny right thyroid nodule versus colloid cyst measuring under 3 mm. No follow-up recommended. Lungs: No visible active interstitial or alveolar airspace disease. No visible pulmonary contusion or pulmonary laceration. Advanced COPD/chronic bronchitis. Calcified granulomas of antecedent disease. Small 3 mm noncalcified pulmonary nodule right upper lobe (series 3, image 11). Pleural spaces: Unremarkable. No pneumothorax. No pleural effusion. No visible hemothorax. Heart: Cardiac structures and configuration with microcardia. Coronary artery disease. No visible pericardial effusion. No visible hemopericardium. Mediastinal space: Patulous esophagus consistent with achalasia. Aorta: The thoracic aorta is nonaneurysmal. No visible intimal flap or dissection. Moderate arterial sclerotic disease. Lymph nodes: No visible findings suggesting or raising concern for active mediastinal or hilar lymphadenopathy. Calcified complexes of antecedent granulomatous disease. Bones/joints: Scoliosis of the spine. Mildly displaced posterior left 10th rib fracture. Minimally displaced left 11th and 12th rib fractures at the costovertebral junction. Nondisplaced avulsion fracture of the left L1 transverse process. Osteopenia/osteoporosis. Age-appropriate degenerative disease of the spine. Soft tissues: Cachexia. CT/CT chest w con* [id number] IMPRESSION: 1. Mildly displaced posterior left 10th rib fracture. 2. Minimally displaced left 11th and 12th rib fractures at the costovertebral junction. 3. Nondisplaced avulsion fracture of the left L1 transverse process. 4. No visible pulmonary contusion or pulmonary laceration. 5. No visible pneumothorax or hemothorax. 6. Achalasia. 7. Advanced COPD/chronic bronchitis. 8. Calcified granulomas of antecedent disease. 9. Small 3 mm noncalcified pulmonary nodule right upper lobe (series 3, image 11). For patients at low risk (minimal or absent history of smoking and of other known risk factors), no routine follow-up is indicated. For patients at high risk (history of smoking or of other known risk factors), consider optional CT Chest at 12 months. (Reference: Monico) Discharge Plan Discharge Patient Disposition: Home Clinical Impression: Closed rib fracture Qualifiers: Encounter type: subsequent encounter Condition: Stable Prescriptions: New Naprosyn 500 mg tablet 500 mg PO BID PRN (Reason: pain) Qty: 20 RF: 0 No Action furosemide 20 mg tablet 20 mg PO EVERY OTHER DAY PRN (Reason: Edema) RF: 0 potassium chloride 20 mEq tablet extended release 20 meq PO BID PRN (Reason: w/lasix) RF: 0 sumatriptan succinate [Imitrex] 50 mg tablet 50 mg PO Q2H PRN (Reason: Migraine Headache) RF: 0 aspirin [Adult Aspirin Regimen] 81 mg tablet,delayed release (DR/EC) 81 mg PO DAILY@08 RF: 0 nitroglycerin 6.5 mg capsule, extended release 6.5 mg PO BID@0800,1999 RF: 0 benzonatate [Tessalon Perles] 100 mg capsule 100 mg PO BID PRN (Reason: Cough) 30 Days Qty: 60 RF: 3 albuterol sulfate [ProAir HFA] 90 mcg/actuation HFA aerosol inhaler 2 puff INHALATION Q6H PRN (Reason: Shortness Of Breath) Qty: 8.5 RF: 5 tramadol 50 mg tablet 50 mg PO TID PRN (Reason: pain) 30 Days Qty: 90 RF: 2 omeprazole 20 mg capsule,delayed release(DR/EC) 20 mg PO BID PRN (Reason: Acid Reflux) 30 Days Qty: 60 RF: 5 diazepam [Valium] 5 mg tablet 5 mg PO BID PRN (Reason: Anxiety) 30 Days Qty: 60 RF: 3 Benadryl 50 mg PO DAILY PRN (Reason: Allergic Reaction) RF: 0 losartan 50 mg tablet 50 mg PO DAILY@08 RF: 0 oxybutynin chloride 15 mg tablet extended release 24hr 15 mg PO DAILY@08 RF: 0 ipratropium-albuterol 0.5 mg-3 mg(2.5 mg base)/3 mL solution for nebulization 3 ml INHALATION QID PRN (Reason: Shortness Of Breath) RF: 0 ondansetron HCl [Zofran] 4 mg tablet 4 mg PO Q8H PRN (Reason: Nausea) RF: 0 promethazine-codeine 6.25-10 mg/5 mL syrup 5 ml PO Q6H PRN (Reason: pain) RF: 0 Discharge Orders: Discharge ED (Routine); Ordered 01/07/21 Ordered By: Romulo Bettencourt Referrals: Gibson Bo MD [Primary Care Provider] - Discharge Diet: Advance as tolerated Discharge Activity: Resume usual activity Patient Instructions: Rib Fracture (ED) Coding Level of Care Code ED Skoog Operator for Chg Fwd Exam Comprehensive
--- NOTE | 2021-01-07 18:25 | ECG_ITS ---
[facility] Test Date: 2021-01-07 Pat Name: Sneha Smith Department: Room: Gender: Female Life Underwriter: : 1940 Requested By: Romulo Bettencourt Order Number: [id number] Yimi MD: Shaquille Osullivan M.D. Measurements Intervals [place] Rate: 78 P: 82 ND: 142 QRS: 71 QRSD: 81 T: 67 QT: 370 QTc: 423 Interpretive Statements SINUS RHYTHM POSSIBLE LEFT ATRIAL ENLARGEMENT [-0.1mV P WAVE IN V1/V2] Compared to ECG 12/27/2020 20:10:42 Sinus arrhythmia no longer present Electronically Signed On 01-07-2021 19:23:20 CDT by Shaquille Osullivan M.D. [id number]
[2021-01-07] MEDS: iohexol 300 mg/mL 100 mL Btl IV (18:28)
--- NOTE | 2021-01-07 18:32 | PC.NURSE ---
This RN went back into room to give additional pain medication. Pt appears more sedated, having trouble answering questions and appears much more comfortable than previously. VSS. Juan herrera, Dr. Bettencourt notified, remaining medication wasted with Polina Wiggins RN.
[2021-01-07 18:56] LABS: Basophils % 0.5 %; Eosinophils # 0.5 10^3/uL (0.0-0.8); Eosinophils % 6.2 %; Hematocrit 32.4 % (37.0-47.0); Hemoglobin 9.8 g/dL (11.5-15.3); Lymphocytes # 0.9 10^3/uL (0.8-4.8); Lymphocytes % 11.7 %; Mean Corpuscular HGB Conc 30.2 g/dL (30.0-36.0); Mean Corpuscular Hemoglobin 27.1 pg (28.0-34.0); Mean Corpuscular Volume 89.8 fL (81-99); Mean Platelet Volume 10.5 fL (7.4-10.4); Monocytes # 0.3 10^3/uL (0.2-0.9); Monocytes % 4.3 %; Neutrophils # 6.12 10^3/uL (1.8-7.7); Nucleated Red Blood Cells % 0 %; Platelet Count 190 10^3/cmm (130-400); Red Blood Count 3.61 10^6/uL (4.1-5.3); White Blood Count 7.9 10^3/uL (4.0-10.0)
--- NOTE | 2021-01-07 19:01 | PC.NURSE ---
Report received from MICHAEL Wolf and care transferred to MICHAEL Mcgovern
[2021-01-07 19:16] LABS: Alanine Aminotransferase 9 U/L (0-33); Albumin Level 3.4 g/dL (3.5-5.2); Alkaline Phosphatase 112 IU/L (35-105); Anion Gap 6.9 (5-19); Aspartate Amino Transferase 17 U/L (0-32); Blood Urea Nitrogen 16 mg/dL (8-23); Carbon Dioxide 39 mmol/L (22-29); Chloride 94 mmol/L (98-107); Globulin 3.1 g/dL (1.3-4.6); Glucose 99 mg/dL (65-115); Osmolality Calculated 283 mOsm/kg (285-295); Potassium 3.9 mmol/L (3.5-5.1); Sodium 136 mmol/L (136-145); Total Bilirubin 0.2 mg/dL (0.15-1.2); Total Protein 6.5 g/dL (6.6-8.7)
[2021-01-07 19:21] VITALS: BP 103/53; PULSE 80; RESP 17; O2SAT 95
[2021-01-07 19:45] VITALS: RESP 16; O2SAT 100
[2021-01-07 20:02] VITALS: BP 97/62; PULSE 78; RESP 17; O2SAT 98
== END 2021-01-07 20:15 | disposition home or self-care (01) ==
PROVIDERS: Emergency Provider Emergency Medicine; PCP Family Medicine
DX: S22.42XA Multiple fractures of ribs, left side, initial encounter for closed fracture (principal); W19.XXXA Unspecified fall, initial encounter; Z99.81 Dependence on supplemental oxygen; J44.9 Chronic obstructive pulmonary disease, unspecified; Z86.73 Personal history of transient ischemic attack (TIA), and cerebral infarction without residual deficits; I10 Essential (primary) hypertension; E78.2 Mixed hyperlipidemia; Z87.891 Personal history of nicotine dependence
CPT/HCPCS: 71045; 71260; 80053; 85025; 93005; 96374; 96375; 96376; 99284; J1170; J2405; Q9967

== ENCOUNTER 2021-01-08 17:41 | Inpatient (IN) | payer MEDICARE, MEDICAID, SELFPAY ==
[2021-01-08] VITALS (8 sets, daily range): BP systolic 120–164; BP diastolic 70–94; PULSE 76–90; RESP 15–18; TEMP 36.6–37.1; O2SAT 95–100
--- NOTE | 2021-01-08 18:03 | CTR_ITS ---
PROCEDURE INFORMATION: Exam: CT Head Without Contrast Exam date and time: 01/08/2021 6:26 PM Age: 80 years old Clinical indication: Altered mental status/memory loss; Additional info: Weakness, AMS TECHNIQUE: Imaging protocol: Computed tomography of the head without contrast. Radiation optimization: All CT scans at this facility use at least one of these dose optimization techniques: automated exposure control; mA and/or kV adjustment per patient size (includes targeted exams where dose is matched to clinical indication); or iterative reconstruction. COMPARISON: CT head wo con* [id number] 12/19/2020 9:46 AM RADIATION DOSE METRICS: Total DLP (mGy-cm): 892.64 FINDINGS: There is mild generalized atrophy. There are mild areas of decreased attenuation in the periventricular white matter which is nonspecific but likely relates to small vessel ischemic change. There is no evidence for acute infarct. There is no evidence for mass. There is no hemorrhage. 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 There are no extra-axial fluid collections. There is no midline shift. The skull is intact. The visualized paranasal sinuses are well aerated. There is atherosclerotic change of the cavernous carotid arteries. CT/CT head wo con* [id number] IMPRESSION: 1. No evidence for acute infarct, mass or hemorrhage. 2. No significant interval change. Radiation Dose CTDIVOL = (mGy): DLP = 892.64 (mGy-cm)
--- NOTE | 2021-01-08 18:03 | XRR_ITS ---
PROCEDURE INFORMATION: Exam: XR Chest Exam date and time: 01/08/2021 6:04 PM Age: 80 years old Clinical indication: Pain; Left-sided; Additional info: Weakness TECHNIQUE: Imaging protocol: XR of the chest. Views: 1 view. COMPARISON: CT chest w con* [id number] 01/07/2021 6:14 PM FINDINGS: There is hyperinflation. No infiltrates are present. There is no pleural effusion or pneumothorax. The heart size is normal. XR/XR chest 1V portable [id number] IMPRESSION: 1. Hyperinflation. 2. No infiltrates.
--- NOTE | 2021-01-08 18:09 | ED_ITS ---
HPI - General Adult General: Chief complaint: General Medical Stated complaint: POSSIBLE AIRWAY OBSTRUCTION Time Seen by Provider: 01/08/21 17:46 Source: patient and EMS Mode of arrival: EMS Limitations: no limitations History of Present Illness: HPI narrative: 80-year-old female who presents here today states that she took a Zofran pill feeling stuck in her throat. She has been seen multiple times this week after a fall. Patient is very confused today compared to when I saw her yesterday. She had rib fracture from a fall and CT chest yesterday was negative. She had noted a fall. She states she took a Zofran pill and felt like it got stuck in her throat. She is also making statements that she thinks she swallowed the bottle. She denies any worsening improving factors. Associated symptoms: Reports chest pain and confusion; Deny dyspnea, headache(s), nausea, rash or vomiting Review of Systems Const: Denies: fever(s), chills, body aches or change in appetite Eyes: Denies: blurry vision or eye discomfort ENMT: Denies: throat pain or dental pain Card: Reports: chest pain Resp: Denies: dyspnea GI: Denies: abdominal pain, nausea, vomiting or diarrhea : Denies: dysuria Musc: Denies: neck pain or back pain Skin/Breast: Denies: rash Neuro: Reports: confusion; Denies: headache(s) Psych: Denies: depression Koby/Lymph: Denies: easy bruising All/Imm: Denies: urticaria PFSH ED PFSH: Medical History 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 ASCVD (arteriosclerotic cardiovascular disease) Carotid stenosis Chronic pain COPD (chronic obstructive pulmonary disease) CVA (cerebral vascular accident) DDD (degenerative disc disease) Essential (primary) hypertension GERD (gastroesophageal reflux disease) Gout History of ovarian cyst Hyperlipidemia, mixed Hypothyroid Iron deficiency Lumbar disc disease with radiculopathy Mixed incontinence urge and stress Osteoarthritis of left shoulder Surgical History H/O heart artery stent H/O pelvic surgery H/O shoulder surgery History of throat surgery S/P tonsillectomy Family History Family/Other No problems noted. Mother Myocardial infarction Sister Myocardial infarction Asthma Father Diabetes Other Cancer Hypertension Social History Smoking and tobacco status: former smoker Quit status (tobacco): has quit using tobacco Year quit tobacco: 2001 - 1PPD x 20 Years Alcohol intake: never Lives independently: Yes Household members: none Marital status: / Current occupational status: retired History of recent travel: No Current gender identity: Female Physical Exam Const: COMMON NORMALS: no acute distress; negative for patient oriented x3 GENERAL APPEARANCE: disheveled HENMT: COMMON NORMALS: normocephalic and atraumatic HEAD & SCALP: normocephalic and atraumatic Eye: COMMON NORMALS: Equal, round and reactive pupils present and EOMs intact bilaterally PUPIL: Yes Equal, round and reactive pupils present Neck/C-Spine: COMMON NORMALS: full ROM and supple Chest: COMMONS NORMALS: normal inspection of the chest and normal palpation of entire chest wall Resp: COMMON NORMALS: normal respiratory effort, No retractions, No use of accessory muscles and clear to auscultation bilaterally AUSCULTATION: clear to auscultation bilaterally Cardio: COMMON NORMALS: regular rate, regular rhythm and No murmurs present (Cardio) RATE: regular rate RHYTHM: regular rhythm GI: COMMON NORMALS: Normal to inspection, nondistended, normoactive bowel sounds present, Soft to palpation, non-tender and no masses PALPATION: Yes Soft to palpation Extremity: COMMON NORMALS: normal to inspection and full ROM Neuro: COMMON NORMALS: moves all extremities and no focal motor deficits; negative for patient oriented x3 Psych: COMMON NORMALS: cooperative; negative for mental status grossly normal THOUGHT PROCESS: confused Skin: COMMON NORMALS: no rashes or lesions noted and no wounds GENERAL SKIN EXAM: no rashes or lesions noted Course Vital Signs: Vital signs: Vital Signs Temperature 98 F 01/08/21 19:45 Pulse Rate 79 01/08/21 19:45 Respiratory Rate 17 01/08/21 19:45 Blood Pressure 147/70 01/08/21 19:45 Pulse Oximetry 100 01/08/21 19:45 MDM - General Adult MDM Narrative: Medical decision making narrative: Patient presents with altered mental status that is going on all day. I believe is likely delirium from pain from her rib fractures along with pain medicines. Patient has no signs of acute focal deficit symptoms been all day. Her head CT here is normal. Blood work is normal as well. She had a chest CT yesterday it showed no acute findings besides the rib fractures. I spoke to the hospitalist and will admit at this time. Lab Data: Labs: Lab Results 01/08/21 01/08/21 Range/Units 18:41 18:41 WBC Cancelled Corrected WBC Cancelled RBC Cancelled Hgb Cancelled Hct Cancelled MCV Cancelled MCH Cancelled MCHC Cancelled RDW Cancelled Plt Count Cancelled MPV Cancelled Gran % Cancelled Neut % (Auto) Cancelled Lymph % (Auto) Cancelled [place] % (Auto) Cancelled Eos % (Auto) Cancelled Baso % (Auto) Cancelled Neut # (Auto) Cancelled Lymph # (Auto) Cancelled [place] # (Auto) Cancelled Eos # (Auto) Cancelled Baso # (Auto) Cancelled Absolute Gran (aut o) Cancelled Nucleated RBC % (a uto) Cancelled Nucleated RBCs # Cancelled Sodium 138 (136-145) mmol/L Potassium 4.4 (3.5-5.1) mmol/L Chloride 95 L (98-107) mmol/L Carbon Dioxide 36 H (22-29) mmol/L Anion Gap 11.4 (5-19) BUN 14 (8-23) mg/dL Creatinine 0.6 (0.5-0.9) mg/dL GFR Calculation Not Reportable Glucose 92 (65-115) mg/dL Calculated Osmolal ity 286 (285-295) mOsm/k g Calcium 9.1 (8.5-10.5) mg/dL Total Bilirubin 0.2 (0.15-1.2) mg/dL AST 20 (0-32) U/L ALT 10 (0-33) U/L Alkaline Phosphata se 114 H (35-105) IU/L Total Protein 6.3 L (6.6-8.7) g/dL Albumin 3.5 (3.5-5.2) g/dL Globulin 2.8 (1.3-4.6) g/dL Imaging Data^: CT Head: Attestation: I personally reviewed and interpreted this imaging study as follows: Radiologist's impression: [address] [place], [place] [address]. [place] [address] CT Scan Report Signed Patient: Sneha Smith Unit #: [id number] : 1940 Age/Sex: 80 / F ADM Date: 01/08/21 Loc: ER Room/Bed: Attending Dr: Ordering Provider/Ordering MD: Romulo Bettencourt MD Date of Service: 01/08/21 Procedure(s): CT head wo con* [id number] Accession Number(s): [id number] Report Number: [id number] PROCEDURE INFORMATION: Exam: CT Head Without Contrast Exam date and time: 01/08/2021 6:26 PM Age: 80 years old Clinical indication: Altered mental status/memory loss; Additional info: Weakness, AMS TECHNIQUE: Imaging protocol: Computed tomography of the head without contrast. Radiation optimization: All CT scans at this facility use at least one of these dose optimization techniques: automated exposure control; mA and/or kV adjustment per patient size (includes targeted exams where dose is matched to clinical indication); or iterative reconstruction. COMPARISON: CT head wo con* [id number] 12/19/2020 9:46 AM RADIATION DOSE METRICS: Total DLP (mGy-cm): 892.64 FINDINGS: There is mild generalized atrophy. There are mild areas of decreased attenuation in the periventricular white matter which is nonspecific but likely relates to small vessel ischemic change. There is no evidence for acute infarct. There is no evidence for mass. There is no hemorrhage. 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 There are no extra-axial fluid collections. There is no midline shift. The skull is intact. The visualized paranasal sinuses are well aerated. There is atherosclerotic change of the cavernous carotid arteries. CT/CT head wo con* [id number] IMPRESSION: 1. No evidence for acute infarct, mass or hemorrhage. 2. No significant interval change. CXR: Attestation: I personally reviewed and interpreted this imaging study as follows: Radiologist's impression: [address] [place] [address] XRay Report Signed Patient: Sneha Smith Unit #: [id number] : 1940 Age/Sex: 80 / F ADM Date: 01/08/21 Loc: ER Room/Bed: Attending Dr: Ordering Provider/Ordering MD: Romulo Bettencourt MD Date of Service: 01/08/21 Procedure(s): XR chest 1V portable [id number] Accession Number(s): [id number] Report Number: [id number] PROCEDURE INFORMATION: Exam: XR Chest Exam date and time: 01/08/2021 6:04 PM Age: 80 years old Clinical indication: Pain; Left-sided; Additional info: Weakness TECHNIQUE: Imaging protocol: XR of the chest. Views: 1 view. COMPARISON: CT chest w con* [id number] 01/07/2021 6:14 PM FINDINGS: There is hyperinflation. No infiltrates are present. There is no pleural effusion or pneumothorax. The heart size is normal. XR/XR chest 1V portable [id number] IMPRESSION: 1. Hyperinflation. 2. No infiltrates. Discharge Plan Discharge Admit Provider: Zan Ward Coding Level of Care Code ED Commercial Hvac Technician for Chg Fwd Exam Comprehensive
[2021-01-08 19:16] LABS: Alanine Aminotransferase 10 U/L (0-33); Albumin Level 3.5 g/dL (3.5-5.2); Alkaline Phosphatase 114 IU/L (35-105); Aspartate Amino Transferase 20 U/L (0-32); Blood Urea Nitrogen 14 mg/dL (8-23); Calcium 9.1 mg/dL (8.5-10.5); Carbon Dioxide 36 mmol/L (22-29); Chloride 95 mmol/L (98-107); Globulin 2.8 g/dL (1.3-4.6); Glucose 92 mg/dL (65-115); Osmolality Calculated 286 mOsm/kg (285-295); Sodium 138 mmol/L (136-145); Total Bilirubin 0.2 mg/dL (0.15-1.2); Total Protein 6.3 g/dL (6.6-8.7)
[2021-01-08 19:18] LABS: Anion Gap 11.4 (5-19); Potassium 4.4 mmol/L (3.5-5.1)
[2021-01-08] MEDS: HYDROmorphone 1 mg/mL INJ 1 mL 0.5 MG IVP (19:39)
--- NOTE | 2021-01-08 19:42 | PC.NURSE ---
Pt resting in bed, oriented to name and date of only. VSS, refuses in and out cath at this time
[2021-01-08 19:55] LABS: Basophils % 0.5 %; Eosinophils # 0.3 10^3/uL (0.0-0.8); Eosinophils % 5.1 %; Hemoglobin 10.1 g/dL (11.5-15.3); Lymphocytes # 0.8 10^3/uL (0.8-4.8); Lymphocytes % 13.1 %; Mean Corpuscular HGB Conc 29.7 g/dL (30.0-36.0); Mean Corpuscular Hemoglobin 27.2 pg (28.0-34.0); Mean Corpuscular Volume 91.6 fL (81-99); Mean Platelet Volume 10.4 fL (7.4-10.4); Monocytes # 0.3 10^3/uL (0.2-0.9); Monocytes % 4.6 %; Neutrophils # 4.65 10^3/uL (1.8-7.7); Neutrophils % 76.4 %; Nucleated Red Blood Cells % 0 %; Platelet Count 206 10^3/cmm (130-400); Red Blood Count 3.71 10^6/uL (4.1-5.3); Red Cell Distribution Width 12.9 % (12.1-15.1); White Blood Count 6.1 10^3/uL (4.0-10.0)
--- NOTE | 2021-01-08 20:06 | PM.HP ---
Providers/Chief Complaint Primary Care Provider: Gibson Bo MD Chief Complaint: POSSIBLE AIRWAY OBSTRUCTION History of Present Illness Sneha Smith is a 80 year old female with pmh of COPD on home O2, recently diagnosed rib fracture presented to ER with complaints of feeling of something stuck in her throat. family reports that she has also been increasingly confused. She has been on multiple medications including Tramadol, Benadryl, and Valium. Denies fevers, chills, cough, diarrhea, or abd pain. In the ER she had a CT head that was unremarkable, UA 2 days ago that was normal. She is noted to have mild progressive anemia. In the ER she reported swallowing a bottle cap. Family reports that the bottle cap was not moved. Review of Systems General: Reports: 10 or more systems reviewed and unremarkable except in HPI and below Const: Denies: fever(s) or chills ENMT: Reports: throat pain; Denies: mouth pain Card: Denies: chest pain or palpitations Resp: Denies: dyspnea GI: Reports: nausea; Denies: abdominal pain : Denies: flank pain or difficulty voiding Musc: Reports: joint pain; Denies: neck pain Skin/Breast: Denies: rash or pruritus Neuro: Reports: other; Denies: headache(s) or numbness in extremities Medications/Allergies Home Medications Medication Instructions Recorded Confirmed Last Taken Type aspirin 81 mg tablet,delayed 81 mg PO DAILY@08 10/08/19 01/08/21 01/08/21 History release furosemide 20 mg tablet 20 mg PO EVERY OTHER DAY PRN tab 10/08/19 01/08/21 01/06/21 History nitroglycerin 6.5 mg 6.5 mg PO BID@0800,199910/08/19 01/08/21 01/06/21 History capsule,extended release potassium chloride 20 mEq 20 meq PO BID PRN 10/08/19 01/08/21 01/06/21 History tablet,extended release sumatriptan succinate 50 mg tablet 50 mg PO Q2H PRN 10/08/19 01/08/21 01/03/21 History Benadryl 50 mg PO DAILY PRN 01/21/20 01/08/21 Unknown History benzonatate 100 mg capsule 100 mg PO BID PRN 30 Days #60 cap 04/23/20 01/08/21 01/06/21 Rx albuterol sulfate 90 mcg/actuation 2 puff INHALATION Q6H PRN #8.5 gm 05/27/20 01/08/21 01/06/21 Rx aerosol inhaler tramadol 50 mg tablet 50 mg PO TID PRN 30 Days #90 tab 06/29/20 01/08/21 01/08/21 Rx ipratropium-albuterol 3 ml INHALATION QID PRN 10/06/20 01/08/21 01/06/21 History losartan 50 mg PO DAILY@10/06/20 01/08/21 01/07/21 History oxybutynin chloride 15 mg PO DAILY@10/06/20 01/08/21 01/08/21 History omeprazole 20 mg capsule,delayed 20 mg PO BID PRN 30 Days #60 cap 11/02/20 01/08/21 01/07/21 Rx release diazepam 5 mg tablet 5 mg PO BID PRN 30 Days #60 tab 12/01/20 01/08/21 01/08/21 Rx ondansetron HCl [Zofran] 4 mg PO Q8H PRN 12/08/20 01/08/21 01/08/21 History promethazine-codeine 5 ml PO Q6H PRN 12/08/20 01/08/21 01/06/21 History naproxen [Naprosyn] 500 mg PO BID PRN #20 tab 01/07/21 01/08/21 Unknown Rx Allergies Allergy/AdvReac Type Severity Reaction Status Date / Time azithromycin Allergy unknown Verified 12/31/20 10:10 codeine Allergy itch Verified 12/31/20 10:10 hydrocodone Allergy rash Verified 12/31/20 10:10 morphine Allergy itch Verified 12/31/20 10:10 prednisolone Allergy unknown Verified 12/31/20 10:10 prednisone Allergy ADR-Itching Verified 12/31/20 10:10 PFSH Acute PFSH: Medical History 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 ASCVD (arteriosclerotic cardiovascular disease) Carotid stenosis Chronic pain COPD (chronic obstructive pulmonary disease) CVA (cerebral vascular accident) DDD (degenerative disc disease) Essential (primary) hypertension GERD (gastroesophageal reflux disease) Gout History of ovarian cyst Hyperlipidemia, mixed Hypothyroid Iron deficiency Lumbar disc disease with radiculopathy Mixed incontinence urge and stress Osteoarthritis of left shoulder Surgical History H/O heart artery stent H/O pelvic surgery H/O shoulder surgery History of throat surgery S/P tonsillectomy Family History Family/Other No problems noted. Mother Myocardial infarction Sister Myocardial infarction Asthma Father Diabetes Other Cancer Hypertension Social History Smoking and tobacco status: former smoker Quit status (tobacco): has quit using tobacco Year quit tobacco: 2001 - 1PPD x 20 Years Alcohol intake: never Lives independently: Yes Household members: none Marital status: / Current occupational status: retired History of recent travel: No Current gender identity: Female Vitals/I&O/Wt Last Vital Signs Temp 98 F 01/08/21 19:45 Pulse 79 01/08/21 19:45 Resp 17 01/08/21 19:45 BP 147/70 01/08/21 19:45 Pulse Ox 100 01/08/21 19:45 Physical Exam Const: ORIENTATION/CONSCIOUSNESS: Yes awake, Yes oriented to person and Yes lethargic Chest: COMMONS NORMALS: normal inspection of the chest Resp: COMMON NORMALS: normal respiratory effort and No retractions Cardio: COMMON NORMALS: regular rate and regular rhythm GI: COMMON NORMALS: Normal to inspection, nondistended, normoactive bowel sounds present and non-tender Extremity: COMMON NORMALS: normal to inspection and full ROM GENERAL: Yes normal exam except as noted Neuro: COMMON NORMALS: CN's II-XII intact bilaterally and moves all extremities Data : 01/08/21 19:51 01/08/21 18:41 A&P Assessment and plan (1) Closed rib fracture: dc Tramadol, valium start Ibu, Tylenol, lidocaine patch consult PT Status: Acute Qualifiers: Encounter type: subsequent encounter (2) Fall: consult PT Status: Acute Qualifiers: Encounter type: initial encounter Qualified Code(s): W19.XXXA - Unspecified fall, initial encounter (3) COPD (chronic obstructive pulmonary disease): continue Oxygen, nebs Status: Acute Qualifiers: COPD type: unspecified COPD Qualified Code(s): J44.9 - Chronic obstructive pulmonary disease, unspecified (4) Anemia: CBC orderd if drops will order stool study Status: Acute (5) Confusion: ?narcotic induced normal CT head monitor Status: Acute Attestations Medical Necessity Statement*: Sneha Smith's hospital stay will require greater than 2 midnights for ams Coding Level of Care Code Acute Client Account Specialist for Chg Fwd Exam Detailed Diagnoses Closed rib fracture S22.39XA Encounter type: subsequent encounter Fall W19.XXXA Encounter type: initial encounter COPD (chronic obstructive pulmonary disease) J44.9 COPD type: unspecified COPD Anemia D64.9 Confusion R41.0
--- NOTE | 2021-01-08 20:32 | PC.NURSE ---
Pt in and out cath using sterile technique, pt tolerates well.
[2021-01-08 20:49] LABS: Glucose Urine UA Norm (Normal); Ketones Urine Negative (Negative); Protein Urine Neg (Negative); Urine Color Yellow (Yellow); pH Urine 5 (5-7)
[2021-01-08 20:50] LABS: Add Urine Culture? Yes; Add Urine Microscopic? YES; Bacteria Urine 4+ /hpf; Bilirubin Urine Neg (Negative); Blood Urine Neg (Negative); Leukocyte Esterase Urine Negative (Negative); Nitrate Urine Negative (Negative); RBC Urine 0-4 /hpf (0-2); Squamous Epithelial Cell Urine 0-4 /hpf (0-5); Urobilinogen Urine Norm (Negative)
[2021-01-09] VITALS (11 sets, daily range): BP systolic 122–155; BP diastolic 63–87; PULSE 75–107; RESP 16–22; TEMP 36.3–37.1; O2SAT 91–98
[2021-01-09] MEDS: lidocaine 5% Patch 1 PATCH TOPICAL (08:44)
[2021-01-09] MEDS: aspirin 81 mg EC Tablet PO (08:45)
[2021-01-09] MEDS: losartan 50 mg Tablet PO (08:45)
[2021-01-09] MEDS: oxybutynin chloride XL 5 MG TABLET 15 MG PO (08:45)
[2021-01-09] MEDS: acetaminophen 325 mg Tablet 650 MG PO ×2 (08:53→17:17)
[2021-01-09] MEDS: ibuprofen 200 mg Tablet 400 MG PO ×2 (11:38→20:38)
--- NOTE | 2021-01-09 20:18 | PM.PN ---
Subjective Subjective: Interval history: She appears to be slightly confused, she is very hard of hearing, but responds when spoken to loudly. Having some pain in the left side lower chest/left CVA. Vitals/I&O/Wt Last Vital Signs Temp 97.7 F 01/09/21 19:39 Pulse 88 01/09/21 19:55 Resp 18 01/09/21 19:55 BP 122/63 01/09/21 19:39 Pulse Ox 95 01/09/21 19:55 01/09/21 01/09/21 01/09/21 06:59 14:59 22:59 Intake Total 120 / 120 Output Total 450 / 450 Balance -450 / -450 120 / 120 Weight last 48 hrs Weight 44.679 kg Physical Exam Const: COMMON NORMALS: no acute distress; negative for patient oriented x3 GENERAL APPEARANCE: cooperative ORIENTATION/CONSCIOUSNESS: Yes confused HENMT: COMMON NORMALS: oropharynx normal Neck/C-Spine: COMMON NORMALS: no JVD Resp: COMMON NORMALS: normal respiratory effort and clear to auscultation bilaterally AUSCULTATION: clear to auscultation bilaterally Cardio: COMMON NORMALS: no JVD, regular rhythm, S1 normal heart sound present, S2 normal heart sound present and No murmurs present (Cardio) RHYTHM: regular rhythm HEART SOUNDS: S1 normal heart sound present and S2 normal heart sound present GI: COMMON NORMALS: Normal to inspection, nondistended, normoactive bowel sounds present, Soft to palpation and non-tender PALPATION: Yes Soft to palpation Extremity: COMMON NORMALS: no joint enlargement and no pedal edema Neuro: COMMON NORMALS: moves all extremities; negative for patient oriented x3 Skin: COMMON NORMALS: no rashes or lesions noted GENERAL SKIN EXAM: no rashes or lesions noted Data : 01/08/21 19:51 01/08/21 18:41 A&P Assessment and plan (1) Confusion: Acute encephalopathy. Suspect this is related to urinary tract infection with combination with her pain medications. Start antibiotic. Pain medications have been held. Lidocaine patch for rib pain. IS. normal CT head Fall precautions as she got out of bed and slid down to the floor at the entrance of her room. Status: Acute (2) UTI (urinary tract infection): Complicated UTI with acute encephalopathy in combination with pain medications. Ceftriaxone. Follow-up urine culture. Status: Acute (3) Closed rib fracture: Tramadol, valium held due to AMS Continue Ibu, Tylenol, lidocaine patch IS consult PT Status: Acute Qualifiers: Encounter type: subsequent encounter (4) Fall: PT/OT, treat UTI Status: Acute Qualifiers: Encounter type: initial encounter Qualified Code(s): W19.XXXA - Unspecified fall, initial encounter (5) COPD (chronic obstructive pulmonary disease): Reports she is chronically on oxygen. Does not appear in exacerbation. continue Oxygen, nebs Status: Acute Qualifiers: COPD type: unspecified COPD Qualified Code(s): J44.9 - Chronic obstructive pulmonary disease, unspecified (6) Anemia: Hb similar to prior. Mmonitor. CXR wo signs of effusion if drops will order stool study Status: Acute Attestations Medical Necessity Statement*: Continue admission for assessment management of acute encephalopathy, complicated UTI, recent rib fracture with pain in a lady of advanced age with underlying COPD on chronic oxygen. Coding Level of Care Code Acute Rn Geriatric for [facility] Diagnoses Confusion R41.0 UTI (urinary tract infection) N39.0 Closed rib fracture S22.39XA Encounter type: subsequent encounter Fall W19.XXXA Encounter type: initial encounter COPD (chronic obstructive pulmonary disease) J44.9 COPD type: unspecified COPD Anemia D64.9
[2021-01-09] MEDS: cefTRIAXone 1,000 MG in sodium chloride 0.9% (plus) 50 ML 100 MG IV (21:50)
[2021-01-10] VITALS (11 sets, daily range): BP systolic 144–177; BP diastolic 82–95; PULSE 90–99; RESP 18–20; TEMP 36.3–37.5; O2SAT 85–99
[2021-01-10] MEDS: ondansetron 4 MG Tablet PO (01:11)
[2021-01-10 05:05] LABS: Basophils % 0.4 %; Eosinophils # 0.3 10^3/uL (0.0-0.8); Eosinophils % 6.1 %; Hematocrit 29.7 % (37.0-47.0); Hemoglobin 9.4 g/dL (11.5-15.3); Lymphocytes # 1.2 10^3/uL (0.8-4.8); Lymphocytes % 23.5 %; Mean Corpuscular HGB Conc 31.6 g/dL (30.0-36.0); Mean Corpuscular Hemoglobin 27.2 pg (28.0-34.0); Mean Corpuscular Volume 85.8 fL (81-99); Mean Platelet Volume 11.9 fL (7.4-10.4); Monocytes # 0.4 10^3/uL (0.2-0.9); Monocytes % 8.2 %; Neutrophils # 3.01 10^3/uL (1.8-7.7); Neutrophils % 61.6 %; Nucleated Red Blood Cells % 0 %; Platelet Count 256 10^3/cmm (130-400); Red Blood Count 3.46 10^6/uL (4.1-5.3); Red Cell Distribution Width 12.8 % (12.1-15.1); White Blood Count 4.9 10^3/uL (4.0-10.0)
[2021-01-10 06:05] LABS: Alanine Aminotransferase 8 U/L (0-33); Albumin Level 3.5 g/dL (3.5-5.2); Alkaline Phosphatase 109 IU/L (35-105); Anion Gap 11.8 (5-19); Aspartate Amino Transferase 20 U/L (0-32); Blood Urea Nitrogen 15 mg/dL (8-23); Calcium 8.4 mg/dL (8.5-10.5); Carbon Dioxide 33 mmol/L (22-29); Chloride 95 mmol/L (98-107); Globulin 2.7 g/dL (1.3-4.6); Glucose 88 mg/dL (65-115); Osmolality Calculated 282 mOsm/kg (285-295); Potassium 3.8 mmol/L (3.5-5.1); Sodium 136 mmol/L (136-145); Total Bilirubin 0.2 mg/dL (0.15-1.2); Total Protein 6.2 g/dL (6.6-8.7)
[2021-01-10] MEDS: oxybutynin chloride XL 5 MG TABLET 15 MG PO (08:50)
[2021-01-10] MEDS: aspirin 81 mg EC Tablet PO (08:50)
[2021-01-10] MEDS: losartan 50 mg Tablet PO (08:50)
[2021-01-10] MEDS: lidocaine 5% Patch 1 PATCH TOPICAL ×2 (08:51→21:07)
--- NOTE | 2021-01-10 18:43 | CTR_ITS ---
PROCEDURE INFORMATION: Exam: CT Head Without Contrast Exam date and time: 01/10/2021 7:12 PM Age: 80 years old Clinical indication: Injury or trauma; Blunt trauma (contusions or hematomas); Consciousness not specified; Patient HX: Unwitnessed fall - found on floor TECHNIQUE: Imaging protocol: Computed tomography of the head without contrast. Radiation optimization: All CT scans at this facility use at least one of these dose optimization techniques: automated exposure control; mA and/or kV adjustment per patient size (includes targeted exams where dose is matched to clinical indication); or iterative reconstruction. COMPARISON: CT head wo con* [id number] 01/08/2021 7:08 PM RADIATION DOSE METRICS: Total DLP (mGy-cm): 1741.58 FINDINGS: Brain: There is diffuse cerebral atrophy present, consistent with this patient's age. Periventricular and subcortical white matter low densities are present which at this age likely represent microvascular ischemic change. Benign globus pallidus calcifications are present. No evidence for large acute ischemic infarction. Please note acute ischemia can be occult by head CT. Cerebral ventricles: No ventriculomegaly. Bones/joints: Unremarkable. No acute fracture. Paranasal sinuses: Visualized sinuses are unremarkable. No fluid levels. Mastoid air cells: Visualized mastoid air cells are well aerated. Vasculature: Calcified plaque is present within the carotid siphons. Soft tissues: Unremarkable. CT/CT head wo con* [id number] IMPRESSION: There are senescent changes of the brain as described above. No evidence for large acute ischemic infarction or acute intracranial injury. Radiation Dose CTDIVOL = (mGy): DLP = 1741.58 (mGy-cm)
--- NOTE | 2021-01-10 19:21 | PM.PN ---
Subjective Subjective: Interval history: Perhaps slightly better, but still appears to have some confusion appreciation hospital, knows the year is 2020, however, occasionally goes on somewhat bizarre tenderness. Subjectively she says she is doing all right. Denies pain. Having some abdominal discomfort in the lower abdomen. Tells me that she occasionally takes nitroglycerin at home for abdominal discomfort. Occasionally gets discomfort with eating, but denies frequent episodes of pain with food. When asked if she is using incentive spirometry takes the device in her hands, starts twirling around, and comparing it to other objects that may look similar although does not appear to actually know how to use it. Then changes the subject and asks me how far I have gone down the street and whether I had seen the little children which she says are at the end of the street and like to dress up like Indians . When I asked her what street she was talking about she states she did not know its name and would have to ask her . Redirecting her back to the incentive spirometer she was able to use it with instruction. Vitals/I&O/Wt Last Vital Signs Temp 99.5 F 01/10/21 18:37 Pulse 99 01/10/21 18:37 Resp 19 H 01/10/21 18:37 BP 144/82 01/10/21 18:37 Pulse Ox 98 01/10/21 18:37 01/10/21 01/10/21 01/10/21 06:59 14:59 22:59 Intake Total 50 / 170 600 / 600 480 / 1080 Output Total 400 / 400 1100 / 1100 400 / 1500 Balance -350 / -230 -500 / -500 80 / -420 Weight last 48 hrs Weight 44.679 kg Physical Exam Const: COMMON NORMALS: no acute distress and alert GENERAL APPEARANCE: cooperative ORIENTATION/CONSCIOUSNESS: Yes awake and Yes confused HENMT: COMMON NORMALS: oropharynx normal Neck/C-Spine: COMMON NORMALS: no JVD Resp: COMMON NORMALS: normal respiratory effort and clear to auscultation bilaterally AUSCULTATION: clear to auscultation bilaterally Cardio: COMMON NORMALS: no JVD, regular rhythm, S1 normal heart sound present, S2 normal heart sound present and No murmurs present (Cardio) RHYTHM: regular rhythm HEART SOUNDS: S1 normal heart sound present and S2 normal heart sound present GI: COMMON NORMALS: Normal to inspection, nondistended, normoactive bowel sounds present, Soft to palpation and non-tender PALPATION: Yes Soft to palpation Extremity: COMMON NORMALS: no joint enlargement and no pedal edema Neuro: COMMON NORMALS: moves all extremities SENSORIUM/ORIENTATION: Yes alert Skin: COMMON NORMALS: no rashes or lesions noted GENERAL SKIN EXAM: no rashes or lesions noted Data : 01/10/21 04:28 01/10/21 05:28 Micro: Microbiology 01/08/21 19:00 Urine Culture - Preliminary Urine,Clean Catch A&P Assessment and plan (1) Confusion: Discussed with her niece Jacquelyn with whom the patient lives. She states that her has been taking care of her. She states that she does get up and try to get around at home as well. States that she is frequently awake at odd hours of the night, and they have not been sleeping well. States that the day before admission she was particularly confused, making some bizarre statements like she wanted a fork because she wanted to dislodge something stuck in her throat, and when her niece refused she asked if she could at least have some needle-nose pliers instead. Which the niece refused as well and thought it would be better if she was assessed in the ER. Discussed with the niece persistent encephalopathy here as well. Apart from the above statements she had made to me, it appears she also has been trying to get up in the room despite instruction not to, and appears the bed alarm had gone off, but by the time nursing staff had reached her she had ended up on her side likely fallen down. Did not have any pain. His fall was unwitnessed we have requested for CT of the head. We have requested one-to-one sitter. Discussed with her niece that her confusion appears to persist and is likely superimposed on appears on chronic dementia, however, I am also suspect of possible effect of oxybutynin which we will hold at this time. Acute encephalopathy. Suspect this is related to urinary tract infection with combination with her pain medications. Start antibiotic. Pain medications have been held. Lidocaine patch for rib pain. IS. Normal CT head Fall precautions as she got out of bed and slid down to the floor at the entrance of her room. Status: Acute (2) UTI (urinary tract infection): Complicated UTI with acute encephalopathy in combination with pain medications. Ceftriaxone. Follow-up urine culture so far unrevealing. Status: Acute (3) Closed rib fracture: Tramadol, valium held due to AMS Continue Ibu, Tylenol, lidocaine patch IS PT Status: Acute Qualifiers: Encounter type: subsequent encounter (4) Fall: PT/OT, treat UTI Status: Acute Qualifiers: Encounter type: initial encounter Qualified Code(s): W19.XXXA - Unspecified fall, initial encounter (5) COPD (chronic obstructive pulmonary disease): Reports she is chronically on oxygen. Does not appear in exacerbation. continue Oxygen, nebs Status: Acute Qualifiers: COPD type: unspecified COPD Qualified Code(s): J44.9 - Chronic obstructive pulmonary disease, unspecified (6) Anemia: Hb similar to prior. Mmonitor. CXR wo signs of effusion if drops will order stool study Status: Acute Additional A&P Information Abdominal discomfort: Appears to have mild abdominal discomfort, no pain, abdomen soft, no tenderness on palpation. Lower abdomen, possibly related to UTI. Does report some relation to food sometimes, however, unclear how reliable this is. No signs of sepsis. She tells me she takes 9 glycerin for this occasionally, although her niece states nitroglycerin is for her heart given to her by her reconciliation analyst. Noted ectatic atherosclerotic aorta on CT abdomen pelvis 01/23/2020. Possibility of chronic abdominal anginal symptoms, although currently without suggestion of acute ischemia. If symptoms recurrent/persistent, may consider additional evaluation for mesenteric stenosis on elective basis. Attestations Medical Necessity Statement*: Continue admission for assessment management of acute encephalopathy superimposed on dementia. Coding Level of Care Code Acute Associate Software Development Engineer for [facility] Fwd Exam Comprehensive Diagnoses Confusion R41.0 UTI (urinary tract infection) N39.0 Closed rib fracture S22.39XA Encounter type: subsequent encounter Fall W19.XXXA Encounter type: initial encounter COPD (chronic obstructive pulmonary disease) J44.9 COPD type: unspecified COPD Anemia D64.9
[2021-01-10] MEDS: LORazepam 2 mg/mL INJ 1 mL 1 MG IVP (21:06)
[2021-01-10] MEDS: cefTRIAXone 1,000 MG in sodium chloride 0.9% (plus) 50 ML 100 MG IV (21:07)
[2021-01-11] VITALS (11 sets, daily range): BP systolic 124–151; BP diastolic 64–92; PULSE 64–104; RESP 14–24; TEMP 36.6–37.2; O2SAT 93–98
[2021-01-11 05:54] LABS: Basophils # 0.1 10^3/uL (0.0-0.1); Basophils % 0.8 %; Eosinophils # 0.2 10^3/uL (0.0-0.8); Eosinophils % 2.8 %; Hematocrit 33.4 % (37.0-47.0); Hemoglobin 10.4 g/dL (11.5-15.3); Lymphocytes # 1.1 10^3/uL (0.8-4.8); Lymphocytes % 17.9 %; Mean Corpuscular HGB Conc 31.1 g/dL (30.0-36.0); Mean Corpuscular Hemoglobin 26.9 pg (28.0-34.0); Mean Corpuscular Volume 86.3 fL (81-99); Mean Platelet Volume 11.2 fL (7.4-10.4); Monocytes # 0.6 10^3/uL (0.2-0.9); Monocytes % 8.9 %; Neutrophils # 4.43 10^3/uL (1.8-7.7); Neutrophils % 69.4 %; Nucleated Red Blood Cells % 0 %; Platelet Count 217 10^3/cmm (130-400); Red Blood Count 3.87 10^6/uL (4.1-5.3); Red Cell Distribution Width 12.9 % (12.1-15.1); White Blood Count 6.4 10^3/uL (4.0-10.0)
[2021-01-11 06:11] LABS: Alanine Aminotransferase 10 U/L (0-33); Albumin Level 3.6 g/dL (3.5-5.2); Alkaline Phosphatase 106 IU/L (35-105); Blood Urea Nitrogen 8 mg/dL (8-23); Carbon Dioxide 31 mmol/L (22-29); Chloride 99 mmol/L (98-107); Globulin 3.1 g/dL (1.3-4.6); Glucose 88 mg/dL (65-115); Osmolality Calculated 284 mOsm/kg (285-295); Sodium 138 mmol/L (136-145); Total Bilirubin 0.2 mg/dL (0.15-1.2); Total Protein 6.7 g/dL (6.6-8.7)
[2021-01-11 06:13] LABS: Anion Gap 11.7 (5-19); Aspartate Amino Transferase 25 U/L (0-32); Potassium 3.7 mmol/L (3.5-5.1)
[2021-01-11] MEDS: ipratropium-albuterol 3 mL Neb INHALATION (08:17)
[2021-01-11] MEDS: lidocaine 5% Patch 1 PATCH TOPICAL (08:51)
[2021-01-11] MEDS: pantoprazole DR 40 mg Tablet PO (08:51)
[2021-01-11] MEDS: aspirin 81 mg EC Tablet PO (08:51)
[2021-01-11] MEDS: losartan 50 mg Tablet PO (08:51)
--- NOTE | 2021-01-11 09:36 | PC.OT ---
OT note: Attempted OT session but pt sleeping soundly. Will attempt later as able.
--- NOTE | 2021-01-11 10:22 | PC.CHAP ---
Pastoral Care Encounter/Spiritual Assessment Type of Contact [] Declined log buncher visit [] Patient/Family/Request visit [] Outpatient visit [x] Follow-up visit [] Physician referral [] Code/Alert [] Routine visit [] Staff referral [] Actively dying [] Patient sleeping [] Family support [] [] Out of room [] Palliative care [] [] Receiving care in room [] Pre-surgical visit [] Trauma [] Long length of stay [] ICU visit [] Other: Relational/Emotional Strength [] Patient feels connected with others/family/visitors/staff [] Distress [] Loneliness/isolation [] Abandonment Spirituality of Patient [] Person of [place] [] Attends Gnosticism of their [place] [] Believes in Prayer [] Reads Bible or Yazidism materials [] There are Spiritual issues to be addressed Boarding House Manager Interventions [x] Prayer [] Active listening [] Non-anxious presence [] Spiritual/emotional support [] Crisis/trauma care [] Spiritual counseling [] Bereavement support [] Provided bereavement packet [] Provided Bible/devotional materials [] Provided toy/stuffed animal, coloring book to patient or family member [] Provided Communion [] Anointing/[place] [] Salvation [] Completed spiritual assessment [] Other: Impact on Illness or Injury [] Angry [] Fearful [] Anxious [] Often cries [] Exhaustion [] Unable to work [] Unable to attend sabianist [] Unable to walk/stand [] Unable to read [] Unable to drive [] Unable to eat/drink [] Unable to sleep [] Unable to be with family [] Patient intubated [] Other: Summary had prayer for her Time spent with patient 10min
--- NOTE | 2021-01-11 10:51 | PC.SOCIAL ---
*IMM UPDATE* Gave Robby IMM update. Left copy of page 2 at bedside. Verbalized understanding. 01/11/21 @ 0912 Initialed, dated, timed and placed in chart.
--- NOTE | 2021-01-11 11:05 | PC.RESP ---
Pulmonary Rehab information sent to patient.
--- NOTE | 2021-01-11 16:20 | P.PN_ITS ---
Subjective Subjective: Interval history: Hospital course, H&P appreciated. No acute events noted overnight. Sitter at bedside. Patient is calm on examination. She is alert to herself, date of , family members that was not really aware of the year. She thinks she is in the hospital. Pleasant on examination. Denies any nausea or vomiting. Remembers she had a meal recently. Denies any pain. Vitals/I&O/Wt Last Vital Signs Temp 98.7 F 01/11/21 15:41 Pulse 104 H 01/11/21 15:41 Resp 19 H 01/11/21 15:41 BP 143/79 01/11/21 15:41 Pulse Ox 94 01/11/21 15:41 01/11/21 01/11/21 01/11/21 06:59 14:59 22:59 Intake Total 0 / 1180 600 / 600 Balance 0 / -520 600 / 600 Physical Exam Const: COMMON NORMALS: no acute distress and alert; negative for patient oriented x3 GENERAL APPEARANCE: cooperative and lethargic ORIENTATION/CONSCIOUSNESS: Yes awake, Yes oriented to person, Yes confused and Yes lethargic HENMT: COMMON NORMALS: oropharynx normal Neck/C-Spine: COMMON NORMALS: no JVD Chest: COMMONS NORMALS: normal inspection of the chest Resp: COMMON NORMALS: normal respiratory effort, No retractions and clear to auscultation bilaterally AUSCULTATION: clear to auscultation bilaterally Cardio: COMMON NORMALS: no JVD, regular rate, regular rhythm, S1 normal heart sound present, S2 normal heart sound present and No murmurs present (Cardio) RATE: regular rate RHYTHM: regular rhythm HEART SOUNDS: S1 normal heart sound present and S2 normal heart sound present GI: COMMON NORMALS: Normal to inspection, nondistended, normoactive bowel sounds present, Soft to palpation and non-tender PALPATION: Yes Soft to palpation Extremity: COMMON NORMALS: normal to inspection, full ROM, no joint enlargement and no pedal edema GENERAL: Yes normal exam except as noted Neuro: COMMON NORMALS: CN's II-XII intact bilaterally and moves all extremities; negative for patient oriented x3 SENSORIUM/ORIENTATION: Yes alert, Yes oriented to person and Yes lethargic Skin: COMMON NORMALS: no rashes or lesions noted GENERAL SKIN EXAM: no r ashes or lesions noted Data : 01/11/21 05:21 01/11/21 05:21 Micro: Microbiology 01/08/21 19:00 Urine Culture - Final Urine,Clean Catch A&P Assessment and plan (1) Confusion: Most likely secondary to worsening of chronic dementia in setting of pain medications. Discharge of infectious process patient does not have any fever, leukocytosis. Patient is on ceftriaxone for possible UTI though UA not really consistent with UTI. Urine culture negative. For now continue ceftriaxone. We will switch to 3-day course. LFTs within normal limit so no concern of hepatic encephalopathy. Check ammonia levels, folic acid level, vitamin B12 level. CT head results from admission appreciated. Check RPR. Fall precautions. Recurrent reorientation. For now remove sutures patient remains calm. Start patient on donepezil at bedtime, Haldol as needed. Avoid giving Ativan. Continue holding off oxybutynin for possible anticholinergic effect. Status: Acute (2) UTI (urinary tract infection): Urine culture negative. Continue ceftriaxone for 3-day course. Status: Acute (3) Closed rib fracture: Tramadol, valium held due to AMS Continue Ibu, Tylenol, lidocaine patch Pulmonary toilet with incentive spirometry PT Status: Acute Qualifiers: Encounter type: subsequent encounter (4) Fall: PT/OT, treat UTI Status: Acute Qualifiers: Encounter type: initial encounter Qualified Code(s): W19.XXXA - Unspecified fall, initial encounter (5) COPD (chronic obstructive pulmonary disease): Reports she is chronically on oxygen. Does not appear in exacerbation. Continue oxygen supplementation keeping saturation over 92%. Nebulizations as needed. Status: Acute Qualifiers: COPD type: unspecified COPD Qualified Code(s): J44.9 - Chronic obstructive pulmonary disease, unspecified (6) Anemia: Hb similar to prior. Mmonitor. CXR wo signs of effusion if drops will order stool study Status: Acute Additional A&P Information Full code. Regular diet. Heparin 5000 every 12 as an DVT prophylaxis Discharge planning: Case management working for safe discharge planning to [facility]. [facility] awaiting prior authorization. Attestations Medical Necessity Statement*: Requires further hospitalization for further management of confusion/delirium while safe discharge planning is sought. Time Spent in Patient Care: Greater than 35 minutes (>than 50% of time spent in counselling and/or direct pt care on unit) . Coding Level of Care Code Acute Food Beverage Manager for g Fwd Exam Comprehensive Diagnoses Confusion R41.0 UTI (urinary tract infection) N39.0 Closed rib fracture S22.39XA Encounter type: subsequent encounter Fall W19.XXXA Encounter type: initial encounter COPD (chronic obstructive pulmonary disease) J44.9 COPD type: unspecified COPD Anemia D64.9
--- NOTE | 2021-01-11 16:59 | PC.NURSE ---
Patient has been following commands and has been comfortably laying bed watching tv and resting. Will continue to monitor.
[2021-01-11 17:18] LABS: Folate Level 12.5 ng/mL (4.8-37.3)
[2021-01-11 19:17] LABS: Vitamin B12 549 pg/mL (232-1245)
[2021-01-11 19:29] LABS: Ammonia 29 umol/L (11-51)
[2021-01-11 21:20] LABS: Rapid Plasma Reagin Syphilis Nonreactive (Nonreactive)
[2021-01-11] MEDS: donepezil 5 MG Tablet 10 MG PO (21:20)
[2021-01-11] MEDS: trazodone 50 mg Tablet PO (21:20)
[2021-01-11] MEDS: cefTRIAXone 1,000 MG in sodium chloride 0.9% (plus) 50 ML 100 MG IV (21:28)
[2021-01-12 04:46] VITALS: BP 145/77; PULSE 80; RESP 18; TEMP 36.7; O2SAT 95
[2021-01-12 04:54] LABS: Basophils % 0.7 %; Eosinophils # 0.4 10^3/uL (0.0-0.8); Eosinophils % 6.8 %; Hematocrit 31.3 % (37.0-47.0); Hemoglobin 10.1 g/dL (11.5-15.3); Lymphocytes # 1.3 10^3/uL (0.8-4.8); Lymphocytes % 22.2 %; Mean Corpuscular HGB Conc 32.3 g/dL (30.0-36.0); Mean Corpuscular Hemoglobin 27.1 pg (28.0-34.0); Mean Corpuscular Volume 83.9 fL (81-99); Mean Platelet Volume 10.6 fL (7.4-10.4); Monocytes # 0.5 10^3/uL (0.2-0.9); Monocytes % 9.1 %; Neutrophils # 3.49 10^3/uL (1.8-7.7); Nucleated Red Blood Cells % 0 %; Platelet Count 244 10^3/cmm (130-400); Red Blood Count 3.73 10^6/uL (4.1-5.3); Red Cell Distribution Width 13.2 % (12.1-15.1); White Blood Count 5.7 10^3/uL (4.0-10.0)
[2021-01-12 05:20] LABS: Alanine Aminotransferase 10 U/L (0-33); Albumin Level 3.4 g/dL (3.5-5.2); Alkaline Phosphatase 103 IU/L (35-105); Anion Gap 11.3 (5-19); Aspartate Amino Transferase 22 U/L (0-32); Blood Urea Nitrogen 14 mg/dL (8-23); Calcium 8.5 mg/dL (8.5-10.5); Carbon Dioxide 31 mmol/L (22-29); Chloride 98 mmol/L (98-107); Globulin 2.9 g/dL (1.3-4.6); Glucose 92 mg/dL (65-115); Osmolality Calculated 284 mOsm/kg (285-295); Potassium 3.3 mmol/L (3.5-5.1); Sodium 137 mmol/L (136-145); Total Bilirubin 0.2 mg/dL (0.15-1.2); Total Protein 6.3 g/dL (6.6-8.7)
[2021-01-12 07:18] VITALS: BP 136/82; PULSE 90; RESP 14; TEMP 36.7; O2SAT 95
[2021-01-12 08:35] VITALS: PULSE 93; RESP 18; O2SAT 98
[2021-01-12] MEDS: lidocaine 5% Patch 1 PATCH TOPICAL (08:45)
[2021-01-12 08:46] VITALS: BP 136/82
[2021-01-12] MEDS: aspirin 81 mg EC Tablet PO (08:46)
[2021-01-12] MEDS: pantoprazole DR 40 mg Tablet PO (08:46)
[2021-01-12] MEDS: losartan 50 mg Tablet PO (08:46)
--- NOTE | 2021-01-12 10:38 | PM.DCS ---
Discharge Providers Date of Admission: 01/08/21 19:50 Date of Discharge: January 12, 2021 Attending Provider at Admission: Zan Ward MD Attending Provider at Discharge: Yovanny Feldman MD Primary Care Provider: Gibson Bo MD Diagnoses at Discharge Discharge Diagnosis (1) Confusion: Status: Acute (2) UTI (urinary tract infection): Status: Acute (3) Closed rib fracture: Status: Acute Qualifiers: Encounter type: subsequent encounter (4) Fall: Status: Acute Qualifiers: Encounter type: initial encounter Qualified Code(s): W19.XXXA - Unspecified fall, initial encounter (5) COPD (chronic obstructive pulmonary disease): Status: Acute Qualifiers: COPD type: unspecified COPD Qualified Code(s): J44.9 - Chronic obstructive pulmonary disease, unspecified (6) Anemia: Status: Acute Reason for Visit Reason for Visit: POSSIBLE AIRWAY OBSTRUCTION Hospital Course Hospital Course Sneha Smith is a 80 year old female with pmh of COPD on home O2, recently diagnosed rib fracture presented to ER with complaints of feeling of something stuck in her throat. family reports that she has also been increasingly confused. She has been on multiple medications including Tramadol, Benadryl, and Valium. Denies fevers, chills, cough, diarrhea, or abd pain. In the ER she had a CT head that was unremarkable, UA 2 days ago that was normal. She is noted to have mild progressive anemia. She went to the hospital for further work-up of confusion. Her blood work including CBC, CMP, vitamin B12, folate, RPR came back stable. CT head in the ER was unremarkable. There is a concern of UTI on admission however she was started on antibiotics at first but urine culture came back negative. UTI has been ruled out. Patient did not have any episodes of fever, hemodynamic instability and hospitalization. It is believed patient's confusion is most likely because of chronic dementia getting worse because of multiple medications at home including tramadol, Benadryl and Valium which have been withheld now. Oxybutynin was also withheld because of possible anticholinergic effects causing confusion. Possible discharge planning multiple avenues including home health versus SNF was discussed with family and they chose for SNF. Patient is being discharged in hemodynamically stable condition to [facility]. Physical Exam Const: COMMON NORMALS: no acute distress and alert; negative for patient oriented x3 GENERAL APPEARANCE: cooperative and lethargic ORIENTATION/CONSCIOUSNESS: Yes awake, Yes oriented to person, Yes confused and Yes lethargic HENMT: COMMON NORMALS: oropharynx normal Neck/C-Spine: COMMON NORMALS: no JVD Chest: COMMONS NORMALS: normal inspection of the chest Resp: COMMON NORMALS: normal respiratory effort, No retractions and clear to auscultation bilaterally AUSCULTATION: clear to auscultation bilaterally Cardio: COMMON NORMALS: no JVD, regular rate, regular rhythm, S1 normal heart sound present, S2 normal heart sound present and No murmurs present (Cardio) RATE: regular rate RHYTHM: regular rhythm HEART SOUNDS: S1 normal heart sound present and S2 normal heart sound present GI: COMMON NORMALS: Normal to inspection, nondistended, normoactive bowel sounds present, Soft to palpation and non-tender PALPATION: Yes Soft to palpation Extremity: COMMON NORMALS: normal to inspection, full ROM, no joint enlargement and no pedal edema GENERAL: Yes normal exam except as noted Neuro: COMMON NORMALS: CN's II-XII intact bilaterally and moves all extremities; negative for patient oriented x3 SENSORIUM/ORIENTATION: Yes alert, Yes oriented to person and Yes lethargic Skin: COMMON NORMALS: no rashes or lesions noted GENERAL SKIN EXAM: no rashes or lesions noted Discharge Data Data Completed and Pending: Completed Studies During Hospitalization Category Date Time Status CT head wo con* 7 0450 Routine Cat Scan 01/10/21 18:[address] head wo con* 7 0450 Urgent Cat Scan 01/08/21 18:03 Completed XR chest 1V ehsan ble [id number] Urgent Exams 01/08/21 18:03 Completed Labs from last 24 hours 01/12/21 01/12/21 01/11/21 04:23 04:23 18:52 WBC 5.7 RBC 3.73 L Hgb 10.1 L Hct 31.3 L MCV 83.9 MCH 27.1 L MCHC 32.3 RDW 13.2 Plt Count 244 MPV 10.6 H Neut % (Auto) 61.0 Lymph % (Auto) 22.2 [place] % (Auto) 9.1 Eos % (Auto) 6.8 Baso % (Auto) 0.7 Neut # (Auto) 3.49 Lymph # (Auto) 1.3 [place] # (Auto) 0.5 Eos # (Auto) 0.4 Baso # (Auto) 0.0 Nucleated RBC % (a uto) 0 Nucleated RBCs # 0.0 Sodium 137 Potassium 3.3 L Chloride 98 Carbon Dioxide 31 H Anion Gap 11.3 BUN 14 Creatinine 0.5 GFR Calculation Not Reportable Glucose 92 Calculated Osmolal ity 284 L Calcium 8.5 Total Bilirubin 0.2 AST 22 ALT 10 Alkaline Phosphata se 103 Ammonia 29 Total Protein 6.3 L Albumin 3.4 L Globulin 2.9 Vitamin B12 Folate RPR 01/11/21 01/10/21 01/10/21 05:21 05:28 05:28 WBC RBC Hgb Hct MCV MCH MCHC RDW Plt Count MPV Neut % (Auto) Lymph % (Auto) [place] % (Auto) Eos % (Auto) Baso % (Auto) Neut # (Auto) Lymph # (Auto) [place] # (Auto) Eos # (Auto) Baso # (Auto) Nucleated RBC % (a uto) Nucleated RBCs # Sodium Potassium Chloride Carbon Dioxide Anion Gap BUN Creatinine GFR Calculation Glucose Calculated Osmolal ity Calcium Total Bilirubin AST ALT Alkaline Phosphata se Ammonia Total Protein Albumin Globulin Vitamin B12 549 Folate 12.5 RPR Nonreactive Addt'l Data from Hospital Stay: Laboratory Results WBC 5.7 10^3/uL (4.0- 10.0) 01/12/21 04:23 Corrected WBC Cancelled 01/08/21 18:41 RBC 3.73 10^6/uL (4.1 -5.3) L 01/12/21 04:23 Hgb 10.1 g/dL (11.5-1 5.3) L 01/12/21 04:23 Hct 31.3 % (37.0-47.0 ) L 01/12/21 04:23 MCV 83.9 fL (81-99) 01/12/21 04:23 MCH 27.1 pg (28.0-34. 0) L 01/12/21 04:23 MCHC 32.3 g/dL (30.0-3 6.0) 01/12/21 04:23 RDW 13.2 % (12.1-15.1 ) 01/12/21 04:23 Plt Count 244 10^3/cmm (130 -400) 01/12/21 04:23 MPV 10.6 fL (7.4-10.4 ) H 01/12/21 04:23 Gran % Cancelled 01/08/21 18:41 Neut % (Auto) 61.0 % 01/12/21 04:23 Lymph % (Auto) 22.2 % 01/12/21 04:23 [place] % (Auto) 9.1 % 01/12/21 04:23 Eos % (Auto) 6.8 % 01/12/21 04:23 Baso % (Auto) 0.7 % 01/12/21 04:23 Neut # (Auto) 3.49 10^3/uL (1.8 -7.7) 01/12/21 04:23 Lymph # (Auto) 1.3 10^3/uL (0.8- 4.8) 01/12/21 04:23 [place] # (Auto) 0.5 10^3/uL (0.2- 0.9) 01/12/21 04:23 Eos # (Auto) 0.4 10^3/uL (0.0- 0.8) 01/12/21 04:23 Baso # (Auto) 0.0 10^3/uL (0.0- 0.1) 01/12/21 04:23 Absolute Gran (aut o) Cancelled 01/08/21 18:41 Nucleated RBC % (a uto) 0 % 01/12/21 04:23 Nucleated RBCs # 0.0 /100WBC 01/12/21 04:23 Sodium 137 mmol/L (136-1 45) 01/12/21 04:23 Potassium 3.3 mmol/L (3.5-5 .1) L 01/12/21 04:23 Chloride 98 mmol/L (98-107 ) 01/12/21 04:23 Carbon Dioxide 31 mmol/L (22-29) H 01/12/21 04:23 Anion Gap 11.3 (5-19) 01/12/21 04:23 BUN 14 mg/dL (8-23) 01/12/21 04:23 Creatinine 0.5 mg/dL (0.5-0. 9) 01/12/21 04:23 GFR Calculation Not Reportable 01/12/21 04:23 Glucose 92 mg/dL (65-115) 01/12/21 04:23 Calculated Osmolal ity 284 mOsm/kg (285- 295) L 01/12/21 04:23 Calcium 8.5 mg/dL (8.5-10 .5) 01/12/21 04:23 Total Bilirubin 0.2 mg/dL (0.15-1 .2) 01/12/21 04:23 AST 22 U/L (0-32) 01/12/21 04:23 ALT 10 U/L (0-33) 01/12/21 04:23 Alkaline Phosphata se 103 IU/L (35-105) 01/12/21 04:23 Ammonia 29 umol/L (11-51) 01/11/21 18:52 Total Protein 6.3 g/dL (6.6-8.7 ) L 01/12/21 04:23 Albumin 3.4 g/dL (3.5-5.2 ) L 01/12/21 04:23 Globulin 2.9 g/dL (1.3-4.6 ) 01/12/21 04:23 Vitamin B12 549 pg/mL (232-12 45) 01/11/21 05:21 Folate 12.5 ng/mL (4.8-3 7.3) 01/10/21 05:28 Urine Color Yellow (Yellow) 01/08/21 19:00 Urine Appearance Sl cloudy (CLEAR ) A 01/08/21 19:00 Urine pH 5 (5-7) 01/08/21 19:00 Ur Specific Gravit y 1.020 (1.005-1.0 30) 01/08/21 19:00 Urine Protein Neg (Negative) 01/08/21 19:00 Urine Glucose (UA) Norm (Normal) 01/08/21 19:00 Urine Ketones Negative (Negati ve) 01/08/21 19:00 Urine Blood Neg (Negative) 01/08/21 19:00 Urine Nitrate Negative (Negati ve) 01/08/21 19:00 Urine Bilirubin Neg (Negative) 01/08/21 19:00 Urine Urobilinogen Norm mg/dL (Negat raji) 01/08/21 19:00 Ur Leukocyte Chelsy ase Negative (Negati ve) 01/08/21 19:00 Urine RBC 0-4 /hpf (0-2) H 01/08/21 19:00 Urine WBC 5-10 /hpf (0-5) H 01/08/21 19:00 Ur Squamous Epith Cells 0-4 /hpf (0-5) H 01/08/21 19:00 Amorphous Sediment Not Reportable 01/08/21 19:00 Urine Bacteria 4+ /hpf (NONE) H 01/08/21 19:00 RPR Nonreactive (Non reactive) 01/10/21 05:28 Impressions Chest X-Ray 01/08/21 18:03 IMPRESSION: 1. Hyperinflation. 2. No infiltrates. Head CT 01/10/21 18:43 IMPRESSION: There are senescent changes of the brain as described above. No evidence for large acute ischemic infarction or acute intracranial injury. Radiation Dose CTDIVOL = (mGy): DLP = 1741.58 (mGy-cm) Microbiology 01/08/21 19:00 Urine,Clean Catch Urine Culture - Final Vitals: Last Vital Signs Temp 98.1 F 01/12/21 07:18 Pulse 90 01/12/21 07:18 Resp 14 01/12/21 07:18 BP 136/82 01/12/21 08:46 Pulse Ox 95 01/12/21 07:18 Discharge Plan Discharge Patient Disposition: Xfer SNF Condition: Stable Prescriptions: New donepezil 5 mg Tablet 10 mg PO BEDTIME Qty: 30 RF: 0 trazodone 50 mg Tablet 50 mg PO BEDTIME Qty: 30 RF: 0 Continued furosemide 20 mg tablet 20 mg PO EVERY OTHER DAY PRN (Reason: Edema) RF: 0 potassium chloride 20 mEq tablet extended release 20 meq PO BID PRN (Reason: w/lasix) RF: 0 sumatriptan succinate [Imitrex] 50 mg tablet 50 mg PO Q2H PRN (Reason: Migraine Headache) RF: 0 aspirin [Adult Aspirin Regimen] 81 mg tablet,delayed release (DR/EC) 81 mg PO DAILY@08 RF: 0 nitroglycerin 6.5 mg capsule, extended release 6.5 mg PO BID@0800,1999 RF: 0 benzonatate [Tessalon Perles] 100 mg capsule 100 mg PO BID PRN (Reason: Cough) 30 Days Qty: 60 RF: 3 albuterol sulfate [ProAir HFA] 90 mcg/actuation HFA aerosol inhaler 2 puff INHALATION Q6H PRN (Reason: Shortness Of Breath) Qty: 8.5 RF: 5 tramadol 50 mg tablet 50 mg PO TID PRN (Reason: pain) 30 Days Qty: 90 RF: 2 omeprazole 20 mg capsule,delayed release(DR/EC) 20 mg PO BID PRN (Reason: Acid Reflux) 30 Days Qty: 60 RF: 5 losartan 50 mg tablet 50 mg PO DAILY@08 RF: 0 ipratropium-albuterol 0.5 mg-3 mg(2.5 mg base)/3 mL solution for nebulization 3 ml INHALATION QID PRN (Reason: Shortness Of Breath) RF: 0 ondansetron HCl [Zofran] 4 mg tablet 4 mg PO Q8H PRN (Reason: Nausea) RF: 0 naproxen [Naprosyn] 500 mg tablet 500 mg PO BID PRN (Reason: pain) Qty: 20 RF: 0 Changed diazepam [Valium] 5 mg tablet 5 mg PO BEDTIME PRN (Reason: Anxiety) 30 Days Qty: 60 RF: 3 Discontinued Benadryl 50 mg PO DAILY PRN (Reason: Allergic Reaction) RF: 0 oxybutynin chloride 15 mg tablet extended release 24hr 15 mg PO DAILY@08 RF: 0 promethazine-codeine 6.25-10 mg/5 mL syrup 5 ml PO Q6H PRN (Reason: pain) RF: 0 Discharge Orders: Discharge Order (Routine); Ordered 01/12/21 Ordered By: Yovanny Feldman Referrals: Gibson Bo MD [Primary Care Provider] - 7-10 days Discharge Diet: Regular Discharge Activity: Resume usual activity Patient Instructions: Opioid Safety Activity Restrictions/Additional Instructions: Please follow-up with your primary care provider within next 4 to 7 days. Repeat CBC. Discharge Attestations Time Spent in Discharge Care*: greater than 30 min Specific Discharge Activities: educating patient, educating and/or supporting family/caregiver, discussing with pcp/other providers, discussing with case technician/social workers/dc planners, documenting/other paperwork and evaluating patient/reviewing data Status at Discharge: Cognitive status at discharge: moderately impaired cognition, Behavioral status at discharge: cooperative, Functional status at discharge: uses cane/walker Overall status at discharge: patient is back to baseline Quality Metrics Clinical Quality Measures During this hospital stay, did patient experience: None Coding Level of Care Code Acute Chg FW DC note Diagnoses Confusion R41.0 UTI (urinary tract infection) N39.0 Closed rib fracture S22.39XA Encounter type: subsequent encounter Fall W19.XXXA Encounter type: initial encounter COPD (chronic obstructive pulmonary disease) J44.9 COPD type: unspecified COPD Anemia D64.9
[2021-01-12 11:01] VITALS: BP 166/82; PULSE 98; RESP 17; TEMP 36.8; O2SAT 94
[2021-01-12] MEDS: potassium chloride ER 20 mEq Tablet 40 MEQ PO (11:56)
--- NOTE | 2021-01-12 15:09 | PC.NURSE ---
Report Called report from kimber to Marsha Najera LPN
[2021-01-12 16:35] VITALS: BP 166/82; PULSE 98; RESP 17; TEMP 36.8; O2SAT 94
== END 2021-01-12 16:36 | disposition skilled nursing facility (03) | DRG 947 ==
LOC: ER 18:03 → MEDSURG 20:10
PROVIDERS: Internal Medicine; Admitting Provider Internal Medicine; Emergency Provider Emergency Medicine; PCP Family Medicine; Visit Provider Student in an Organized Health Care Education/Training Program
DX: R41.0 Disorientation, unspecified (principal); G92 Toxic encephalopathy; S22.39XA Fracture of one rib, unspecified side, initial encounter for closed fracture; T40.425A Adverse effect of tramadol, initial encounter; T45.0X5A Adverse effect of antiallergic and antiemetic drugs, initial encounter; T42.4X5A Adverse effect of benzodiazepines, initial encounter; J44.9 Chronic obstructive pulmonary disease, unspecified; Z99.81 Dependence on supplemental oxygen; I25.10 Atherosclerotic heart disease of native coronary artery without angina pectoris; Z95.5 Presence of coronary angioplasty implant and graft; Z87.891 Personal history of nicotine dependence; W19.XXXA Unspecified fall, initial encounter; D50.9 Iron deficiency anemia, unspecified; H91.90 Unspecified hearing loss, unspecified ear; F03.90 Unspecified dementia, unspecified severity, without behavioral disturbance, psychotic disturbance, mood disturbance, and anxiety; G89.29 Other chronic pain; Z86.73 Personal history of transient ischemic attack (TIA), and cerebral infarction without residual deficits; I10 Essential (primary) hypertension; K21.9 Gastro-esophageal reflux disease without esophagitis; M10.9 Gout, unspecified; M19.012 Primary osteoarthritis, left shoulder; M54.16 Radiculopathy, lumbar region; E03.9 Hypothyroidism, unspecified; E78.2 Mixed hyperlipidemia
CPT/HCPCS: 36415; 70450; 71045; 71101; 71260; 72100; 72170; 80053; 81001; 81003; 82140; 82550; 82607; 82746; 85025; 86592; 87086; 93005; 94640; 96374; 96375; 96376; 97110; 97116; 97161; 97165; 97530; 97535; 99284; J0696; J1170; J2060; J2405; J3010; Q0162; Q9967

== ENCOUNTER 2021-01-16 08:05 | Emergency (ER) | payer MEDICARE, OTHER, SELFPAY ==
[2021-01-16 08:13] VITALS: BP 186/115; PULSE 90; RESP 18; TEMP 36.7; O2SAT 99; BMI 33.2
--- NOTE | 2021-01-16 08:13 | ED_ITS ---
HPI - General Adult General: Chief complaint: Altered Mental Status Stated complaint: AMS Time Seen by Provider: 01/16/21 08:09 Source: patient, family and RN notes reviewed Limitations: no limitations History of Present Illness: HPI narrative: This patient is a 80-year-old female who resides in a local assisted presents to the emergency department due to failure to respond. Patient lives in a assisted and they state that they try to wake the patient up to have her take her morning medication and the patient 1 more night would not respond to them. Patient is awake and alert and oriented and has no complaints. Patient states she just did not want to take her medication. EMS reports the patient's been awake and alert the entire trip to the emergency department. Patient denies fevers denies any aches and pains denies shortness of breath. Patient is joking with staff and appears to be alert and oriented x3. And at her baseline. Patient is agreeable to medical screening exam. We will get baseline labs and urinalysis and evaluate treat further if needed. Onset (ago): hour(s) (5) Pain Consistency: intermittent Associated symptoms: Deny chest pain, dyspnea, headache(s), nausea, rash, palpitations or vomiting Review of Systems General: Reports: 10 or more systems reviewed and unremarkable except in HPI and below Const: Denies: fever(s), chills, body aches or fatigue Eyes: Denies: change in vision or blurry vision ENMT: Denies: throat pain, hoarseness or mouth pain Card: Denies: chest pain or palpitations Resp: Denies: dyspnea GI: Denies: nausea or vomiting : Denies: flank pain, difficulty voiding, dysuria, urinary frequency, urinary urgency or urinary hesitancy Musc: Denies: neck pain, back pain, extremity pain, extremity swelling, joint pain, joint swelling, joint redness, joint warmth or limited range of motion Skin/Breast: Denies: rash Neuro: Denies: headache(s) Psych: Denies: anxiety or depression PFS ED PFSH: Medical History 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 ASCVD (arteriosclerotic cardiovascular disease) Carotid stenosis Chronic pain Closed rib fracture COPD (chronic obstructive pulmonary disease) COPD (chronic obstructive pulmonary disease) CVA (cerebral vascular accident) DDD (degenerative disc disease) Essential (primary) hypertension Fall GERD (gastroesophageal reflux disease) Gout History of ovarian cyst Hyperlipidemia, mixed Hypothyroid Iron deficiency Lumbar disc disease with radiculopathy Mixed incontinence urge and stress Osteoarthritis of left shoulder Surgical History H/O heart artery stent H/O pelvic surgery H/O shoulder surgery History of throat surgery S/P tonsillectomy Family History Family/Other No problems noted. Mother Myocardial infarction Sister Myocardial infarction Asthma Father Diabetes Other Cancer Hypertension Social History Smoking and tobacco status: former smoker Quit status (tobacco): has quit using tobacco Year quit tobacco: 2001 - 1PPD x 20 Years Alcohol intake: never Lives independently: Yes Household members: none Marital status: / Current occupational status: retired History of recent travel: No Current gender identity: Female Physical Exam Const: COMMON NORMALS: no acute distress, average body habitus, patient oriented x3, no limitations, healthy appearing, alert and well nourished HENMT: COMMON NORMALS: normocephalic, atraumatic, hearing grossly normal bilaterally, external ears normal, EAC's normal, TM's normal bilaterally, Normal external nose present, Normal nasal mucous membranes and turbinates present, moist oral mucous membranes, oropharynx normal, dentition normal and gingiva normal HEAD & SCALP: normocephalic and atraumatic NOSE: Normal external nose present and Normal nasal mucous membranes and turbinates present EXTERNAL EAR: Yes external ears normal EXTERNAL AUDITORY CANAL: EAC's normal TYMPANIC MEMBRANE: TM's normal bilaterally Neck/C-Spine: COMMON NORMALS: full ROM, no lymphadenopathy, supple, no meningeal signs, no JVD, Thyroid normal and No carotid bruits THYROID: Thyroid normal Chest: COMMONS NORMALS: normal inspection of the chest, normal palpation of entire chest wall, normal inspection of the breasts and normal palpation of the breasts Breast/axilla inspection: Yes normal inspection of the breasts BREAST/AXILLA PALPATION: Yes normal palpation of the breasts Resp: COMMON NORMALS: normal respiratory effort, No retractions, No use of accessory muscles, clear to auscultation bilaterally and percussion normal AUSCULTATION: clear to auscultation bilaterally PERCUSSION: percussion normal Cardio: COMMON NORMALS: no JVD, regular rate, regular rhythm, S1 normal heart sound present, S2 normal heart sound present, No gallops present (Cardio), No clicks present (Cardio), No murmurs present (Cardio), No rub (Cardio) and Peripheral pulses 2+ throughout RATE: regular rate RHYTHM: regular rhythm HEART SOUNDS: S1 normal heart sound present and S2 normal heart sound present PERIPHERAL PULSES: Peripheral pulses 2+ throughout GI: COMMON NORMALS: Normal to inspection, nondistended, normoactive bowel sounds present, Soft to palpation, non-tender, No hepatosplenomegaly present, no masses and no bruits PALPATION: Yes Soft to palpation and Yes No hepatosplenomegaly present : COMMON NORMALS: Yes no CVA tenderness, Yes normal external appearance, Yes normal appearance of the vagina, Yes normal appearance of the cervix, Yes normal bimanual exam, Yes No adnexal tenderness and Yes no masses BLADDER/KIDNEY EXAM: Yes no CVA tenderness BIMANUAL EXAM - VAGINA & UTERUS: Yes normal bimanual exam Back/Pelvis: COMMON NORMALS: no CVA tenderness, thoracic and lumbar spine normal to inspection, no thoracic nor lumbar tenderness, thoraco-lumbar ROM normal and straight leg raise negative bilaterally Extremity: COMMON NORMALS: normal to inspection, full ROM, capillary refill normal, no joint enlargement, no clubbing, cyanosis or edema, no calf tenderness and no pedal edema Neuro: COMMON NORMALS: patient oriented x3 SENSORIUM/ORIENTATION: Yes alert MENINGEAL SIGNS: Yes no meningeal signs Course Reevaluation(s): Reevaluation #1: Patient still alert x3 and at her mental baseline. Patient stated the reason she did want to comply with nursing staff the assisted is because she was aggravated at them after her bath time yesterday. Patient thinks that they should treat her nicely. Patient understands will be discharged back to the assisted Time: 09:29 Vital Signs: Vital signs: Vital Signs Temperature 98.1 F 01/16/21 08:13 Pulse Rate 90 01/16/21 08:13 Respiratory Rate 18 01/16/21 08:13 Blood Pressure 186/115 01/16/21 08:13 Pulse Oximetry 99 01/16/21 08:13 MDM - General Adult MDM Narrative: Medical decision making narrative: This patient is a 80-year-old female who resides in a local assisted presents to the emergency department due to failure to respond. Patient lives in a assisted and they state that they try to wake the patient up to have her take her morning medication and the patient 1 more night would not respond to them. Patient is awake and alert and oriented and has no complaints. Patient states she just did not want to take her medication. EMS reports the patient's been awake and alert the entire trip to the emergency department. Patient denies fevers denies any aches and pains denies shortness of breath. Patient is joking with staff and appears to be alert and oriented x3. And at her baseline. Patient is agreeable to medical screening exam. Medical Records: Attestation: I reviewed the patient's medical records. Lab Data: Attestation: I reviewed the patient's lab results. Labs: Lab Results 01/16/21 01/16/21 01/16/21 Range/Units 08:27 08:27 09:06 WBC 4.9 (4.0-10.0) 10^3/ uL RBC 4.04 L (4.1-5.3) 10^6/u L Hgb 11.0 L (11.5-15.3) g/dL Hct 35.5 L (37.0-47.0) % MCV 87.9 (81-99) fL MCH 27.2 L (28.0-34.0) pg MCHC 31.0 (30.0-36.0) g/dL RDW 13.5 (12.1-15.1) % Plt Count 278 (130-400) 10^3/c mm MPV 9.9 (7.4-10.4) fL Neut % (Auto) 41.9 % Lymph % (Auto) 35.6 % [place] % (Auto) 8.1 % Eos % (Auto) 12.8 % Baso % (Auto) 1.4 % Neut # (Auto) 2.06 (1.8-7.7) 10^3/u L Lymph # (Auto) 1.8 (0.8-4.8) 10^3/u L [place] # (Auto) 0.4 (0.2-0.9) 10^3/u L Eos # (Auto) 0.6 (0.0-0.8) 10^3/u L Baso # (Auto) 0.1 (0.0-0.1) 10^3/u L Nucleated RBC % (a uto) 0 % Nucleated RBCs # 0.0 /100WBC Sodium 141 (136-145) mmol/L Potassium 3.8 (3.5-5.1) mmol/L Chloride 101 (98-107) mmol/L Carbon Dioxide 36 H (22-29) mmol/L Anion Gap 7.8 (5-19) BUN 10 (8-23) mg/dL Creatinine 0.5 (0.5-0.9) mg/dL GFR Calculation Not Reportable Glucose 88 (65-115) mg/dL Calculated Osmolal ity 290 (285-295) mOsm/k g Calcium 8.6 (8.5-10.5) mg/dL Urine Color Yellow (Yellow) Urine Appearance Clear (CLEAR) Urine pH 7 (5-7) Ur Specific Gravit y 1.010 (1.005-1.030) Urine Protein Neg (Negative) Urine Glucose (UA) Norm (Normal) Urine Ketones Negative (Negative) Urine Blood Neg (Negative) Urine Nitrate Negative (Negative) Urine Bilirubin Neg (Negative) Urine Urobilinogen Norm (Negative) mg/dL Ur Leukocyte Chelsy ase Negative (Negative) EKG Data^: EKG 1: Attestation: I personally reviewed and interpreted this EKG as follows: EKG interpretation date: 01/16/21 EKG interpretation time: 08:10 Prior EKG tracings: available for review Interpretation: Normal sinus rhythm heart rate 83 Discharge Plan Discharge Patient Disposition: Home Clinical Impression: Encounter for medical screening examination Condition: Stable Prescriptions: No Action furosemide 20 mg tablet 20 mg PO EVERY OTHER DAY PRN (Reason: Edema) RF: 0 potassium chloride 20 mEq tablet extended release 20 meq PO BID PRN (Reason: w/lasix) RF: 0 sumatriptan succinate [Imitrex] 50 mg tablet 50 mg PO Q2H PRN (Reason: Migraine Headache) RF: 0 aspirin [Adult Aspirin Regimen] 81 mg tablet,delayed release (DR/EC) 81 mg PO DAILY@08 RF: 0 nitroglycerin 6.5 mg capsule, extended release 6.5 mg PO BID@0800,1999 RF: 0 benzonatate [Tessalon Perles] 100 mg capsule 100 mg PO BID PRN (Reason: Cough) 30 Days Qty: 60 RF: 3 albuterol sulfate [ProAir HFA] 90 mcg/actuation HFA aerosol inhaler 2 puff INHALATION Q6H PRN (Reason: Shortness Of Breath) Qty: 8.5 RF: 5 tramadol 50 mg tablet 50 mg PO TID PRN (Reason: pain) 30 Days Qty: 90 RF: 2 omeprazole 20 mg capsule,delayed release(DR/EC) 20 mg PO BID PRN (Reason: Acid Reflux) 30 Days Qty: 60 RF: 5 losartan 50 mg tablet 50 mg PO DAILY@08 RF: 0 ipratropium-albuterol 0.5 mg-3 mg(2.5 mg base)/3 mL solution for nebulization 3 ml INHALATION QID PRN (Reason: Shortness Of Breath) RF: 0 donepezil 5 mg Tablet 10 mg PO BEDTIME Qty: 30 RF: 0 trazodone 50 mg Tablet 50 mg PO BEDTIME Qty: 30 RF: 0 Valium 5 mg tablet 5 mg PO BEDTIME PRN (Reason: Anxiety) 30 Days Qty: 60 RF: 3 ondansetron HCl [Zofran] 4 mg tablet 4 mg PO Q8H PRN (Reason: Nausea) RF: 0 naproxen [Naprosyn] 500 mg tablet 500 mg PO BID PRN (Reason: pain) Qty: 20 RF: 0 Discharge Orders: Discharge ED (Routine); Ordered 01/16/21 Ordered By: Caleb Owens Referrals: Gibson Bo MD [Primary Care Provider] - Discharge Diet: Usual diet Discharge Activity: Resume usual activity Patient Instructions: Opioid Safety Activity Restrictions/Additional Instructions: Continue all home medications. Maintain healthy diet. Watch for falls. Follow-up with PCP in 2 to 3 days Coding Level of Care Code ED Manager Inpatient for Chg Fwd Exam Comprehensive
[2021-01-16 08:37] LABS: Basophils # 0.1 10^3/uL (0.0-0.1); Basophils % 1.4 %; Eosinophils # 0.6 10^3/uL (0.0-0.8); Eosinophils % 12.8 %; Hematocrit 35.5 % (37.0-47.0); Lymphocytes # 1.8 10^3/uL (0.8-4.8); Lymphocytes % 35.6 %; Mean Corpuscular Hemoglobin 27.2 pg (28.0-34.0); Mean Corpuscular Volume 87.9 fL (81-99); Mean Platelet Volume 9.9 fL (7.4-10.4); Monocytes # 0.4 10^3/uL (0.2-0.9); Monocytes % 8.1 %; Neutrophils # 2.06 10^3/uL (1.8-7.7); Neutrophils % 41.9 %; Nucleated Red Blood Cells % 0 %; Platelet Count 278 10^3/cmm (130-400); Red Blood Count 4.04 10^6/uL (4.1-5.3); Red Cell Distribution Width 13.5 % (12.1-15.1); White Blood Count 4.9 10^3/uL (4.0-10.0)
[2021-01-16 08:56] LABS: Anion Gap 7.8 (5-19); Blood Urea Nitrogen 10 mg/dL (8-23); Calcium 8.6 mg/dL (8.5-10.5); Carbon Dioxide 36 mmol/L (22-29); Chloride 101 mmol/L (98-107); Glucose 88 mg/dL (65-115); Osmolality Calculated 290 mOsm/kg (285-295); Potassium 3.8 mmol/L (3.5-5.1); Sodium 141 mmol/L (136-145)
--- NOTE | 2021-01-16 09:13 | PC.NURSE ---
Pt able to get up and use the commode independently and unassisted. Pt is steady on her feet, no weakness noted.
[2021-01-16 09:16] LABS: Add Urine Microscopic? NO; Charge for UA Resulting for Rev
--- NOTE | 2021-01-16 09:24 | ECG_ITS ---
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 Measurements Intervals [place] Rate: 83 P: 86 VT: 136 QRS: 63 QRSD: 83 T: 65 QT: 344 QTc: 406 Interpretive Statements SINUS RHYTHM WITH SINUS ARRHYTHMIA Compared to ECG 01/07/2021 19:21:23 No significant changes Electronically Signed On 01-16-2021 16:48:37 CDT by Shaquille Osullivan M.D. [id number]
[2021-01-16 09:25] LABS: Bilirubin Urine Neg (Negative); Blood Urine Neg (Negative); Glucose Urine UA Norm (Normal); Ketones Urine Negative (Negative); Leukocyte Esterase Urine Negative (Negative); Nitrate Urine Negative (Negative); Protein Urine Neg (Negative); Urine Appearance Clear (CLEAR); Urine Color Yellow (Yellow); Urobilinogen Urine Norm (Negative); pH Urine 7 (5-7)
[2021-01-16 10:36] VITALS: BP 180/99; PULSE 83; RESP 18; O2SAT 99
== END 2021-01-16 10:37 | disposition home or self-care (01) ==
PROVIDERS: Emergency Provider Emergency Medicine; PCP Family Medicine
DX: R41.82 Altered mental status, unspecified (principal); Z79.82 Long term (current) use of aspirin; J44.9 Chronic obstructive pulmonary disease, unspecified; Z86.73 Personal history of transient ischemic attack (TIA), and cerebral infarction without residual deficits; I10 Essential (primary) hypertension; E78.2 Mixed hyperlipidemia; Z87.891 Personal history of nicotine dependence
CPT/HCPCS: 80048; 81003; 85025; 93005; 99285

== ENCOUNTER 2021-07-08 09:28 | Inpatient (IN) | payer MEDICARE, MEDICAID, SELFPAY ==
[2021-07-08] VITALS (13 sets, daily range): BP systolic 113–163; BP diastolic 75–123; PULSE 84–113; RESP 18–38; TEMP 37.1; O2SAT 90–99; BMI 21.4
--- NOTE | 2021-07-08 09:43 | XR_ITS ---
WS: [id number] Left hip, 2 views, AP pelvis, 07/08/2021 Clinical Data: fall Comparison: Pelvis, 01/06/2021. Findings: There is an intertrochanteric fracture of the left hip. No significant displacement is seen. The righ t hip is intact. The SI joints and pubic symphysis are normal. There is a fecal impaction. XR/XR hip LT 2-3V wo/w pel* [id number] Impression: Intertrochanteric fracture of the left hip.
--- NOTE | 2021-07-08 09:45 | ED_ITS ---
HPI - Fall General: Chief Complaint: Extremity Injury, Lower Stated Complaint: L HIP PAIN, POST FALL Time Seen by Provider: 07/08/21 09:34 History of Present Illness: HPI Narrative: 80-year-old female with history of dementia presents due to fall with left hip pain from care home. States that she normally has falls and this is not recently changed. Reports fall earlier today without prodrome. Denies any chest pain shortness of breath or head trauma. She is not on blood thinners. Reports pain to left hip. Denies any other focal pain. Denies neck pain or abdominal pain. Has pain to right hip. Denies focal weakness numbness or tingling. Review of Systems Narrative: - CONSTITUTIONAL: Denies weight loss, fever and chills. - HEENT: Denies changes in vision and hearing. - RESPIRATORY: Denies SOB and cough. - CV: Denies palpitations and CP. - GI: Denies abdominal pain, nausea, vomiting and diarrhea. - : Denies dysuria and urinary frequency. - MSK: As above. - SKIN: Denies rash and pruritus. - NEUROLOGICAL: Denies headache, weakness, numbness and syncope. 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 ASCVD (arteriosclerotic cardiovascular disease) Carotid stenosis Chronic pain Closed rib fracture COPD (chronic obstructive pulmonary disease) COPD (chronic obstructive pulmonary disease) CVA (cerebral vascular accident) DDD (degenerative disc disease) Essential (primary) hypertension Fall GERD (gastroesophageal reflux disease) Gout History of ovarian cyst Hyperlipidemia, mixed Hypothyroid Iron deficiency Lumbar disc disease with radiculopathy Mixed incontinence urge and stress Osteoarthritis of left shoulder Surgical History H/O heart artery stent H/O pelvic surgery H/O shoulder surgery History of throat surgery S/P tonsillectomy Family History Family/Other No problems noted. Mother Myocardial infarction Sister Myocardial infarction Asthma Father Diabetes Other Cancer Hypertension Social History Smoking and tobacco status: former smoker Quit status (tobacco): has quit using tobacco Year quit tobacco: 2001 - 1PPD x 20 Years Alcohol intake: never Lives independently: Yes Household members: none Marital status: / Current occupational status: retired History of recent travel: No Current gender identity: Female Physical Exam Narrative: EXAM NARRATIVE: - GENERAL: Alert and oriented x 3. No acute distress. Well-nourished. - EYES: EOMI. Anicteric. - HENT: Atraumatic, no C-spine tenderness. Moist mucous membranes. No scleral icterus. No cervical lymphadenopathy. - LUNGS: Clear to auscultation bilaterally. No accessory muscle use. Equal lung sounds bilaterally. No respiratory distress. - CARDIOVASCULAR: Regular rate and rhythm. No murmur. No JVD. - ABDOMEN: Soft, non-tender and non-distended. Negative CVA tenderness bilaterally, no rebound or guarding, negative Jimenez sign. No palpable masses. - EXTREMITIES: No edema. Tenderness to palpation of the left hip. No tenderness to palpation of the right hip or knees. Pelvis is stable. No abdominal tenderness. No other tenderness except as above. Extremities vascular intact and compartments are soft. - SKIN: No rashes or lesions. Warm. - NEUROLOGIC: No meningismus or focal neurological deficits. CN II-XII grossly intact. - PSYCHIATRIC: Cooperative. Appropriate mood and affect. Course Vital Signs: Vital signs: Vital Signs Temperature 98.8 F 07/08/21 09:40 Pulse Rate 108 H 07/08/21 09:40 Respiratory Rate 20 H 07/08/21 09:40 Blood Pressure 163/123 07/08/21 09:40 Pulse Oximetry 99 07/08/21 09:40 MDM - Fall MDM Narrative: Medical decision making narrative: 80-year-old female presents for left hip pain from nursing facility. Reports mechanical fall. Denies any prodrome. There is tenderness to left hip. X-ray reveals intertrochanteric fracture. Otherwise she is neurovascularly intact. Due to allergy to narcotics Tylenol was provided. Consulted with orthopedic surgery and they plan on operative repair tomorrow. Remainder of lab work and imaging reviewed. Discussed with hospitalist and they agreed patient would benefit from admission. Patient admitted in stable condition. Further evaluation management per hospitalist team. Discharge Plan Discharge Prescriptions: No Action furosemide 20 mg tablet 20 mg PO EVERY OTHER DAY PRN (Reason: Edema) RF: 0 potassium chloride 20 mEq tablet extended release 20 meq PO BID PRN (Reason: w/lasix) RF: 0 sumatriptan succinate [Imitrex] 50 mg tablet 50 mg PO Q2H PRN (Reason: Migraine Headache) RF: 0 aspirin [Adult Aspirin Regimen] 81 mg tablet,delayed release (DR/EC) 81 mg PO DAILY@08 RF: 0 nitroglycerin 6.5 mg capsule, extended release 6.5 mg PO BID@0800,2000 RF: 0 benzonatate [Tessalon Perles] 100 mg capsule 100 mg PO BID PRN (Reason: Cough) 30 Days Qty: 60 RF: 3 albuterol sulfate [ProAir HFA] 90 mcg/actuation HFA aerosol inhaler 2 puff INHALATION Q6H PRN (Reason: Shortness Of Breath) Qty: 8.5 RF: 5 tramadol 50 mg tablet 50 mg PO TID PRN (Reason: pain) 30 Days Qty: 90 RF: 2 omeprazole 20 mg capsule,delayed release(DR/EC) 20 mg PO BID PRN (Reason: Acid Reflux) 30 Days Qty: 60 RF: 5 losartan 50 mg tablet 50 mg PO DAILY@08 RF: 0 ipratropium-albuterol 0.5 mg-3 mg(2.5 mg base)/3 mL solution for nebulization 3 ml INHALATION QID PRN (Reason: Shortness Of Breath) RF: 0 donepezil 5 mg Tablet 10 mg PO BEDTIME Qty: 30 RF: 0 trazodone 50 mg Tablet 50 mg PO BEDTIME Qty: 30 RF: 0 Valium 5 mg tablet 5 mg PO BEDTIME PRN (Reason: Anxiety) 30 Days Qty: 60 RF: 3 ondansetron HCl [Zofran] 4 mg tablet 4 mg PO Q8H PRN (Reason: Nausea) RF: 0 naproxen [Naprosyn] 500 mg tablet 500 mg PO BID PRN (Reason: pain) Qty: 20 RF: 0 Coding Level of Care Code ED Continuous 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
--- NOTE | 2021-07-08 10:37 | XR_ITS ---
WS: [id number] Portable AP upright chest, 07/08/2021 Clinical Data: hip FX, CAD Comparison: Portable chest, 01/08/2021. Findings: No nodules, masses or effusions are seen. The heart is normal. The pulmonary vascularity is not increased. No pneumonia or pneumothorax is seen. The diaphragms are flattened. The aortic arch a nd descending thoracic aorta show calcification and tortuosity. There is a dextroscoliosis. There is an old left lateral 9yth rib fracture. XR/XR chest 1V portable [id number] Impression: Atherosclerosis and hyperinflation.
--- NOTE | 2021-07-08 10:37 | ECG_ITS ---
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 Measurements Intervals [place] Rate: 128 P: NE: QRS: 73 QRSD: 77 T: 83 QT: 278 QTc: 407 Interpretive Statements SUPRAVENTRICULAR TACHYCARDIA In view of the heavy baseline artifact, further delineation of the rhythm is significant NONSPECIFIC ST & T-WAVE ABNORMALITY ABNORMAL RHYTHM ECG Compared to ECG 01/16/2021 08:10:04 T-wave abnormality now present Sinus rhythm no longer present Sinus arrhythmia no longer present Electronically Signed On 07-08-2021 22:44:23 MERCHANDISE COLLECTOR by Zaida Phan M.D. [id number]
[2021-07-08 10:45] LABS: Basophils # 0.1 10^3/uL (0.0-0.1); Basophils % 0.9 %; Eosinophils # 0.5 10^3/uL (0.0-0.8); Eosinophils % 8.4 %; Hematocrit 42.7 % (37.0-47.0); Hemoglobin 12.9 g/dL (11.5-15.3); Lymphocytes # 2.1 10^3/uL (0.8-4.8); Lymphocytes % 37.5 %; Mean Corpuscular HGB Conc 30.2 g/dL (30.0-36.0); Mean Corpuscular Hemoglobin 27.7 pg (28.0-34.0); Mean Corpuscular Volume 91.8 fl (81-99); Mean Platelet Volume 11.5 fL (7.4-10.4); Monocytes # 0.4 10^3/uL (0.2-0.9); Monocytes % 6.4 %; Neutrophils # 2.55 10^3/uL (1.8-7.7); Neutrophils % 46.4 %; Nucleated Red Blood Cells % 0 %; Platelet Count 164 10^3/cmm (130-400); Red Blood Count 4.65 10^6/uL (4.1-5.3); Red Cell Distribution Width 15.3 % (12.1-15.1); White Blood Count 5.5 10^3/uL (4.0-10.0)
[2021-07-08 10:55] LABS: Alanine Aminotransferase 21 U/L (0-33); Albumin Level 3.6 g/dL (3.5-5.2); Alkaline Phosphatase 119 IU/L (35-105); Anion Gap 5.9 (5-19); Aspartate Amino Transferase 22 U/L (0-32); Blood Urea Nitrogen 15 mg/dL (8-23); Calcium 9.1 mg/dL (8.5-10.5); Chloride 95 mmol/L (98-107); Globulin 3.3 g/dL (1.3-4.6); Glucose 127 mg/dL (65-115); Osmolality Calculated 294 mOsm/kg (285-295); Potassium 3.9 mmol/L (3.5-5.1); Sodium 141 mmol/L (136-145); Total Bilirubin 0.2 mg/dL (0.15-1.2); Total Protein 6.9 g/dL (6.6-8.7)
[2021-07-08] MEDS: acetaminophen 325 mg Tablet 650 MG PO (10:58)
[2021-07-08 11:00] LABS: Carbon Dioxide 44 mmol/L (22-29)
--- NOTE | 2021-07-08 11:00 | CT_ITS ---
WS: [id number] CT HEAD NONCONTRAST HISTORY: fall TECHNIQUE: Contiguous axial imaging performed through the brain in 2.5 mm imaging. Bone and soft tiss ue windows. Sagittal and coronal reformats reviewed. All CT scans at [facility] use at least one of these dose optimization techniques: automated exposure control; mA and/or kV adjustment per pa tient size (includes targeted exams where dose is matched to clinical indication); or iterative recon struction. DLP: 2900.99 mGy.cm COMPARISON: 01/10/2021 No acute intracranial hemorrhage, midline shift or mass effect. Mild atrophy. Severe confluent low-attenuation throughout the white matter consistent with advanced s mall vessel ischemic disease. Prior lacunar infarct in the RIGHT thalamus. Ventricles: Normal size with no hydrocephalus. No inferior displacement of cerebellar tonsils. Paranasal sinuses: As visualized are clear. Mastoid air cells: Well pneumatized. Calvarium and scalp: Skull is intact with no soft tissue edema or swelling. Heavy calcification within the intracranial carotid arteries. CT/CT head wo con* [id number] IMPRESSION: 1. No acute intracranial hemorrhage or edema. 2. Severe chronic microvascular ischemic type changes throughout the white mat ter are stable.
--- NOTE | 2021-07-08 11:03 | PM.HP ---
Providers/Chief Complaint Primary Care Provider: Gibson Bo MD Chief Complaint: L HIP PAIN, POST FALL History of Present Illness Sneha Smith is a 80 year old female who resides at [facility] who according to history from nursing patient was walking to the bathroom when she fell. Apparently the first history she gave with this that she tripped over her feet. In my history she reports she may have been dizzy, perhaps tripped over her feet, does not remember. She has a history of dementia. She reports her left shoulder is slightly painful and her left hip hurts. She denies any headache currently but acknowledges she could have hit her head. Fall was unwitnessed. No recent illness. Unvaccinated for Covid according to the patient. Nursing facility paperwork denotes full code. In talking with the nursing facility they reports she is rather independent. She can transfer herself, and ambulate. She is supposed to use a walker but sometimes does not, and d was not using a walker when she fell today. Review of Systems General: Reports: 10 or more systems reviewed and unremarkable except in HPI and below Const: Denies: fever(s) Eyes: Denies: change in vision ENMT: Denies: throat pain Card: Denies: chest pain Resp: Reports: dyspnea (Chronic shortness of breath, on oxygen 2 to 4 L according to patient) GI: Denies: abdominal pain : Denies: flank pain Musc: Reports: extremity pain; Denies: neck pain Skin/Breast: Denies: rash Neuro: Denies: headache(s) Psych: Denies: anxiety or depression Endo: Denies: polyuria Koby/Lymph: Denies: easy bruising All/Imm: Denies: urticaria Medications/Allergies Home Medications Medication Instructions Recorded Confirmed Last Taken Type aspirin 81 mg tablet,delayed 81 mg PO DAILY@08 10/08/19 07/08/21 01/08/21 History release nitroglycerin 6.5 mg 6.5 mg PO BID@0800,199910/08/19 07/08/21 01/06/21 History capsule,extended release sumatriptan succinate 50 mg tablet 50 mg PO Q2H PRN 10/08/19 07/08/21 01/03/21 History tramadol 50 mg tablet 50 mg PO TID PRN 30 Days #90 tab 06/29/20 07/08/21 01/08/21 Rx ipratropium-albuterol 3 ml INHALATION QID PRN 10/06/20 07/08/21 01/06/21 History losartan 50 mg PO DAILY@08 10/06/20 07/08/21 01/07/21 History trazodone 50 mg PO BEDTIME #30 tab 01/12/21 07/08/21 Unknown Rx acetaminophen [Tylenol] 650 mg PO Q6H PRN 07/08/21 07/08/21 Unknown History alprazolam 0.75 mg PO TID@,,07/08/21 07/08/21 Unknown History bisacodyl 10 mg [place] DAILY PRN 07/08/21 07/08/21 Unknown History docusate sodium 200 mg PO BEDTIME 07/08/21 07/08/21 Unknown History donepezil 10 mg PO DAILY@08 07/08/21 07/08/21 Unknown History food supplemt, lactose-reduced 90 ea PO TID@,,07/08/21 07/08/21 Unknown History [TwoCal HN] gabapentin 400 mg PO TID@,,07/08/21 07/08/21 Unknown History magnesium hydroxide [Milk of 400 mg PO DAILY PRN 07/08/21 07/08/21 Unknown History Magnesia] nystatin 100,000 unit PO QID 07/08/21 07/08/21 Unknown History ondansetron HCl [Zofran] 4 mg PO Q4H PRN 07/08/21 07/08/21 Unknown History quetiapine [Seroquel] 25 mg PO BEDTIME 07/08/21 07/08/21 Unknown History sodium phosphates [Enema] 118 ml [place] DAILY PRN 07/08/21 07/08/21 Unknown History Allergies Allergy/AdvReac Type Severity Reaction Status Date / Time azithromycin Allergy unknown Verified 12/31/20 10:10 codeine Allergy itch Verified 12/31/20 10:10 hydrocodone Allergy rash Verified 12/31/20 10:10 morphine Allergy itch Verified 12/31/20 10:10 prednisolone Allergy unknown Verified 12/31/20 10:10 prednisone Allergy ADR-Itching Verified 12/31/20 10:10 PFSH Acute PFSH: Medical History (Updated 07/08/21 @ 11:16 by Odell Resendiz MD) 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 Anemia ASCVD (arteriosclerotic cardiovascular disease) Carotid stenosis Chronic pain Closed rib fracture COPD (chronic obstructive pulmonary disease) COPD (chronic obstructive pulmonary disease) CVA (cerebral vascular accident) DDD (degenerative disc disease) Dementia Essential (primary) hypertension Fall GERD (gastroesophageal reflux disease) Gout History of ovarian cyst Hyperlipidemia, mixed Hypothyroid Iron deficiency Lumbar disc disease with radiculopathy Mixed incontinence urge and stress Osteoarthritis of left shoulder Surgical History H/O heart artery stent H/O pelvic surgery H/O shoulder surgery History of throat surgery S/P tonsillectomy Family History Family/Other No problems noted. Mother Myocardial infarction Sister Myocardial infarction Asthma Father Diabetes Other Cancer Hypertension Social History Smoking and tobacco status: former smoker Quit status (tobacco): has quit using tobacco Year quit tobacco: 2001 - 1PPD x 20 Years Alcohol intake: never Lives independently: Yes Household members: none Marital status: / Current occupational status: retired History of recent travel: No Current gender identity: Female Vitals/I&O/Wt Last Vital Signs Temp 98.8 F 07/08/21 09:40 Pulse 108 H 07/08/21 09:40 Resp 20 H 07/08/21 09:40 BP 163/123 07/08/21 09:40 Pulse Ox 99 07/08/21 09:40 Weight last 48 hrs Weight 49.895 kg Physical Exam Narrative: EXAM NARRATIVE: General exam is a white female, with mild tachypnea which she reports is her baseline. HEENT: Pupils equally round. Oropharynx clear. Neck is supple no lymphadenopathy thyromegaly Cardiovascular heart sounds distant. Slight tachycardia and regular. Lungs diminished breath sounds bilaterally. No wheezing. Abdomen is soft, positive bowel sounds. Scaphoid. No obvious organomegaly exam is deferred Extremities no cyanosis clubbing or edema, cap refill brisk Skin no rash Neuro no focal deficits. Data : 07/08/21 09:55 07/08/21 09:55 Other data: LFTs normal with exception of alkaline phosphatase of 119. Urinalysis ordered Chest x-ray atherosclerotic disease, COPD Left hip demonstrates a left intertrochanteric hip fracture EKG demonstrates quite a bit of artifact, what is probably a sinus tachycardia with a normal axis. I have ordered a CT head It appears the ER physician has ordered an ABG as well. I suspect the patient will have chronic respiratory failure with hypercarbia A&P Assessment and plan (1) Closed left hip fracture: Orthopedic consultation Pain management Place Patel No direct contraindications for surgery, although surgical risk is high secondary to chronic respiratory failure, severe COPD with suspected hypercarbia(ABG pending) Patient with some minor complaints of left shoulder pain but has full range of motion on exam. No fracture on chest x-ray. CT head will be obtained as patient does not remember entire event clearly. Telemetry indicated and ordered. Status: Acute (2) Chronic respiratory failure: Awaiting ABG Try to maintain oxygen saturation 88 to 92% considering hypercarbia Status: Acute (3) COPD (chronic obstructive pulmonary disease): DuoNeb every 4 hours Try to keep oxygen saturation 88 to 92% Status: Acute (4) Dementia: Continue home med occasions Status: Acute (5) Essential (primary) hypertension: Continue home medications Status: Acute Additional A&P Information Full code Lovenox for DVT prophylaxis in addition SCDs. Timing to depend on when orthopedic intervention is undertaken. Attestations Medical Necessity Statement*: Will need greater than 2 midnight stay secondary to hip fracture with need for definitive treatment. Time Spent in Patient Care: Greater than 35 minutes Coding Level of Care Code Acute Sap Bpc Architect for Chg Fwd Diagnoses Closed left hip fracture S72.002A Chronic respiratory failure J96.10 COPD (chronic obstructive pulmonary disease) J44.9 Dementia F03.90 Essential (primary) hypertension I10
[2021-07-08 11:33] LABS: ABG PH Result 7.28 (7.35-7.45); Base Excess ABG 17.2 mmol/L (-2.0-2.0); Blood Gas Allen Test Pos; Blood Gas Operator Identificat CAK; Blood Gas Sample Site Brachial, left; Blood Gas Sample Type Arterial; HCO3 ABG 48.9 mmol/L (22-26); HGB O2 Sat 95.1 % (95-100); Ionized Calcium Level - ABG 1.3 mmol/L (1.1-1.4); Methemoglobin 1.1 % (0.4-1.5); Oxygen Device NC; Oxygen Saturation ABG 97.1; PO2 ABG 97.3 mmHg (80.0-100.0); Potassium Level - ABG 3.9 mmol/L (3.5-5.0); Total Hemoglobin 13.1 g/dL (12-16)
--- NOTE | 2021-07-08 14:33 | PC.NURSE ---
Report called to floor, given to MICHAEL Martini
[2021-07-08] MEDS: HYDROmorphone 1 mg/mL INJ 1 mL 0.5 MG IVP ×2 (15:07→23:02)
[2021-07-08 16:41] LABS: ABG PH Result 7.35 (7.35-7.45); Alveolar-Arterial Oxygen Gradi 7.2 mmHg (5-10); Arterial Blood Gas Hematocrit 38.8 % (37-47); Base Excess ABG 14.9 mmol/L (-2.0-2.0); Blood Gas Sample Site Brachial, left; Blood Gas Sample Type Arterial; HCO3 ABG 44.1 mmol/L (22-26); HGB O2 Sat 91.5 % (95-100); Ionized Calcium Level - ABG 1.3 mmol/L (1.1-1.4); Methemoglobin 0.7 % (0.4-1.5); Oxygen Device BIPAP; Oxygen Saturation ABG 93.1; PO2 ABG 63.3 mmHg (80.0-100.0); Potassium Level - ABG 4.7 mmol/L (3.5-5.0); Total Hemoglobin 12.7 g/dL (12-16)
--- NOTE | 2021-07-08 16:45 | PM.CONSULT ---
Documented by User: ALDO Rendon 07/08/21 17:05 Providers/Reason For Consult Consulting Physician/Specialty*: Orthopedics Reason for Consult*: Left shoulder and Left Hip Pain Attending Physician: Odell Resendiz MD Primary Care Provider: Gibson Bo MD History of Present Illness History of Present Illness Sneha Smith is a 80 year old female who is a resident at [facility] and while walking to the bathroom, she tripped and fell onto Left side. SHe reported painn in Left Hip and shoulder. She was transported to [facility] ER where xrays confirmed a Left Hip fracture and orthopedics was consulted. She was evaluated in Room 111-2 with her present. She was having a breathing treatment. She is very difficult of hearing and her help with communications and hx. SHe continues to have Left hip pain that is sharp, stabbing in nature pain. Any movement of her left Leg increases hip/groinpain. Rest has offered some relief. She also reports Left Shoulder pain with palpating or movement increasing her pain. Both of these areas were made worse after the fall. She is right handed. Pain in Left Shoulder is an aching, pain worse with movement. Denies Neck or Back Pain. Review of Systems General: Reports: 10 or more systems reviewed and unremarkable except in HPI and below Narrative: - CONSTITUTIONAL: Denies weight loss, fever and chills. - HEENT: Denies changes in vision and hearing. - RESPIRATORY: Denies SOB and cough. - CV: Denies palpitations and CP. - GI: Denies abdominal pain, nausea, vomiting and diarrhea. - : Denies dysuria and urinary frequency. - MSK: As above. - SKIN: Denies rash and pruritus. - NEUROLOGICAL: Denies headache, weakness, numbness and syncope. - PSYCHIATRIC: Denies suicidal ideation Const: Denies: fever(s) Eyes: Denies: change in vision ENMT: Denies: throat pain Card: Denies: chest pain Resp: Reports: dyspnea (Chronic shortness of breath, on oxygen 2 to 4 L according to patient) GI: Denies: abdominal pain : Denies: flank pain Musc: Reports: extremity pain; Denies: neck pain or joint warmth Skin/Breast: Denies: rash Neuro: Denies: headache(s) Psych: Denies: anxiety or depression Endo: Denies: polyuria Koby/Lymph: Denies: easy bruising All/Imm: Denies: urticaria Meds/Allergies Home Medications and Allergies Home Medications Medication Instructions Recorded Confirmed Last Taken Type aspirin 81 mg tablet,delayed 81 mg PO DAILY@08 10/08/19 07/08/21 07/08/21 History release nitroglycerin 6.5 mg 6.5 mg PO BID@0800,199910/08/19 07/08/21 07/08/21 History capsule,extended release sumatriptan succinate 50 mg tablet 50 mg PO Q2H PRN 10/08/19 07/08/21 01/03/21 History tramadol 50 mg tablet 50 mg PO TID PRN 30 Days #90 tab 06/29/20 07/08/21 01/08/21 Rx ipratropium-albuterol 3 ml INHALATION QID PRN 10/06/20 07/08/21 01/06/21 History losartan 50 mg PO DAILY@10/06/20 07/08/21 07/08/21 History trazodone 50 mg PO BEDTIME #30 tab 01/12/21 07/08/21 Unknown Rx acetaminophen [Tylenol] 650 mg PO Q6H PRN 07/08/21 07/08/21 Unknown History alprazolam 0.75 mg PO TID@,,07/08/21 07/08/21 Unknown History bisacodyl 10 mg MS DAILY PRN 07/08/21 07/08/21 Unknown History docusate sodium 200 mg PO BEDTIME 07/08/21 07/08/21 Unknown History donepezil 10 mg PO DAILY@07/08/21 07/08/21 07/08/21 History food supplemt, lactose-reduced 90 ea PO TID@,,07/08/21 07/08/21 07/08/21 History [TwoCal HN] gabapentin 400 mg PO TID@,,07/08/21 07/08/21 07/08/21 History magnesium hydroxide [Milk of 400 mg PO DAILY PRN 07/08/21 07/08/21 Unknown History Magnesia] nystatin 100,000 unit PO QID 07/08/21 07/08/21 07/08/21 History ondansetron HCl [Zofran] 4 mg PO Q4H PRN 07/08/21 07/08/21 Unknown History quetiapine [Seroquel] 25 mg PO BEDTIME 07/08/21 07/08/21 Unknown History sodium phosphates [Enema] 118 ml MS DAILY PRN 07/08/21 07/08/21 Unknown History Allergies Allergy/AdvReac Type Severity Reaction Status Date / Time azithromycin Allergy unknown Verified 12/31/20 10:10 codeine Allergy itch Verified 12/31/20 10:10 hydrocodone Allergy rash Verified 12/31/20 10:10 morphine Allergy itch Verified 12/31/20 10:10 prednisolone Allergy unknown Verified 12/31/20 10:10 prednisone Allergy ADR-Itching Verified 12/31/20 10:10 Current Medications Current Medications Generic Name Dose Route Start Last Admin Trade Name Freq PRN Reason Stop Dose Admin Hydromorphone HCl 0.5 mg 07/08/21 11:18 07/08/21 15:07 Hydromorphone 1 Mg/Ml Inj 1 Ml IVP 0.5 mg Q4H PRN Administration PAIN PFSH Acute PFSH: Medical History 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 Anemia ASCVD (arteriosclerotic cardiovascular disease) Carotid stenosis Chronic pain Closed rib fracture COPD (chronic obstructive pulmonary disease) COPD (chronic obstructive pulmonary disease) CVA (cerebral vascular accident) DDD (degenerative disc disease) Dementia Essential (primary) hypertension Fall GERD (gastroesophageal reflux disease) Gout History of ovarian cyst Hyperlipidemia, mixed Hypothyroid Iron deficiency Lumbar disc disease with radiculopathy Mixed incontinence urge and stress Osteoarthritis of left shoulder Surgical History H/O heart artery stent H/O pelvic surgery H/O shoulder surgery History of throat surgery S/P tonsillectomy Family History Family/Other No problems noted. Mother Myocardial infarction Sister Myocardial infarction Asthma Father Diabetes Other Cancer Hypertension Social History Smoking and tobacco status: former smoker Quit status (tobacco): has quit using tobacco Year quit tobacco: 2001 - 1PPD x 20 Years Alcohol intake: never Lives independently: Yes Household members: none Marital status: / Current occupational status: retired History of recent travel: No Current gender identity: Female Dietary Habits: Current diet type/program: regular Caffeine: Yes Vitals/I&O/Wt Last Vital Signs Temp 98.8 F 07/08/21 16:00 Pulse 84 07/08/21 16:00 Resp 23 H 07/08/21 16:00 BP 113/89 07/08/21 16:00 Pulse Ox 92 07/08/21 15:28 Weight last 48 hrs Weight 110 lb Physical Exam Narrative: EXAM NARRATIVE: AO x 3 wth good general Appearance, Normal mood and affect. In no apparent Distress. Pain with palpation over the Left Shoulder, pain with Internal/External ROM, No palpable pain in C-spine, FROM of RUE, Slow movement of LUE with pain, skin is warm, hands warm with good cap refill, Radial Pulses palpable, No palpable wrist pain LLE: positive Log roll of the LLE, palpable pain over left hip, NT over right hip, Neg logroll on right hip, Wiggles all digits and fires in all motor groups of BLE, feet warm with good cap refill, calves supple Const: COMMON NORMALS: no acute distress and patient oriented x3 HENMT: COMMON NORMALS: normocephalic HEAD & SCALP: normocephalic OTHER: very difficult of hearing Neck/C-Spine: OTHER: None tender with palpation of Cervical Spine Resp: COMMON NORMALS: normal respiratory effort Cardio: COMMON NORMALS: regular rate and regular rhythm RATE: regular rate RHYTHM: regular rhythm GI: COMMON NORMALS: non-tender : COMMON NORMALS: Yes no CVA tenderness BLADDER/KIDNEY EXAM: Yes no CVA tenderness Back/Pelvis: COMMON NORMALS: no CVA tenderness Neuro: COMMON NORMALS: patient oriented x3 Psych: COMMON NORMALS: cooperative Skin: TRAUMA: no lacerations or abrasions Urinary Catheter Management^: Patel Latex: Cath Placed During This Visit: yes Urinary Catheter Date of Insertion: 07/08/21 Urinary Catheter Time of Insertion: 13:00 A&P Assessment and plan (1) Intertrochanteric fracture of left femur: Discussed with family Operative fixation of Left Hip by Dr Badillo. will keep her NPO after midnight and await medical Clearance for ORIF Left Hip Tomorrow. I will order Xrays of Left Humerus based on the fall and her increased Pain. Ice to Left hip and Shoulder PRN. Bedrest due to Left hip fx. Status: Acute (2) Left shoulder pain: Status: Acute Coding Level of Care Code Acute Loss Control Technician for g Fwd Exam Comprehensive Diagnoses Intertrochanteric fracture of left femur S72.142A Left shoulder pain M25.512 Documented by User: Joo Badillo DO 07/09/21 06:51 Meds/Allergies Home Medications and Allergies Home Medications Medication Instructions Recorded Confirmed Last Taken Type aspirin 81 mg tablet,delayed 81 mg PO DAILY@10/08/19 07/08/21 07/08/21 History release nitroglycerin 6.5 mg 6.5 mg PO BID@08,199910/08/19 07/08/21 07/08/21 History capsule,extended release sumatriptan succinate 50 mg tablet 50 mg PO Q2H PRN 10/08/19 07/08/21 01/03/21 History tramadol 50 mg tablet 50 mg PO TID PRN 30 Days #90 tab 06/29/20 07/08/21 01/08/21 Rx ipratropium-albuterol 3 ml INHALATION QID PRN 10/06/20 07/08/21 01/06/21 History losartan 50 mg PO DAILY@10/06/20 07/08/21 07/08/21 History trazodone 50 mg PO BEDTIME #30 tab 01/12/21 07/08/21 Unknown Rx acetaminophen [Tylenol] 650 mg PO Q6H PRN 07/08/21 07/08/21 Unknown History alprazolam 0.75 mg PO TID@06,12,07/08/21 07/08/21 Unknown History bisacodyl 10 mg MS DAILY PRN 07/08/21 07/08/21 Unknown History docusate sodium 200 mg PO BEDTIME 07/08/21 07/08/21 Unknown History donepezil 10 mg PO DAILY@08 07/08/21 07/08/21 07/08/21 History food supplemt, lactose-reduced 90 ea PO TID@,,07/08/21 07/08/21 07/08/21 History [TwoCal HN] gabapentin 400 mg PO TID@,,07/08/21 07/08/21 07/08/21 History magnesium hydroxide [Milk of 400 mg PO DAILY PRN 07/08/21 07/08/21 Unknown History Magnesia] nystatin 100,000 unit PO QID 07/08/21 07/08/21 07/08/21 History ondansetron HCl [Zofran] 4 mg PO Q4H PRN 07/08/21 07/08/21 Unknown History quetiapine [Seroquel] 25 mg PO BEDTIME 07/08/21 07/08/21 Unknown History sodium phosphates [Enema] 118 ml MS DAILY PRN 07/08/21 07/08/21 Unknown History Allergies Allergy/AdvReac Type Severity Reaction Status Date / Time azithromycin Allergy unknown Verified 12/31/20 10:10 codeine Allergy itch Verified 12/31/20 10:10 hydrocodone Allergy rash Verified 12/31/20 10:10 morphine Allergy itch Verified 12/31/20 10:10 prednisolone Allergy unknown Verified 12/31/20 10:10 prednisone Allergy ADR-Itching Verified 12/31/20 10:10 PFSH Acute PFSH: Medical History 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 Anemia ASCVD (arteriosclerotic cardiovascular disease) Carotid stenosis Chronic pain Closed rib fracture COPD (chronic obstructive pulmonary disease) COPD (chronic obstructive pulmonary disease) CVA (cerebral vascular accident) DDD (degenerative disc disease) Dementia Essential (primary) hypertension Fall GERD (gastroesophageal reflux disease) Gout History of ovarian cyst Hyperlipidemia, mixed Hypothyroid Iron deficiency Lumbar disc disease with radiculopathy Mixed incontinence urge and stress Osteoarthritis of left shoulder Surgical History H/O heart artery stent H/O pelvic surgery H/O shoulder surgery History of throat surgery S/P tonsillectomy Family History Family/Other No problems noted. Mother Myocardial infarction Sister Myocardial infarction Asthma Father Diabetes Other Cancer Hypertension Social History Smoking and tobacco status: former smoker Quit status (tobacco): has quit using tobacco Year quit tobacco: 2001 - 1PPD x 20 Years Alcohol intake: never Lives independently: Yes Household members: none Marital status: / Current occupational status: retired History of recent travel: No Current gender identity: Female Physical Exam Urinary Catheter Management^: Patel Latex: Cath Placed During This Visit: no A&P Assessment and plan (1) Intertrochanteric fracture of left femur: Left [facility] Status: Acute Consult Attestations Medical Necessity Statement: unstable to walk on Coding Level of Care Code Acute Loss Control Technician for [facility] Fwd Exam Comprehensive Diagnoses Intertrochanteric fracture of left femur S72.142A Left shoulder pain M25.512
[2021-07-08 16:49] LABS: ABG PCO2 79.8 mmHg (35-45)
[2021-07-08] MEDS: ipratropium-albuterol 3 mL Neb INHALATION ×2 (17:00→20:21)
--- NOTE | 2021-07-08 17:06 | XR_ITS ---
WS: [id number] Left arm and humerus, 2 views, 07/08/2021 Clinical Data: fall and pain in Left Shoulder Comparison: Left shoulder, 12/08/2020 Findings: No fractures or dislocations are seen. The shaft of the humerus is intact. XR/[place] [id number] Impression: Negative left arm and humerus.
[2021-07-08] MEDS: doxycycline 100 mg Tablet PO (18:21)
[2021-07-08] MEDS: gabapentin 400 mg Capsule PO ×2 (18:21→21:11)
[2021-07-08] MEDS: donepezil 5 MG Tablet 10 MG PO (21:10)
[2021-07-08] MEDS: quetiapine 25 mg Tablet PO (21:11)
[2021-07-08] MEDS: ondansetron 2 mg/ML SDV 2 mL 4 MG IVP (21:17)
[2021-07-08] MEDS: ALPRAZolam 0.5 mg Tablet PO (22:21)
[2021-07-09] VITALS (38 sets, daily range): BP systolic 76–144; BP diastolic 57–103; PULSE 0–112; RESP 16–32; TEMP 36.3–38.2; O2SAT 91–99
--- NOTE | 2021-07-09 | SCC_ITS ---
Procedure Done: Left IM nail for hip fracture 46.1 seconds of fluoroscopic guidance, for a cumulative dose of 4.46 mGy, was provided to Dr. Badillo by the radiology department. C-arm images of the LEFT hip were saved for the patient's permanent record. [facility]
--- NOTE | 2021-07-09 | XR_ITS ---
WS: [id number] Left hip, C-arm fluoroscopy, 07/09/2021 Clinical Data: gamma nail Comparison: None. Findings: Dr. Badillo used a hip nail and proximal half intramedullary cameron to reduce a left hip intertrochanteric fracture. XR/XR hip LT 2-3V wo/w pel* [id number] Impression: Internal fixation of left hip intertrochanteric fracture. Tonnis classification:
[2021-07-09] MEDS: ipratropium-albuterol 3 mL Neb INHALATION ×5 (00:26→20:35)
[2021-07-09 05:06] LABS: Basophils % 0.2 %; Hematocrit 39.7 % (37.0-47.0); Hemoglobin 12.1 g/dL (11.5-15.3); Lymphocytes # 0.8 10^3/uL (0.8-4.8); Mean Corpuscular HGB Conc 30.5 g/dL (30.0-36.0); Mean Corpuscular Hemoglobin 27.8 pg (28.0-34.0); Mean Corpuscular Volume 91.3 fl (81-99); Mean Platelet Volume 11.8 fL (7.4-10.4); Monocytes # 0.1 10^3/uL (0.2-0.9); Neutrophils # 9.02 10^3/uL (1.8-7.7); Neutrophils % 90.2 %; Nucleated Red Blood Cells % 0 %; Platelet Count 137 10^3/cmm (130-400); Red Blood Count 4.35 10^6/uL (4.1-5.3); Red Cell Distribution Width 15.3 % (12.1-15.1)
--- NOTE | 2021-07-09 05:23 | PC.NURSE ---
Around 0500: Patient prepped for surgery. Unable to complete some of the preop checklist items due to patient being poor historian.
[2021-07-09 05:26] LABS: Alanine Aminotransferase 20 U/L (0-33); Albumin Level 3.7 g/dL (3.5-5.2); Alkaline Phosphatase 106 IU/L (35-105); Anion Gap 13.3 (5-19); Aspartate Amino Transferase 23 U/L (0-32); Blood Urea Nitrogen 35 mg/dL (8-23); Calcium 9.4 mg/dL (8.5-10.5); Carbon Dioxide 34 mmol/L (22-29); Chloride 93 mmol/L (98-107); Globulin 3.3 g/dL (1.3-4.6); Glucose 112 mg/dL (65-115); Osmolality Calculated 291 mOsm/kg (285-295); Potassium 4.3 mmol/L (3.5-5.1); Sodium 136 mmol/L (136-145); Total Bilirubin 0.2 mg/dL (0.15-1.2)
--- NOTE | 2021-07-09 06:35 | ANES.PREANE2 ---
Pre-Anesthetic Assessment Pre-Anesthetic Assessment: Height/Weight: Height 1.52 m Weight 49.895 kg Temp Pulse Resp BP Pulse Ox 98 F 86 18 144/75 94 07/09/21 07:46 07/09/21 07:55 07/09/21 07:55 07/09/21 07:55 07/09/21 07:55 Preop Diagnosis: left Inter trochanteric hip fracture Proposed Procedure: Operation Date: 07/09/21 07:10 Proposed Procedures p Trochanteric Femoral Nail(Left) - Joo Badillo, DO Was Beta Yasemin taken within 24 hours: N/A Was Clonidine taken within 24 hours: N/A Last intake: Intake Last Liquid Date 07/08/21 Last Liquid Time 22:00 Last Solid Date 07/08/21 Last Solid Time 22:00 Social: Social History: No tobacco Exam: Pre-Anes Outpt Exam: alert, clear to auscultation bilaterally and regular rate & rhythm Additional Exam Findings (including area of procedure): Disoriented Airway: Submandibular: WNL Cervical ROM: WNL CV/HEM: CV/HEM: HTN Neuropsych: Neuropsych: Anxiety and Dementia Anesthetic Plan: ASA status: 3 Anesthesia: Anesthesia Evaluation and General Other: Consent obtained by RN from daughter over phone. Risk of > 500 ml blood loss (7ml/kg in children): No Meds/Allergies Current Medications: Current Medications Generic Name Dose Route Start Last Admin Trade Name Freq PRN Reason Stop Dose Admin Albuterol/Ipratrop ium 3 ml 07/08/21 16:00 07/09/21 07:37 Ipratropium-Albu terol 3 Ml Neb INHALATION Not Given Q4H.RESPIRATORY S CH Alprazolam 0.5 mg 07/08/21 14:58 07/08/21 22:21 Alprazolam 0.5 M g Tablet PO 0.5 mg TID PRN Administration ANXIETY Budesonide 0.5 mg 07/09/21 08:00 07/09/21 07:37 Budesonide 0.5 M g/2 Ml Neb INHALATION Not Given BID.RESPIRATORY S CH Donepezil HCl 10 mg 07/08/21 21:00 07/08/21 21:10 Donepezil 5 Mg T ablet PO 10 mg BEDTIME RADHA Administration Doxycycline Monohy drate 100 mg 07/08/21 18:00 07/08/21 18:21 Doxycycline 100 Mg Tablet PO 100 mg BID RADHA Administration Protocol Gabapentin 400 mg 07/08/21 15:30 07/08/21 21:11 Gabapentin 400 M g Capsule PO 400 mg TID@08,, RADHA Administration Hydromorphone HCl 0.5 mg 07/08/21 11:18 07/08/21 23:02 Hydromorphone 1 Mg/Ml Inj 1 Ml IVP 0.5 mg Q4H PRN Administration PAIN Ondansetron HCl 4 mg 07/08/21 11:18 07/08/21 21:17 Ondansetron 2 Mg /Ml Sdv 2 Ml IVP 4 mg Q6H PRN Administration vomiting, or N/V if npo Quetiapine Fumarat e 25 mg 07/08/21 21:00 07/08/21 21:11 Quetiapine 25 Mg Tablet PO 25 mg BEDTIME RADHA Administration PFSH Anesthesia PFSH: Medical History 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 Anemia ASCVD (arteriosclerotic cardiovascular disease) Carotid stenosis Chronic pain Closed rib fracture COPD (chronic obstructive pulmonary disease) COPD (chronic obstructive pulmonary disease) CVA (cerebral vascular accident) DDD (degenerative disc disease) Dementia Essential (primary) hypertension Fall GERD (gastroesophageal reflux disease) Gout History of ovarian cyst Hyperlipidemia, mixed Hypothyroid Iron deficiency Lumbar disc disease with radiculopathy Mixed incontinence urge and stress Osteoarthritis of left shoulder Surgical History H/O heart artery stent H/O pelvic surgery H/O shoulder surgery History of throat surgery S/P tonsillectomy Family History Family/Other No problems noted. Mother Myocardial infarction Sister Myocardial infarction Asthma Father Diabetes Other Cancer Hypertension Social History Smoking and tobacco status: former smoker Quit status (tobacco): has quit using tobacco Year quit tobacco: 2001 - 1PPD x 20 Years Alcohol intake: never Lives independently: Yes Household members: none Marital status: / Current occupational status: retired History of recent travel: No Current gender identity: Female Data Anesthesia CBC & Chem 7: 07/09/21 04:35 07/09/21 04:35 Other Labs: Laboratory Results - last 48 hr 07/08/21 07/08/21 07/08/21 09:55 09:55 11:22 WBC 5.5 RBC 4.65 Hgb 12.9 Hct 42.7 MCV 91.8 MCH 27.7 L MCHC 30.2 RDW 15.3 H Plt Count 164 MPV 11.5 H Neut % (Auto) 46.4 Lymph % (Auto) 37.5 [place] % (Auto) 6.4 Eos % (Auto) 8.4 Baso % (Auto) 0.9 Neut # (Auto) 2.55 Lymph # (Auto) 2.1 [place] # (Auto) 0.4 Eos # (Auto) 0.5 Baso # (Auto) 0.1 Nucleated RBC % (auto) 0 Nucleated RBCs # 0.0 Specimen Type Arterial Sample Site Brachial, left ABG pH 7.28 L ABG pCO2 104.0 H* ABG pO2 97.3 ABG HCO3 48.9 H ABG O2 Saturation 97.1 ABG Base Excess 17.2 H Felipe Test Pos A-a O2 Gradient Not Reportable Hematocrit 40.0 Hgb O2 Saturation 95.1 Carboxyhemoglobin 1.0 Methemoglobin 1.1 Total Hemoglobin 13.1 Ionized Calcium 1.3 O2 Delivery Device Nc O2 Liters/Min 2.0 FiO2 28.0 Surgical Technology Instructor ID Cak Sodium 141 144.0 H Potassium 3.9 3.9 Chloride 95 L Carbon Dioxide 44 H* Anion Gap 5.9 BUN 15 Creatinine 0.5 GFR Calculation Not Reportable Glucose 127 H 145.0 H Calculated Osmolality 294 Calcium 9.1 Total Bilirubin 0.2 AST 22 ALT 21 Alkaline Phosphatase 119 H Total Protein 6.9 Albumin 3.6 Globulin 3.3 07/08/21 07/09/21 07/09/21 16:25 04:35 04:35 WBC 10.0 RBC 4.35 Hgb 12.1 Hct 39.7 MCV 91.3 MCH 27.8 L MCHC 30.5 RDW 15.3 H Plt Count 137 MPV 11.8 H Neut % (Auto) 90.2 Lymph % (Auto) 8.0 [place] % (Auto) 1.0 Eos % (Auto) 0.0 Baso % (Auto) 0.2 Neut # (Auto) 9.02 H Lymph # (Auto) 0.8 [place] # (Auto) 0.1 L Eos # (Auto) 0.0 Baso # (Auto) 0.0 Nucleated RBC % (auto) 0 Nucleated RBCs # 0.0 Specimen Type Arterial Sample Site Brachial, left ABG pH 7.35 ABG pCO2 79.8 H* ABG pO2 63.3 L ABG HCO3 44.1 H ABG O2 Saturation 93.1 ABG Base Excess 14.9 H Felipe Test N/a A-a O2 Gradient 7.2 Hematocrit 38.8 Hgb O2 Saturation 91.5 L Carboxyhemoglobin 1.0 Methemoglobin 0.7 Total Hemoglobin 12.7 Ionized Calcium 1.3 O2 Delivery Device Bipap O2 Liters/Min FiO2 30.0 Surgical Technology Instructor ID Rieri Sodium 142.0 136 Potassium 4.7 4.3 Chloride 93 L Carbon Dioxide 34 H Anion Gap 13.3 BUN 35 H Creatinine 0.5 GFR Calculation Not Reportable Glucose 121.0 H 112 Calculated Osmolality 291 Calcium 9.4 Total Bilirubin 0.2 AST 23 ALT 20 Alkaline Phosphatase 106 H Total Protein 7.0 Albumin 3.7 Globulin 3.3 Cardiac Studies: No Data to Display
[2021-07-09] MEDS: ceFAZolin 1,000 mg SDV 2000 MG (07:22)
--- NOTE | 2021-07-09 07:32 | PM.OP ---
Operative Report Date of procedure: July 09, 2021 Pre-op Diagnosis: left Inter trochanteric hip fracture Post-op diagnosis: same Procedure Done: Left IM nail for hip fracture Surgeon: Joo Badillo Aerial Installer: Amish Lester Aerial Installer: Amish CARLSON was required to help get the case done he helped with the his expertise for fracture care was needed. He helped with positioning the patient helping with reducing the fracture and closure of the wound positioning the patient Anesthesia: General Estimated blood loss (mL): 5 Condition: stable Disposition: PACU Procedure: IM nail for hip fracture Patient was brought to the operative suite patient was positioned in the supine position on the fracture table. The fracture was reduced by applying traction. Patient was prepped and draped in normal sterile fashion. Skin incision is made over the proximal tip of the greater trochanter. The starting pin was inserted. The opening reamer was inserted. Followed by the nail has a size 10 nail. Then the guidewire was placed up into the center center position of the femoral head. The screw was measured to be 95 this was placed. And then a distal locking screw was placed this was a 35 screw. AP lateral fluoroscopy ensured that the fracture and hardware and a proposition. Wounds irrigated and closed with Vicryl and seng.
[2021-07-09] MEDS: fentaNYL 50 mcg/mL INJ 2mL IVP (07:49)
--- NOTE | 2021-07-09 08:05 | ANE.PACU2 ---
Inpatient post-anesthesia follow up: Airway intact: Yes Vital signs: Temperature 98 F Pulse Rate 86 Respiratory Rate 18 Blood Pressure 144/75 Pulse Oximetry 94 Oxygen Delivery Me thod Nasal Cannula Oxygen Flow Rate 3 Fraction of Inspir ed Oxygen 30 Hydration adequate: Yes Nausea and vomiting: No Pain level: 2 Pain level: Difficult to assess due to dementia and disorientation. Vitals wnl, stable Mental status: Baseline
[2021-07-09 09:01] LABS: Bilirubin Urine Neg (Negative); Blood Urine 2+ (Negative); Glucose Urine UA Norm (Normal); Ketones Urine Negative (Negative); Leukocyte Esterase Urine Negative (Negative); Nitrate Urine Negative (Negative); Protein Urine Trace (Negative); Specific Gravity, Urine 1.025 (1.005-1.030); Urine Appearance Clear (CLEAR); Urine Color Straw (Yellow); Urobilinogen Urine Norm (Negative); pH Urine 5 (5-7)
[2021-07-09 09:28] LABS: Add Urine Culture? No; Bacteria Urine TRACE /hpf
--- NOTE | 2021-07-09 10:00 | P.PN_ITS ---
Subjective Subjective: Interval history: Sneha underwent her hip surgery earlier this morning. There were no complications. I saw her in the direct postoperative period, where she was still recovering from anesthesia. Medications: Reviewed: Yes Vitals/I&O/Wt Last Vital Signs Temp 98.0 F 07/09/21 08:06 Pulse 80 07/09/21 08:06 Resp 18 07/09/21 08:06 BP 124/80 07/09/21 08:06 Pulse Ox 93 07/09/21 08:06 07/08/21 07/09/21 07/09/21 22:59 06:59 14:59 Intake Total 60 / 60 25 / 25 Output Total 450 / 450 50 / 50 Balance 60 / 60 -450 / -390 -25 / -25 Weight last 48 hrs Weight 49.895 kg Physical Exam Narrative: EXAM NARRATIVE: General exam is a white female, conversant but slightly confused Neck is supple no lymphadenopathy thyromegaly Cardiovascular heart sounds distant. Slight tachycardia and regular. Lungs diminished breath sounds bilaterally. No wheezing. Abdomen is soft, positive bowel sounds. Scaphoid. No obvious organomegaly with Patel Extremities no cyanosis clubbing or edema, cap refill brisk, dressing left hip clean and dry Urinary Catheter Management^: Patel Latex: Cath Placed During This Visit: yes Reason for Continuing Indwelling Catheter: Accurate Measurement of Urinary Out put in Critically Ill Patients Urinary Catheter Date of Insertion: 07/08/21 Urinary Catheter Time of Insertion: 13:00 Data : 07/09/21 04:35 07/09/21 04:35 A&P Assessment and plan (1) Closed left hip fracture: Directly postoperative IM nailing Initiate rehabilitation Remove Patel when possible Will need care home facility placement for rehabilitation. She was in [facility] prior to admission. Pain control Status: Acute (2) Chronic respiratory failure: Maintain oxygenation of 90 to 92%. Giving more oxygen than needed will likely increase PCO2 Status: Acute (3) COPD (chronic obstructive pulmonary disease): DuoNeb every 4 hours Try to keep oxygen saturation 88 to 92% Some wheezing and respiratory worsening yesterday so I have added solumedrol. Status: Acute (4) Dementia: Continue home med occasions Status: Acute (5) Essential (primary) hypertension: Continue home medications Status: Acute Additional A&P Information Full code Lovenox for DVT prophylaxis Nursing facility placement for skilled care. Attestations Medical Necessity Statement*: Needs continued hospitalization for close monitoring following hip fracture repair. Coding Level of Care Code Acute Missile Control Pilot for Chg Fwd Diagnoses Closed left hip fracture S72.002A Chronic respiratory failure J96.10 COPD (chronic obstructive pulmonary disease) J44.9 Dementia F03.90 Essential (primary) hypertension I10
[2021-07-09] MEDS: doxycycline 100 mg Tablet PO ×2 (10:27→17:22)
[2021-07-09] MEDS: ALPRAZolam 0.5 mg Tablet PO ×2 (10:28→21:04)
[2021-07-09] MEDS: gabapentin 400 mg Capsule PO ×3 (10:28→21:04)
[2021-07-09] MEDS: oxyCODONE 5 mg IR Tab/Cap PO ×2 (10:28→17:22)
[2021-07-09] MEDS: aspirin 81 mg EC Tablet PO (10:42)
[2021-07-09] MEDS: losartan 50 mg Tablet PO (10:42)
[2021-07-09] MEDS: pantoprazole DR 40 mg Tablet PO (10:42)
--- NOTE | 2021-07-09 11:14 | PC.NURSE ---
received from or at 0815 via bed.report received.s/p left femoral hip nailing.pt is confused and disoriented to place ,time,date. (hx dementia).left lateral hip drsgs are dry and intact.icepack applied as ordered.left leg/foot warm and dry to touch.palpable dp pulse noted.bed alarm on.instructed to notify staff for any needs.will reinforce frequently
--- NOTE | 2021-07-09 12:18 | PC.NUTR ---
Nutrition note: Nurse requesting Mighty Shakes for pt, but [facility] does not carry these. This RD delivered an Ensure Plus and a Magic Cup to the floor for pt to try. Have also added Ensure Plus with all meals. See full RD assessment for further details.
--- NOTE | 2021-07-09 13:35 | PC.CHAP ---
Pastoral Care Encounter/Spiritual Assessment Type of Contact [] Declined replenishment buyer visit [] Patient/Family/Request visit [] Outpatient visit [] Follow-up visit [] Physician referral [] Code/Alert [] Routine visit [] Staff referral [] Actively dying [] Patient sleeping [] Family support [] [] Out of room [] Palliative care [] [xx] Receiving care in room [] Pre-surgical visit [] Trauma [] Long length of stay [] ICU visit [] Other: Relational/Emotional Strength [] Patient feels connected with others/family/visitors/staff [] Distress [] Loneliness/isolation [] Abandonment Spirituality of Patient [] Person of [place] [] Attends Religious of their [place] [] Believes in Prayer [] Reads Bible or Baptism materials [] There are Spiritual issues to be addressed Welder Plastic Interventions [] Prayer [] Active listening [] Non-anxious presence [] Spiritual/emotional support [] Crisis/trauma care [] Spiritual counseling [] Bereavement support [] Provided bereavement packet [] Provided Bible/devotional materials [] Provided toy/stuffed animal, coloring book to patient or family member [] Provided Communion [] Anointing/[place] [] Salvation [] Completed spiritual assessment [] Other: Impact on Illness or Injury [] Angry [] Fearful [] Anxious [] Often cries [] Exhaustion [] Unable to work [] Unable to attend anglican [] Unable to walk/stand [] Unable to read [] Unable to drive [] Unable to eat/drink [] Unable to sleep [] Unable to be with family [] Patient intubated [] Other: Summary Patient just returned from surgery and not yet coherent enough for a visit. She was also surrounded by staff. Follow up later if not discharged. Time spent with patient 1 minute
--- NOTE | 2021-07-09 13:47 | XR_ITS ---
WS: [id number] Portable AP supine chest, 07/09/2021 Clinical Data: fever Comparison: Portable chest, 07/08/2021 Findings: No nodules, masses or effusions are seen. The heart is normal. The pulmonary vascularity is not increased. No pneumonia or pneumothorax is seen. The aortic arch and descending thoracic aorta s how calcification and tortuosity. The diaphragms are flattened. Monitor leads are on the chest wall. XR/XR chest 1V portable [id number] Impression: Atherosclerosis and hyperinflation.
[2021-07-09 16:11] LABS: SARS Covid-2 Antigen Negative (Negative)
--- NOTE | 2021-07-09 17:50 | PC.NURSE ---
left lat thigh drsgs remain dry and intact.pt remains confused through day.refusing meals but will eat some pudding,and is drinking the ensures provided
[2021-07-09] MEDS: enoxaparin 40 mg/0.4 mL Syringe SUBCUT (21:04)
[2021-07-09] MEDS: quetiapine 25 mg Tablet PO (21:04)
[2021-07-09] MEDS: donepezil 5 MG Tablet 10 MG PO (21:04)
[2021-07-10] VITALS (23 sets, daily range): BP systolic 105–118; BP diastolic 58–80; PULSE 79–105; RESP 16–27; TEMP 36.6–36.7; O2SAT 90–98
[2021-07-10] MEDS: ipratropium-albuterol 3 mL Neb INHALATION ×7 (00:24→23:56)
[2021-07-10 05:05] LABS: Basophils % 0.1 %; Hematocrit 30.6 % (37.0-47.0); Hemoglobin 9.4 g/dL (11.5-15.3); Lymphocytes # 0.8 10^3/uL (0.8-4.8); Lymphocytes % 8.8 %; Mean Corpuscular HGB Conc 30.7 g/dL (30.0-36.0); Mean Corpuscular Hemoglobin 27.4 pg (28.0-34.0); Mean Corpuscular Volume 89.2 fl (81-99); Mean Platelet Volume 11.7 fL (7.4-10.4); Monocytes # 0.1 10^3/uL (0.2-0.9); Neutrophils # 7.94 10^3/uL (1.8-7.7); Neutrophils % 89.6 %; Nucleated Red Blood Cells % 0 %; Platelet Count 109 10^3/cmm (130-400); Red Blood Count 3.43 10^6/uL (4.1-5.3); White Blood Count 8.9 10^3/uL (4.0-10.0)
[2021-07-10 05:41] LABS: Anion Gap 10.4 (5-19); Blood Urea Nitrogen 33 mg/dL (8-23); Calcium 8.5 mg/dL (8.5-10.5); Carbon Dioxide 37 mmol/L (22-29); Chloride 97 mmol/L (98-107); Glucose 120 mg/dL (65-115); Osmolality Calculated 298 mOsm/kg (285-295); Potassium 4.4 mmol/L (3.5-5.1); Sodium 140 mmol/L (136-145)
--- NOTE | 2021-07-10 08:36 | PM.PN ---
Subjective Subjective: Interval history: patient on Covid protocol discussed with nurse. pt doing well no complaints Vitals/I&O/Wt Last Vital Signs Temp 98.9 F 07/09/21 19:23 Pulse 96 07/10/21 08:31 Resp 18 07/10/21 08:28 BP 118/80 07/10/21 03:24 Pulse Ox 98 07/10/21 08:28 07/09/21 07/10/21 07/10/21 22:59 06:59 14:59 Intake Total 660 / 1165 60 / 1225 Output Total 325 / 375 700 / 1075 Balance 335 / 790 -640 / 150 Weight last 48 hrs Weight 110 lb Physical Exam Urinary Catheter Management^: Patel Latex: Cath Placed During This Visit: yes Reason for Continuing Indwelling Catheter: Accurate Measurement of Urinary Output in Critically Ill Patients Urinary Catheter Date of Insertion: 07/08/21 Urinary Catheter Time of Insertion: 13:00 Data : 07/10/21 04:45 07/10/21 04:45 Micro: Microbiology 07/09/21 15:00 Blood Culture - Preliminary Blood SPECIMEN COLLECTED 07/09/21 15:20 Blood Culture - Preliminary Blood SPECIMEN COLLECTED A&P Assessment and plan (1) Intertrochanteric fracture of left femur: wbat LLE x-ray of shoulder negative for fracture WBAT d/c planning change dressing as needed Status: Acute Attestations Medical Necessity Statement*: per primary service Coding Level of Care Code 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
[2021-07-10] MEDS: aspirin 81 mg EC Tablet PO (09:37)
[2021-07-10] MEDS: doxycycline 100 mg Tablet PO ×2 (09:37→18:15)
[2021-07-10] MEDS: losartan 50 mg Tablet PO (09:37)
[2021-07-10] MEDS: pantoprazole DR 40 mg Tablet PO (09:37)
[2021-07-10] MEDS: gabapentin 400 mg Capsule PO ×3 (09:38→21:10)
[2021-07-10] MEDS: ALPRAZolam 0.5 mg Tablet PO ×2 (09:46→18:25)
[2021-07-10] MEDS: oxyCODONE 5 mg IR Tab/Cap PO ×2 (12:53→21:09)
--- NOTE | 2021-07-10 14:57 | PM.PN ---
Subjective Subjective: Interval history: Seen this morning. Patient feels well today. She is requesting for milk. She states she has a broken hip that was recently repaired. Vitals/I&O/Wt Last Vital Signs Temp 98.9 F 07/09/21 19:23 Pulse 96 07/10/21 08:31 Resp 20 H 07/10/21 12:53 BP 118/80 07/10/21 03:24 Pulse Ox 92 07/10/21 12:53 07/09/21 07/10/21 07/10/21 22:59 06:59 14:59 Intake Total 660 / 1165 60 / 1225 60 / 60 Output Total 325 / 375 700 / 1075 Balance 335 / 790 -640 / 150 60 / 60 Physical Exam Narrative: EXAM NARRATIVE: General: Alert oriented x3, patient seen sitting up in bed appearing comfortable. Breathing nasal cannula. HEENT: Normocephalic, atraumatic, EOMI, Cardio: Regular rate rhythm, normal S1-S2, no murmurs rubs gallops Lungs: Breath sounds diminished bilaterally, no wheezes no rhonchi appreciated. Fairly clear to auscultation. GI: Abdomen soft, nontender, bowel sounds + Behavior: Appropriate and cooperative Extremities: Pulses 2+, no edema, Left hip dressing clean and dry. Urinary Catheter Management^: Patel Latex: Cath Placed During This Visit: yes Reason for Continuing Indwelling Catheter: Accurate Measurement of Urinary Output in Critically Ill Patients Urinary Catheter Date of Insertion: 07/08/21 Urinary Catheter Time of Insertion: 13:00 Data : 07/10/21 04:45 07/10/21 04:45 Micro: Microbiology 07/09/21 15:00 Blood Culture - Preliminary Blood SPECIMEN COLLECTED 07/09/21 15:20 Blood Culture - Preliminary Blood SPECIMEN COLLECTED A&P Assessment and plan (1) Intertrochanteric fracture of left femur: Status: Acute (2) Dementia: Continue home med occasions Status: Acute (3) COPD (chronic obstructive pulmonary disease): DuoNeb every 4 hours Try to keep oxygen saturation 88 to 92% Solumedrol 60 was added yesterday. I transitioned pt to oral prednisone 20 daily. Status: Acute (4) Essential (primary) hypertension: Continue home medications Status: Acute (5) Closed left hip fracture: Directly postoperative IM nailing Initiate rehabilitation Remove Patel when possible Will need jail facility placement for rehabilitation. She was in detention prior to admission. Pain control Status: Acute (6) Chronic respiratory failure: Maintain oxygenation of 90 to 92%. Giving more oxygen than needed will likely increase PCO2 Status: Acute Additional A&P Information Full code Lovenox for DVT prophylaxis Nursing facility placement for skilled care. Attestations Medical Necessity Statement*: DC in AM Time Spent in Patient Care: less than 15 minutes Coding Level of Care Code Acute Community Service Coordinator for [facility] Fwd Diagnoses Intertrochanteric fracture of left femur S72.142A Dementia F03.90 COPD (chronic obstructive pulmonary disease) J44.9 Essential (primary) hypertension I10 Closed left hip fracture S72.002A Chronic respiratory failure J96.10
[2021-07-10 16:32] LABS: Quest SARS-CoV-2 RNA NOT DETECTED (NOT DETECTED)
[2021-07-10] MEDS: enoxaparin 40 mg/0.4 mL Syringe SUBCUT (21:08)
[2021-07-10] MEDS: donepezil 5 MG Tablet 10 MG PO (21:10)
[2021-07-10] MEDS: quetiapine 25 mg Tablet PO (21:10)
[2021-07-11] VITALS (25 sets, daily range): BP systolic 97–166; BP diastolic 51–96; PULSE 80–116; RESP 14–33; TEMP 36.6–37; O2SAT 91–96
[2021-07-11] MEDS: ipratropium-albuterol 3 mL Neb INHALATION ×6 (03:25→20:36)
[2021-07-11] MEDS: ALPRAZolam 0.5 mg Tablet PO ×2 (04:25→10:04)
[2021-07-11] MEDS: oxyCODONE 5 mg IR Tab/Cap PO ×3 (07:25→21:58)
[2021-07-11] MEDS: gabapentin 400 mg Capsule PO ×3 (07:35→21:59)
[2021-07-11] MEDS: losartan 50 mg Tablet PO (07:35)
[2021-07-11] MEDS: aspirin 81 mg EC Tablet PO (07:35)
[2021-07-11] MEDS: budesonide 0.5 mg/2 mL Neb INHALATION ×2 (07:59→20:36)
--- NOTE | 2021-07-11 08:06 | PC.SOCIAL ---
IMM Update Pg. 2 of [facility] updated and reviewed with patient, who verbalized understanding. Copy provided. Will explain to patient's daughter when CM speaks with her this afternoon.
--- NOTE | 2021-07-11 08:10 | XRR_ITS ---
PROCEDURE INFORMATION: Exam: XR Chest Exam date and time: 07/11/2021 8:10 AM Age: 80 years old Clinical indication: Shortness of breath; Additional info: SOB TECHNIQUE: Imaging protocol: XR of the chest. Views: 1 view. Total images: 1 COMPARISON: CR XR chest 1V portable [id number] 07/09/2021 2:10 PM FINDINGS: Lungs: Benign granulomatous disease of the lung is noted. Pleural spaces: Unremarkable. No pleural effusion. No pneumothorax. Heart/Mediastinum: Unremarkable. No cardiomegaly. Vasculature: Atherosclerosis is evident. Bones/joints: Osseous structures are unchanged from the prior exam. XR/XR chest 1V portable [id number] IMPRESSION: No acute cardiopulmonary process. Radiation Dose CTDIVOL = (mGy): DLP = (mGy-cm)
[2021-07-11 08:26] LABS: ABG PCO2 59.5 mmHg (35-45); ABG PH Result 7.41 (7.35-7.45); Alveolar-Arterial Oxygen Gradi 1.9 mmHg (5-10); Arterial Blood Gas Hematocrit 29.4 % (37-47); Base Excess ABG 11.7 mmol/L (-2.0-2.0); Blood Gas Allen Test Pos; Blood Gas Operator Identificat BROMA; Blood Gas Sample Site Radial, right; Blood Gas Sample Type Arterial; Carboxyhemoglobin 1.1 %THgb (0.4-20.1); HGB O2 Sat 91.5 % (95-100); Ionized Calcium Level - ABG 1.2 mmol/L (1.1-1.4); Oxygen Device NC; Oxygen Saturation ABG 93.5; PO2 ABG 63.4 mmHg (80.0-100.0); Potassium Level - ABG 3.7 mmol/L (3.5-5.0); Total Hemoglobin 9.6 g/dL (12-16)
--- NOTE | 2021-07-11 08:46 | PC.NURSE ---
Around 0330: Patients IV infiltrated, IV removed. Patient has had multiple IVs infiltrate during current hospitalization. Ok per Dr. Kimball for patient to go with out IV for now due to poor venous access.
--- NOTE | 2021-07-11 08:59 | CTR_ITS ---
PROCEDURE INFORMATION: Exam: CTA Chest With Contrast Exam date and time: 07/11/2021 8:59 AM Age: 80 years old Clinical indication: Shortness of breath; Additional info: Rule out pe TECHNIQUE: Imaging protocol: Computed tomographic angiography of the chest with contrast. 3D rendering (Not supervised by radiologist): MIP and/or 3D reconstructed images were created by the technologist. Total images: 834 Radiation optimization: All CT scans at this facility use at least one of these dose optimization techniques: automated exposure control; mA and/or kV adjustment per patient size (includes targeted exams where dose is matched to clinical indication); or iterative reconstruction. Contrast material: OMNI 350; Contrast volume: 62 ml; Contrast route: INTRAVENOUS (IV); COMPARISON: CTA Chest-Pulmonary Emb [id number] 01/14/2019 8:20 AM RADIATION DOSE METRICS: Total DLP (mGy-cm): 481.2 FINDINGS: Pulmonary arteries: Pulmonary artery evaluation of good technical quality with no pulmonary artery embolism identified. Aorta: No aortic aneurysm nor dissection. Other arteries: Moderate atherosclerotic disease is evident. Lungs: Benign granulomatous disease of the lung is noted. Previously noted small 3 mm pulmonary nodule in the right upper lobe is unchanged. Pleural spaces: Unremarkable. No pneumothorax. No pleural effusion. Heart: Unremarkable. No cardiomegaly. No pericardial effusion. Lymph nodes: Unremarkable. No enlarged lymph nodes. Bones/joints: Old left rib fractures are evident. Spinal degenerative changes are evident. Soft tissues: Unremarkable. Other findings: Fleischner follow up recommendations for incidental nodules are not indicated. Follow up per patient's medical condition. Examination is motion limited. CT/CT angio chest PE protcl [id number] IMPRESSION: 1. No aortic aneurysm nor dissection. 2. No pulmonary artery embolism identified. 3. Previously noted small 3 mm pulmonary nodule in the right upper lobe is unchanged. No further workup needed. 4. No acute process identified. Radiation Dose CTDIVOL = (mGy): DLP = 481.2 (mGy-cm)
[2021-07-11] MEDS: iohexol 350 mg/mL 100 mL Btl IV (09:40)
[2021-07-11] MEDS: pantoprazole DR 40 mg Tablet PO (10:04)
[2021-07-11] MEDS: doxycycline 100 mg Tablet PO ×2 (10:04→18:05)
--- NOTE | 2021-07-11 11:04 | P.PN_ITS ---
Subjective Subjective: Interval history: Seen this morning. Patient states that she is feels a little bit short of breath today. She is refusing to wear her BiPAP. She says she does not like the way the mask is put on her face. She is on 2 L nasal cannula at this time. Vitals/I&O/Wt Last Vital Signs Temp 98.6 F 07/11/21 10:40 Pulse 97 07/11/21 10:40 Resp 33 H 07/11/21 10:40 BP 166/96 07/11/21 10:40 Pulse Ox 91 07/11/21 10:40 07/10/21 07/11/21 07/11/21 22:59 06:59 14:59 Intake Total 580 / 2080 300 / 2380 236 / 236 Output Total 1000 / 1000 550 / 1550 Balance -420 / 1080 -250 / 830 236 / 236 Physical Exam Narrative: EXAM NARRATIVE: General: Alert oriented x3, patient seen sitting up in bed appearing slightly tachypneic, breathing 2 L nasal cannula. No acute distress, frail-appearing elderly female. Cardio: Regular rate rhythm, normal S1-S2, no murmurs rubs gallops Lungs: Breath sounds diminished bilaterally, Fairly clear to auscultation. No wheezes or rhonchi appreciated. No crackles appreciated at bases either. GI: Abdomen soft, nontender, bowel sounds + Behavior: Appears slightly anxious, appears slightly tachypneic but not in any respiratory distress. Extremities: Pulses 2+, no edema, Left hip dressing clean and dry. Urinary Catheter Management^: Patel Latex: Cath Placed During This Visit: yes Reason for Continuing Indwelling Catheter: Accurate Measurement of Urinary Output in Critically Ill Patients Urinary Catheter Date of Insertion: 07/08/21 Urinary Catheter Time of Insertion: 13:00 Data : 07/10/21 04:45 07/10/21 04:45 Micro: Microbiology 07/09/21 15:20 Blood Culture - Preliminary Blood NEGATIVE TO DATE 07/09/21 15:00 Blood Culture - Preliminary Blood NEGATIVE TO DATE A&P Assessment and plan (1) Intertrochanteric fracture of left femur: Status: Acute (2) Dementia: Continue home med occasions Status: Acute (3) COPD (chronic obstructive pulmonary disease): DuoNeb every 4 hours Try to keep oxygen saturation 88 to 92% I will restart patient Solu-Medrol at 40 twice daily today. CTA done ruled out PE. We will give her another DuoNeb. ABG also done. Patient refusing to wear BiPAP. Discussed with respiratory therapy. We will continue to work with the p atient. She is not in any acute distress and is saturating 90% on 2 L nasal cannula. Status: Acute (4) Essential (primary) hypertension: Continue home medications Status: Acute (5) Closed left hip fracture: Directly postoperative IM nailing Initiate rehabilitation Remove Patel when possible Will need retirement facility placement for rehabilitation. She was in care home prior to admission. Pain control Status: Acute (6) Chronic respiratory failure: Maintain oxygenation of 90 to 92%. Giving more oxygen than needed will likely increase PCO2 Status: Acute Additional A&P Information Full code Lovenox for DVT prophylaxis Nursing facility placement for skilled care. Attestations Medical Necessity Statement*: We will keep patient today to treat emphysema exacerbation. She is tachypneic and refusing to wear BiPAP. I will place her on IV steroids today. Potential discharge tomorrow morning. 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
[2021-07-11] MEDS: sennosides-docusate Tablet 1 TAB PO (18:05)
[2021-07-11] MEDS: polyethylene glycol 3350 Pkt 17 gm PO (18:05)
[2021-07-11] MEDS: diphenhydrAMINE 25 mg Capsule PO (19:06)
--- NOTE | 2021-07-11 19:23 | PC.NURSE ---
med rec updated received med list fax from [facility].
--- NOTE | 2021-07-11 19:44 | PC.NURSE ---
Shift Note Frequent safety and comfort rounds continue. Orders and/or nursing care completed as indicated. Patient monitored for response to intervention and treatment(s). Education provided includes relaxation techniques and up ad michael as tolerated. 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 Will continue to monitor.
[2021-07-11] MEDS: acetaminophen 325 mg Tablet 650 MG PO (21:57)
[2021-07-11] MEDS: quetiapine 25 mg Tablet PO (21:58)
[2021-07-11] MEDS: donepezil 5 MG Tablet 10 MG PO (21:59)
[2021-07-11] MEDS: enoxaparin 40 mg/0.4 mL Syringe SUBCUT (22:00)
[2021-07-12] VITALS (13 sets, daily range): BP systolic 111–165; BP diastolic 66–95; PULSE 64–110; RESP 18–98; TEMP 36.3–36.6; O2SAT 93–97
[2021-07-12] MEDS: ipratropium-albuterol 3 mL Neb INHALATION ×5 (00:08→13:35)
[2021-07-12] MEDS: ALPRAZolam 0.5 mg Tablet PO ×2 (01:37→10:02)
--- NOTE | 2021-07-12 02:06 | PC.NURSE ---
Patient actively moaning in room. When this nurse went to check on patient, she stated I need something more for pain and I can have anything I want. Advised patient that pain meds were already given and would not be time until 4am to give another dose. Patient started fanning herself and yelling I can't take it, I am so hot I can't breath. Offered xanax and given to patient. Will continue to monitor.
[2021-07-12 05:21] LABS: Basophils % 0.1 %; Eosinophils # 0.1 10^3/uL (0.0-0.8); Eosinophils % 1.3 %; Hematocrit 24.6 % (37.0-47.0); Hemoglobin 7.7 g/dL (11.5-15.3); Lymphocytes # 1.2 10^3/uL (0.8-4.8); Lymphocytes % 17.5 %; Mean Corpuscular HGB Conc 31.3 g/dL (30.0-36.0); Mean Corpuscular Hemoglobin 27.9 pg (28.0-34.0); Mean Corpuscular Volume 89.1 fl (81-99); Monocytes # 0.6 10^3/uL (0.2-0.9); Monocytes % 8.7 %; Neutrophils # 5.01 10^3/uL (1.8-7.7); Neutrophils % 71.8 %; Nucleated Red Blood Cells % 0 %; Platelet Count 130 10^3/cmm (130-400); Red Blood Count 2.76 10^6/uL (4.1-5.3)
[2021-07-12 05:50] LABS: Anion Gap 9.2 (5-19); Blood Urea Nitrogen 20 mg/dL (8-23); Calcium 7.9 mg/dL (8.5-10.5); Carbon Dioxide 34 mmol/L (22-29); Chloride 101 mmol/L (98-107); Glucose 93 mg/dL (65-115); Magnesium 2.1 mg/dL (1.7-2.3); Osmolality Calculated 292 mOsm/kg (285-295); Potassium 4.2 mmol/L (3.5-5.1); Sodium 140 mmol/L (136-145)
[2021-07-12] MEDS: oxyCODONE 5 mg IR Tab/Cap PO ×2 (07:07→13:02)
[2021-07-12] MEDS: budesonide 0.5 mg/2 mL Neb INHALATION (07:56)
[2021-07-12] MEDS: aspirin 81 mg EC Tablet PO (07:59)
[2021-07-12] MEDS: gabapentin 400 mg Capsule PO (07:59)
[2021-07-12] MEDS: losartan 50 mg Tablet PO (07:59)
[2021-07-12] MEDS: doxycycline 100 mg Tablet PO (08:23)
[2021-07-12] MEDS: acetaminophen 325 mg Tablet 650 MG PO (08:23)
[2021-07-12] MEDS: pantoprazole DR 40 mg Tablet PO (08:24)
[2021-07-12] MEDS: sennosides-docusate Tablet 1 TAB PO (08:24)
[2021-07-12] MEDS: polyethylene glycol 3350 Pkt 17 gm PO (08:24)
--- NOTE | 2021-07-12 09:28 | PC.CHAP ---
Pastoral Care Encounter/Spiritual Assessment Type of Contact [] Declined notched blade loader visit [] Patient/Family/Request visit [] Outpatient visit [] Follow-up visit [] Physician referral [] Code/Alert [x] Routine visit [] Staff referral [] Actively dying [] Patient sleeping [] Family support [] [] Out of room [] Palliative care [] [] Receiving care in room [] Pre-surgical visit [] Trauma [] Long length of stay [] ICU visit [] Other: Relational/Emotional Strength [] Patient feels connected with others/family/visitors/staff [] Distress [] Loneliness/isolation [] Abandonment Spirituality of Patient [] Person of [place] [] Attends Yazidi of their [place] [] Believes in Prayer [] Reads Bible or Druze materials [] There are Spiritual issues to be addressed Transformer Mechanic Interventions [x] Prayer [x Active listening [x] Non-anxious presence [x] Spiritual/emotional support [] Crisis/trauma care [] Spiritual counseling [] Bereavement support [] Provided bereavement packet [] Provided Bible/devotional materials [] Provided toy/stuffed animal, coloring book to patient or family member [] Provided Communion [] Anointing/[place] [] Salvation [x] Completed spiritual assessment [] Other: Impact on Illness or Injury [] Angry [] Fearful [] Anxious [] Often cries [] Exhaustion [] Unable to work [] Unable to attend rastafarian [] Unable to walk/stand [] Unable to read [] Unable to drive [] Unable to eat/drink [] Unable to sleep [] Unable to be with family [] Patient intubated [] Other: Summary patient resting well. prayed for strength and understanding of issues Time spent with patient 5 min
[2021-07-12 09:42] LABS: Hematocrit 29.1 % (37.0-47.0)
--- NOTE | 2021-07-12 11:17 | PC.OT ---
OT TREATMENT ATTEMPTED. PATIENT STATES THAT SHE FEELS LIKE SHE IS DYING ; DUE TO SHINGLES. I WOULD JUST LIKE TO REST RIGHT NOW. WILL ATTEMPT AGAIN AT A LATER TIME
[2021-07-12] MEDS: diphenhydrAMINE 25 mg Capsule PO (11:18)
--- NOTE | 2021-07-12 11:33 | PM.DCS ---
Discharge Providers Date of Admission: 07/08/21 10:36 Date of Discharge: July 12, 2021 Attending Provider at Admission: Odell Resendiz MD Attending Provider at Discharge: Wilbert Restrepo MD Primary Care Provider: Gibson Bo MD Diagnoses at Discharge Discharge Diagnosis (1) Intertrochanteric fracture of left femur: Status: Acute (2) Dementia: Status: Acute (3) COPD (chronic obstructive pulmonary disease): Status: Acute (4) Essential (primary) hypertension: Status: Acute (5) Closed left hip fracture: Status: Acute (6) Chronic respiratory failure: Status: Acute Reason for Visit Reason for Visit: L HIP PAIN, POST FALL Hospital Course Hospital Course History of Present Illness by Dr Resendiz Sneha Smith is a 80 year old female who resides at [facility] who according to history from nursing patient was walking to the bathroom when she fell. Apparently the first history she gave with this that she tripped over her feet. In my history she reports she may have been dizzy, perhaps tripped over her feet, does not remember. She has a history of dementia. She reports her left shoulder is slightly painful and her left hip hurts. She denies any headache currently but acknowledges she could have hit her head. Fall was unwitnessed. No recent illness. Unvaccinated for Covid according to the patient. Nursing facility paperwork denotes full code. In talking with the nursing facility they reports she is rather independent. She can transfer herself, and ambulate. She is supposed to use a walker but sometimes does not, and was not using a walker when she fell. Hosp Course: S/p 07/09 IM nailing, postoperatively she developed low-grade fever, no source of infection identified, this was most likely postoperative low-grade fever, she did develop COPD exacerbation for which she stayed over the weekend, her COPD exacerbation improved with use of inhalers and steroids, CTA ruled out pulmonary embolism, she will be discharged back to assisted on 07/12 with opioids and bowel regimen. Lung imaging showed chronic emphysematous changes no signs of atelectasis or pneumonia. Cultures negative to date. No leukocytosis or recurrent fever episodes. She will get aspirin 325mg 14-day DVT prophylactic regimen then continue 81 mg daily regimen. Follow-up with Dr. Badillo. Physical Exam Narrative: EXAM NARRATIVE: General: Alert oriented x3, patient seen sitting up in bed appearing slightly tachypneic, breathing well on 1 L nasal cannula. No acute distress, frail-appearing elderly female. Cardio: Regular rate rhythm, normal S1-S2, no murmurs rubs gallops Lungs: Breath sounds diminished bilaterally, Fairly clear to auscultation. No wheezes or rhonchi appreciated. No crackles appreciated at bases either. GI: Abdomen soft, nontender, bowel sounds + Behavior: Appears slightly anxious, appears slightly tachypneic but not in any respiratory distress. Extremities: Pulses 2+, no edema, Left hip dressing clean and dry. Urinary Catheter Management^: Patel Latex: Cath Placed During This Visit: yes Reason for Continuing Indwelling Catheter: Other Urinary Catheter Date of Insertion: 07/08/21 Urinary Catheter Time of Insertion: 13:00 Discharge Data Data Completed and Pending: Completed Studies During Hospitalization Category Date Time Status CT angio chest PE protcl [id number] Stat Cat Scan 07/11/21 08:[address] head wo con* 7 0450 Urgent Cat Scan 07/08/21 11:00 Completed XR chest 1V ehsan ble [id number] Routine Exams 07/08/21 10:37 Completed XR chest 1V ehsan ble [id number] Routine Exams 07/09/21 13:47 Completed XR chest 1V ehsan ble 10545 Stat Exams 07/11/21 08:10 Completed XR hip LT 2-3V wo /w pel* 25655 Rout ine Exams 07/09/21 Completed XR hip LT 2-3V wo /w pel* [id number] Stat Exams 07/08/21 09:43 Completed XR humerus LT 730 60 Routine Exams 07/08/21 17:06 Completed Pending at discharge Category Date Time Status Blood Culture Sta t Lab 07/09/21 15:00 Results Labs from last 24 hours 07/12/21 07/12/21 07/12/21 09:30 04:38 04:38 WBC 7.0 RBC 2.76 L Hgb 9.0 L 7.7 L Hct 29.1 L 24.6 L MCV 89.1 MCH 27.9 L MCHC 31.3 RDW 16.0 H Plt Count 130 MPV 12.0 H Neut % (Auto) 71.8 Lymph % (Auto) 17.5 [place] % (Auto) 8.7 Eos % (Auto) 1.3 Baso % (Auto) 0.1 Neut # (Auto) 5.01 Lymph # (Auto) 1.2 [place] # (Auto) 0.6 Eos # (Auto) 0.1 Baso # (Auto) 0.0 Nucleated RBC % (a uto) 0 Nucleated RBCs # 0.0 Sodium 140 Potassium 4.2 Chloride 101 Carbon Dioxide 34 H Anion Gap 9.2 BUN 20 Creatinine 0.6 GFR Calculation Not Reportable Glucose 93 Calculated Osmolal ity 292 Calcium 7.9 L Magnesium 2.1 Vitals: Last Vital Signs Temp 97.4 F L 07/12/21 08:00 Pulse 94 07/12/21 08:00 Resp 18 07/12/21 08:00 BP 149/79 07/12/21 08:00 Pulse Ox 96 07/12/21 08:00 Discharge Plan Discharge Patient Disposition: Xfer SNF Condition: Stable Prescriptions: New hydrocodone-acetaminophen 5-325 mg tablet 1 - 2 tab PO .Q4-6H Qty: 40 RF: 0 Senna-S 8.6-50 mg tablet 1 tab-cap PO DAILY Qty: 30 RF: 0 aspirin 325 mg capsule 325 mg PO DAILY Qty: 14 RF: 0 Continued sumatriptan succinate [Imitrex] 50 mg tablet 50 mg PO DAILY PRN (Reason: Migraine Headache) RF: 0 aspirin [Adult Aspirin Regimen] 81 mg tablet,delayed release (DR/EC) 81 mg PO DAILY@08 RF: 0 nitroglycerin 6.5 mg capsule, extended release 6.5 mg PO BID@0800,2000 RF: 0 losartan 50 mg tablet 50 mg PO DAILY@08 RF: 0 ipratropium-albuterol 0.5 mg-3 mg(2.5 mg base)/3 mL solution for nebulization 3 ml INHALATION QID PRN (Reason: Shortness Of Breath) RF: 0 trazodone 50 mg Tablet 50 mg PO BEDTIME Qty: 30 RF: 0 magnesium hydroxide [Milk of Magnesia] 400 mg/5 mL Suspension 400 mg PO DAILY PRN (Reason: Constipation) RF: 0 bisacodyl 10 mg Suppository 10 mg UT DAILY PRN (Reason: Constipation) RF: 0 Enema 19-7 gram/118 mL Enema 118 ml UT DAILY PRN (Reason: Constipation) RF: 0 quetiapine [Seroquel] 25 mg Tablet 25 mg PO BEDTIME RF: 0 nystatin 100,000 unit/mL Suspension 100,000 unit PO QID RF: 0 ondansetron HCl [Zofran] 4 mg Tablet 4 mg PO Q4H PRN (Reason: Nausea) RF: 0 gabapentin 400 mg Capsule 400 mg PO TID@08,14,21 RF: 0 alprazolam 0.5 mg Tablet 0.5 mg PO TID RF: 0 docusate sodium 100 mg Capsule 100 mg PO BEDTIME RF: 0 acetaminophen [Tylenol] 325 mg Capsule 650 mg PO Q6H PRN (Reason: Pain) RF: 0 donepezil 5 mg tablet 10 mg PO DAILY@08 RF: 0 Discontinued tramadol 50 mg tablet 50 mg PO Q4H PRN (Reason: pain) RF: 0 lidocaine HCl [Lidocaine Viscous] 2 % Solution 1 applic MUCOUS MEMBRANE TID RF: 0 lidocaine HCl [Lidocaine Viscous] 2 % Solution 1 applic MUCOUS MEMBRANE Q2H PRN (Reason: Pain) RF: 0 TwoCal HN 0.08-2 gram-kcal/mL Liquid 1 ea PO RF: 0 Eucerin Lotion 1 applic TOPICAL BID PRN (Reason: Dry Skin) RF: 0 Discharge Orders: Discharge Order (Routine); Ordered 07/12/21 Ordered By: Wilbert Restrepo Referrals: Joo Badillo DO [Physician] - 2 weeks Gibson Bo MD [Primary Care Provider] - 1 week Discharge Diet: Cardiac Discharge Activity: Increase activity as tolerated and As per PT/OT instructions Activity Restrictions/Additional Instructions: You are being discharged from the hospital today during which time you have been under the care of Dr Badillo. You had a Left Inter-trochanteric hip fracture fracture. You were treated for this injury with left hip nail. You may resume you normal diet (including any special diets as directed by your primary doctor) as well as your home medications. You should follow up with you primary doctor if you have any questions regarding medication you took prior to your stay in the hospital. You may take your pain medication as prescribed. After the first few days, take your pain medication as needed. Do not drive or drink alcohol while taking your pain medication. Your injury may increase your risk of developing a blood clot,or DVT, in your arm or leg. This could potentially dislodge and travel to your lungs and become a life threatening condition called apulmonary embolus,or PE. You have been prescribed Asprin which you were on before to be taken to prevent this. Frequent movement of the legs will also help prevent this from occurring. If you develop any new or worsening cough, chestpain, bloody sputum or shortness of breath, call 911 or go to the EmergencyRoom. Always keep your surgical incision/dressing clean and dry. If you experience increasing pain at your incision site, redness, swelling, increasing discharge, foul odors, or fevers (greater than 100.4), night sweats or chills you should call the office at the above number. If you feel this is an emergency you should be evaluated in the Emergency Department of a nearby hospital. Orthopedic Patient Instructions Summary: Weight Bearing: WBAT Activity: as tolerated. Diet: regular. Wound Care: Keep dressing clean and dry. Change as needed Anticoagulation: ASA Pain Medication: Take only as needed. Ice, rest and elevation will be of great benefit. Please plan to follow-up [facility] Dr Badillo in 2 weeks. You will need to call the clinic [phone] to schedule this visit. Thank you far allowing me to participate in your care. Do not hesitate to call the office with any questions or concerns. Discharge Attestations Time Spent in Discharge Care*: less than 30 min Status at Discharge: Cognitive status at discharge: moderately impaired cognition, Behavioral status at discharge: cooperative, Quality Metrics Clinical Quality Measures During this hospital stay, did patient experience: None Coding Level of Care Code Acute [facility] [place] note Diagnoses Intertrochanteric fracture of left femur S72.142A Dementia F03.90 COPD (chronic obstructive pulmonary disease) J44.9 Essential (primary) hypertension I10 Closed left hip fracture S72.002A Chronic respiratory failure J96.10
--- NOTE | 2021-07-12 13:27 | PC.NURSE ---
Verified patient is NOT allergic to hydrocodone per azalia daughterAngela.
== END 2021-07-12 13:45 | disposition skilled nursing facility (03) | DRG 481 ==
LOC: ER 11:48 → CSU 13:46
PROVIDERS: Internal Medicine; Orthopaedic Surgery; Admitting Provider Internal Medicine; Emergency Provider Emergency Medicine; PCP Family Medicine; Visit Provider Internal Medicine
PROC: 0QS706Z Reposition Left Upper Femur with Intramedullary Internal Fixation Device, Open Approach (ICD-10-PCS; CPT 27245; principal; 2021-07-09 07:00)
DX: S72.145A Nondisplaced intertrochanteric fracture of left femur, initial encounter for closed fracture (principal); J96.10 Chronic respiratory failure, unspecified whether with hypoxia or hypercapnia; W01.0XXA Fall on same level from slipping, tripping and stumbling without subsequent striking against object, initial encounter; Y92.129 Unspecified place in nursing home as the place of occurrence of the external cause; F03.90 Unspecified dementia, unspecified severity, without behavioral disturbance, psychotic disturbance, mood disturbance, and anxiety; I25.10 Atherosclerotic heart disease of native coronary artery without angina pectoris; Z95.5 Presence of coronary angioplasty implant and graft; I73.9 Peripheral vascular disease, unspecified; G89.29 Other chronic pain; J43.9 Emphysema, unspecified; Z86.73 Personal history of transient ischemic attack (TIA), and cerebral infarction without residual deficits; I10 Essential (primary) hypertension; K21.9 Gastro-esophageal reflux disease without esophagitis; M10.9 Gout, unspecified; E78.2 Mixed hyperlipidemia; E03.9 Hypothyroidism, unspecified; M19.012 Primary osteoarthritis, left shoulder; Z87.891 Personal history of nicotine dependence; Z79.82 Long term (current) use of aspirin
CPT/HCPCS: 36415; 36600; 51702; 70450; 71045; 71275; 73060; 73502; 76000; 80048; 80051; 80053; 81001; 82330; 82805; 83735; 85014; 85018; 85025; 87040; 87426; 87635; 93005; 94640; 94660; 96372; 97110; 97161; 97165; 97530; 99291; C1713; J0690; J1170; J1650; J2370; J2405; J2704; J2920; J2930; J3010; J7626; Q9967

== ENCOUNTER 2021-07-19 11:41 | Outpatient (CLI) | payer MEDICARE, MEDICAID, SELFPAY ==
[2021-07-19 11:59] LABS: Basophils # 0.1 10^3/uL (0.0-0.1); Eosinophils # 0.5 10^3/uL (0.0-0.8); Eosinophils % 8.6 %; Hematocrit 29.2 % (37.0-47.0); Hemoglobin 8.6 g/dL (11.5-15.3); Lymphocytes # 1.2 10^3/uL (0.8-4.8); Lymphocytes % 22.6 %; Mean Corpuscular HGB Conc 29.5 g/dL (30.0-36.0); Mean Corpuscular Volume 95.1 fl (81-99); Mean Platelet Volume 9.9 fL (7.4-10.4); Monocytes # 0.4 10^3/uL (0.2-0.9); Monocytes % 6.9 %; Neutrophils # 3.17 10^3/uL (1.8-7.7); Neutrophils % 60.5 %; Nucleated Red Blood Cells % 0 %; Platelet Count 260 10^3/cmm (130-400); Red Blood Count 3.07 10^6/uL (4.1-5.3); Red Cell Distribution Width 17.5 % (12.1-15.1); White Blood Count 5.2 10^3/uL (4.0-10.0)
[2021-07-19 12:49] LABS: Anion Gap 6.6 (5-19); Blood Urea Nitrogen 10 mg/dL (8-23); Calcium 7.8 mg/dL (8.5-10.5); Chloride 99 mmol/L (98-107); Glucose 73 mg/dL (65-115); Osmolality Calculated 292 mOsm/kg (285-295); Potassium 4.6 mmol/L (3.5-5.1); Sodium 142 mmol/L (136-145)
[2021-07-19 12:54] LABS: Carbon Dioxide 41 mmol/L (22-29)
== END 2021-07-19 11:42 | disposition home or self-care (01) ==
PROVIDERS: PCP Family Medicine; Visit Provider Nurse Practitioner Family
DX: I10 Essential (primary) hypertension (principal)
CPT/HCPCS: 80048; 85025

== ENCOUNTER 2021-07-19 13:55 | Emergency (ER) | payer MEDICARE, MEDICAID, SELFPAY ==
[2021-07-19 13:56] VITALS: BP 115/65; PULSE 87; RESP 21; TEMP 36.7; O2SAT 98; BMI 21.1
--- NOTE | 2021-07-19 14:24 | CT_ITS ---
WS: [id number] CT HEAD NONCONTRAST HISTORY: ams TECHNIQUE: Contiguous axial imaging performed through the brain in 2.5 mm imaging. Bone and soft tiss ue windows. Sagittal and coronal reformats reviewed. All CT scans at [facility] use at least one of these dose optimization techniques: automated exposure control; mA and/or kV adjustment per pa tient size (includes targeted exams where dose is matched to clinical indication); or iterative recon struction. DLP: 2036.39 mGy.cm COMPARISON: 07/08/2021 No acute intracranial hemorrhage, midline shift or mass effect. Mild atrophy with moderate to severe chronic white matter ischemic changes. No prior infarct. The low attenuation from chronic ischemic disease is stable. Ventricles: Normal size with no hydrocephalus. No inferior displacement of cerebellar tonsils. Paranasal sinuses: As visualized are clear. Mastoid air cells: Well pneumatized. Calvarium and scalp: Skull is intact with no soft tissue edema or swelling. CT/CT head wo con* 68036 IMPRESSION: 1. No acute intracranial hemorrhage or edema. 2. Moderate to severe chronic ischemic white matter disease. No progression.
[2021-07-19] MEDS: sodium chloride 0.9% 500 ML IV (16:00)
--- NOTE | 2021-07-19 16:01 | ED_ITS ---
HPI - General Adult General: Chief complaint: Altered Mental Status Stated complaint: RESP ISSUES BASED ON CRITICAL LABS Time Seen by Provider: 07/19/21 14:00 History of Present Illness: HPI narrative: Patient is an 80-year-old female with history of vascular occlusion, hypothyroidism, CAD s/p stents x 2 who presents emergency room for concerns for confusion from [facility]. Patient has no focal complaints. Patient is AAO x3, GCS 15. Patient tells me that she has no complaints other than feeling chills. she does not know why she is in the emergency room. Onset: unknown Duration:ongoing Location:home Severity: mild Review of Systems Narrative: Constitutional: No fever, no chills. HEENT: No vision changes CV: No chest pain, no palpitations PULM: no cough, no dyspnea. GI: No abdominal pain, no N/V/D. : No dysuria MSKEL: No muscle pain SKIN: No new rashes, no lesions. NEURO: No headache, no focal weakness. HEME: No visible bruises PSYCH: Normal mood PFSH ED PFSH: Medical History 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 Anemia ASCVD (arteriosclerotic cardiovascular disease) Carotid stenosis Chronic pain Closed rib fracture COPD (chronic obstructive pulmonary disease) COPD (chronic obstructive pulmonary disease) CVA (cerebral vascular accident) DDD (degenerative disc disease) Dementia Essential (primary) hypertension Fall GERD (gastroesophageal reflux disease) Gout History of ovarian cyst Hyperlipidemia, mixed Hypothyroid Iron deficiency Lumbar disc disease with radiculopathy Mixed incontinence urge and stress Osteoarthritis of left shoulder Surgical History H/O heart artery stent H/O pelvic surgery H/O shoulder surgery History of throat surgery S/P tonsillectomy Family History Family/Other No problems noted. Mother Myocardial infarction Sister Myocardial infarction Asthma Father Diabetes Other Cancer Hypertension Social History Smoking and tobacco status: former smoker Quit status (tobacco): has quit using tobacco Year quit tobacco: 2001 - 1PPD x 20 Years Alcohol intake: never Lives independently: Yes Household members: none Marital status: / Current occupational status: retired History of recent travel: No Current gender identity: Female Physical Exam Narrative: EXAM NARRATIVE: Head: Atraumatic Eyes: PERRL, conjunctiva without injection ENT: Mucous membrane moist NECK: Supple, ROM intact LUNGS: LCTAB, no crackles/rhonchi CV: RRR ABDOMEN: Soft, nontender in all quadrants EXTREMITY: Normal ROM SKIN: No rash or erythema NEURO: Awake, alert, and oriented to self, year, month, location, and situation.? Following simple axial and appendicular commands.? Has appropriate fund of knowledge, comprehension, and insight.? Able to recall and understands pertinent aspects of medical history and current treatment status.? ? Language? Speech is fluent without word-finding difficulties.? Intact naming, expression, well puller, and repetition.? ? Cranial nerves? 2,3,4,6: PERRL, EOMI with no nystagmus. 5: Intact sensation to light touch, symmetric? 7: Smile symmetrical, no facial droop.? 8: Hearing grossly intact.? 9,10: Normal palate movement.? 11: Normal strength in trapezius bilaterally 12: Tongue protrudes midline.? ? Motor examination? Normal bulk & tone. Strength as follows (R/L): Delts (5/5), Biceps (5/5), Triceps (5/5), Wrist ext (5/5), hip flexors (5/5), plantarflexors (5/5), dorsiflexors (5/5). Sensation? Light Touch: Grossly intact and equal in upper and lower extremities bilaterally? Romberg: Negative.? Distal joint position sense intact ? Coordination? [id number]-finger movements intact without dysmetria or past-pointing.? Rapid fingertaps: preserved amplitude without decriment.? No tremor, myoclonus or truncal ataxia.? ? Gait/stance? Steady, normal narrow base gait with appropriate arm swing and turning.? Tandem gait without hesitation or loss of balance. PSYCH: Normal mood and affect RECTAL: hemoocult negative Course Vital Signs: Vital signs: Vital Signs Temperature 98.0 F 07/19/21 13:56 Pulse Rate 115 H 07/19/21 19:00 Respiratory Rate 16 07/19/21 20:10 Blood Pressure 115/65 07/19/21 13:56 Pulse Oximetry 92 07/19/21 19:00 MDM - General Adult MDM Narrative: Medical decision making narrative: Patient is an 80-year-old female with a history of hypothyroidism, CAD s/p stents, vascular occlusion prior presenting to the emergency room for evaluation for altered mental status. Per nursing, patient patient PCO2 42 On arrival, patient is AOx3 GCS 15. Neuro exam intact Patient is noted to have a hemoglobin of 8.3, has been slowly declining over the last evaluation. CT brain negative for any acute findings. Other laboratory work-up including troponin EKG x-ray chest and UA are negative for any acute findings. Patient is AOx3 GCS 15, tolerating p.o. Patient will be stable for transfer back to nursing facility with close follow-up for anemia. No visible melena and hemoocult negative. Will need to follow-up with primary care provider for further evaluation of her symptoms. Is found to have a PCO2 of 73 with 80 bicarb of 40. I have discussed case with Shannon from patient's [facility] [facility] who tells me that they can arrange for BiPAP and CPAP tomorrow. Have discussed plan with patient who agrees and would like to go back to [facility]. Patient at the present time is AAO x3, GCS 15, no signs of confusion currently. I have attempted to arrange for home BiPAP for my patient will involve our behavioral health case manager to ensure follow-up with PCP to ensure patient gets BiPAP. I have given patient follow up with our behavioral health case manager to be seen by our outpatient PCP for anemia. Patient aware of a call from our behavioral health case manager to schedule for appointment(s) and verbalizes understanding of the importance of following up. Rx iron for anemia Disposition: Discharge. Patient counseled regarding diagnostic impression, treatment plan. Patient given ED strict return precautions to return for continuation, worsening, or development of new symptoms. Instructed to f/u w/ PCP regarding symptoms today. Patient verbalized understanding. Lab Data: Labs: Lab Results 07/19/21 07/19/21 07/19/21 15:50 15:50 15:50 WBC 6.6 10^3/uL 10^3/ uL (4.0-10.0) RBC 2.89 10^6/uL L 10 ^6/uL (4.1-5.3) Hgb 8.3 g/dL L g/dL (11.5-15.3) Hct 27.0 % L % (37.0-47.0) MCV 93.4 fl fl (81-99) MCH 28.7 pg pg (28.0-34.0) MCHC 30.7 g/dL g/dL (30.0-36.0) RDW 17.4 % H % (12.1-15.1) Plt Count 242 10^3/cmm 10^3 /cmm (130-400) MPV 9.4 fL fL (7.4-10.4) Neut % (Auto) 70.1 % % Lymph % (Auto) 16.8 % % [place] % (Auto) 5.9 % % Eos % (Auto) 6.1 % % Baso % (Auto) 0.6 % % Neut # (Auto) 4.63 10^3/uL 10^3 /uL (1.8-7.7) Lymph # (Auto) 1.1 10^3/uL 10^3/ uL (0.8-4.8) [place] # (Auto) 0.4 10^3/uL 10^3/ uL (0.2-0.9) Eos # (Auto) 0.4 10^3/uL 10^3/ uL (0.0-0.8) Baso # (Auto) 0.0 10^3/uL 10^3/ uL (0.0-0.1) Nucleated RBC % (a uto) 0 % % Nucleated RBCs # 0.0 /100WBC /100W BC Specimen Type Sample Site ABG pH ABG pCO2 ABG pO2 ABG HCO3 ABG Base Excess Felipe Test Hematocrit O2 Delivery Device O2 Liters/Min FiO2 Biodiesel Product Manager ID Sodium 140 mmol/L mmol/L (136-145) Potassium 4.7 mmol/L mmol/L (3.5-5.1) Chloride 97 mmol/L L mmol/ L (98-107) Carbon Dioxide 41 mmol/L H mmol/ L (22-29) Anion Gap 6.7 (5-19) BUN 11 mg/dL mg/dL (8-23) Creatinine 0.7 mg/dL mg/dL (0.5-0.9) GFR Calculation Not Reportable Glucose 79 mg/dL mg/dL (65-115) Calculated Osmolal ity 288 mOsm/kg mOsm/ kg (285-295) Lactate 0.7 mmol/L mmol/L (0.5-2.2) Calcium 7.9 mg/dL L mg/dL (8.5-10.5) Total Bilirubin 0.2 mg/dL mg/dL (0.15-1.2) AST 14 U/L U/L (0-32) ALT 10 U/L U/L (0-33) Alkaline Phosphata se 145 IU/L H IU/L (35-105) Total Protein 5.0 g/dL L g/dL (6.6-8.7) Albumin 3.2 g/dL L g/dL (3.5-5.2) Globulin 1.8 g/dL g/dL (1.3-4.6) Lipase 54 U/L U/L (13-60) 07/19/21 17:50 WBC RBC Hgb Hct MCV MCH MCHC RDW Plt Count MPV Neut % (Auto) Lymph % (Auto) [place] % (Auto) Eos % (Auto) Baso % (Auto) Neut # (Auto) Lymph # (Auto) [place] # (Auto) Eos # (Auto) Baso # (Auto) Nucleated RBC % (a uto) Nucleated RBCs # Specimen Type Arterial Sample Site Radial, left ABG pH 7.36 (7.35-7.45) ABG pCO2 73.0 mmHg H* mmHg (35-45) ABG pO2 105.0 mmHg H mmHg (80.0-100.0) ABG HCO3 41.0 mmol/L H mmo l/L (22-26) ABG Base Excess 13.6 mmol/L H mmo l/L (-2.0-2.0) Felipe Test Pos Hematocrit 25.4 % L % (37-47) O2 Delivery Device Nc O2 Liters/Min 5.0 % % FiO2 40.0 % % Biodiesel Product Manager ID Nicer Sodium Potassium Chloride Carbon Dioxide Anion Gap BUN Creatinine GFR Calculation Glucose Calculated Osmolal ity Lactate Calcium Total Bilirubin AST ALT Alkaline Phosphata se Total Protein Albumin Globulin Lipase Imaging Data^: Other Imaging: Radiologist's impression: [address] [id number] Scan ReportSigned Patient: Sneha Smith MUnit #: [id number]: [id number]#:[id number]/Sex: 80 / FADM Date: 07/19/21Loc: ERRoom/Bed:Attending Dr: Ordering Provider/Ordering MD: Maria Isabel Kramer MD Date of Service: 07/19/21 Procedure(s): CT head wo con* [id number] Accession Number(s): [id number] Report Number: [id number] WS: [id number] CT HEAD NONCONTRAST HISTORY: ams TECHNIQUE: Contiguous axial imaging performed through the brain in 2.5 mm imaging. Bone and soft tissue windows. Sagittal and coronal reformats reviewed. All CT scans at [facility] use at least one of these dose optimization techniques: automated exposure control; mA and/or kV adjustment per patient size (includes targeted exams where dose is matched to clinical indication); or iterative reconstruction. DLP: 2036.39 mGy.cm COMPARISON: 07/08/2021 No acute intracranial hemorrhage, midline shift or mass effect. Mild atrophy with moderate to severe chronic white matter ischemic changes. No prior infarct. The low attenuation from chronic ischemic disease is stable. Ventricles: Normal size with no hydrocephalus. No inferior displacement of cerebellar tonsils. Paranasal sinuses: As visualized are clear. Mastoid air cells: Well pneumatized. Calvarium and scalp: Skull is intact with no soft tissue edema or swelling. CT/CT head wo con* [id number] IMPRESSION: 1. No acute intracranial hemorrhage or edema. 2. Moderate to severe chronic ischemic white matter disease. No progression. Dictated By:Lucretia Fuentes DOSigned By:Lucretia Fuentes DOSigned Date/Time:07/19/21 1512DD/ 1508 Discharge Plan Discharge Patient Disposition: Home Clinical Impression: Altered mental status, Anemia Condition: Stable Prescriptions: New Auryxia 210 mg iron tablet 210 mg PO BID Qty: 20 RF: 0 No Action sumatriptan succinate [Imitrex] 50 mg tablet 50 mg PO DAILY PRN (Reason: Migraine Headache) RF: 0 aspirin [Adult Aspirin Regimen] 81 mg tablet,delayed release (DR/EC) 81 mg PO DAILY RF: 0 nitroglycerin 6.5 mg capsule, extended release 6.5 mg PO BID RF: 0 losartan 50 mg tablet 50 mg PO DAILY@08 RF: 0 ipratropium-albuterol 0.5 mg-3 mg(2.5 mg base)/3 mL solution for nebulization 3 ml INHALATION QID PRN (Reason: Shortness Of Breath) RF: 0 trazodone 50 mg Tablet 50 mg PO BEDTIME Qty: 30 RF: 0 magnesium hydroxide [Milk of Magnesia] 400 mg/5 mL Suspension 30 ml PO DAILY PRN (Reason: Constipation) RF: 0 bisacodyl 10 mg Suppository 10 mg MN DAILY PRN (Reason: Constipation) RF: 0 Enema 19-7 gram/118 mL Enema 118 ml MN DAILY PRN (Reason: Constipation) RF: 0 quetiapine [Seroquel] 25 mg Tablet 25 mg PO BEDTIME@20 RF: 0 nystatin 100,000 unit/mL Suspension 5 ml PO QID RF: 0 ondansetron HCl [Zofran] 4 mg Tablet 4 mg PO Q4H PRN (Reason: Nausea) RF: 0 gabapentin 400 mg Capsule 400 mg PO TID@08,14,21 RF: 0 alprazolam 0.5 mg Tablet 0.75 mg PO TID@06,12,18 RF: 0 docusate sodium 100 mg Capsule 200 mg PO BEDTIME@21 RF: 0 acetaminophen [Tylenol] 325 mg Capsule 650 mg PO Q6H PRN (Reason: Pain) RF: 0 donepezil 10 mg Tablet 10 mg PO DAILY@08 RF: 0 hydrocodone-acetaminophen 5-325 mg tablet 1 - 2 tab PO Q6H PRN (Reason: Pain) RF: 0 Senna-S 8.6-50 mg tablet 1 tab-cap PO DAILY@09 RF: 0 aspirin 325 mg capsule 325 mg PO DAILY@09 RF: 0 Discharge Orders: Discharge ED (Routine); Ordered 07/19/21 Ordered By: Maria Isabel Kramer Other Ambulatory Orders: DME: BIPAP (Order) Location: None Selected Ordered By: Maria Isabel Kramer Referrals: Gibson Bo MD [Primary Care Provider] - Discharge Diet: Advance as tolerated Discharge Activity: Resume usual activity Patient Instructions: Altered Mental Status (ED), Anemia (ED), Opioid Safety Activity Restrictions/Additional Instructions: Please bring the patient back if there is any new or concerning complaints, if she has fever or chills, if she has any abdominal pain, chest pain, shortness of breath, or other complaints at this time. Coding Level of Care Code ED Newspaper Photographer for Lorenzo Esteves
--- NOTE | 2021-07-19 16:05 | PC.PHAR ---
PT IS [facility] NURSE FROM [facility] STATES THE PT TOOK NO MEDICATIONS TODAY
[2021-07-19 16:11] LABS: Basophils % 0.6 %; Eosinophils # 0.4 10^3/uL (0.0-0.8); Eosinophils % 6.1 %; Hemoglobin 8.3 g/dL (11.5-15.3); Lymphocytes # 1.1 10^3/uL (0.8-4.8); Lymphocytes % 16.8 %; Mean Corpuscular HGB Conc 30.7 g/dL (30.0-36.0); Mean Corpuscular Hemoglobin 28.7 pg (28.0-34.0); Mean Corpuscular Volume 93.4 fl (81-99); Mean Platelet Volume 9.4 fL (7.4-10.4); Monocytes # 0.4 10^3/uL (0.2-0.9); Monocytes % 5.9 %; Neutrophils # 4.63 10^3/uL (1.8-7.7); Neutrophils % 70.1 %; Nucleated Red Blood Cells % 0 %; Platelet Count 242 10^3/cmm (130-400); Red Blood Count 2.89 10^6/uL (4.1-5.3); Red Cell Distribution Width 17.4 % (12.1-15.1); White Blood Count 6.6 10^3/uL (4.0-10.0)
[2021-07-19 16:27] LABS: Alanine Aminotransferase 10 U/L (0-33); Albumin Level 3.2 g/dL (3.5-5.2); Alkaline Phosphatase 145 IU/L (35-105); Anion Gap 6.7 (5-19); Aspartate Amino Transferase 14 U/L (0-32); Blood Urea Nitrogen 11 mg/dL (8-23); Calcium 7.9 mg/dL (8.5-10.5); Chloride 97 mmol/L (98-107); Globulin 1.8 g/dL (1.3-4.6); Glucose 79 mg/dL (65-115); Lactate (Lactic Acid level) 0.7 mmol/L (0.5-2.2); Lipase 54 U/L (13-60); Osmolality Calculated 288 mOsm/kg (285-295); Potassium 4.7 mmol/L (3.5-5.1); Sodium 140 mmol/L (136-145); Total Bilirubin 0.2 mg/dL (0.15-1.2)
[2021-07-19 16:30] LABS: Carbon Dioxide 41 mmol/L (22-29)
[2021-07-19 18:02] LABS: ABG PH Result 7.36 (7.35-7.45); Arterial Blood Gas Hematocrit 25.4 % (37-47); Base Excess ABG 13.6 mmol/L (-2.0-2.0); Blood Gas Allen Test Pos; Blood Gas Sample Site Radial, left; Blood Gas Sample Type Arterial; Oxygen Device NC
[2021-07-19 18:14] VITALS: PULSE 91; RESP 18
[2021-07-19 19:00] VITALS: PULSE 115; RESP 19; O2SAT 92
[2021-07-19 20:10] VITALS: RESP 16
[2021-07-19] MEDS: fentaNYL 50 mcg/mL INJ 2mL 25 MCG IVP (20:10)
--- NOTE | 2021-07-21 14:28 | DCPLANNER ---
medical case manager had message to speak with [facility] to see if the [facility] took care of getting bi pap and followup with pcp, correctional casework specialist spoke with penitentiary and they are taking care of patient with followup with pcp, and bi pap if needed and if patient is agreeable.
== END 2021-07-19 20:32 | disposition home or self-care (01) ==
PROVIDERS: Emergency Provider Emergency Medicine; PCP Family Medicine
DX: R41.82 Altered mental status, unspecified (principal); D64.9 Anemia, unspecified; Z79.82 Long term (current) use of aspirin; J44.9 Chronic obstructive pulmonary disease, unspecified; Z86.73 Personal history of transient ischemic attack (TIA), and cerebral infarction without residual deficits; F03.90 Unspecified dementia, unspecified severity, without behavioral disturbance, psychotic disturbance, mood disturbance, and anxiety; I10 Essential (primary) hypertension; E78.2 Mixed hyperlipidemia; Z87.891 Personal history of nicotine dependence
CPT/HCPCS: 36600; 70450; 80053; 82803; 83605; 83690; 85025; 96361; 96374; 99284; J3010; J7040

== ENCOUNTER → 2021-07-20 14:58 | Outpatient (BNVA) | payer MEDICARE, MEDICAID, SELFPAY | PROVIDERS: PCP Family Medicine; Visit Provider Physician Assistant | DX: S72.142D Displaced intertrochanteric fracture of left femur, subsequent encounter for closed fracture with routine healing (principal); X58.XXXD Exposure to other specified factors, subsequent encounter | CPT/HCPCS: 73502 ==

== ENCOUNTER → 2021-09-07 08:36 | Outpatient (BNVA) | payer MEDICARE, MEDICAID, SELFPAY | PROVIDERS: PCP Family Medicine; Visit Provider Physician Assistant | DX: S72.142A Displaced intertrochanteric fracture of left femur, initial encounter for closed fracture (principal); Z48.89 Encounter for other specified surgical aftercare; X58.XXXA Exposure to other specified factors, initial encounter | CPT/HCPCS: 73502 ==